=== PATIENT | male | born 1940 | race Caucasian/White ===

== ENCOUNTER 2019-05-14 10:15 | Emergency (ER) | payer MEDICARE, OTHER, SELFPAY ==
--- NOTE | ~2019-05-14 | XR_ITS ---
XR chest 2V DATE: 05/14/2019 11:27 INDICATION: Cough for 10 days TECHNIQUE: PA and lateral views COMPARISON: None FINDINGS: Heart size is borderline. There is aortic calcification and ectasia. No hilar or mediastina l enlargement is evident. No pulmonary infiltrate or consolidation, pleural effusion or pulmonary vascular congestion or pneumo thorax. There is degenerative spurring of the thoracic spine. IMPRESSION: No active pulmonary disease Reviewed, dictated and finalized at location A. IMPRESSION: No active pulmonary disease
[2019-05-14 11:05] VITALS: BP 147/79; PULSE 68; RESP 20; TEMP 36.7; O2SAT 98
--- NOTE | 2019-05-14 11:20 | ED.URI ---
HPI - URI/Sore Throat General Chief Complaint: Upper Respiratory Infection Stated Complaint: COUGH/SORE THROAT Time Seen by Provider: 05/14/19 11:12 Source: patient and RN notes reviewed Mode of arrival: ambulatory Limitations: no limitations History of Present Illness HPI Narrative: Patient presents today complaining of a 10-day history of productive cough with green sputum, postnasal drip. Denies shortness of breath, fever, congestion, rhinorrhea. He has not been taking any pbsn-vyw-nitgvid medications for symptoms prior to arrival. Denies any history of asthma or COPD. He is a non-smoker. MD elicited complaint: cough Related Data Home Medications Medication Instructions Recorded Confirmed atorvastatin 20 mg DAILY 05/14/19 05/14/19 febuxostat [Uloric] 40 mg DAILY 05/14/19 05/14/19 glipizide 10 mg DAILY 05/14/19 05/14/19 lisinopril 40 mg DAILY 05/14/19 05/14/19 nifedipine 30 mg PO DAILY 05/14/19 05/14/19 Allergies Allergy/AdvReac Type Severity Reaction Status Date / Time No Known Allergies Allergy Unknown Verified 11/27/16 11:24 Review of Systems Review of Systems: Narrative: CONSTITUTIONAL: Denies body aches, fever, chills, or sweats. EYES: Denies visual changes, redness, or discharge. ENT: Denies rhinorrhea, congestion, sore throat, or otalgia. CARDIOVASCULAR: Denies chest pain, palpitations, or edema. RESPIRATORY: Denies dyspnea.+ Cough GASTROINTESTINAL: Denies abdominal pain, nausea, vomiting, or diarrhea. GENITOURINARY: Denies dysuria or hematuria. SKIN: Denies rash, itching, or wounds. MUSCULOSKELETAL: Denies back pain, joint pain, or myalgia. NEUROLOGIC: Denies headache, numbness, tingling, or weakness. PSYCH: Denies depression or anxiety. [facility] Family History Family History (Updated 02/08/17 @ 09:10 by DOCTOR UNKNOWN) Other Family history of malignant neoplasm Social History Social History Smoking status: Never smoker Alcohol intake: current Gender identity (if verbalized by the patient): Male Comments At time of signature, I have reviewed and agree with nursing past medical, surgical, social and family history unless otherwise noted. Please see nursing chart for further information. There is no relevant family history pertinent to the presenting complaint Exam Narrative: Exam Narrative: GENERAL: Well-appearing, well-nourished, and in no acute distress. HEAD: Normocephalic, atraumatic. EYES: EOMI. No redness or drainage. Conjunctivae normal. ENT: Mucous membranes pink and moist. Nares clear. No rhinorrhea. Severe bilateral cerumen impactions. Throat normal. Uvula midline. NECK: Normal AROM. Supple. No lymphadenopathy. CHEST: No respiratory distress. Clear to auscultation. HEART: Regular rate and rhythm. No murmur appreciated. Normal peripheral pulses. EXTREMITIES: Normal range of motion. No edema. SKIN: Warm, dry, no rash. NEURO: No focal deficits. Alert and oriented x3. Gait steady. PSYCH: Normal affect. No signs of depression or anxiety. Course Vital Signs Vital signs: Vital Signs Temperature 98.1 F 05/14/19 11:05 Pulse Rate 68 05/14/19 11:05 Respiratory Rate 20 05/14/19 11:05 Blood Pressure 147/79 H 05/14/19 11:05 Pulse Oximetry 98 05/14/19 11:05 Temperature 98.1 F 05/14/19 11:05 Pulse Rate 68 05/14/19 11:05 Respiratory Rate 20 05/14/19 11:05 Blood Pressure 147/79 H 05/14/19 11:05 Pulse Oximetry 98 05/14/19 11:05 Reviewed. Pt has been instructed to follow up with his PCP regarding his elevated blood pressure today. Procedures Ear Wax Removal Both Ears: Ear Wax Removal Date: 05/14/19 Ear Wax Removal Time: 11:42 Results: Re-examined: other (Attempted) TM Examination: other (Unable to visualize) Complications: other (Coughing and nausea) Additional Comments: Attempted to remove cerumen from both ear canals with a curette. Every time I would touch the cerumen, patient would cough so siegel
== END 2019-05-14 11:52 | disposition home or self-care (01) ==
PROVIDERS: Emergency Provider Nurse Practitioner
DX: J40 Bronchitis, not specified as acute or chronic (principal); H61.23 Impacted cerumen, bilateral; J06.9 Acute upper respiratory infection, unspecified; I25.10 Atherosclerotic heart disease of native coronary artery without angina pectoris; E78.00 Pure hypercholesterolemia, unspecified; I10 Essential (primary) hypertension
CPT/HCPCS: 69210; 71046; 99213; G0463

== ENCOUNTER 2019-06-16 10:08 | Emergency (ER) | payer MEDICARE, OTHER, SELFPAY ==
[2019-06-16 10:12] VITALS: TEMP 36.5
--- NOTE | 2019-06-16 10:20 | ED.GENADULT ---
HPI - General Adult General Chief complaint: Upper Respiratory Infection Stated complaint: Sinuis Infection Time Seen by Provider: 06/16/19 10:21 Source: patient and RN notes reviewed Mode of arrival: ambulatory Limitations: no limitations History of Present Illness HPI narrative: This is a 79 years old male presents to the office for an evaluation of persistent sinus congestion.Symptoms were not better or worse since the last time he was here. He did not take anything otc for his symptoms. He has an appointment with ENT on 06/22; but he does not think he can wait that long. I reviewed patient's previous visit. HPI - URI/Sore Throat General Chief Complaint: Upper Respiratory Infection Stated Complaint: COUGH/SORE THROAT Time Seen by Provider: 05/14/19 11:12 Source: patient and RN notes reviewed Mode of arrival: ambulatory Limitations: no limitations History of Present Illness HPI Narrative: Patient presents today complaining of a 10-day history of productive cough with green sputum, postnasal drip. Denies shortness of breath, fever, congestion, rhinorrhea. He has not been taking any kviy-bzz-rrftztm medications for symptoms prior to arrival. Denies any history of asthma or COPD. He is a non-smoker. MD elicited complaint: cough Related Data Home Medications Medication Instructions Recorded Confirmed atorvastatin 20 mg DAILY 05/14/19 05/14/19 febuxostat [Uloric] 40 mg DAILY 05/14/19 05/14/19 glipizide 10 mg DAILY 05/14/19 05/14/19 lisinopril 40 mg DAILY 05/14/19 05/14/19 nifedipine 30 mg PO DAILY 05/14/19 05/14/19 Allergies Allergy/AdvReac Type Severity Reaction Status Date / Time No Known Allergies Allergy Unknown Verified 06/16/19 10:43 Review of Systems Review of Systems: Narrative: CONSTITUTIONAL: Denies fever, chills ENT: Reports sinus drainage, ears clogged CARDIOVASCULAR: Denies chest pain RESPIRATORY: Denies dyspnea, wheezing. Reports cough GASTROINTESTINAL: Denies abdominal pain, nausea, vomiting, diarrhea. GENITOURINARY: Denies urinary symptoms SKIN: Denies rash MUSCULOSKELETAL: Denies acute back pain NEUROLOGIC: Denies lightheaded PMFSH Past Medical History Medical History (Updated 06/16/19 @ 10:47 by JOSEP Tavarez) CAD (coronary artery disease) Diabetes mellitus, type II HLD (hyperlipidemia) HTN (hypertension) Hx of gout Hx of prostatic malignancy Surgical History Surgical History (Updated 06/16/19 @ 10:47 by JOSEP Tavarez) Hx of tonsillectomy Family History Family History Other Family history of malignant neoplasm Social History Social History Smoking status: Never smoker Alcohol intake: current Gender identity (if verbalized by the patient): Male Comments At time of signature, I agree with nursing past medical, surgical, social and family history. There is no relevant family history pertinent to the presenting complaint. Exam Narrative: Exam Narrative: GENERAL: This is a well-nourished, well-developed patient, in no apparent distress. EARS: External ears normal,bilateral TMs noted cerumen impaction. NOSE: External nose normal with no obvious nasal discharge, nares erythema and edematous THROAT: Mucous membranes moist, posterior pharynx pink with drainage NECK: Neck supple, non-tender without lymphadenopathy, masses or thyromegaly. CARDIOVASCULAR: Regular rate and rhythm without murmurs, gallops, or rubs. RESPIRATORY: Clear to auscultation. Breath sounds equal bilaterally. No wheezes, rales, or rhonchi. GASTROINTESTINAL: Abdomen soft, non-tender, nondistended. Bowel sounds are active. No guarding. SKIN: warm, intact with no suspicious lesions or rash, good texture and turgor. NEURO: awake, alert, and oriented to person, place and time. There were no obvious focal neurologic abnormalities. Steady gait [place] Coma Scale Eye Opening: Sp
[2019-06-16 10:22] VITALS: BP 155/65; PULSE 93; RESP 20; O2SAT 98
== END 2019-06-16 10:48 | disposition home or self-care (01) ==
PROVIDERS: Emergency Provider Nurse Practitioner
DX: H61.23 Impacted cerumen, bilateral (principal); J32.4 Chronic pansinusitis; I25.10 Atherosclerotic heart disease of native coronary artery without angina pectoris; E11.9 Type 2 diabetes mellitus without complications; E78.5 Hyperlipidemia, unspecified; I10 Essential (primary) hypertension; Z85.46 Personal history of malignant neoplasm of prostate; Z79.84 Long term (current) use of oral hypoglycemic drugs
CPT/HCPCS: 69209; 99213; G0463

== ENCOUNTER 2019-07-14 10:42 | Outpatient (CLI) | payer MEDICARE, OTHER, SELFPAY ==
[2019-07-14 11:01] LABS: Basophils Absolute Auto 0.1 K/mm3 (0.0-0.1); Basophils Percent Auto 1.3 % (0.2-1.2); Eosinophils Absolute Auto 0.2 K/mm3 (0-0.3); Eosinophils Percent Auto 3.8 % (0-4.4); Hemoglobin 11.9 g/dL (14.0-18.0); Immature Granulocyte Absolute 0.02 K/mm3 (0.00-0.031); Immature Granulocyte Percent A 0.4 % (0-0.5); Immature Platelet Fraction Pct 12.1 % (0.9-11.2); Lymphocytes Absolute Auto 1.26 K/mm3 (0.9-3.2); Lymphocytes Percent Auto 26.5 % (18.3-44.2); Mean Corpuscular Hemoglobin 31.7 pg (26-34); Mean Corpuscular Volume 93.3 fl (80-100); Mean Platelet Volume 12.6 fl (7.4-10.4); Monocytes Absolute Auto 0.5 K/mm3 (0.1-0.6); Monocytes Percent Auto 11.1 % (2.6-8.5); Neutrophils Absolute Auto 2.7 K/mm3 (1.3-6.7); Neutrophils Percent Auto 56.9 % (45.5-73.1); Platelet Count Result 94 k/mm3 (150-375); Red Blood Count 3.75 M/mm3 (4.6-6.20); Red Cell Distribution Width 16.3 % (11.5-14.5); White Blood Count 4.8 K/mm3 (4.5-10.0)
[2019-07-14 11:09] LABS: Hemoglobin A1C 7.9 % (<5.7)
[2019-07-14 11:12] LABS: Alanine Aminotransferase 13 U/L (4-50); Albumin Level 4.2 g/dL (3.5-5.1); Alkaline Phosphatase 54 U/L (38-126); Aspartate Amino Transferase 17 U/L (17-59); Bilirubin,Total 0.6 mg/dL (0.2-1.3); Blood Urea Nitrogen 14 mg/dL (9-20); Calcium 9.2 mg/dL (8.4-10.2); Carbon Dioxide 30 mmol/L (22-30); Chloride 101 mmol/L (98-107); Estimated Glomerular Filt Rate > 60; Glucose 283 mg/dL (75-110); Potassium 4.1 mmol/L (3.4-5.0); Sodium 138 mmol/L (137-145)
== END 2019-07-14 10:43 | disposition home or self-care (01) ==
DX: I10 Essential (primary) hypertension (principal); D69.6 Thrombocytopenia, unspecified; E11.9 Type 2 diabetes mellitus without complications
CPT/HCPCS: 36415; 80053; 83036; 85025; 85055

== ENCOUNTER 2021-07-18 08:40 | Outpatient (CLI) | payer MEDICARE, OTHER, SELFPAY ==
--- NOTE | 2021-07-18 | ECHO_ITS ---
Patient Info Name: Tai Naqvi Ormrod Age: 81 years : 1940 Gender: Male Ht: 69 in Wt: 210 lbs BSA: 2.18 m2 HR: 99 bpm BP: 157 / 67 mmHg Heart Rhythm: Sinus Rhythm Technical Quality: Fair Exam Date: 07/18/2021 9:05 AM Exam Location: [facility] Patient Status: Outpatient Admit Date: 07/18/2021 Staff Ordering Physician: LauraPatricia MD Associate Field Service Engineer: Arielle Victoria RDCS Attending Provider: Laura, Patricia Bledsoe MD Referring Physician: Laura DOSHI; Exam Type: CA echo doppler color flow Study Info Indications R01.1 - Cardiac murmur, unspecified Complete two-dimensional, color flow and Doppler transthoracic echocardiogram is performed. Summary 1. Complete two-dimensional, color flow and Doppler transthoracic echocardiogram is performed. 2. Left ventricular systolic function is normal, estimated at 60-65%. 3. Left ventricular chamber dimension is normal. 4. Left atrial chamber dimension is mildly enlarged. 5. There is mild aortic valve sclerosis. 6. There is mild aortic valve regurgitation. Left Ventricle Left ventricular chamber dimension is normal. Left ventricular systolic function is normal, estimated at 60-65%. The left ventricular diastolic function is grade I diastolic dysfunction. Right Ventricle Right ventricular chamber dimension is normal. Left Atria Left atrial chamber dimension is mildly enlarged. Right Atria Right atrial chamber dimension is normal. Aortic Valve The aortic valve is trileaflet. There is mild aortic valve sclerosis. There is mild aortic valve regurgitation. Pulmonic Valve The pulmonic valve is not well visualized. Mitral Valve The mitral valve has normal leaflets. The mitral valve annulus is mildly calcified. Tricuspid Valve The tricuspid valve leaflets are normal. Pericardium/Pleural The pericardium appears normal. Aorta The aortic root size at the sinus of Valsalva is normal. Left Ventricular Outflow Tract Name Value Normal LVOT 2D LVOT Diameter 2.0 cm LVOT Doppler LVOT Peak Gradient 8 mmHg LVOT Mean Gradient 4 mmHg LVOT VTI 34 cm LVOT VTI/AV VTI Ratio 0.8 LVOT Stroke Volume 108 ml LVOT CO 6.3 l/min LVOT CI 2.9 l/min/m2 Pulmonic Valve Name Value Normal RVOT Doppler RVOT Peak Gradient 3 mmHg PV Doppler PV Peak Gradient 5 mmHg Mitral Valve Name Value Normal
== END 2021-07-18 08:41 | disposition home or self-care (01) ==
LOC: ANHCARD 08:42
PROVIDERS: PCP Family Medicine; Visit Provider Family Medicine
DX: N18.2 Chronic kidney disease, stage 2 (mild) (principal); Q61.02 Congenital multiple renal cysts; R01.1 Cardiac murmur, unspecified; I35.1 Nonrheumatic aortic (valve) insufficiency
CPT/HCPCS: 93306

== ENCOUNTER 2021-12-19 09:52 | Outpatient (CLI) | payer MEDICARE, OTHER, SELFPAY ==
--- NOTE | 2021-12-19 11:30 | NEURO_ITS ---
Impression: # Complains of numbness of hands and feet. 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 # No Carpal Tunnel Syndrome. # Needle/EMG exam mildly neurogenic distally. Nerve Conduction Studies Anti Sensory Summary Table Stim Site NR Peak (ms) P-T Amp (?V) Site1 Site2 Delta-P (ms) Dist (cm) Clay (m/s) Left Median Anti Sensory (2-3nd Digit) Wrist 3.4 15.2 Wrist 2-3nd Digit 3.4 14.0 41 Wrist 3.5 19.3 Wrist 2-3nd Digit 3.4 14.0 41 Right Median Anti Sensory (2-3nd Digit) Wrist 3.7 18.3 Wrist 2-3nd Digit 3.7 14.0 38 Wrist 3.8 17.8 Wrist 2-3nd Digit 3.7 14.0 38 Left Radial Anti Sensory (Base 1st Digit) Wrist 2.4 13.2 Wrist Base 1st Digit 2.4 0.0 Right Radial Anti Sensory (Base 1st Digit) Wrist 2.7 18.1 Wrist Base 1st Digit 2.7 0.0 Left Sup Fibular Anti Sensory (Ant Lat Mall) 14 cm 3.6 11.6 14 cm Ant Lat Mall 3.6 16.0 44 Right Sup Fibular Anti Sensory (Ant Lat Mall) 14 cm 3.4 7.4 14 cm Ant Lat Mall 3.4 16.0 47 Left Sural Anti Sensory (Lat Mall) Calf 3.9 9.6 Calf Lat Mall 3.9 16.0 41 Right Sural Anti Sensory (Lat Mall) Calf 4.0 13.0 Calf Lat Mall 4.0 16.0 40 Left Ulnar Anti Sensory (5th Digit) Wrist 3.0 28.7 Wrist 5th Digit 3.0 14.0 47 Right Ulnar Anti Sensory (5th Digit) Wrist 3.0 21.5 Wrist 5th Digit 3.0 14.0 47 Motor Summary Table Stim Site NR Onset (ms) O-P Amp (mV) Site1 Site2 Delta-0 (ms) Dist (cm) Clay (m/s) Left Median Motor (Abd Poll Brev) Wrist 3.8 0.8 Elbow Wrist 5.7 31.0 54 Elbow 9.5 0.7 Right Median Motor (Abd Poll Brev) Wrist 3.9 1.4 Elbow Wrist 5.4 27.0 50 Elbow 9.3 1.3 Left Peroneal Motor (Vastus Med) Ankle 5.1 2.0 Popit Ankle 9.3 39.0 42 Popit 14.4 1.7 Right Peroneal Motor (Vastus Med) Ankle 5.6 1.9 Popit Ankle 8.7 36.0 41 Popit 14.3 1.3 Left Tibial Motor (Abd Catalan Brev) Ankle 5.1 0.3 Knee Ankle 10.2 41.0 40 Knee 15.3 0.5 Right Tibial Motor (Abd Catalan Brev) Ankle 5.2 2.8 Knee Ankle 10.3 41.0 40 Knee 15.5 1.9 Left Ulnar Motor (Abd Dig Minimi) Wrist 3.3 5.2 A Elbow Wrist 5.3 29.0 55 A Elbow 8.6 4.5 Right Ulnar Motor (Abd Dig Minimi) Wrist 3.0 4.3 A Elbow Wrist 5.8 28.0 48 A Elbow 8.8 3.5 B Elbow Wrist 4.1 21.0 51 B Elbow 7.1 3.3 F Wave Studies NR F-Lat (ms) L-R F-Lat (ms) Left Median (Mrkrs) (Abd Poll Brev) 31.56 0.49 Right Median (Mrkrs) (Abd Poll Brev) 31.07 0.49 Left Peroneal (Mrkrs) (EDB) 62.08 1.29 Right Peroneal (Mrkrs) (EDB) 63.37 1.29 Left Tibial (Mrkrs) (Abd Hallucis) 62.87 0.39 Right Tibial (Mrkrs) (Abd Hallucis) 62.48 0.39 Left Ulnar (Mrkrs) (Abd Dig Min) 31.13 0.17 Right Ulnar (Mrkrs) (Abd Dig Min) 31.31 0.17 EMG Side Muscle Nerve Root Ins Act Fibs Amp Dur Recrt Comment Right 1stDorInt Ulnar C8-T1 Nml Nml Nml Nml Nml Right Ext Indicis Radial (Post Int) C7-8 Nml Nml Nml Nml Nml Right Ext Digitorum Radial (Post Int) C7-8 Nml Nml Nml Nml Nml Right BrachioRad Radial C5-6 Nml Nml Nml Nml Nml Right PronatorTeres Median C6-7 Nml Nml Nml Nml Nml Right A
== END 2021-12-19 09:53 | disposition home or self-care (01) ==
LOC: ANHNEURO 09:54
PROVIDERS: PCP Family Medicine; Visit Provider Family Medicine
DX: E11.40 Type 2 diabetes mellitus with diabetic neuropathy, unspecified (principal)
CPT/HCPCS: 95886; 95913

== ENCOUNTER 2021-12-26 11:40 | Outpatient (CLI) | payer MEDICARE, OTHER, SELFPAY ==
[2021-12-26 12:13] LABS: Basophils Absolute Auto 0.1 K/mm3 (0.0-0.1); Eosinophils Absolute Auto 0.1 K/mm3 (0-0.3); Eosinophils Percent Auto 1.4 % (0-4.4); Hemoglobin 10.6 g/dL (14.0-18.0); Immature Granulocyte Absolute 0.03 K/mm3 (0.00-0.031); Immature Granulocyte Percent A 0.6 % (0-0.5); Immature Platelet Fraction Pct 20.1 % (0.9-11.2); Lymphocytes Absolute Auto 1.17 K/mm3 (0.9-3.2); Lymphocytes Percent Auto 23.3 % (18.3-44.2); Mean Corpuscular HGB Conc 34.2 g/dl (32-36); Mean Corpuscular Hemoglobin 29.8 pg (26-34); Mean Corpuscular Volume 87.1 fl (80-100); Monocytes Absolute Auto 0.6 K/mm3 (0.1-0.6); Monocytes Percent Auto 12.7 % (2.6-8.5); Neutrophils Absolute Auto 3.1 K/mm3 (1.3-6.7); Platelet Count Result 80 k/mm3 (150-375); Red Blood Count 3.56 M/mm3 (4.6-6.20); Red Cell Distribution Width 19.5 % (11.5-14.5)
[2021-12-26 12:23] LABS: Alanine Aminotransferase 20 U/L (6-50); Albumin Level 4.3 g/dL (3.5-5.1); Alkaline Phosphatase 47 U/L (38-126); Anion Gap 10 mmol/L (8-16); Aspartate Amino Transferase 19 U/L (17-59); Bilirubin,Total 0.8 mg/dL (0.2-1.3); Blood Urea Nitrogen 21 mg/dL (9-20); Calcium 8.6 mg/dL (8.4-10.2); Carbon Dioxide 26 mmol/L (22-30); Chloride 100 mmol/L (98-107); Cholesterol 134 mg/dL (0-200); Estimated Glomerular Filt Rate > 60; Glucose 351 mg/dL (65-110); HDL Direct 40 mg/dL; Potassium 4.3 mmol/L (3.4-5.0); Sodium 136 mmol/L (137-145); Triglycerides 154 mg/dL (<150)
[2021-12-26 12:35] LABS: LDL Cholesterol Direct 73 mg/dL
[2021-12-26 13:15] LABS: Hemoglobin A1C 8.2 % (<5.7)
[2021-12-30 10:02] LABS: Vitamin B6 19.9 ng/mL (2.1-21.7)
[2021-12-30 12:33] LABS: Vitamin B1 17 nmol/L (8-30)
== END 2021-12-26 11:41 | disposition home or self-care (01) ==
PROVIDERS: PCP Family Medicine; Visit Provider Student in an Organized Health Care Education/Training Program
DX: G62.9 Polyneuropathy, unspecified (principal); E11.9 Type 2 diabetes mellitus without complications
CPT/HCPCS: 36415; 80053; 80061; 82607; 83036; 84207; 84425; 84443; 85025; 85055; 86334; 86335

== ENCOUNTER 2022-02-20 11:46 | Emergency (ER) | payer MEDICARE, OTHER, SELFPAY ==
[2022-02-20 12:04] VITALS: BP 140/56; PULSE 80; RESP 19; TEMP 36.9; O2SAT 99
--- NOTE | 2022-02-20 12:17 | ED.GENADULT ---
HPI - General Adult General Chief complaint: Skin/Abscess/Foreign Body Stated complaint: groin discomfort Time Seen by Provider: 02/20/22 12:18 Source: patient and RN notes reviewed Mode of arrival: ambulatory Limitations: no limitations History of Present Illness HPI narrative: 82-year-old male presented for complaint of itching and redness to the penis and foreskin for about 10 days. He has tried bacitracin without relief. He states he has had this in the past but usually goes away before 10 days. He denies pain or inability to retract the foreskin, swelling or urinary complaints. Related Data Home Medications Medication Instructions Recorded Confirmed atorvastatin 20 mg tablet 20 mg DAILY 05/14/19 02/20/22 febuxostat 40 mg tablet (Uloric) 40 mg DAILY 05/14/19 02/20/22 glipizide 10 mg tablet 10 mg DAILY 05/14/19 02/20/22 lisinopril 40 mg tablet 40 mg DAILY 05/14/19 02/20/22 nifedipine 30 mg tablet,extended 30 mg PO DAILY 05/14/19 02/20/22 release doxycycline hyclate 50 mg capsule 50 mg PO DAILY 12/14/20 02/20/22 empagliflozin 10 mg tablet 10 mg PO DAILY 02/20/22 02/20/22 (Jardiance) Allergies Allergy/AdvReac Type Severity Reaction Status Date / Time No Known Allergies Allergy Unknown Verified 02/20/22 11:59 Review of Systems Review of Systems: ROS per HPI [facility] Past Medical History Medical History CAD (coronary artery disease) Diabetes mellitus, type II HLD (hyperlipidemia) HTN (hypertension) Hx of gout Hx of prostatic malignancy Surgical History Surgical History History of prostate surgery Hx of inguinal hernia surgery 77 or 78 Hx of tonsillectomy Family History Family History Father Heart failure Mother Colon cancer Other Family history of malignant neoplasm Social History Social History Smoking status: Never smoker Alcohol intake: current Substance use: unknown Gender identity (if verbalized by the patient): Male Comments At time of signature, I have reviewed and agree with nursing past medical, surgical, social and family history unless otherwise noted. Please see nursing chart for further information. There is no relevant family history pertinent to the presenting complaint Exam Narrative: GENERAL: Well-appearing ENT: Mucous membranes pink and moist. NECK: Normal AROM. Supple. CHEST: No respiratory distress. Clear to auscultation. HEART: Regular rate and rhythm. ABDOMEN: Soft, nontender, nondistended, normal active bowel sounds. No CVA tenderness : Mild erythema to glans and foreskin; no discharge or tenderness; foreskin retractable; chaperoned by GABRIELA Macias SKIN: Warm, dry, no rash. NEURO: No focal deficits. Alert and oriented x3. Gait steady. PSYCH: Normal affect. Course Course Emergency Course: Patient is aware of diagnosis, understands and agrees to treatment plan. Anticipatory guidance given. Patient agrees to follow-up as directed and is aware of reasons to seek care at the emergency department. Portions of this record may have been created with voice recognition software Level of Care: Express Care Visit Vital Signs Vital signs: Vital Signs Temperature 98.4 F 02/20/22 12:04 Pulse Rate 80 02/20/22 12:04 Respiratory Rate 19 02/20/22 12:04 Blood Pressure 140/56 L 02/20/22 12:04 Pulse Oximetry 99 02/20/22 12:04 Oxygen Delivery Room Air 02/20/22 12:04 Temperature 98.4 F 02/20/22 12:04 Pulse Rate 80 02/20/22 12:04 Respiratory Rate 19 02/20/22 12:04 Blood Pressure 140/56 L 02/20/22 12:04 Pulse Oximetry 99 02/20/22 12:04 Oxygen Delivery Room Air 02/20/22 12:04 Reviewed Medical Decision Making MDM Narrative Medical decision making narrative: Advised supportive andrez
== END 2022-02-20 12:28 | disposition home or self-care (01) ==
PROVIDERS: Emergency Provider Nurse Practitioner Family; PCP Family Medicine
DX: N48.1 Balanitis (principal); I25.10 Atherosclerotic heart disease of native coronary artery without angina pectoris; E11.9 Type 2 diabetes mellitus without complications; E78.5 Hyperlipidemia, unspecified; I10 Essential (primary) hypertension; M10.9 Gout, unspecified; Z85.46 Personal history of malignant neoplasm of prostate; Z90.79 Acquired absence of other genital organ(s)
CPT/HCPCS: 99213; G0463

== ENCOUNTER 2023-01-23 13:55 | Outpatient (CLI) | payer MEDICARE, OTHER, SELFPAY ==
[2023-01-23 15:03] LABS: Hematocrit 27.6 % (42.0-52.0); Hemoglobin 8.7 g/dL (14.0-18.0); Immature Platelet Fraction Pct 24.2 % (0.9-11.2); Mean Corpuscular HGB Conc 31.5 g/dl (32-36); Mean Corpuscular Hemoglobin 29.6 pg (26-34); Mean Corpuscular Volume 93.9 fl (80-100); Platelet Count Result 60 k/mm3 (150-375); Red Blood Count 2.94 M/mm3 (4.6-6.20); White Blood Count 3.7 K/mm3 (4.5-10.0)
[2023-01-23 15:12] LABS: Alanine Aminotransferase 12 U/L (6-50); Alkaline Phosphatase 35 U/L (38-126); Anion Gap 7 mmol/L (8-16); Aspartate Amino Transferase 16 U/L (17-59); Bilirubin,Total 0.8 mg/dL (0.2-1.3); Blood Urea Nitrogen 20 mg/dL (9-20); Calcium 8.9 mg/dL (8.4-10.2); Carbon Dioxide 29 mmol/L (22-30); Chloride 105 mmol/L (98-107); Estimated Glomerular Filt Rate > 60; Glucose 121 mg/dL (65-110); Potassium 3.9 mmol/L (3.4-5.0); Sodium 141 mmol/L (137-145)
[2023-01-23 17:44] LABS: Anisocytosis 1+ (NORMAL); Band Neutrophils Percent 1 % (0-6); Basophils Absolute Manual 0.11 K/mm3 (0.0-0.1); Basophils Percent Manual 3 % (0-1); Eosinophils Absolute Manual 0.07 K/mm3 (0.02-0.5); Eosinophils Percent Manual 2 % (0-4); Lymphocytes Absolute Manual 0.85 K/mm3 (1.1-4.5); Lymphocytes Percent Manual 23 % (18-44); Monocytes Absolute Manual 0.14 K/mm3 (0.1-0.90); Monocytes Percent Manual 4 % (3-9); Neutrophils Absolute Manual 2.51 K/mm3 (1.3-6.7); Neutrophils Percent Manual 67 % (46-73); Platelet Estimate Decreased (Adequate); Poikilocytosis 1+ (NORMAL); Total Cells Counted 100
[2023-01-23 17:45] LABS: Ovalocytes 1+ (NORMAL)
[2023-01-23 17:48] LABS: Atypical Lymphocytes Present
[2023-01-23 17:54] LABS: Schistocytes Rare (NORMAL)
== END 2023-01-23 13:56 | disposition home or self-care (01) ==
LOC: ANHLAB 14:09
PROVIDERS: PCP Family Medicine; Visit Provider Family Medicine
DX: D69.6 Thrombocytopenia, unspecified (principal)
CPT/HCPCS: 36415; 80053; 85025; 85055

== ENCOUNTER 2023-02-03 07:53 | Outpatient (CLI) | payer MEDICARE, OTHER, SELFPAY ==
[2023-02-03 08:26] LABS: Basophils Absolute Auto 0.1 K/mm3 (0.0-0.1); Basophils Percent Auto 1.8 % (0.2-1.2); Eosinophils Absolute Auto 0.1 K/mm3 (0-0.3); Eosinophils Percent Auto 1.8 % (0-4.4); Hematocrit 29.4 % (42.0-52.0); Hemoglobin 9.4 g/dL (14.0-18.0); Immature Granulocyte Absolute 0.01 K/mm3 (0.00-0.031); Immature Granulocyte Percent A 0.3 % (0-0.5); Immature Platelet Fraction Pct 24.1 % (0.9-11.2); Lymphocytes Absolute Auto 0.97 K/mm3 (0.9-3.2); Lymphocytes Percent Auto 25.6 % (18.3-44.2); Mean Corpuscular Volume 93.9 fl (80-100); Monocytes Absolute Auto 0.7 K/mm3 (0.1-0.6); Monocytes Percent Auto 17.4 % (2.6-8.5); Neutrophils Percent Auto 53.1 % (45.5-73.1); Platelet Count Result 68 k/mm3 (150-375); Red Blood Count 3.13 M/mm3 (4.6-6.20); White Blood Count 3.8 K/mm3 (4.5-10.0)
[2023-02-03 09:16] LABS: Anisocytosis 2+ (NORMAL); Ovalocytes 1+ (NORMAL); Platelet Estimate Decreased (Adequate); Schistocytes None Seen (NORMAL)
[2023-02-03 09:17] LABS: Burr Cells 1+ (NORMAL); Poikilocytosis 1+ (NORMAL)
[2023-02-03 09:25] LABS: Iron 138 ug/dL (49-181)
[2023-02-03 09:28] LABS: Lactate Dehydrogenase 136 U/L (120-246)
[2023-02-03 09:38] LABS: Percent Iron Saturation 48 % (20-50)
== END 2023-02-03 07:54 | disposition home or self-care (01) ==
LOC: ANHLAB 07:57
PROVIDERS: PCP Family Medicine; Visit Provider Family Medicine
DX: D64.9 Anemia, unspecified (principal); D69.6 Thrombocytopenia, unspecified
CPT/HCPCS: 36415; 83540; 83550; 83615; 85025; 85055

== ENCOUNTER 2024-01-03 10:57 | Outpatient (CLI) | payer MEDICARE, OTHER, SELFPAY ==
[2024-01-03 12:51] LABS: Prostate Specific Antigen < 0.1 ng/mL (< OR = 4.0)
== END 2024-01-03 10:58 | disposition home or self-care (01) ==
PROVIDERS: PCP Family Medicine; Visit Provider Urology
DX: C61 Malignant neoplasm of prostate (principal)
CPT/HCPCS: 36415; 84153

== ENCOUNTER 2024-10-18 09:44 | Emergency (ER) | payer MEDICARE, OTHER, SELFPAY ==
--- NOTE | ~2024-10-18 | XR_ITS ---
EXAMINATION: XR chest 2V DATE: 10/18/2024 09:57 INDICATION: Cough TECHNIQUE: PA and lateral views of the chest were obtained. COMPARISON: Chest radiograph dated 05/14/2019 FINDINGS: Left lower lobar opacities in the posterior left lung base concerning for pneumonia. No other airspac e opacities, pulmonary edema, pleural effusion or pneumothorax. The cardiomediastinal silhouette is n ormal. Visualized bones and soft tissues are unremarkable. IMPRESSION: 1. New opacities in the basilar left lower lobe concerning for pneumonia. Reviewed, dictated and finalized at location A.
--- OUTSIDE RECORDS SUMMARY | 2024-10-18 09:47 | XMS_ITS | Encounter Summary ---
Author Organization [facility] Address [address] [place] [address] Phone Care Team Providers Care Cable Respooler Name Role Phone Patricia Sanchez MD Primary Care Prov ider Ct Oliveira TRANSIT POLICE OFFICER Unavailable [phone] Encounter Details Date Type Department Care Team (Late st Contact Info) Description 09/26/2024 Results Follow-Up [facility] [address] [facility] [address] [place] [address] Sarah Delatorre, JULIAN [address] [place] [address] CBC with auto differential, ABO/Rh, Antibody screen, Additional followed-up results: 4 Social History Tobacco Use Types Packs/Day Years Used Date Smoking Tobacco: Never Smokeless Tobacco: Never Alcohol Use Standard Drinks/Week Comments Yes 0 (1 standard drink = 0.6 oz pur e alcohol) AUDIT-C Answer Date Recorded Frequency of Alcohol Consumption Not on file 09/19/2023 Q2: How many drinks containi ng alcohol do you have on a typical day when you are drinking? 1 or 2 Q3: How often do you have si x or more drinks on one occasion? Daily or almost daily 09/19/2023 Sex and Gender Information Value Date Recorded Sex Assigned at Not on file Legal Sex Male 10:48 AM CEO & BOARD DIRECTOR Gender Identity Male 02/09/2020 12:06 PM CEO & BOARD DIRECTOR Sexual Orientation Straight 02/09/2020 12 :06 PM CEO & BOARD DIRECTOR documented as of this encounter Miscellaneous Notes * Result Encounter Note - Sarah Delatorre NP - 09/26/2024 8:30 AM CDT Can we have Dr. Pierre review his labs and see what she recommends? I think we are going to have herfollow up with him. Thanks. documented in this encounter Plan of Treatment Not on file documented as of this encounter Visit Diagnoses Not on filedocumented in this encounter Care Teams Cable Respooler Relationship Specialty Start Date End Date Patricia Sanchez MD PCP - General Family Medicine 07/05/17 Ct Oliveira NP [address] [place] [address] Nurse Practitioner Nurse Practitioner 05/07/23 documented as of this encounter
--- OUTSIDE RECORDS SUMMARY | 2024-10-18 09:47 | XMS_ITS | Clinical Summary ---
Author Organization [facility] Address [address] [place] [address] Care Team Providers Care Flatwork Feeder Name Role Phone Patricia Valdez MD Primary Care Provider Allergies No known active allergies Medications allopurinol 100 MG tablet Active atorvastatin 20 MG tablet 8 Active ULORIC 40 MG tablet 8 Active lisinopril 40 MG tablet 8 Active NIFEdipine 30 MG 24 hr tablet 8 Active cholecalciferol (VITAMIN D-[address]) 25 MCG (1000 UT) Tab tablet Take 2,000 Units by mouth daily. Active glipiZIDE 10 MG tablet 2 Active sildenafil 100 MG tablet 1 Active prednisoLONE acetate 1 % ophthalmic suspension prednisolone acetate 1 % eye drops,suspension Active doxycycline hyclate 50 MG capsule 2 Active Active Problems Problem Noted Date Diagnosed Date Basal cell carcinoma of nose 06/20/2021 Essential hypertension 06/20/2021 History of malignant neoplasm of prostate 2021 Hypercholesterolemia 06/20/2021 Type 2 diabetes mellitus wit hout complication ([facility]) 06/20/2021 Thrombocytopenic disorder 07/04/2017 Gout 10/10/2016 Rosacea 01/11/2016 Nephrolithiasis 06/30/2013 Malignant neoplasm of prostate ([facility]) 03/21/2012 Resolved Problems Problem Noted Date Diagnosed Date Resolved Date Encounter for preventive health examination 01/08/2012 06/27/2021 Family History Relation Status Comments Father Mother Social History Tobacco Use Types Packs/Day Years Used Date Smoking Tobacco: Never Smokeless Tobacco: Never Tobacco Cessation:Counseling Given: Yes Alcohol Use Standard Drinks/Week Comments Yes 3.3 (1 standard drink = 0.6 oz p ure alcohol) PHQ-2 Answer Date Recorded PHQ-2 Score - If the patient scores above 3, please move on to questions 3-9 0 06/20/2021 Sex and Gender Information Value Date Recorded Sex Assigned at Not on file Legal Sex Male 7:35 PM CDT Gender Identity Male 06/20/2021 5:50 AM CDT Sexual Orientation Straight 06/20/2021 5: 50 AM CDT Last Filed Vital Signs Vital Sign Reading Time Taken Comments Blood Pressure 130/80 07/08/2021 9:14 AM CDT Pulse 70 07/08/2021 9:14 AM CDT Temperature 36.1 C (96.9 F) 07/08/2021 9:14 AM CDT Respiratory Rate 20 07/08/2021 9:14 AM CDT Oxygen Saturation 98% 07/08/2021 9:14 AM CDT Inhaled Oxygen Concentration - - Weight 93.4 kg (206 lb) 07/08/2021 9:14 AM CDT Height 175.3 cm (5' 9) 07/08/2021 9:14 AM CDT Body Mass Index 30.42 07/08/2021 9:14 AM CDT Plan of Treatment Health Maintenance Due Date Last Done Comments Kidney Health Evaluation 1940 Hemoglobin A1C 1940 Lipid Panel 1940 Diabetes: Retinopathy Eye Exam 1957 DTaP, Tdap and Td Vaccines (1 - Tdap) 1958 Annual Medicare Wellness Visit 01/25/2004 RSV Immunization or 60+ Years (1 - 1-dose 75+ series) 2014 Zoster Vaccines (2 of 3) 07/21/2015 05/26/2015 COVID-19 Vaccine ( - season) 2023 11/18/2020, 06/11/2020, 05/14/2020, Additional history exists Pneumococcal Vaccine: 50+ Years Completed 11/20/2018, 05/16/2016 Meningococcal B Vaccine Aged Out No l onger eligible based on patient's age to complete this topic Meningococcal Vaccine Aged Out No fabiana brian eligible based on patient's age to complete this topic RSV Immunizations Under 20 Months Aged Out No longer eligible based on patient's age to complete this topic Insurance MEDICARE [facility] Care Teams Flatwork Feeder Relationship Specialty Start Date End Date Patricia Valdez MD [address] [place] [id number] PCP - General 03/13/16
--- OUTSIDE RECORDS SUMMARY | 2024-10-18 09:47 | XMS_ITS | Continuity of Care Document ---
Author Name [facility] Organization [facility] Care Team Providers Care Call Or Contact Centre Manager Name Role Phone [facility] Unavailable Unavailable Problems Combined list of problems from Department [facility] and [facility] facilities. It does not include entries that were removed or entered in error. Problem Status Onset Date Problem Type Date of Resolution Comments Source Patient Counseling: Inactive Condition D oD visit for: screening exam cardiovascular disorders Inactive Condition [facility] Medications Combined list of outpatient medications from [facility] and [facility] facilities.Medications provided include 1) outpatient medications from the last 15 months, and 2) patient-reported medications. Medication Details Route Status Patient Instructions Prescription Expires Prescription Number Last Dispense Date Ordering Provider Order Date Order Qty Source dulaglutide 3 mg/0.5 mL pen [4EA=2mL] See Instruct ions, # 2 mL, 10 total refill(s ), Soft Stop Notes: refriger ate Ordered 5 2024 2.0 Ambulat ory Pharmac y dulaglutide 3 mg/0.5 mL pen [4EA=2mL] See Instruct ions, # 6 mL, 4 total refill(s ), Hard Stop Notes: refriger ate Complet ed 05/30/2024 5 2024 6.0 Ambulat ory Pharmac y Allergies, Adverse Reactions, Alerts Combined list of allergies from Department of Defense and [facility] facilities. It does not include entries that were removed or entered in error. Substance Category Reaction Severity Reaction type Status Date Reported Comments Source No Known Allergies Drug allergy (disorder) active 04/02/2007 [employer] Immunizations Combined list of available immunizations from the Department of Defense and [facility] facilities. Immunization Series Date Given Administered By Site Reaction Lot Number CVX Code Drug Farmworker Vegetable Status Comments Source RSV vaccine preF3, recombinant 2022 303 GlaxoSmithKli ne complet ed RSV vaccine preF3, recombina nt 02/08/23 Given Ambulat ory Pharmac y influenza, high-dose seasonal, quad, pf 2022 197 sanofi pasteur complet ed influenza , high-dose seasonal, quad, pf 11/20/22 Given Ambulat ory Pharmac y influenza, high-dose seasonal, quad, pf 2021 197 sanofi pasteur complet ed influenza , high-dose seasonal, quad, pf 11/01/21 Given Ambulat ory Pharmac y zoster vaccine, inactivated 2021 187 complet ed zoster vaccine, inactivat ed 05/09/21 Given Ambulat ory Pharmac y zoster recombinant 2021 ALUL, () Not Given zoster recombina nt DoD zoster vaccine, inactivated 2020 187 complet ed zoster vaccine, inactivat ed 01/08/21 Given Ambulat ory Pharmac y zoster recombinant 2020 ALUL, () Not Given zoster recombina nt DoD zoster vaccine, inactivated 2020 187 complet ed zoster vaccine, inactivat ed 12/25/20 Given Ambulat ory Pharmac y zoster recombinant 2020 ALUL, () Not Given zoster recombina nt DoD influenza virus vaccine,split 2005 15 complet ed influenza virus vaccine,s plit 02/06/06 Given Ambulat ory Pharmac y influenza virus vaccine, split virus (incl. purified surface antigen)-reti red CODE 1 2005 Unknown, Provider 15 Transcribed (TRS) complet ed influenza virus vaccine, split virus (incl. purified surface antigen)- retired CODE DoD pneumococcal polysaccharid e, 23 valent 2003 zTanya Arm [id number] Merck & Company Inc complet ed pneumococ palomo polysacch aride, 23 valent 02/16/04 Given Ambulat ory Pharmac y influenza virus vaccine, whole virus 2003 zzL t Arm [id number] 16 sanofi pasteur complet ed influenza virus vaccine, whole virus 02/16/04 Given Ambulat ory Pharmac y influenza virus vaccine, whole virus 1 2003 Unknown, Provider [id number] 16 Sanofi Pasteur ([facility]) complet ed influenza virus vaccine, whole virus DoD pneumococcal polysaccharid e vaccine, 23 valent 1 2003 Unknown, Provider [id number] 33 Merck (MSD) complet ed pneumococ palomo polysacch aride vaccine, 23 valent DoD influenza virus vaccine, whole virus 2001 zMichael t Arm [id number] 16 [employer] complet ed influenza virus vaccine, whole virus 04/01/01 Given Ambulat ory Pharmac y influenza virus vaccine, whole virus 1 2001 Unknown, Provider [id number] 16 Harris (ALEK) complet ed influenza virus vaccine, whole virus DoD Encounters Combined list of: 1) Encounters from Department of Veterans Affairs facilities going backup to the last 18 months, not all [facility] inpatient encounters are included; 2) Encounters from the Department of Defense facilities going backup to 280 months. Location Location Details Encounter Type Encounter Number Reason For Visit Attending Provider ADM Date DC Date Status Disposition Source [address] [place] [address] Clemente HILLIARD ([facility]) OUTPATIENT [id number] ekg civ ISIDRO WILKES 10/07 Released w/o Limitations [address] [place] [address] Clemente HILLIARD ([facility]diogr am [facility]) [facility] OUTPATIENT [id number] B/P ESPERANZA CODY JR 10/21 Released w/o Limitations [facility]) [facility] Outpatient Encounter [id number] 05/28 [facility] Procedures Combined list of: 1) Procedures from Department of Veterans Affairs facilities going back up to thelast 18 months, not all [place] non-surgical procedures are included; 2) All procedures from the Department of [facility] facilities. Procedure Procedure Type Code Date Perfomer Comments Sourc e No data available for this section Ambulatory Pharmacy Venous Pre ure Venous Pressure [id number] 10/22/19 05 ESPERANZA CODY JR [facility] ECG Performance of Tracing Only ECG Performance of Tracing Only [id number] 10/08/19 05 ISIDRO WILKES [facility] ELECTROCARDIOGRAM, ROUTINE ECG WITH AT LEAST 12 LEADS; TRACING ONLY, WITHOUT INTERPRETATION AND REPORT 09/23/19 05 [facility] DETERMINATION OF VENOUS PRESSURE 10/21/19 05 [facility] PHYSICAL THERAPY RE-EVALUATION 04/21/19 05 DoD APPLICATION OF A MODALITY TO 1 OR MORE AREAS; IONTOPHORESIS, EACH 15 MINUTES 04/20/19 05 DoD APPLICATION OF A MODALITY TO 1 OR MORE AREAS; HOT OR COLD PACKS 04/14/19 05 DoD APPLICATION OF A MODALITY TO 1 OR MORE AREAS; IONTOPHORESIS, EACH 15 MINUTES 04/12/19 05 [facility] APPLICATION OF A MODALITY TO 1 OR MORE AREAS; IONTOPHORESIS, EACH 15 MINUTES 04/07/19 05 [facility] PHYSICAL THERAPY EVALUATION 04/05/19 05 [facility] OPHTHALMOLOGICAL SERVICES: MEDICAL EXAMINATION AND EVALUATION WITH INITIATION OF DIAGNOSTIC AND TREATMENT PROGRAM; INTERMEDIATE, NEW PATIENT 03/24/19 05 [facility] DESTRUCT (EG, LASER SURGERY, ELECTROSURGERY, CRYOSURGERY, CHEMOSURGERY, SURGICAL CURETTEMENT), PREMALIGNANT LESIONS (EG, ACTINIC KERATOSES); 2ND THRU 14 LESIONS, EA (LIST SEP ADDITION CD, 1ST LESION) 02/16/20 04 [facility] OPHTHALMOLOGICAL SERVICES: MEDICAL EXAMINATION AND EVALUATION WITH INITIATION OF DIAGNOSTIC AND TREATMENT PROGRAM; COMPREHENSIVE, NEW PATIENT, 1 OR MORE VISITS 03/27/19 04 [facility] TETANUS AND DIPHTHERIA TOXOIDS (TD) ADSORBED WHEN ADMINISTERED TO INDIVIDUALS 7 YEARS OR OLDER, FOR INTRAMUSCULAR USE 02/15/20 [facility] SHAVING OF EPIDERMAL OR DERMAL LESION, SINGLE LESION, TRUNK, ARMS OR LEGS; LESION DIAMETER 0.6 TO 1.0 CM 02/12/20 [facility] OPHTHALMOSCOPY, EXTENDED, WITH RETINAL DRAWING (EG, FOR RETINAL DETACHMENT, MELANOMA), WITH INTERPRETATION AND REPORT; INITIAL 01/17/20 [facility] SIGMOIDOSCOPY, FLEXIBLE; DIAGNOSTIC, INCLUDING COLLECTION OF SPECIMEN(S) BY BRUSHING OR WASHING, WHEN PERFORMED (SEPARATE PROCEDURE) 12/19/19 [facility] BIOPSY, PROSTATE; NEEDLE OR PUNCH, SINGLE OR MULTIPLE, ANY APPROACH 12/06/19 [facility] EDUCATIONAL SUPPLIES, SUCH BOOKS, TAPES, AND PAMPHLETS, FOR THE PATIENT'S EDUCATION AT COST TO PHYSICIAN OR OTHER QUALIFIED HEALTH LOTUS NOTES DEVELOPER 11/29/19 [facility] Social History Combined list of available smoking, tobacco, and other social history from Department of Defense and Veterans Affairs facilities. Social History Type Response Date Comment Sourc e Sexual Orientation Ambula tory Pharmacy Gender identity Ambulator y Pharmacy Sex Representation Male (finding) Un known Organization This section is an empty soc ial history section. DoD Assessment and Plan Combined list of future care activities from Department of Defense and Veterans Affairs facilities (e.g., assessment and plan notes, appointments, orders, and referrals). Additional future care activities may be listed in the Plan of Care section. Result Assessment and Plan Date Source Assessment and Plan No data available for this section 10/18/2024 Ambulatory Pharmacy Functional Status Combined list of recent functional and cognitive assessments recorded at Department of Defense and Veterans Affairs (VA).VA Functional Lottie Measurement (FIM) Scale: 1 = Total Assistance (Subject = 0% +), 2 = Maximal Assistance (Subject = 25% +), 3 = Moderate Assistance (Subject = 50% +), 4 = Minimal Assistance (Subject = 75% +), 5 = Supervision, 6 = Modified Lottie (Device), 7 = Complete Lottie (Timely, Safely). Assessment Date/Time Source Assessment Type Assessment Skill Assessment Score Assessment Details No data available for this section
--- OUTSIDE RECORDS SUMMARY | 2024-10-18 09:47 | XMS_ITS | Patient Health Record ---
Author Organization [facility], Address [address] [place] [address] Care Team Providers Care Supervisor Cold Rolling Name Role Phone SELF, SELF Primary Care Provider Issa Robledo Unavailable [phone] Reason For Referral No Information Plan Of Treatment No Information Insurance Providers Payer Name Payer Address Payer Phone Subscriber Number Group Number Insured Name Patient Relationship to Insured Coverage Start Date Coverage End Date [facility] [id number] [address] [id number] Tai Garay Self - patient is the insured
--- OUTSIDE RECORDS SUMMARY | 2024-10-18 09:47 | XMS_ITS | Continuity of Care Document ---
Author Organization [facility] Address [address] [place] [address] [place] [address] Phone Care Team Providers Care Production Control Manager Name Role Phone Torsten Maradiaga Unavailable Unavailable Procedures Procedure Date Office/outpatient Visit, Est Dilated Retinal Exam W Interpretation Sc Office/outpatient Visit, Est Dilated Retinal Exam W Interpretation Sc No Script Eye Exam & Treatment Refraction Eye Exam, New Patient Advance Directives Directive Yes / No Effective Date File Name No Information Encounters Encounter Description Practice Location Reason(s) For Visit Diagnoses Date Provider Providers Copied on Encounter Office/outpat ient Visit, [facility], [address] [place] [address] [address], [place], [place], [id number], [place] tel:[phone] [facility] No Information 4-201 0 Krishnasamy Torsten. [address], [place], [place], [facility], [place]. tel:[phone] Office/outpat ient Visit, [facility], [address] [place] [address] [address], [place], [place], [id number], [place] tel:[phone] [facility] No Information 3-200 9 Krishnasamy Torsten. [address], [place], [address], [place]. tel:[phone] [facility], [address] [place], [place] [address], [place], [place], [id number], [place] tel:[phone] [facility] No Information 8 Ashwini Sarmiento. [address] [facility] [address], [place], [address], [place]. tel:[phone] [facility], [address], [place], [place], [id number], [place] tel:[phone] [facility] No Information 7 Amor Ken. [address] [facility], [place], [place], [id number], [place]. tel:[phone] Family History Family Member Type Diagnosis Age At Onset No Information Payers Payer name Insurance type Covered alliance party ID Authoriza tion(s) [place] [id number] For Life Mdcr Supp [id number] Social History Type Description Quantity Date Captured [...]
--- OUTSIDE RECORDS SUMMARY | 2024-10-18 09:47 | XMS_ITS | Clinical Summary ---
Author Organization [email or web address] Address [address] [place] [address] Care Team Providers Care American Sign Language Teacher Name Role Phone Unavailable Primary Care Provider Unavailabl e Source Comments [email or web address],non-owned Affiliates and Associated Physician Practices is amultiple site organization consisting of ambulatory clinics and hospital sitesin [place], [place], [place] and [place]. This disclosure is being madepursuant to the Care Everywhere program and may not contain all information available regarding this patient. Last updated 17.[email or web address] Allergies No known active allergies Medications * Be aware that medications may not be up to date on this document. Alwaysverify current medications with the patient. metFORMIN (GLUCOPHAGE) 1000 MG tablet Take 1,000 mg by mouth 2 times daily with morning and evening meal Active lisinopril (PRINIVIL; ZESTRIL) 40 MG tablet Take 40 mg by mouth once daily Active febuxostat (ULORIC) 40 MG tablet Take 40 mg by mouth once daily Active atorvastatin (LIPITOR) 20 MG tablet Take 20 mg by mouth at bedtime Active methylPREDNISolo ne (MEDROL DOSEPAK) 4 MG tabletIndication s:Acute bronchitis, unspecified organism 1 dose pack PO as directed on package 1 Each 7 Active azithromycin (ZITHROMAX) 250 MG tabletIndication s:Other symptoms involving respiratory system and chest Take 2 tablets now, then 1 tablet daily for 4 days. 6 Tab 7 Active albuterol HFA (PROAIR HFA) 108 (90 BASE) MCG/ACT inhalerIndicatio ns:Acute bronchitis, unspecified organism Inhale 2 Puffs by mouth every 4 hours as needed for Shortness of Breath, Wheezing or Cough 1 Inhaler 7 Active Active Problems No known active problems Social History Tobacco Use Types Packs/Day Years Used Date Smoking Tobacco: Never Sex and Gender Information Value Date Recorded Sex Assigned at Not on file Legal Sex Male 12:27 PM CDT Gender Identity Not on file Sexual Orientation Not on file Last Filed Vital Signs Vital Sign Reading Time Taken Comments Blood Pressure 152/86 07/09/2016 12:58 PM CDT Pulse 77 07/09/2016 12:58 PM CDT Temperature 36.5 C (97.7 F) 07/09/2016 12:58 PM CDT Respiratory Rate - - Oxygen Saturation 95% 07/09/2016 12:58 PM CDT Inhaled Oxygen Concentration - - Weight 91.6 kg (202 lb) 07/09/2016 12:58 PM CDT Height 177.8 cm (5' 10) 07/09/2016 12:58 PM CDT Body Mass Index 28.98 07/09/2016 12:58 PM CDT Plan of Treatment Health Maintenance Due Date Last Done Comments DTAP/TDAP/TD VACCINES (1 - Tdap) 1959 PNEUMOCOCCAL VACCINE 50+ (1 of 1 - PCV) 1989 ZOSTER VACCINE (1 of 2) 1989 Respiratory Syncytial Virus (RSV) Vaccine Pt: or over 60 yrs (1 - 1-dose 75+ series) 2014 COVID-19 VACCINE ( - 2023-2 5 season) 2023 DEPRESSION SCREENING 03/05/2024 INFLUENZA VACCINE (#1) 2024 HEPATITIS B VACCINE Aged Out No longe r eligible based on patient's age to complete this topic HIB VACCINE Aged Out No longer eligi ble based on patient's age to complete this topic HPV VACCINE Aged Out No longer eligi ble based on patient's age to complete this topic MENINGOCOCCAL (Group B) VACC INE SHARED DECISION-MAKING Aged Out No longer eligibl e based on patient's age to complete this topic MENINGOCOCCAL GROUPS A/C/Y/W VACCINE Aged Out No longer eligible b ased on patient's age to complete this topic Insurance MEDICARE MEDICARE MEDICARE
--- OUTSIDE RECORDS SUMMARY | 2024-10-18 09:47 | XMS_ITS | Encounter Summary ---
Author Organization [facility] Address [address] [place] [address] Care Team Providers Care Register Repairer Name Role Phone Unavailable Primary Care Provider Unavailabl e Encounter Details Date Type Department Care Team (Late st Contact Info) Description 07/11/2017 Lab Requisition [facility] Care Pathology Lab [address] [place] [address] Mayito Spann MD [address] [address] Social History Tobacco Use Types Packs/Day Years Used Date Smoking Tobacco: Never Sex and Gender Information Value Date Recorded Sex Assigned at Not on file Legal Sex Male 12:27 PM CDT Gender Identity Not on file Sexual Orientation Not on file documented as of this encounter Plan of Treatment Not on file documented as of this encounter Procedures Procedure Name Priority Date/Time Associated Diagnosis Comments BONE MARROW BIOPSY (STL) Routine 07/10/2017 8:30 AM CDT documented in this encounter Results * BONE MARROW BIOPSY (STL) (07/10/2017 8:30 AM CDT) Case Report Bone Marrow Patholog y Report Case: [id number] Authorizing Provider: Mayito Spann MD Collected: 07/10/2017 08:30 AM Pathologist: Maliha Hernandez MD Received: 07/11/2017 03:56 PM Specimens: A) - Bone Marrow Clot, OSC: BM18-10 B) - Bone Marrow Core, OSC: BM18-10 C) - Blood Peripheral 08/02/2017 2:46 PM [facility] Final Diagnosis Bone marrow, aspirate, core biopsy, and clot section: - Hypercellular bone marrow with trilineage hematopoiesis. - Dysmegakaryopoiesis. - No evidence of lymphoma or acute leukemia. - See comment. Peripheral blood: - Normocytic, normochromic anemia. - Thrombocytopenia. 08/02/2017 2:46 PM [facility] at 1150 CDT AP Comment In summary, the bone marrow is hypercellular with maturing trilineage hematopoiesis and no increase in blasts. Dysmegakaryopoiesis is identified, but there is no significant dyspoiesis in either the myeloid or erythroid precursors. These findings may be due to regeneration after toxic bone marrow injury, medication effect, chronic infection, autoimmune processes, or low grade myelodysplastic syndrome. Correlation with clinical findings and relevant cytogenetic/molecular studies is needed. KM/ASSOCIATE MANAGER/gm/svp global publisher business 08/02/2017 2:46 PM [facility] Peripheral Smear Description Manual Differential Count (100 cells): 66% neutrophils, 23% lymphocytes, 10% monocytes, 1% eosinophils. Leukocyte number: Normal. Granulocyte morphology: Normal. No circulating blasts. Lymphocyte morphology: Normal. Monocyte morphology: Normal, mature. Erythrocyte number: Decreased. Erythrocyte morphology: Normocytic, normochromic. Anisopoikilocytosis: Mild. Polychromasia: Not significant. Platelet number: Decreased. Platelet morphology: Normal. 08/02/2017 2:46 PM [facility] Bone Marrow Aspirate Differential count (500 cells): 0.5% blasts, 66% maturing myeloid precursors, 17.5% erythroid progenitors, 1.5% monocytes, 3.5% eosinophils, 10.5% lymphocytes, 0.5% plasma cells. Specimen quality: Hemodilute with dispersed marrow elements and no well formed spicules. Suboptimal for evaluation. Spicules: Absent but cellular with dispersed marrow elements seen. Trilineage Hematopoiesis: Present. Myeloid:Erythroid ratio: Slightly elevated, 4. Myeloid Maturation: Normal. Erythroid Maturation: Occasional dyspoietic forms with irregular nuclear membranes seen (<15% of erythroid precursors). Megakaryocyte morphology: Hypolobate and monolobate. Storage iron (by special stain): Decreased. Sideroblastic iron (by special stain): Adequate. Ring sideroblasts not identified. Control worked appropriately. 08/02/2017 2:46 PM [facility] Bone Marrow Core Biopsy and Clot Section Description Core Biopsy- Specimen quality: Majority of core biopsy is cartilage with small portion of bone marrow that is adequate for evaluation. Cellularity: 40%. Trilineage Hematopoiesis: Present. Myeloid to Erythroid ratio: Normal. Myeloid maturation and localization: Normal. Erythroid maturation and localization: Normal. Megakaryocyte number: Normal. Megakaryocyte morphology: Monolobate or hypolobate megakaryocytes. Lymphoid aggregates: absent. Bone trabeculae: normal. Blood vessels: normal. Other: No sheets of blasts or plasma cells. No granuloma. Clot section marrow particles: Many. Clot section morphology: Similar to core biopsy. 08/02/2017 2:46 PM [facility] Flow Cytometry Summary Concurrent flow cytometry ([id number]) shows no evidence of non Hodgkin lymphoma or high grade myeloid neoplasm. 08/02/2017 2:46 PM [facility] Clinical History thrombocytopenia 08/02/2017 2:46 PM [facility] Materials Received Received are 15 slide(s) and 2 block(s) labeled as O yvan, Tai and B M18-10 . The materials originate from [place] [address]. All materials are returned to the referring institution, along with a copy of our final report. 08/02/2017 2:46 PM [facility] Disclaimer The performance characteristics of all immunohistochemical and indirect immunofluorescence stains (if any) cited in this report were determined by the [facility]. Some of these tests were developed by our own laboratory and have not been cleared or approved by the US Food and Drug Administration. The FDA does not require this test to go through premarket FDA review. These tests are used for clinical purposes. They should not be regarded as investigational or for research. This laboratory is certified under the Clinical Laboratory Improvement Amendments (CLIA) as qualified to perform high complexity clinical laboratory testing. This case has been personally reviewed and interpreted by the attending (teaching) pathologist. 08/02/2017 2:46 PM [facility] Addendum 1 This addendum is issued to report the results of cytogenetic analysis ([id number]) and fluorescence in-situ hybridization (FISH) testing ([id number]) performed at [facility] ([address], [address], [place] [address]). A normal male karyotype was identified (46,XY[20]). The FISH testing detects no assay specific abnormalities by MDS panel. The final diagnosis remains unchanged. Please see the separate reference laboratory reports for further details. KR/ASSOCIATE MANAGER/cmb 08/02/2017 2:46 PM CDT [facility] Addendum electronically signed by Maliha Hernandez MD on 08/02/2017 at 1446 CDT Embedded Images 08/02/2017 2:46 PM CDT [facility] Pathology/Cytology BONE MARROW CLOT SPECIMEN / Unknown 07/10/2017 8:30 AM CDT 07/11/2017 3:56 PM CDT Miscellaneous samples (specimen) BONE MARROW SPECIMEN / Unknown 07/10/2017 8:30 AM CDT 07/11/2017 3:56 PM CDT Miscellaneous samples (specimen) PERIPHERAL BLOOD / Unknown 07/10/2017 8:30 AM CDT 07/13/2017 11:13 AM CDT Mayito Spann MD LAB - PATHOLOGY/CYTOLOGY ORDER SAVANAH Edited Result - Final [facility] [address] [place] [address], [facility] [phone] documented in this encounter Visit Diagnoses Not on filedocumented in this encounter
--- OUTSIDE RECORDS SUMMARY | 2024-10-18 09:47 | XMS_ITS | Encounter Summary ---
Author Organization [facility] Address [address] [facility] [place] [address] Care Team Providers Care Patient Services Manager Name Role Phone Unavailable Primary Care Provider Unavailabl e Encounter Details Date Type Department Care Team (Late st Contact Info) Description 07/10/2017 Lab Requisition [facility] Care Pathology Lab [address] [place] [address] Mayito Spann MD [address] [address] Thrombocytopenia Social History Tobacco Use Types Packs/Day Years [...] Procedure Name Priority Date/Time Associated Diagnosis Comments FLOW CYTOMETRY BONE MARROW Routine 07/10/2017 9:50 AM CDT Thrombocytopenia documented in this encounter Results * FLOW CYTOMETRY BONE MARROW (07/10/2017 9:50 AM CDT) Case Report Flow Cytometry Case: [id number] Authorizing Provider: Mayito Spann MD Collected: 07/10/2017 09:50 AM Pathologist: Tanika Lee MD Received: 07/10/2017 02:58 PM Specimen: Bone Marrow 8 2:59 PM CDT [facility] Final Diagnosis Bone marrow, Flow cytometric immunophenotypic analysis: - No evidence of non Hodgkin lymphoma or high grade myeloid neoplasm. - See interpretation. 8 2:59 PM [facility] at [address] [facility] Flow Cytometry Interpretation The bone marrow specimen has a viability of 99%. The lymphocyte, dim CD45, monocyte, and granulocyte bocanegra are normal in relative proportion. There is no immunophenotypically aberrant T-cell population seen. The CD4 to CD8 ratio is 0.8. By CD34, 1.5% of all events analyzed are blasts. There is a small population of B-cells immunophenotypically consistent with hematogones that expresses CD10, CD19, CD20 (variable), and dim to negative surface light chains, immunophenotypically compatible with hematogones. This hematogone population accounts for approximately 0.5% of all events analyzed. The mature B-cells appear polytypic (kappa:lambda ratio of 1.3) and do not express CD5 or CD10. A bone marrow aspirate smear prepared from the flow cytometry specimen is reviewed for quality assurance practice manager purposes. The bone marrow specimen shows no evidence of involvement by non Hodgkin lymphoma or high grade myeloid neoplasm. Correlation with clinical findings, concurrent bone marrow core biopsy ([facility]; BM18-10), and relevant cytogenetic/molecular studies is needed. KM/MED SPA MANAGER/vp purchasing 8 2:59 PM [facility] Flow Cytometry Results Differential Result Comment Flow Cell Count /uL [id number] Total Viability % 99.0 Lymphocytes % 13 Dim CD45 Region % 4 Monocytes % 9 Granulocytes % 73 8 2:59 PM [facility] Reason for test Thrombocytopenia 287.5 8 2:59 PM [facility] Client Specimen ID # [id number] 8 2:59 PM [facility] Number of markers 17 were performed. A Flow CD10 A Flow CD13 A Flow CD20 A Flow CD2 A Flow CD3 A Flow CD4 A Flow CD1a A Flow CD5 A Flow CD19 A Flow CD33 A Flow CD34 A Flow CD45 A Flow CD7 A Flow CD8 A Flow CD30 A [place]+CD19+ A Lambda+CD19+ 8 2:59 PM [facility] Disclaimer Test performed at [facility], [address] [place], [place], [address]. *The established laboratory minimum viability is 70%. Values below the minimum may result in the failure to find an abnormal population of cells. This test was developed and its performance characteristics determined by the Flow Cytometry Laboratory. It has not been cleared by the [place] Food and Drug Administration (FDA). The FDA has determined that such clearance or approval is not necessary. This test is used for clinical purposes. It should not be regarded as investigational or for research. This laboratory is regulated under the Clinical Laboratory Improvement Amendments of 1998 (CLIA) as a qualified to perform high complexity clinical testing. 8 2:59 PM CDT [facility] Embedded Images 8 2:59 PM CDT [facility] Pathology/Cytolo gy BONE MARROW SPECIMEN / Unknown 07/10/2017 9:50 AM CDT 07/10/2017 2:58 PM CDT Mayito Spann MD LAB - PATHOLOGY/CYTOLOGY ORDER SAVANAH Final Result [facility] [address] [phone] documented in this encounter Visit Diagnoses Diagnosis Thrombocytopenia Thrombocytopenia, unspecified documented in this encounter
--- OUTSIDE RECORDS SUMMARY | 2024-10-18 09:48 | XMS_ITS | Clinical Summary ---
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 Name Role Phone Patricia Sanchez MD Primary Care Prov ider Ct Oliveira DONATIONS ATTENDANT Unavailable [phone] Allergies No known active allergies Medications atorvastatin (LIPITOR) 20 mg tablet Take 1 tablet (20 mg total) by mouth daily Active ULORIC 40 mg tablet 04/05/2018 Active NIFEDIPINE CC 30 mg 24 hr tablet 03/26/2018 Active cholecalciferol (VITAMIN D-3) 25 mcg (1,000 unit) tablet Take 2 tablets (2,000 Units total) by mouth daily Active PRECISION XTRA TEST strip 10/29/2018 Active lisinopriL (PRINIVIL,ZESTR IL) 40 mg tablet 12/26/2019 Active Trulicity 3 mg/0.5 mL pen injector 11/26/2023 Active Active Problems Problem Noted Date Diagnosed Date Anemia 05/07/2024 MDS (myelodysplastic syndrome) 05/22/2023 Malignant neoplasm of prostate 07/04/2017 Thrombocytopenia 07/04/2017 Resolved Problems Problem Noted Date Diagnosed Date Resolved Date Basal cell carcinoma (BCC) of skin of nose 05/12/2015 11/13/2017 Encounters Date Type Department Care Team Description 10/09/2024 4:00 PM CDT Office Visit [facility] [address] [place] [phone] Braden Haer MD MDS (myelodysplastic syndrome) (HCC) (Primary Dx); Anemia, unspecified type 10/09/2024 3:15 PM CDT Infusion [facility] at [address] [phone] MDS (myelodysplastic syndrome) (HCC) (Primary Dx); Thrombocytopenia; Anemia, unspecified type 10/09/2024 2:45 PM CDT Lab [facility] at [address] [phone] MDS (myelodysplastic syndrome) (HCC); Thrombocytopenia; Anemia, unspecified type 10/09/2024 Orders Only [facility] [address] [place] [phone] Viry Maharaj RN MDS (myelodysplastic syndrome) (HCC) (Primary Dx) 09/26/2024 Orders Only [facility] [address] [place] [phone] Leny Bronson RN MDS (myelodysplastic syndrome) (HCC) (Primary Dx) 09/26/2024 Results Follow-Up [facility] [address] [place] [phone] Sarah Delatorre, JULIAN CBC with auto differential, ABO/Rh, Antibody screen, Additional followed-up results: 4 09/23/2024 1:00 PM CDT Infusion [facility] at [address] [phone] MDS (myelodysplastic syndrome) (HCC) (Primary Dx); Anemia, unspecified type; Thrombocytopenia 09/23/2024 10:00 AM CDT Lab [facility] at [address] [phone] MDS (myelodysplastic syndrome) (HCC); Thrombocytopenia; Anemia, unspecified type 09/10/2024 10:30 AM CDT Infusion [facility] at [address] [place] [phone] MDS (myelodysplastic syndrome) (HCC) (Primary Dx); Thrombocytopenia; Anemia, unspecified type 09/10/2024 10:00 AM CDT Lab [facility] at [address] [address] MDS (myelodysplastic syndrome) (HCC); Thrombocytopenia; Anemia, unspecified type 09/10/2024 Orders Only [facility] [address] [place] [phone] Melia Yan MDS (myelodysplastic syndrome) (HCC) (Primary Dx); Thrombocytopenia; Anemia, unspecified type 09/04/2024 Orders Only [facility] [address] [place] [phone] Melia Yan MDS (myelodysplastic syndrome) (HCC) (Primary Dx); Thrombocytopenia; Anemia, unspecified type 09/04/2024 Telephone [facility] [address] [place] [phone] Melia Yansia 08/27/2024 10:30 AM CDT Infusion [facility] at [address] [phone] MDS (myelodysplastic syndrome) (HCC) (Primary Dx); Thrombocytopenia; Anemia, unspecified type 08/27/2024 10:00 AM CDT Lab [facility] at [address] [address] MDS (myelodysplastic syndrome) (HCC); Thrombocytopenia; Anemia, unspecified type 08/14/2024 1:45 PM CDT Infusion [facility] at [address] [phone] MDS (myelodysplastic syndrome) (HCC) (Primary Dx); Anemia, unspecified type; Thrombocytopenia 08/13/2024 2:00 PM CDT Infusion [facility] at [address] [phone] MDS (myelodysplastic syndrome) (HCC) (Primary Dx); Thrombocytopenia; Anemia, unspecified type 08/13/2024 1:30 PM CDT Office Visit [facility] [address] [place] [phone] Ct Oliveira NP MDS (myelodysplastic syndrome) (HCC) (Primary Dx); Thrombocytopenia; Anemia, unspecified type 08/13/2024 1:00 PM CDT Lab [facility] at [address] [address] MDS (myelodysplastic syndrome) (HCC); Thrombocytopenia; Anemia, unspecified type 08/06/2024 8:00 AM CDT Lab [facility] at [address] [address] MDS (myelodysplastic syndrome) (HCC); Thrombocytopenia; Anemia, unspecified type 08/06/[address] [facility] at [address] [phone] Valerie Li RN 07/30/2024 10:30 AM CDT Infusion [facility] at [address] [phone] MDS (myelodysplastic syndrome) (HCC) (Primary Dx); Thrombocytopenia; Anemia, unspecified type 07/30/2024 10:00 AM CDT Lab [facility] at [address] [address] MDS (myelodysplastic syndrome) (HCC); Thrombocytopenia; Anemia, unspecified type 07/30/2024 Orders Only [facility] [address] [phone] Melia Yan MDS (myelodysplastic syndrome) (HCC) (Primary Dx); Thrombocytopenia; Anemia, unspecified type from Last 3 Months Immunizations Immunization Administration Dates Next Due Influenza, Quadrivalent, Hig h Dose, Preservative Free, Intrr 11/04/2019 Influenza, Quadrivalent, Spl it, Intramuscular 11/11/2020,11/21/2017,12/05/2016 Influenza, Quadrivalent, Spl it, Preservative Free, Intramuscular 11/20/2018 Influenza, Trivalent, High D ose, Split, Preservative Free, Intramuscular 12/07/2014 Moderna SARS-CoV-2 Monovalen t Vaccination (12+ YRS) 06/06/2021,12/24/2020,05/14/2020,04/16 Pneumococcal Conjugate PCV 13 05/16/2016 Pneumococcal Polysaccharide PPV23 11/20/2018 Sars-CoV-2, Unspecified 05/14/2020 ZOSTER LIVE 05/26/2015 Surgical History Surgery Date Site/Laterality Comments COLONOSCOPY Medical History Medical History Date Comments Diabetes mellitus (HCC) Family History Medical History Relation Name Comments Colon cancer Mother Relation Name Status Comments Mother Social History Tobacco Use Types Packs/Day [...] on file Legal Sex 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[employer] 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 Sexual Orientation 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 Obstetrics History Last Filed Vital Signs Vital Sign Reading Time Taken Comments Blood Pressure 134/63 10/09/2024 2:21 PM CDT Pulse 62 10/09/2024 2:21 PM CDT Temperature 36.5 C (97.7 F) 10/09/2024 2:21 PM CDT Respiratory Rate 18 10/09/2024 2:21 PM CDT Oxygen Saturation 97% 10/09/2024 2:21 PM CDT Inhaled Oxygen Concentration - - Weight 84.5 kg (186 lb 4.6 oz) 10/09/2024 2:21 P M CDT Height 172 cm (5' 7.72) 10/09/2024 2:21 PM CDT Body Mass Index 28.56 10/09/2024 2:21 PM CDT Plan of Treatment Health Maintenance Due Date Last Done Comments Depression Screening 1940 Fall Risk Assessment 1940 DTaP/Tdap/Td Vaccine (1 - Tdap) 1950 Hepatitis B Screening 1958 Well Visit 65+ 01/25/2004 Covid-19 Vaccine (8 - 4-2 5 season) 2023 06/06/2021, 12/24/2020, 11/18/2020, Additional history exists Influenza Vaccine (#1) 2024 , 11/04/2019, 11/20/2018, Additional history exists Pneumococcal vaccine 65+ Completed 11/20/2018, 05/03 Zoster Vaccine Completed 05/09/2021, 08/2020, 05/26/2015 Procedures Procedure Name Priority Date/Time Associated Diagnosis Comments BLOOD SMEAR REVIEW Routine 10/09/2024 2: 09 PM CDT MDS (myelodysplastic syndrome) (HCC) Anemia, unspecified type IMMATURE PLATELET FRACTION Routine 10/09/2024 2:09 PM CDT MDS (myelodysplastic syndrome) (HCC) Anemia, unspecified type EGFR Routine 10/09/2024 2:09 PM CDT MDS (myelodysplastic syndrome) (HCC) Anemia, unspecified type DIFFERENTIAL AUTO Routine 10/09/2024 2:0 9 PM CDT MDS (myelodysplastic syndrome) (HCC) Anemia, unspecified type LACTATE DEHYDROGENASE Routine 10/09/2024 2:09 PM CDT MDS (myelodysplastic syndrome) (HCC) Anemia, unspecified type COMPREHENSIVE METABOLIC PANEL Routine 10/09/2024 2:09 PM CDT MDS (myelodysplastic syndrome) (HCC) Anemia, unspecified type CBC WITH AUTO DIFFERENTIAL Routine 10/09/2024 2:09 PM CDT MDS (myelodysplastic syndrome) (HCC) Anemia, unspecified type FERRITIN Routine 10/09/2024 2:09 PM CDT MDS (myelodysplastic syndrome) (HCC) Anemia, unspecified type IRON PROFILE W/ IBC Routine 10/09/2024 2 :09 PM CDT MDS (myelodysplastic syndrome) (HCC) Anemia, unspecified type RETICULOCYTES Routine 10/09/2024 2:09 PM CDT MDS (myelodysplastic syndrome) (HCC) Anemia, unspecified type HAPTOGLOBIN Routine 10/09/2024 2:09 PM CDT MDS (myelodysplastic syndrome) (HCC) Anemia, unspecified type VITAMIN B12 Routine 10/09/2024 2:09 PM CDT MDS (myelodysplastic syndrome) (HCC) Anemia, unspecified type FOLATE Routine 10/09/2024 2:09 PM CDT MDS (myelodysplastic syndrome) (HCC) Anemia, unspecified type TRANSFUSE RED BLOOD CELLS Timed 09/23/2024 1:29 PM CDT MDS (myelodysplastic syndrome) (HCC) Anemia, unspecified type PREPARE RBC STAT 09/23/2024 11:18 AM CDT MDS (myelodysplastic syndrome) (HCC) Anemia, unspecified type CROSSMATCH Routine 09/23/2024 9:54 AM CDT MDS (myelodysplastic syndrome) (HCC) Thrombocytopenia Anemia, unspecified type BLOOD SMEAR REVIEW Routine 09/23/2024 9: 54 AM CDT MDS (myelodysplastic syndrome) (HCC) Thrombocytopenia Anemia, unspecified type IMMATURE PLATELET FRACTION Routine 09/23/2024 9:54 AM CDT MDS (myelodysplastic syndrome) (HCC) Thrombocytopenia Anemia, unspecified type DIFFERENTIAL AUTO Routine 09/23/2024 9:5 4 AM CDT MDS (myelodysplastic syndrome) (HCC) Thrombocytopenia Anemia, unspecified type ANTIBODY SCREEN Routine 09/23/2024 9:54 AM CDT MDS (myelodysplastic syndrome) (HCC) Thrombocytopenia Anemia, unspecified type ABO/RH Routine 09/23/2024 9:54 AM CDT MDS (myelodysplastic syndrome) (HCC) Thrombocytopenia Anemia, unspecified type CBC WITH AUTO DIFFERENTIAL Routine 09/23/2024 9:54 AM CDT MDS (myelodysplastic syndrome) (HCC) Thrombocytopenia Anemia, unspecified type TYPE AND SCREEN Routine 09/23/2024 9:54 AM CDT MDS (myelodysplastic syndrome) (HCC) Thrombocytopenia Anemia, unspecified type BLOOD SMEAR REVIEW Routine 09/10/2024 9: 50 AM CDT MDS (myelodysplastic syndrome) (HCC) Thrombocytopenia Anemia, unspecified type IMMATURE PLATELET FRACTION Routine 09/10/2024 9:50 AM CDT MDS (myelodysplastic syndrome) (HCC) Thrombocytopenia Anemia, unspecified type DIFFERENTIAL AUTO Routine 09/10/2024 9:5 0 AM CDT MDS (myelodysplastic syndrome) (HCC) Thrombocytopenia Anemia, unspecified type CBC WITH AUTO DIFFERENTIAL Routine 09/10/2024 9:50 AM CDT MDS (myelodysplastic syndrome) (HCC) Thrombocytopenia Anemia, unspecified type BLOOD SMEAR REVIEW Routine 08/27/2024 9: 47 AM CDT MDS (myelodysplastic syndrome) (HCC) Thrombocytopenia Anemia, unspecified type IMMATURE PLATELET FRACTION Routine 08/27/2024 9:47 AM CDT MDS (myelodysplastic syndrome) (HCC) Thrombocytopenia Anemia, unspecified type DIFFERENTIAL AUTO Routine 08/27/2024 9:4 7 AM CDT MDS (myelodysplastic syndrome) (HCC) Thrombocytopenia Anemia, unspecified type CBC WITH AUTO DIFFERENTIAL Routine 08/27/2024 9:47 AM CDT MDS (myelodysplastic syndrome) (HCC) Thrombocytopenia Anemia, unspecified type TRANSFUSE RED BLOOD CELLS Timed 08/14/2024 2:07 PM CDT MDS (myelodysplastic syndrome) (HCC) Anemia, unspecified type PREPARE RBC Routine 08/13/2024 3:31 PM CDT MDS (myelodysplastic syndrome) (HCC) Anemia, unspecified type CROSSMATCH Routine 08/13/2024 12:54 PM CDT MDS (myelodysplastic syndrome) (HCC) Thrombocytopenia Anemia, unspecified type EGFR Routine 08/13/2024 12:54 PM CDT MDS (myelodysplastic syndrome) (HCC) Thrombocytopenia Anemia, unspecified type BLOOD SMEAR REVIEW Routine 08/13/2024 12 :54 PM CDT MDS (myelodysplastic syndrome) (HCC) Thrombocytopenia Anemia, unspecified type IMMATURE PLATELET FRACTION Routine 08/13/2024 12:54 PM CDT MDS (myelodysplastic syndrome) (HCC) Thrombocytopenia Anemia, unspecified type DIFFERENTIAL AUTO Routine 08/13/2024 12: 54 PM CDT MDS (myelodysplastic syndrome) (HCC) Thrombocytopenia Anemia, unspecified type ANTIBODY SCREEN Routine 08/13/2024 12:54 PM CDT MDS (myelodysplastic syndrome) (HCC) Thrombocytopenia Anemia, unspecified type ABO/RH Routine 08/13/2024 12:54 PM CDT MDS (myelodysplastic syndrome) (HCC) Thrombocytopenia Anemia, unspecified type TYPE AND SCREEN Routine 08/13/2024 12:54 PM CDT MDS (myelodysplastic syndrome) (HCC) Thrombocytopenia Anemia, unspecified type CBC WITH AUTO DIFFERENTIAL Routine 08/13/2024 12:54 PM CDT MDS (myelodysplastic syndrome) (HCC) Thrombocytopenia Anemia, unspecified type COMPREHENSIVE METABOLIC PANEL Routine 08/13/2024 12:54 PM CDT MDS (myelodysplastic syndrome) (HCC) Thrombocytopenia Anemia, unspecified type LACTATE DEHYDROGENASE Routine 08/13/2024 12:54 PM CDT MDS (myelodysplastic syndrome) (HCC) Thrombocytopenia Anemia, unspecified type BLOOD SMEAR REVIEW Routine 08/06/2024 7: 50 AM CDT MDS (myelodysplastic syndrome) (HCC) Thrombocytopenia Anemia, unspecified type DIFFERENTIAL AUTO Routine 08/06/2024 7:5 0 AM CDT MDS (myelodysplastic syndrome) (HCC) Thrombocytopenia Anemia, unspecified type CBC WITH AUTO DIFFERENTIAL Routine 08/06/2024 7:50 AM CDT MDS (myelodysplastic syndrome) (HCC) Thrombocytopenia Anemia, unspecified type FERRITIN Routine 08/06/2024 7:50 AM CDT MDS (myelodysplastic syndrome) (HCC) Thrombocytopenia Anemia, unspecified type IRON PROFILE W/ IBC Routine 08/06/2024 7 :50 AM CDT MDS (myelodysplastic syndrome) (HCC) Thrombocytopenia Anemia, unspecified type RETICULOCYTES Routine 08/06/2024 7:50 AM CDT MDS (myelodysplastic syndrome) (HCC) Thrombocytopenia Anemia, unspecified type BLOOD SMEAR REVIEW Routine 07/30/2024 9: 49 AM CDT MDS (myelodysplastic syndrome) (HCC) Thrombocytopenia Anemia, unspecified type IMMATURE PLATELET FRACTION Routine 07/30/2024 9:49 AM CDT MDS (myelodysplastic syndrome) (HCC) Thrombocytopenia Anemia, unspecified type DIFFERENTIAL AUTO Routine 07/30/2024 9:4 9 AM CDT MDS (myelodysplastic syndrome) (HCC) Thrombocytopenia Anemia, unspecified type CBC WITH AUTO DIFFERENTIAL Routine 07/30/2024 9:49 AM CDT MDS (myelodysplastic syndrome) (HCC) Thrombocytopenia Anemia, unspecified type from Last 3 Months Results * (ABNORMAL) Immature platelet fraction (10/09/2024 2:09 PM CDT) IPF 21.5(H) 1.6 - 10.1 % Comment:Testing performed by : [facility], [address] [place] [address], [place]., [address] Blood 10/09/2024 2:09 PM CDT 10/09/2024 2:21 PM CDT us Braden Hare MD LAB BLOOD ORDERABLES Final R esult CHRISSY [address] [facility] Department [place] [address] * (ABNORMAL) Blood smear review (10/09/2024 2:09 PM CDT) Pathologist [facility] RBC morphology Present(A ) Comment:Testing performed by : [facility], [address] [place] [address], [place]., [address] Anisocytosis Moderate( A) CHRISSY Comment:Testing performed by : [address] [address] Schistocytes 1-2/HPF(A ) CHRISSY Comment:Testing performed by : [address], [place]., [address] Elliptocytes 3-7/HPF(A ) CHRISSY Comment:Testing performed by : [address], [place]., [address] Acanthocytes 3-7/HPF(A ) CHRISSY Comment:Testing performed by : [address], [place]., [address] Teardrop cells 3-7/HPF(A ) CHRISSY Comment:Testing performed by : [address], [place]., [address] Platelet estimate Decreased (A) CHRISSY Comment:Testing performed by : [address], [place]., [address] Blood 10/09/2024 2:09 PM CDT 10/09/2024 2:21 PM CDT us Braden Hare MD LAB BLOOD ORDERABLES Final R esult Performing Organization Address [facility] Co de Phone Number CHRISSY [address] [place] [address] * eGFR (10/09/2024 2:09 PM CDT) eGFR 84 >=60 mL/min/1. 73 m2 Comment: Interpretive Data Reference Interval Normal >/= 90 mL/min/1.73m2 Mildly decreased* 60 - 89 mL/min/1.73m2 Mildly to moderately decreased 45 - 59 mL/min/1.73m2 Moderately to severely decreased 30 - 44 mL/min/1.73m2 Severely decreased 15 - 29 mL/min/1.73m2 Kidney Failure < 15 mL/min/1.73m2 *Relative to young adult level Estimated glomerular filtration rate is determined by the 2020 CKD-EPI equation recommended by the National Kidney Foundation (A Unifying Approach to GFR Estimation: Recommendations of the NKF-ASK Task Force on Reassessing the Inclusion of Race in Diagnosing Kidney Disease, JASN 2020). The CKD-EPI equation should not be used for patients with unstable renal function and has not been validated in children and those over 70. Current interpretive data was last reviewed 2021. Testing performed by: [address] [address] Blood 10/09/2024 2:09 PM CDT 10/09/2024 2:21 PM CDT us Braden Hare MD LAB BLOOD ORDERABLES Final R esult Performing Organization Address City/[facility]/ZIP Co de Phone Number CHRISSY [facility] [place] [address] * (ABNORMAL) Differential, auto (10/09/2024 2:09 PM CDT) Neutrophil abs 1.88 1.50 - 6.50 K/cumm Comment:Testing performed by : [address] [address] Imm gran abs 0.03 0.00 - 0.10 K/cumm CHRISSY Comment:Testing performed by : [address] [address] Lymphocyte abs 0.59(L) 0.80 - 3.30 K/cumm CHRISSY Comment:Testing performed by : [address], [place]., [address] Monocyte abs 0.47 0.20 - 0.80 K/cumm [facility] Comment:Testing performed by : [address], [place]., [address] Eosinophil abs 0.03 0.00 - 0.50 K/cumm CHRISSY Comment:Testing performed by : [address] [address] Basophil abs 0.05 0.00 - 0.10 K/cumm [facility] Comment:Testing performed by : [address] [address] Neutrophil pct 61.7 % [facility] Comment: Interpretive Data Percent cell count reference ranges are not reported, since discordance with absolute values may lead to misinterpretation of CBC data. Current Interpretive Data was last revised on 2017. Testing performed by: [address] [address] Imm gran pct 1.0 % [facility] Comment: Interpretive Data Percent cell count reference ranges are not reported, since discordance with absolute values may lead to misinterpretation of CBC data. Current Interpretive Data was last revised on 2017. Testing performed by: [address] [address] Lymphocyte pct 19.3 % [facility] Comment: Interpretive Data Percent cell count reference ranges are not reported, since discordance with absolute values may lead to misinterpretation of CBC data. Current Interpretive Data was last revised on 2017. Testing performed by: [address] [address] Monocyte pct 15.4 % [facility] Comment: Interpretive Data Percent cell count reference ranges are not reported, since discordance with absolute values may lead to misinterpretation of CBC data. Current Interpretive Data was last revised on 2017. Testing performed by: [address] [address] Eosinophil pct 1.0 % CHRISSY Comment: Interpretive Data Percent cell count reference ranges are not reported, since discordance with absolute values may lead to misinterpretation of CBC data. Current Interpretive Data was last revised on 2017. Testing performed by: [address] [address] Basophil pct 1.6 % CHRISSY Comment: Interpretive Data Percent cell count reference ranges are not reported, since discordance with absolute values may lead to misinterpretation of CBC data. Current Interpretive Data was last revised on 2017. Testing performed by: [address] [address] Blood 10/09/2024 2:09 PM CDT 10/09/2024 2:21 PM CDT us Braden Hare MD LAB BLOOD ORDERABLES Final R esult Performing Organization Address [facility]/State/ZIP Co de Phone Number [facility] [address] [facility] Department of Laboratories [place], [place] [id number] * (ABNORMAL) Iron profile w/ IBC (10/09/2024 2:09 PM CDT) Iron 112 50 - 150 mcg/dL Comment:Testing performed by : [address] [address] TIBC 238(L) 250 - 400 mcg/dL CHRISSY Comment:Testing performed by : [address] [address] Transferrin saturation 47 20 - 50 % CHRISSY Comment:Testing performed by : [address] [address] Blood 10/09/2024 2:09 PM CDT 10/09/2024 3:55 PM CDT Braden Hare MD LAB BLOOD ORDERABLES Final R esult CHR[facility]SY [address] [facility] Department [place] [address] * (ABNORMAL) CBC with auto differential (10/09/2024 2:09 PM CDT) WBC 3.05(L) 3.80 - 9.90 K/cumm Comment:Testing performed by : [address] [address] Hgb 7.2(L) 13.0 - 17.5 g/dL CHRISSY Comment:Testing performed by : [address] [address] Hct 21.0(L) 38.9 - 50.3 % CHRISSY Comment:Testing performed by : [address] [address] Plt 37(L) 150 - 400 K/cumm CHRISSY Comment:Testing performed by : [address] [address] MPV Not Measured 9.1 - 12.3 fL CHRISSY Comment:Testing performed by : [address], [address] RBC 2.26(L) 4.30 - 5.80 M/cumm CHRISSY Comment:Testing performed by : [address] [address] MCV 92.9 81.3 - 96.4 fL CHRISSY Comment:Testing performed by : [address] [address] MCH 31.9 27.1 - 33.3 pg CHRISSY Comment:Testing performed by : [address] [address] MCHC 34.3 32.3 - 35.7 g/dL CHRISSY Comment:Testing performed by : [address] [address] RDW CV 18.1(H) 11.1 - 14.9 % CHRISSY Comment:Testing performed by : [address], [address] RDW SD 59.0(H) 35.7 - 48.1 fL CHRISSY Comment:Testing performed by : [address] [address] NRBC abs 0.00 0.00 - 0.01 K/cumm CHRISSY Comment:Testing performed by : [address] [address] ANC Prelim 1.88 1.50 - 6.50 K/cumm CHRISSY Comment: Interpretive Data The rapid ANC is a preliminary automated count and may vary from the final ANC (Neut Abs) reported in the WBC differential that follows. Current interpretive data was last revised 2024. Testing performed by: [address] [address] Blood 10/09/2024 2:09 PM CDT 10/09/2024 2:21 PM CDT Braden Hare MD LAB BLOOD ORDERABLES Final R esult Performing Organization Address [facility] de Phone Number [facility] [address] [facility] Department of Laboratories [place], [place] [id number] * Reticulocyte Count (10/09/2024 2:09 PM CDT) Retics, absolute 31 20 - 87 K/cumm Comment:Testing performed by : [address] [address] Retics 1.4 0.4 - 2.9 % CHRISSY Comment:Testing performed by : [address] [address] Reticulocyte Hgb 32.7 30.5 - 38.0 pg CHRISSY Comment:Testing performed by : [address] [address] Blood 10/09/2024 2:09 PM CDT 10/09/2024 2:21 PM CDT Braden Hare MD LAB BLOOD ORDERABLES Final R esult Performing Organization Address [facility]/ZIP Co de Phone Number CLAUDIO[address] [address] * Lactate dehydrogenase (LD) (10/09/2024 2:09 PM CDT) Lactate dehydrogenase (LDH) 129 100 - 250 Units/L Comment:Testing performed by : [facility], [address] [place] [address]., [address] Blood 10/09/2024 2:09 PM CDT 10/09/2024 2:21 PM CDT Braden Hare MD LAB BLOOD ORDERABLES Final R esult Performing Organization Address [facility] Co de Phone Number [address] [address] * (ABNORMAL) Haptoglobin (10/09/2024 2:09 PM CDT) Pathologist [facility] Haptoglobin 13(L) 30 - 200 mg/dL Blood 10/09/2024 2:09 PM CDT 10/09/2024 4:32 PM CDT Braden Hare MD LAB BLOOD ORDERABLES Final R esult Performing Organization Address [facility] de Phone Number [address] [address] * Folate (10/09/2024 2:09 PM CDT) Pathologist [facility] Folic acid >20.0 >=5.0 ng/mL Comment:Testing performed by : [address] [address] Blood 10/09/2024 2:09 PM CDT 10/09/2024 3:55 PM CDT Braden Hare MD LAB BLOOD ORDERABLES Final R esult Performing Organization Address [facility] Co de Phone Number [address] [address] * (ABNORMAL) Ferritin (10/09/2024 2:09 PM CDT) [facility] [address] Ferritin 793(H) 30 - 400 ng/mL Comment:Testing performed by : [address] [address] Blood 10/09/2024 2:09 PM CDT 10/09/2024 3:55 PM CDT Braden Hare MD LAB BLOOD ORDERABLES Final R esult [address] [address] * Vitamin B12 (10/09/2024 2:09 PM CDT) [facility] [address] Vitamin B12 1,101 230 - 1,250 pg/mL Comment:Testing performed by : [address] [address] Blood 10/09/2024 2:09 PM CDT 10/09/2024 3:55 PM CDT us Braden Hare MD LAB BLOOD ORDERABLES Final R esult Performing Organization Address City/[facility]/ZIP Co de Phone Number [address] [address] * (ABNORMAL) Comprehensive metabolic panel (10/09/2024 2:09 PM CDT) [facility] [address] Sodium 142 135 - 145 mmol/L Comment:Testing performed by : [address] [address] Potassium, pl 4.1 3.3 - 4.9 mmol/L CHRISSY Comment:Testing performed by : [address] [address] Chloride 104 97 - 110 mmol/L CHRISSY Comment:Testing performed by : [address] [address] CO2 27 22 - 32 mmol/L CHRISSY BELLO Comment:Testing performed by : [address] [address] Anion gap 11 2 - 15 mmol/L CHRISSY Comment:Testing performed by : [address] [address] BUN 18 6 - 25 mg/dL CHRISSY Comment:Testing performed by : [address] [address] Creatinine 0.90 0.80 - 1.30 mg/dL CHRISSY Comment:Testing performed by : [address] [address] Glucose 122 70 - 199 mg/dL CHRISSY Comment: Interpretive Data Fasting glucose >/= 126 mg/dl is diagnostic for diabetes. Fasting is defined as no caloric intake for at least 8 hours. Fasting glucose between 100 mg/dl to 125 mg/dl is diagnostic of prediabetes. In a patient with classic symptoms of hyperglycemia or hyperglycemic crisis, a random glucose >/= 200 mg/dl is diagnostic for diabetes. In the absence of unequivocal hyperglycemia, results should be confirmed by repeat testing. The classification and Diagnosis of Diabetes Diabetes Care 202; 46: S19-S40. Current interpretive data was last revised 2022. Testing performed by: [address] [address] Calcium 9.5 8.5 - 10.3 mg/dL CHRISSY Comment:Testing performed by : [address] [address] Bilirubin, total 1.6(H) 0.1 - 1.2 mg/dL CHRISSY Comment:Testing performed by : [address] [address] Protein, pl 6.4(L) 6.5 - 8.5 g/dL CHRISSY Comment:Testing performed by : [address] [address] Albumin 4.4 3.5 - 5.0 g/dL CHRISSY Comment:Testing performed by : [address] [address] Alk phos 44 40 - 130 Units/L CERSERINA BELLO Comment:Testing performed by : [address] [address] ALT 9 7 - 55 Units/L CHRISSY BELLO Comment:Testing performed by : [address] [address] AST 12 10 - 50 Units/L CHRISSY BELLO Comment:Testing performed by : [address] [address] Blood 10/09/2024 2:09 PM CDT 10/09/2024 2:21 PM CDT us Braden Hare MD LAB BLOOD ORDERABLES Final R esult Performing Organization Address City/[facility]/ZIP Co de Phone Number CHRISSY [address] [facility] [address] * Transfuse RBC (09/23/2024 3:32 PM CDT) Blood us Brooke Clayton MD BLOOD TRANSFUSION ORDERABLE S Final Result * Prepare RBC: 1 Units (09/23/2024 11:18 AM CDT) Units requested 1 Comment:Testing performed by : [address] [address] Units requested Ready CHRISSY BELLO Comment:Testing performed by : [address] [address] Unit Number [id number] Product code [id number] CHRISSY Blood Expiration Date CHRISSY Product Blood Type (for scanning) 5100 CHRISSY Product Blood Type OPOS CHRISSY Dispense Status DISPENSED CHRISSY Blood 09/23/2024 11:1 8 AM CDT 09/23/2024 11:[address] Oliveira NP BLOOD BANK PRODUCT ORDERABL ES Final Result CHRISSY [address] [place] [address] * (ABNORMAL) Immature platelet fraction (09/23/2024 9:54 AM CDT) IPF 21.2(H) 1.6 - 10.1 % Comment:Testing performed by : [address] [address] Blood 09/23/2024 9:54 AM CDT 09/23/2024 9:59 AM CDT Sarah Delatorre DONATIONS ATTENDANT LAB BLOOD ORDERABLES Fin al Result Performing Organization Address [facility] de Phone Number CLAUDIO[address] Department [place] [address] * (ABNORMAL) Blood smear review (09/23/2024 9:54 AM CDT) Pathologist [facility] RBC morphology Present(A ) Comment:Testing performed by : [address] [address] Anisocytosis Slight(A) CHRISSY Comment:Testing performed by : [address] [address] Schistocytes 1-2/HPF(A ) CHRISSY Comment:Testing performed by : [address] [address] Elliptocytes 3-7/HPF(A ) CHRISSY Comment:Testing performed by : [address] [address] Acanthocytes 3-7/HPF(A ) CHRISSY Comment:Testing performed by : [address] [address] Platelet estimate Decreased (A) CHRISSY Comment:Testing performed by : [address] [address] Blood 09/23/2024 9:54 AM CDT 09/23/2024 9:59 AM CDT Sarah Delatorre DONATIONS ATTENDANT LAB BLOOD ORDERABLES Fin al Result Performing Organization Address City/[facility] Co de Phone Number [place] [phone] [facility] Department [place] [address] * (ABNORMAL) Differential, auto (09/23/2024 9:54 AM CDT) Neutrophil abs 1.50 1.50 - 6.50 K/cumm Comment:Testing performed by : [address] [address] Imm gran abs 0.01 0.00 - 0.10 K/cumm CHRISSY Comment:Testing performed by : [address] [address] Lymphocyte abs 0.52(L) 0.80 - 3.30 K/cumm CHRISSY Comment:Testing performed by : [address] [address] Monocyte abs 0.44 0.20 - 0.80 K/cumm CHRISSY Comment:Testing performed by : [address] [address] Eosinophil abs 0.07 0.00 - 0.50 K/cumm CHRISSY Comment:Testing performed by : [address] [address] Basophil abs 0.06 0.00 - 0.10 K/cumm CHRISSY Comment:Testing performed by : [address] [address] Neutrophil pct 57.7 % CHRISSY Comment: Interpretive Data Percent cell count reference ranges are not reported, since discordance with absolute values may lead to misinterpretation of CBC data. Current Interpretive Data was last revised on 2017. Testing performed by: [address] [address] Imm gran pct 0.4 % CHRISSY Comment: Interpretive Data Percent cell count reference ranges are not reported, since discordance with absolute values may lead to misinterpretation of CBC data. Current Interpretive Data was last revised on 2017. Testing performed by: [address] [address] Lymphocyte pct 20.0 % CHRISSY Comment: Interpretive Data Percent cell count reference ranges are not reported, since discordance with absolute values may lead to misinterpretation of CBC data. Current Interpretive Data was last revised on 2017. Testing performed by: [address] [address] Monocyte pct 16.9 % CHRISSY Comment: Interpretive Data Percent cell count reference ranges are not reported, since discordance with absolute values may lead to misinterpretation of CBC data. Current Interpretive Data was last revised on 2017. Testing performed by: [address] [address] Eosinophil pct 2.7 % CHRISSY Comment: Interpretive Data Percent cell count reference ranges are not reported, since discordance with absolute values may lead to misinterpretation of CBC data. Current Interpretive Data was last revised on 2017. Testing performed by: [address] [address] Basophil pct 2.3 % CHRISSY Comment: Interpretive Data Percent cell count reference ranges are not reported, since discordance with absolute values may lead to misinterpretation of CBC data. Current Interpretive Data was last revised on 2017. Testing performed by: [address] [address] Blood 09/23/2024 9:54 AM CDT 09/23/2024 9:59 AM CDT us Sarah Delatorre DONATIONS ATTENDANT LAB BLOOD ORDERABLES Fin al Result [facility] [address] [facility] Department [place] [address] * (ABNORMAL) CBC with auto differential (09/23/2024 9:54 AM CDT) WBC 2.60(L) 3.80 - 9.90 K/cumm Comment:Testing performed by : [address] [address] Hgb 7.7(L) 13.0 - 17.5 g/dL CHRISSY Comment:Testing performed by : [address] [address] Hct 22.8(L) 38.9 - 50.3 % CHRISSY Comment:Testing performed by : [address] [address] Plt 32(L) 150 - 400 K/cumm CHRISSY Comment:Testing performed by : [address] [address] MPV Not Measured 9.1 - 12.3 fL CHRISSY Comment:Testing performed by : [address], [address] RBC 2.47(L) 4.30 - 5.80 M/cumm CHRISSY Comment:Testing performed by : [address], [address] MCV 92.3 81.3 - 96.4 fL CHRISSY Comment:Testing performed by : [address] [address] MCH 31.2 27.1 - 33.3 pg CHRISSY Comment:Testing performed by : [address] [address] MCHC 33.8 32.3 - 35.7 g/dL CHRISSY Comment:Testing performed by : [address] [address] RDW CV 19.3(H) 11.1 - 14.9 % CHRISSY Comment:Testing performed by : [address] [address] RDW SD 62.3(H) 35.7 - 48.1 fL CHRISSY Comment:Testing performed by : [address] [address] NRBC abs 0.00 0.00 - 0.01 K/cumm CHRISSY Comment:Testing performed by : [address] [address] ANC Prelim 1.50 1.50 - 6.50 K/cumm CHRISSY Comment: Interpretive Data The rapid ANC is a preliminary automated count and may vary from the final ANC (Neut Abs) reported in the WBC differential that follows. Current interpretive data was last revised 2024. Testing performed by: [address] [address] Blood 09/23/2024 9:54 AM CDT 09/23/2024 9:59 AM CDT Sarah Delatorre DONATIONS ATTENDANT LAB BLOOD ORDERABLES Fin al Result Performing Organization Address City/[facility]/ZIP Co de Phone Number [address] [address] * ABO/Rh (09/23/2024 9:54 AM CDT) ABO/Rh O Positive Comment:Testing performed by : [facility], [address] [place] [address]., [address] Blood 09/23/2024 9:54 AM CDT 09/23/2024 10:26 AM CDT Narrative [facility] - 09/23/2024 10:46 AM CDT Has the patient had Daratumumab or Isatuximab in the past 6 months?->Unknown Ct Oliveira DONATIONS ATTENDANT LAB BLOOD BANK TEST ORDERAB LES Final Result Performing Organization Address [facility]/ZIP Co de Phone Number [address] [address] * Crossmatch (09/23/2024 9:54 AM CDT) Pathologist [facility] Crossmatch Compatible [facility] Unit number for crossmatch [id number] [facility] Blood 09/23/2024 9:54 AM CDT 09/23/2024 10:26 AM CDT Sarah Delatorre DONATIONS ATTENDANT LAB BLOOD BANK TEST ORDE RABLES Final Result Performing Organization Address City/[facility]/ZIP Co de Phone Number [address] [address] * Antibody screen (09/23/2024 9:54 AM CDT) Chris, indirect, Gel Interpretation Negative ABSC Comment:Testing performed by : [address] [address] Blood 09/23/2024 9:54 AM CDT 09/23/2024 10:26 AM CDT Narrative CHRISSY - 09/23/2024 11:07 AM CDT Has the patient had Daratumumab or Isatuximab in the past 6 months?->Unknown Ct Oliveira DONATIONS ATTENDANT LAB BLOOD BANK TEST ORDERAB LES Final Result Performing Organization Address [facility] de Phone Number [address] [address] * (ABNORMAL) Immature platelet fraction (09/10/2024 9:50 AM CDT) IPF 21.1(H) 1.6 - 10.1 % Comment:Testing performed by : [address] [address] Blood 09/10/2024 9:50 AM CDT 09/10/2024 9:54 AM CDT Sarah Delatorre DONATIONS ATTENDANT LAB BLOOD ORDERABLES Fin al Result Performing Organization Address [facility] de Phone Number [address] [address] * (ABNORMAL) Blood smear review (09/10/2024 9:50 AM CDT) RBC morphology Present(A ) Comment:Testing performed by : [address] [address] Anisocytosis Slight(A) CHRISSY Comment:Testing performed by : [address] [address] Schistocytes 1-2/HPF(A ) CHRISSY Comment:Testing performed by : [address] [address] Elliptocytes 3-7/HPF(A ) CHRISSY Comment:Testing performed by : [address] [address] Platelet estimate Decreased (A) CHRISSY Comment:Testing performed by : [address] [address] Blood 09/10/2024 9:50 AM CDT 09/10/2024 9:54 AM CDT us Sarah Delatorre DONATIONS ATTENDANT LAB BLOOD ORDERABLES Fin al Result CHRISSY [address] [facility] Department [place] [address] * (ABNORMAL) Differential, auto (09/10/2024 9:50 AM CDT) Neutrophil abs 2.04 1.50 - 6.50 K/cumm Comment:Testing performed by : [address] [address] Imm gran abs 0.02 0.00 - 0.10 K/cumm CHRISSY Comment:Testing performed by : [address] [address] Lymphocyte abs 0.54(L) 0.80 - 3.30 K/cumm CHRISSY Comment:Testing performed by : [address] [address] Monocyte abs 0.43 0.20 - 0.80 K/cumm CHRISSY Comment:Testing performed by : [address] [address] Eosinophil abs 0.04 0.00 - 0.50 K/cumm CHRISSY Comment:Testing performed by : [address] [address] Basophil abs 0.05 0.00 - 0.10 K/cumm CHRISSY Comment:Testing performed by : [address] [address] Neutrophil pct 65.4 % CHRISSY Comment: Interpretive Data Percent cell count reference ranges are not reported, since discordance with absolute values may lead to misinterpretation of CBC data. Current Interpretive Data was last revised on 2017. Testing performed by: [address] [address] Imm gran pct 0.6 % [facility] Comment: Interpretive Data Percent cell count reference ranges are not reported, since discordance with absolute values may lead to misinterpretation of CBC data. Current Interpretive Data was last revised on 2017. Testing performed by: [address] [address] Lymphocyte pct 17.3 % [facility] Comment: Interpretive Data Percent cell count reference ranges are not reported, since discordance with absolute values may lead to misinterpretation of CBC data. Current Interpretive Data was last revised on 2017. Testing performed by: [address] [address] Monocyte pct 13.8 % [facility] Comment: Interpretive Data Percent cell count reference ranges are not reported, since discordance with absolute values may lead to misinterpretation of CBC data. Current Interpretive Data was last revised on 2017. Testing performed by: [address] [address] Eosinophil pct 1.3 % [facility] Comment: Interpretive Data Percent cell count reference ranges are not reported, since discordance with absolute values may lead to misinterpretation of CBC data. Current Interpretive Data was last revised on 2017. Testing performed by: [address] [address] Basophil pct 1.6 % [facility] Comment: Interpretive Data Percent cell count reference ranges are not reported, since discordance with absolute values may lead to misinterpretation of CBC data. Current Interpretive Data was last revised on 2017. Testing performed by: [address] [address] Blood 09/10/2024 9:50 AM CDT 09/10/2024 9:54 AM CDT us Sarah Delatorre NP LAB BLOOD ORDERABLES Fin al Result [facility] [address] [facility] Department of Laboratories [place], [place] [id number] * (ABNORMAL) CBC with auto differential (09/10/2024 9:50 AM CDT) [facility] [address] WBC 3.12(L) 3.80 - 9.90 K/cumm Comment:Testing performed by : [address], [address] Hgb 7.8(L) 13.0 - 17.5 g/dL CHRISSY Comment:Testing performed by : [address], [address] Hct 22.9(L) 38.9 - 50.3 % CHRISSY Comment:Testing performed by : [address], [address] Plt 31(L) 150 - 400 K/cumm CHRISSY Comment:Testing performed by : [address], [address] MPV Not Measured 9.1 - 12.3 fL CHRISSY Comment:Testing performed by : [address], [address] RBC 2.46(L) 4.30 - 5.80 M/cumm CHRISSY Comment:Testing performed by : [address], [address] MCV 93.1 81.3 - 96.4 fL CHRISSY Comment:Testing performed by : [address], [address] MCH 31.7 27.1 - 33.3 pg CERSERINA Comment:Testing performed by : [address], [address] MCHC 34.1 32.3 - 35.7 g/dL CHRISSY Comment:Testing performed by : [address], [address] RDW CV 18.4(H) 11.1 - 14.9 % CHRISSY Comment:Testing performed by : [address], [address] RDW SD 60.3(H) 35.7 - 48.1 fL CHRISSY Comment:Testing performed by : [address], [address] NRBC abs 0.00 0.00 - 0.01 K/cumm CHRISSY Comment:Testing performed by : [address] [address] ANC Prelim 2.04 1.50 - 6.50 K/cumm CHRISSY Comment: Interpretive Data The rapid ANC is a preliminary automated count and may vary from the final ANC (Neut Abs) reported in the WBC differential that follows. Current interpretive data was last revised 2024. Testing performed by: [address] [address] Blood 09/10/2024 9:50 AM CDT 09/10/2024 9:54 AM CDT Sarah Delatorre DONATIONS ATTENDANT LAB BLOOD ORDERABLES Fin al Result Performing Organization Address [facility] de Phone Number [address] [place] [address] * (ABNORMAL) Immature platelet fraction (08/27/2024 9:47 AM CDT) Pathologist [facility] IPF 20.6(H) 1.6 - 10.1 % Comment:Testing performed by : [address] [address] Blood 08/27/2024 9:47 AM CDT 08/27/2024 9:51 AM CDT Sarah Delatorre NP LAB BLOOD ORDERABLES Fin al Result Performing Organization Address [facility] de Phone Number [address] [address] * (ABNORMAL) Blood smear review (08/27/2024 9:47 AM CDT) Pathologist [facility] RBC morphology Present(A ) Comment:Testing performed by : [address] [address] Anisocytosis Slight(A) CHRISSY Comment:Testing performed by : [address] [address] Schistocytes 1-2/HPF(A ) CHRISSY Comment:Testing performed by : [address] [address] Elliptocytes 3-7/HPF(A ) CHRISSY Comment:Testing performed by : [address] [address] Platelet estimate Decreased (A) CHRISSY Comment:Testing performed by : [address] [address] Blood 08/27/2024 9:47 AM CDT 08/27/2024 9:51 AM CDT us Sarah Delatorre NP LAB BLOOD ORDERABLES Yonis winslow Result CHRISSY [address] [facility] Department [place] [address] * (ABNORMAL) Differential, auto (08/27/2024 9:47 AM CDT) Neutrophil abs 1.40(L) 1.50 - 6.50 K/cumm Comment:Testing performed by : [address] [address] Imm gran abs 0.02 0.00 - 0.10 K/cumm CHRISSY Comment:Testing performed by : [address] [address] Lymphocyte abs 0.56(L) 0.80 - 3.30 K/cumm CHRISSY Comment:Testing performed by : [address] [address] Monocyte abs 0.33 0.20 - 0.80 K/cumm CHRISSY Comment:Testing performed by : [address] [address] Eosinophil abs 0.03 0.00 - 0.50 K/cumm CHRISSY Comment:Testing performed by : [address] [address] Basophil abs 0.04 0.00 - 0.10 K/cumm CHRISSY Comment:Testing performed by : [address] [address] Neutrophil pct 58.8 % [facility] Comment: Interpretive Data Percent cell count reference ranges are not reported, since discordance with absolute values may lead to misinterpretation of CBC data. Current Interpretive Data was last revised on 2017. Testing performed by: [address] [address] Imm gran pct 0.8 % [facility] Comment: Interpretive Data Percent cell count reference ranges are not reported, since discordance with absolute values may lead to misinterpretation of CBC data. Current Interpretive Data was last revised on 2017. Testing performed by: [address] [address] Lymphocyte pct 23.5 % [facility] Comment: Interpretive Data Percent cell count reference ranges are not reported, since discordance with absolute values may lead to misinterpretation of CBC data. Current Interpretive Data was last revised on 2017. Testing performed by: [address] [address] Monocyte pct 13.9 % [facility] Comment: Interpretive Data Percent cell count reference ranges are not reported, since discordance with absolute values may lead to misinterpretation of CBC data. Current Interpretive Data was last revised on 2017. Testing performed by: [address] [address] Eosinophil pct 1.3 % [facility] Comment: Interpretive Data Percent cell count reference ranges are not reported, since discordance with absolute values may lead to misinterpretation of CBC data. Current Interpretive Data was last revised on 2017. Testing performed by: [address] [address] Basophil pct 1.7 % [facility] Comment: Interpretive Data Percent cell count reference ranges are not reported, since discordance with absolute values may lead to misinterpretation of CBC data. Current Interpretive Data was last revised on 2017. Testing performed by: [address] [address] Blood 08/27/2024 9:47 AM CDT 08/27/2024 9:51 AM CDT us Sarha Delatorre DONATIONS ATTENDANT LAB BLOOD ORDERABLES Fin al Result [facility] [address] [facility] Department [place] [address] * (ABNORMAL) CBC with auto differential (08/27/2024 9:47 AM CDT) WBC 2.38(L) 3.80 - 9.90 K/cumm Comment:Testing performed by : [address] [address] Hgb 8.4(L) 13.0 - 17.5 g/dL CHRISSY Comment:Testing performed by : [address], [address] Hct 25.4(L) 38.9 - 50.3 % CHRISSY Comment:Testing performed by : [address] [address] Plt 30(L) 150 - 400 K/cumm CHRISSY Comment:Testing performed by : [address] [address] MPV Not Measured 9.1 - 12.3 fL CHRISSY Comment:Testing performed by : [address] [address] RBC 2.69(L) 4.30 - 5.80 M/cumm CHRISSY Comment:Testing performed by : [address] [address] MCV 94.4 81.3 - 96.4 fL CHRISSY Comment:Testing performed by : [address] [address] MCH 31.2 27.1 - 33.3 pg CHRISSY Comment:Testing performed by : [address] [address] MCHC 33.1 32.3 - 35.7 g/dL CHRISSY Comment:Testing performed by : [address] [address] RDW CV 18.9(H) 11.1 - 14.9 % CHRISSY Comment:Testing performed by : [address] [address] RDW SD 62.8(H) 35.7 - 48.1 fL CHRISSY Comment:Testing performed by : [address] [address] NRBC abs 0.00 0.00 - 0.01 K/cumm CHRISSY Comment:Testing performed by : [address] [address] ANC Prelim 1.40(L) 1.50 - 6.50 K/cumm CHRISSY Comment: Interpretive Data The rapid ANC is a preliminary automated count and may vary from the final ANC (Neut Abs) reported in the WBC differential that follows. Current interpretive data was last revised 2024. Testing performed by: [address] [address] Blood 08/27/2024 9:47 AM CDT 08/27/2024 9:51 AM CDT us Sarah Delatorre NP LAB BLOOD ORDERABLES Fin al Result [id number] Department [place] [address] * Transfuse RBC (08/14/2024 3:58 PM CDT) Blood us Brooke Clayton MD BLOOD TRANSFUSION ORDERABLE S Final Result * Prepare RBC: 1 Units (08/13/2024 3:31 PM CDT) Units requested 1 Comment:Testing performed by : [address] [address] Units requested Ready CHRISSY Comment:Testing performed by : [address] [address] Unit Number [id number] Product code [id number] CHRISSY Blood Expiration Date [id number] CHRISSY Product Blood Type (for scanning) 5100 CHRISSY Product Blood Type OPOS CHRISSY Dispense Status DISPENSED CHRISSY Blood 08/13/2024 3:31 PM CDT 08/13/2024 3:[address] Oliveira NP BLOOD BANK PRODUCT ORDERABL ES Final Result Performing Organization Address [facility] [facility] Co de Phone Number [facility] [place] [address] * (ABNORMAL) Immature platelet fraction (08/13/2024 12:54 PM CDT) Pathologist [facility] IPF 23.2(H) 1.6 - 10.1 % Comment:Testing performed by : [address] [address] Blood 08/13/2024 12:5 4 PM CDT 08/13/2024 12:[address] Oliveira NP LAB BLOOD ORDERABLES Final Result Performing Organization Address [facility] Co de Phone Number CHRISSY [address] [address] * (ABNORMAL) Blood smear review (08/13/2024 12:54 PM CDT) [facility] [address] RBC morphology Consistent with RBC Indicies Comment:Testing performed by : [address] [address] Platelet estimate Decreased(A) CHRISSY Comment:Testing performed by : [address] [address] Blood 08/13/2024 12:5 4 PM CDT 08/13/2024 12:[address] Oliveira NP LAB BLOOD ORDERABLES Final Result Performing Organization Address City/[facility] Co de Phone Number CHRISSY [address] [facility] [place] [address] * eGFR (08/13/2024 12:54 PM CDT) Pathologist [facility] eGFR 74 >=60 mL/min/1. 73 m2 Comment: Interpretive Data Reference Interval Normal >/= 90 mL/min/1.73m2 Mildly decreased* 60 - 89 mL/min/1.73m2 Mildly to moderately decreased 45 - 59 mL/min/1.73m2 Moderately to severely decreased 30 - 44 mL/min/1.73m2 Severely decreased 15 - 29 mL/min/1.73m2 Kidney Failure < 15 mL/min/1.73m2 *Relative to young adult level Estimated glomerular filtration rate is determined by the 2020 CKD-EPI equation recommended by the National [employer] (A Unifying Approach to GFR Estimation: Recommendations of the NKF-ASK Task Force on Reassessing the Inclusion of Race in Diagnosing Kidney Disease, JASN 2020). The CKD-EPI equation should not be used for patients with unstable renal function and has not been validated in children and those over 70. Current interpretive data was last reviewed 2021. Testing performed by: [address] [address] Blood 08/13/2024 12:5 4 PM CDT 08/13/2024 12:[address] Oliveira NP LAB BLOOD ORDERABLES Final Result Performing Organization Address City/State/[facility] Co de Phone Number CHRISSY [address] [facility] [place] [address] * Differential, auto (08/13/2024 12:54 PM CDT) Pathologist [facility] Neutrophil abs 1.96 1.50 - 6.50 K/cumm Comment:Testing performed by : [address] [address] Imm gran abs 0.01 0.00 - 0.10 K/cumm CHRISSY BELLO Comment:Testing performed by : [address] [address] Lymphocyte abs 0.82 0.80 - 3.30 K/cumm CHRISSY Comment:Testing performed by : [address] [address] Monocyte abs 0.64 0.20 - 0.80 K/cumm [facility] Comment:Testing performed by : [address] [address] Eosinophil abs 0.01 0.00 - 0.50 K/cumm [facility] Comment:Testing performed by : [address] [address] Basophil abs 0.04 0.00 - 0.10 K/cumm [facility] Comment:Testing performed by : [address] [address] Neutrophil pct 56.3 % [facility] Comment: Differential consistent with previous result. Interpretive Data Percent cell count reference ranges are not reported, since discordance with absolute values may lead to misinterpretation of CBC data. Current Interpretive Data was last revised on 2017. Testing performed by: [address] [address] Imm gran pct 0.3 % [facility] Comment: Interpretive Data Percent cell count reference ranges are not reported, since discordance with absolute values may lead to misinterpretation of CBC data. Current Interpretive Data was last revised on 2017. Testing performed by: [address] [address] Lymphocyte pct 23.6 % [facility] Comment: Interpretive Data Percent cell count reference ranges are not reported, since discordance with absolute values may lead to misinterpretation of CBC data. Current Interpretive Data was last revised on 2017. Testing performed by: [address] [address] Monocyte pct 18.4 % [facility] Comment: Interpretive Data Percent cell count reference ranges are not reported, since discordance with absolute values may lead to misinterpretation of CBC data. Current Interpretive Data was last revised on 2017. Testing performed by: [address] [address] Eosinophil pct 0.3 % [facility] Comment: Interpretive Data Percent cell count reference ranges are not reported, since discordance with absolute values may lead to misinterpretation of CBC data. Current Interpretive Data was last revised on 2017. Testing performed by: [address] [place] [address] Basophil pct 1.1 % CHRISSY Comment: Interpretive Data Percent cell count reference ranges are not reported, since discordance with absolute values may lead to misinterpretation of CBC data. Current Interpretive Data was last revised on 2017. Testing performed by: [address] [address] Blood 08/13/2024 12:5 4 PM CDT 08/13/2024 12:[address] Oliveira DONATIONS ATTENDANT LAB BLOOD ORDERABLES Final Result CHRISSY [address] [facility] Department [place] [address] * (ABNORMAL) CBC with auto differential (08/13/2024 12:54 PM CDT) WBC 3.48(L) 3.80 - 9.90 K/cumm Comment:Testing performed by : [address] [address] Hgb 7.5(L) 13.0 - 17.5 g/dL CHRISSY BELLO Comment:Testing performed by : [address] [address] Hct 22.6(L) 38.9 - 50.3 % CHRISSY BELLO Comment:Testing performed by : [address] [address] Plt 32(L) 150 - 400 K/cumm CHRISSY Comment:Testing performed by : [address] [address] MPV Not Measured 9.1 - 12.3 fL CHRISSY BELLO Comment:Testing performed by : [address] [address] RBC 2.42(L) 4.30 - 5.80 M/cumm CHRISSY BELLO Comment:Testing performed by : [address] [address] MCV 93.4 81.3 - 96.4 fL CHRISSY BELLO Comment:Testing performed by : [address] [address] MCH 31.0 27.1 - 33.3 pg CHRISSY BELLO Comment:Testing performed by : [address] [address] MCHC 33.2 32.3 - 35.7 g/dL CHRISSY BELLO Comment:Testing performed by : [address] [address] RDW CV 19.9(H) 11.1 - 14.9 % CHRISSY Comment:Testing performed by : [address] [address] RDW SD 66.9(H) 35.7 - 48.1 fL CHRISSY BELLO Comment:Testing performed by : [address] [address] NRBC abs 0.00 0.00 - 0.01 K/cumm CHRISSY Comment:Testing performed by : [address] [address] ANC Prelim 1.96 1.50 - 6.50 K/cumm CHRISSY Comment: Interpretive Data The rapid ANC is a preliminary automated count and may vary from the final ANC (Neut Abs) reported in the WBC differential that follows. Current interpretive data was last revised 2024. Testing performed by: [address] [address] Blood 08/13/2024 12:5 4 PM CDT 08/13/2024 12:[address] Oliveira DONATIONS ATTENDANT LAB BLOOD ORDERABLES Final Result CHRISSY [address] [facility] Department [place] [address] * ABO/Rh (08/13/2024 12:54 PM CDT) ABO/Rh O Positive Comment:Testing performed by : [address] [address] Blood 08/13/2024 12:5 4 PM CDT 08/13/2024 2:00 PM CDT Narrative CHRISSY - 08/13/2024 2:39 PM CDT Has the patient had Daratumumab or Isatuximab in the past 6 months?->Unknown Ct Oliveira DONATIONS ATTENDANT LAB BLOOD BANK TEST ORDERAB LES Final Result CLAUDIO[address] [place] [address] * Crossmatch (08/13/2024 12:54 PM CDT) Crossmatch Compatible [facility] Unit number for crossmatch [id number] [facility] Blood 08/13/2024 12:5 4 PM CDT 08/13/2024 2:[address] Oliveira DONATIONS ATTENDANT LAB BLOOD BANK TEST ORDERAB LES Final Result Performing Organization Address [facility]/ZIP Co de Phone Number [address] [place] [address] * Antibody screen (08/13/2024 12:54 PM CDT) Chris, indirect, Gel Interpretation Negative ABSC Comment:Testing performed by : [facility], [address] [place] [address]., [address] Blood 08/13/2024 12:5 4 PM CDT 08/13/2024 2:00 PM CDT Narrative CHRISSY - 08/13/2024 2:39 PM CDT Has the patient had Daratumumab or Isatuximab in the past 6 months?->Unknown Ct Oliveira DONATIONS ATTENDANT LAB BLOOD BANK TEST ORDERAB LES Final Result Performing Organization Address City/[facility]/ZIP Co de Phone Number CLAUDIO[address] [place] [address] * Lactate dehydrogenase (LD) (08/13/2024 12:54 PM CDT) Pathologist [facility] Lactate dehydrogenase (LDH) 123 100 - 250 Units/L Comment:Testing performed by : [address] [address] Blood 08/13/2024 12:5 4 PM CDT 08/13/2024 12:[address] Oliveira DONATIONS ATTENDANT LAB BLOOD ORDERABLES Final Result [facility] [address] [facility] [place] [address] * (ABNORMAL) Comprehensive metabolic panel (08/13/2024 12:54 PM CDT) Pathologist [facility] Sodium 142 135 - 145 mmol/L Comment:Testing performed by : [address] [address] Potassium, pl 4.4 3.3 - 4.9 mmol/L CHRISSY Comment:Testing performed by : [address] [address] Chloride 105 97 - 110 mmol/L CHRISSY Comment:Testing performed by : [address] [address] CO2 27 22 - 32 mmol/L CHRISSY Comment:Testing performed by : [address] [address] Anion gap 10 2 - 15 mmol/L CHRISSY Comment:Testing performed by : [address] [address] BUN 22 6 - 25 mg/dL CHRISSY Comment:Testing performed by : [address] [address] Creatinine 1.00 0.80 - 1.30 mg/dL CHRISSY Comment:Testing performed by : [address] [address] Glucose 115 70 - 199 mg/dL CHRISSY Comment: Interpretive Data Fasting glucose >/= 126 mg/dl is diagnostic for diabetes. Fasting is defined as no caloric intake for at least 8 hours. Fasting glucose between 100 mg/dl to 125 mg/dl is diagnostic of prediabetes. In a patient with classic symptoms of hyperglycemia or hyperglycemic crisis, a random glucose >/= 200 mg/dl is diagnostic for diabetes. In the absence of unequivocal hyperglycemia, results should be confirmed by repeat testing. The classification and Diagnosis of Diabetes Diabetes Care 202; 46: S19-S40. Current interpretive data was last revised 2022. Testing performed by: [address] [address] Calcium 9.5 8.5 - 10.3 mg/dL CHRISSY Comment:Testing performed by : [address] [address] Bilirubin, total 1.4(H) 0.1 - 1.2 mg/dL CHRISSY Comment:Testing performed by : [address] [address] Protein, pl 6.1(L) 6.5 - 8.5 g/dL CHRISSY Comment:Testing performed by : [address] [address] Albumin 4.4 3.5 - 5.0 g/dL CHRISSY Comment:Testing performed by : [address] [address] Alk phos 39(L) 40 - 130 Units/L CHRISSY Comment:Testing performed by : [address] [address] ALT 7 7 - 55 Units/L CHRISSY Comment:Testing performed by : [address] [address] AST 10 10 - 50 Units/L CHRISSY Comment:Testing performed by : [address] [address] Blood 08/13/2024 12:5 4 PM CDT 08/13/2024 12:[address] Oliveira NP LAB BLOOD ORDERABLES Final Result CHRISSY [address] [facility] Department [place] [address] * (ABNORMAL) Blood smear review (08/06/2024 7:50 AM CDT) Pathologist [facility] RBC morphology Consistent with RBC Indicies Comment:Testing performed by : [address] [address] Platelet estimate Decreased(A) CHRISSY Comment:Testing performed by : [address] [address] Blood 08/06/2024 7:50 AM CDT 08/06/2024 7:[address] Oliveira DONATIONS ATTENDANT LAB BLOOD ORDERABLES Final Result Performing Organization Address City/State/[facility] Co de Phone Number CHRISSY BELLO [address] [facility] Department [place] [address] * (ABNORMAL) Differential, auto (08/06/2024 7:50 AM CDT) Pathologist [facility] Neutrophil abs 1.90 1.50 - 6.50 K/cumm Comment:Testing performed by : [address] [address] Imm gran abs 0.05 0.00 - 0.10 K/cumm CHRISSY Comment:Testing performed by : [address] [address] Lymphocyte abs 0.62(L) 0.80 - 3.30 K/cumm CHRISSY Comment:Testing performed by : [address] [address] Monocyte abs 0.51 0.20 - 0.80 K/cumm CHRISSY Comment:Testing performed by : [address] [address] Eosinophil abs 0.03 0.00 - 0.50 K/cumm CHRISSY Comment:Testing performed by : [address] [address] Basophil abs 0.04 0.00 - 0.10 K/cumm CHRISSY Comment:Testing performed by : [address] [address] Neutrophil pct 60.2 % [facility] Comment: Interpretive Data Percent cell count reference ranges are not reported, since discordance with absolute values may lead to misinterpretation of CBC data. Current Interpretive Data was last revised on 2017. Testing performed by: [address] [address] Imm gran pct 1.6 % [facility] Comment: Interpretive Data Percent cell count reference ranges are not reported, since discordance with absolute values may lead to misinterpretation of CBC data. Current Interpretive Data was last revised on 2017. Testing performed by: [address] [address] Lymphocyte pct 19.7 % [facility] Comment: Interpretive Data Percent cell count reference ranges are not reported, since discordance with absolute values may lead to misinterpretation of CBC data. Current Interpretive Data was last revised on 2017. Testing performed by: [address] [address] Monocyte pct 16.2 % [facility] Comment: Interpretive Data Percent cell count reference ranges are not reported, since discordance with absolute values may lead to misinterpretation of CBC data. Current Interpretive Data was last revised on 2017. Testing performed by: [address] [address] Eosinophil pct 1.0 % [facility] Comment: Interpretive Data Percent cell count reference ranges are not reported, since discordance with absolute values may lead to misinterpretation of CBC data. Current Interpretive Data was last revised on 2017. Testing performed by: [address] [address] Basophil pct 1.3 % [facility] Comment: Interpretive Data Percent cell count reference ranges are not reported, since discordance with absolute values may lead to misinterpretation of CBC data. Current Interpretive Data was last revised on 2017. Testing performed by: [address] [address] Blood 08/06/2024 7:50 AM CDT 08/06/2024 7:[address] Yola Golec DONATIONS ATTENDANT LAB BLOOD ORDERABLES Final Result Performing Organization Address [facility] Co de Phone Number CLAUDIO[address] [place] [address] * (ABNORMAL) Iron profile w/ IBC (08/06/2024 7:50 AM CDT) Pathologist [facility] Iron 162(H) 50 - 150 mcg/dL Comment:Testing performed by : [address] [address] TIBC 229(L) 250 - 400 mcg/dL CHRISSY Comment:Testing performed by : [address] [address] Transferrin saturation 71(H) 20 - 50 % CHRISSY Comment:Testing performed by : [address] [address] Blood 08/06/2024 7:50 AM CDT 08/06/2024 9:[address] Oliveira DONATIONS ATTENDANT LAB BLOOD ORDERABLES Final Result Performing Organization Address [facility] Co de Phone Number [address] [place] [address] * (ABNORMAL) CBC with auto differential (08/06/2024 7:50 AM CDT) [facility] [address] WBC 3.15(L) 3.80 - 9.90 K/cumm Comment:Testing performed by : [address] [address] Hgb 8.1(L) 13.0 - 17.5 g/dL CHRISSY Comment:Testing performed by : [address] [address] Hct 24.6(L) 38.9 - 50.3 % CHRISSY Comment:Testing performed by : [address] [address] Plt 54(L) 150 - 400 K/cumm CHRISSY BELLO Comment:Testing performed by : [address] [address] MPV Not Measured 9.1 - 12.3 fL CHRISSY Comment:Testing performed by : [address] [address] RBC 2.61(L) 4.30 - 5.80 M/cumm CHRISSY Comment:Testing performed by : [address] [address] MCV 94.3 81.3 - 96.4 fL CHRISSY Comment:Testing performed by : [address] [address] MCH 31.0 27.1 - 33.3 pg CHRISSY Comment:Testing performed by : [address] [address] MCHC 32.9 32.3 - 35.7 g/dL CHRISSY Comment:Testing performed by : [address] [address] RDW CV 19.8(H) 11.1 - 14.9 % CHRISSY Comment:Testing performed by : [address] [address] RDW SD 67.6(H) 35.7 - 48.1 fL CHRISSY Comment:Testing performed by : [address] [address] NRBC abs 0.00 0.00 - 0.01 K/cumm CHRISSY Comment:Testing performed by : [address] [address] ANC Prelim 1.90 1.50 - 6.50 K/cumm CHRISSY Comment: Interpretive Data The rapid ANC is a preliminary automated count and may vary from the final ANC (Neut Abs) reported in the WBC differential that follows. Current interpretive data was last revised 2024. Testing performed by: [address] [address] Blood 08/06/2024 7:50 AM CDT 08/06/2024 7:[address] Oliveira DONATIONS ATTENDANT LAB BLOOD ORDERABLES Final Result CLAUDIO[address] [place] [address] * Reticulocyte Count (08/06/2024 7:50 AM CDT) [facility] [address] Retics, absolute 75 20 - 87 K/cumm Comment:Testing performed by : [facility], [address] [place] [address]., [address] Retics 2.9 0.4 - 2.9 % CHRISSY Comment:Testing performed by : [facility], [address] [place] [address]., [address] Reticulocyte Hgb 33.9 30.5 - 38.0 pg CHRISSY Comment:Testing performed by : [address] [address] Blood 08/06/2024 7:50 AM CDT 08/06/2024 7:[address] Oliveira DONATIONS ATTENDANT LAB BLOOD ORDERABLES Final Result Performing Organization Address [facility] Co de Phone Number [address] [place] [address] * (ABNORMAL) Ferritin (08/06/2024 7:50 AM CDT) [facility] [address] Ferritin 479(H) 30 - 400 ng/mL Comment:Testing performed by : [address] [address] Blood 08/06/2024 7:50 AM CDT 08/06/2024 9:[address] Oliveira DONATIONS ATTENDANT LAB BLOOD ORDERABLES Final Result Performing Organization Address [facility] Co de Phone Number [address] [address] * (ABNORMAL) Immature platelet fraction (07/30/2024 9:49 AM CDT) [facility] [address] IPF 19.8(H) 1.6 - 10.1 % Comment:Testing performed by : [address] [address] Blood 07/30/2024 9:49 AM CDT 07/30/2024 9:[address] Oliveira DONATIONS ATTENDANT LAB BLOOD ORDERABLES Final Result Performing Organization Address [facility] Co de Phone Number [address] [address] * (ABNORMAL) Blood smear review (07/30/2024 9:49 AM CDT) Pathologist [facility] RBC morphology Consistent with RBC Indicies Comment:Testing performed by : [address] [address] Platelet estimate Decreased(A) CHRISSY Comment:Testing performed by : [address] [address] Blood 07/30/2024 9:49 AM CDT 07/30/2024 9:[address] Oliveira DONATIONS ATTENDANT LAB BLOOD ORDERABLES Final Result Performing Organization Address [facility] de Phone Number [address] [address] * (ABNORMAL) Differential, auto (07/30/2024 9:49 AM CDT) Neutrophil abs 1.97 1.50 - 6.50 K/cumm Comment:Testing performed by : [address] [address] Imm gran abs 0.02 0.00 - 0.10 K/cumm CHRISSY Comment:Testing performed by : [address] [address] Lymphocyte abs 0.63(L) 0.80 - 3.30 K/cumm CHRISSY Comment:Testing performed by : [address] [address] Monocyte abs 0.43 0.20 - 0.80 K/cumm CHRISSY Comment:Testing performed by : [address] [address] Eosinophil abs 0.05 0.00 - 0.50 K/cumm CHRISSY Comment:Testing performed by : [address] [address] Basophil abs 0.03 0.00 - 0.10 K/cumm CHRISSY Comment:Testing performed by : [address] [address] Neutrophil pct 63.0 % [facility] Comment: Interpretive Data Percent cell count reference ranges are not reported, since discordance with absolute values may lead to misinterpretation of CBC data. Current Interpretive Data was last revised on 2017. Testing performed by: [address] [address] Imm gran pct 0.6 % [facility] Comment: Interpretive Data Percent cell count reference ranges are not reported, since discordance with absolute values may lead to misinterpretation of CBC data. Current Interpretive Data was last revised on 2017. Testing performed by: [address] [address] Lymphocyte pct 20.1 % [facility] Comment: Interpretive Data Percent cell count reference ranges are not reported, since discordance with absolute values may lead to misinterpretation of CBC data. Current Interpretive Data was last revised on 2017. Testing performed by: [address] [address] Monocyte pct 13.7 % [facility] Comment: Interpretive Data Percent cell count reference ranges are not reported, since discordance with absolute values may lead to misinterpretation of CBC data. Current Interpretive Data was last revised on 2017. Testing performed by: [address] [address] Eosinophil pct 1.6 % [facility] Comment: Interpretive Data Percent cell count reference ranges are not reported, since discordance with absolute values may lead to misinterpretation of CBC data. Current Interpretive Data was last revised on 2017. Testing performed by: [address] [address] Basophil pct 1.0 % [facility] Comment: Interpretive Data Percent cell count reference ranges are not reported, since discordance with absolute values may lead to misinterpretation of CBC data. Current Interpretive Data was last revised on 2017. Testing performed by: [address] [address] Blood 07/30/2024 9:49 AM CDT 07/30/2024 9:[address] Oliveira DONATIONS ATTENDANT LAB BLOOD ORDERABLES Final Result [facility] [address] [facility] Department of Laboratories [place], [place] [id number] * (ABNORMAL) CBC with auto differential (07/30/2024 9:49 AM CDT) WBC 3.13(L) 3.80 - 9.90 K/cumm Comment:Testing performed by : [address] [address] Hgb 7.7(L) 13.0 - 17.5 g/dL CHRISSY Comment:Testing performed by : [address] [address] Hct 23.2(L) 38.9 - 50.3 % CHRISSY Comment:Testing performed by : [address] [address] Plt 38(L) 150 - 400 K/cumm CHRISSY Comment:Testing performed by : [address] [address] MPV Not Measured 9.1 - 12.3 fL CHRISSY Comment:Testing performed by : [address] [address] RBC 2.47(L) 4.30 - 5.80 M/cumm CHRISSY Comment:Testing performed by : [address] [address] MCV 93.9 81.3 - 96.4 fL CHRISSY Comment:Testing performed by : [address] [address] MCH 31.2 27.1 - 33.3 pg CHRISSY Comment:Testing performed by : [address] [address] MCHC 33.2 32.3 - 35.7 g/dL CHRISSY BELLO Comment:Testing performed by : [address] [address] RDW CV 19.4(H) 11.1 - 14.9 % CHRISSY Comment:Testing performed by : [address] [address] RDW SD 65.5(H) 35.7 - 48.1 fL CHRISSY Comment:Testing performed by : [address] [address] NRBC abs 0.00 0.00 - 0.01 K/cumm CHRISSY Comment:Testing performed by : [address] [address] ANC Prelim 1.97 1.50 - 6.50 K/cumm CHRISSY Comment: Interpretive Data The rapid ANC is a preliminary automated count and may vary from the final ANC (Neut Abs) reported in the WBC differential that follows. Current interpretive data was last revised 2024. Testing performed by: [address] [address] Blood 07/30/2024 9:49 AM CDT 07/30/2024 9:[address] Oliveira NP LAB BLOOD ORDERABLES Final Result [facility] [address] [facility] Department of Laboratories [place], [place] [phone] from Last 3 Months Insurance MEDICARE FOR LIFE MEDICARE FOR LIFE MEDICARE FOR LIFE Care Teams Lead Worker Of Housekeeping And Laundry Relationship Specialty Start Date End Date Patricia Sanchez MD PCP - General Family Medicine 07/05/17 Ct Oliveira NP [address] [place] [address] Nurse Practitioner Nurse Practitioner 05/07/23
--- OUTSIDE RECORDS SUMMARY | 2024-10-18 09:48 | XMS_ITS ---
Author Organization [facility] Address [address] [place] [address] Care Team Providers Care Stereotyper Name Role Phone Patricia Sanchez MD Primary Care Prov ider Ct Oliveira MOLD SHEET CLEANER Unavailable [phone] Active Problems Problem Noted Date Diagnosed Date Anemia 05/07/2024 MDS (myelodysplastic syndrome) 05/22/2023 Malignant neoplasm of prostate 07/04/2017 Thrombocytopenia 07/04/2017 Current Treatment and Therapy Plans Adult BMT/ONC - Blood and/or Platelet Administration for Outpatient* Plan Start Date:05/07/2024 Plan Provider:Ct Oliveira NP Linked Problems MDS (myelodysplastic syndrom e) (HCC)Anemia, unspecified type Treatment Medications No medications scheduled. darbepoetin (ARANESP) Injection every 2 weeks-MDS* Plan Start Date:05/30/2023 Plan Provider:Brooke Clayton MD Linked Problems MDS (myelodysplastic syndrom e) (HCC) Treatment Medications No medications scheduled. Past Treatment and Therapy Plans Specialty Infusion Treatment Plan Name Start Date Discontinue Date Treatment Medications Discontinue Reason Plan Provider Luspatercept-aamt for Anemia in Myelodysplastic Syndrome 09/03/2024 09/08/2024 luspatercept-aa mt (REBLOZYL) Financial Ct Oliveira NP Resolved Problems Problem Noted Date Diagnosed Date Resolved Date Basal cell carcinoma (BCC) of skin of nose 05/12/2015 11/13/2017
--- OUTSIDE RECORDS SUMMARY | 2024-10-18 09:49 | XMS_ITS | Continuity of Care Document ---
Author Name [facility] Organization [facility] Care Team Providers Care Assistant Nurse Manager Name Role Phone [facility] Unavailable Unavailable Problems Combined list of problems from Department [facility] and [facility] facilities. It does not include entries that were removed or entered in error. Problem Status Onset Date Problem Type Date of Resolution Comments Source Patient Counseling: Inactive Condition D oD visit for: screening exam cardiovascular disorders Inactive Condition [facility] Medications Combined list of outpatient medications from [facility] and [facility] facilities.Medications provided include 1) outpatient medications from [...] allergies from Department of Defense and [facility] facilities. It does not include entries that were removed or entered in error. Substance Category Reaction Severity Reaction type Status Date Reported Comments Source No Known Allergies Drug allergy (disorder) active 04/02/2007 [employer] Immunizations Combined list of available immunizations from the Department of Defense and [facility] facilities. Immunization Series Date Given Administered By Site Reaction Lot Number CVX Code Drug Electrician Second Status Comments Source RSV vaccine preF3, recombinant [...] vaccine, whole virus 2003 zzL t Arm [id number] sanofi pasteur complet ed influenza virus vaccine, whole virus 02/16/04 Given Ambulat ory Pharmac y influenza virus vaccine, whole virus 1 2003 Unknown, Provider [id number] 16 Sanofi Pasteur ([facility]) complet ed influenza virus vaccine, whole virus DoD pneumococcal polysaccharid e vaccine, 23 valent 1 2003 Unknown, Provider [id number] Merck (MSD) complet ed pneumococ palomo polysacch aride vaccine, 23 valent DoD influenza virus vaccine, whole virus 2001 zMichale t Arm [id number] [employer] complet ed influenza virus vaccine, whole virus 04/01/01 Given Ambulat ory Pharmac y influenza virus vaccine, whole virus 1 2001 Unknown, Provider [id number] 16 Harris (ALEK) [facility] ed influenza virus vaccine, whole virus DoD [...] ADM Date DC Date Status Disposition Source [address] [place] [address] Clemente [employer] ([facility]) OUTPATIENT [id number] ekg civ ISIDRO WILKES 10/07 Released w/o Limitations [address] [place] [address] [employer] ([facility]E lectroc ardiogr am Clinic) [facility] OUTPATIENT [id number] B/P ESPERANZA CODY JR 10/21 Released w/o Limitations [facility]) [facility] Outpatient Encounter [id number] 05/28 [facility] Procedures Combined list of: 1) Procedures from Department of Veterans Affairs facilities going back up to thelast 18 months, not all [place] non-surgical procedures are included; 2) All procedures from the Department of [facility] facilities. Procedure Procedure Type Code Date Perfomer Comments Sourc e Venous Pre ure Venous Pressure [id number] 10/22/19 05 ESPERANZA CODY JR [facility] ECG Performance of Tracing Only ECG Performance of Tracing Only [id number] 10/08/19 05 ISIDRO WILKES [facility] ELECTROCARDIOGRAM, ROUTINE ECG WITH AT LEAST 12 LEADS; TRACING ONLY, WITHOUT INTERPRETATION AND REPORT 09/23/19 05 [facility] DETERMINATION OF VENOUS PRESSURE 10/21/19 05 [facility] PHYSICAL THERAPY RE-EVALUATION 04/21/19 05 DoD APPLICATION OF A MODALITY TO 1 OR MORE AREAS; IONTOPHORESIS, EACH 15 MINUTES 04/20/19 05 DoD APPLICATION OF A MODALITY TO 1 OR MORE AREAS; HOT OR COLD PACKS 04/14/19 05 DoD APPLICATION OF A MODALITY TO 1 OR MORE AREAS; IONTOPHORESIS, EACH 15 MINUTES 04/12/19 [facility] APPLICATION OF A MODALITY TO 1 OR MORE AREAS; IONTOPHORESIS, EACH 15 MINUTES 04/07/19 [facility] PHYSICAL THERAPY EVALUATION 04/05/19 [facility] OPHTHALMOLOGICAL SERVICES: MEDICAL EXAMINATION AND EVALUATION WITH INITIATION OF DIAGNOSTIC AND TREATMENT PROGRAM; INTERMEDIATE, NEW PATIENT 03/24/19 [facility] DESTRUCT (EG, LASER SURGERY, ELECTROSURGERY, CRYOSURGERY, CHEMOSURGERY, SURGICAL CURETTEMENT), PREMALIGNANT LESIONS (EG, ACTINIC KERATOSES); 2ND THRU 14 LESIONS, EA (LIST SEP ADDITION CD, 1ST LESION) 02/16/20 [facility] OPHTHALMOLOGICAL SERVICES: MEDICAL EXAMINATION AND EVALUATION WITH INITIATION OF DIAGNOSTIC AND TREATMENT PROGRAM; COMPREHENSIVE, NEW PATIENT, 1 OR MORE VISITS 03/27/19 [facility] TETANUS AND DIPHTHERIA TOXOIDS (TD) ADSORBED WHEN ADMINISTERED TO INDIVIDUALS 7 YEARS OR OLDER, FOR INTRAMUSCULAR USE 02/15/20 [facility] SHAVING OF EPIDERMAL OR DERMAL LESION, SINGLE LESION, TRUNK, ARMS OR LEGS; LESION DIAMETER 0.6 TO 1.0 CM 02/12/20 [facility] OPHTHALMOSCOPY, EXTENDED, WITH RETINAL DRAWING (EG, FOR RETINAL DETACHMENT, MELANOMA), WITH INTERPRETATION AND REPORT; INITIAL 01/17/20 [facility] SIGMOIDOSCOPY, FLEXIBLE; DIAGNOSTIC, INCLUDING COLLECTION OF SPECIMEN(S) BY BRUSHING OR WASHING, WHEN PERFORMED (SEPARATE PROCEDURE) 12/19/19 [facility] BIOPSY, PROSTATE; NEEDLE OR PUNCH, SINGLE OR MULTIPLE, ANY APPROACH 12/06/19 [facility] EDUCATIONAL SUPPLIES, SUCH BOOKS, TAPES, AND PAMPHLETS, FOR THE PATIENT'S EDUCATION AT COST TO PHYSICIAN OR OTHER QUALIFIED HEALTH DIRECTOR OF STRATEGIC PARTNERSHIPS 11/29/19 [facility] No data available for this section Ambulatory Pharmacy Social History Combined list of available smoking, tobacco, and other social history from Department of Defense and Veterans Affairs facilities. Social History Type Response Date Comment Sourc e This section is an empty soc ial history section. DoD Sexual Orientation Ambula tory Pharmacy Gender identity Ambulator y Pharmacy Sex Representation Male (finding) Un known Organization Assessment and Plan Combined list of future [...] of Defense and Veterans Affairs (VA).VA Functional [place] Measurement (FIM) Scale: 1 = Total Assistance (Subject = 0% +), 2 = Maximal Assistance (Subject = 25% +), 3 = Moderate Assistance (Subject = 50% +), 4 = Minimal Assistance (Subject = 75% +), 5 = Supervision, 6 = Modified [place] (Device), 7 = Complete [place] (Timely, Safely). Assessment Date/Time Source Assessment Type Assessment Skill Assessment Score Assessment Details No data available for this section
--- OUTSIDE RECORDS SUMMARY | 2024-10-18 09:49 | XMS_ITS | Continuity of Care Document ---
Author Organization [facility] Address [address] [place] [address] [place] [address] Phone Care Team Providers Care Head Batcher Name Role Phone Torsten Maradiaga Unavailable Unavailable Procedures Procedure Date Office/outpatient Visit, Est Dilated Retinal Exam W Interpretation Id Office/outpatient Visit, Est Dilated Retinal Exam W Interpretation Id No Script Eye Exam & Treatment Refraction Eye Exam, New Patient Advance Directives Directive Yes / No Effective Date File Name No Information Encounters Encounter Description Practice Location Reason(s) For Visit Diagnoses Date Provider Providers Copied on Encounter Office/outpat ient Visit, [facility], [address] [place] [address] [address], [place], [place], [id number], [place] tel:[phone] [facility] No Information 4-201 0 Krishnasamy Torsten. [address] [facility] [address], [place], [place], [facility], [place]. tel:[phone] Office/outpat ient Visit, [facility], [address] [place] [address] [address], [place], [place], [id number], [place] tel:[phone] [facility] No Information 3-200 9 Krishnasamy Torsten. [address] [facility] [address], [place], [address], [place]. tel:[phone] [facility], [address] [place], [place] [address] [address], [place], [place], [id number], [place] tel:[phone] [facility] No Information 8 Ashwini Sarmiento. [address] [facility] [address], [place], [address], [place]. tel:[phone] [facility], [address], [place], [place], [id number], [place] tel:[phone] [facility] No Information 7 Amor Ken. [address] [facility], [address], [place], [place], [id number], [place]. tel:[phone] Family History Family Member Type Diagnosis Age At Onset No Information Payers Payer name Insurance type Covered alliance party ID Authoriza tion(s) [place] [id number] For Life Mdcr Supp [id number] Social History Type Description Quantity Date Captured [...]
[2024-10-18 09:59] VITALS: BP 130/45; PULSE 84; RESP 18; TEMP 36.3; O2SAT 97
--- NOTE | 2024-10-18 10:18 | ED.URI ---
HPI - URI/Sore Throat General Chief Complaint: Upper Respiratory Infection Stated Complaint: cough Time Seen by Provider: 10/18/24 10:00 Source: patient and RN notes reviewed Mode of arrival: ambulatory Limitations: no limitations History of Present Illness HPI Narrative: 84-year-old male presents Express Care complaining of cough for 3 days. Patient says the cough is worse at night especially when he lies flat. Patient denies any fevers, body aches, chills, nausea vomiting, chest pain, shortness of breath, difficulty breathing, or any other symptoms. Patient has not been take anything [id number] to help with symptoms. Related Data Home Medications ?Medication ?Instructions ?Recorded ?Confirmed ?Last Taken ?Type atorvastatin 20 mg tablet 20 mg DAILY 05/14/19 12/20/22 Unknown History febuxostat 40 mg tablet (Uloric) 40 mg DAILY 05/14/19 12/20/22 Unknown History lisinopril 40 mg tablet 40 mg DAILY 05/14/19 12/20/22 Unknown History nifedipine 30 mg tablet,extended 30 mg PO DAILY 05/14/19 12/20/22 Unknown History release dulaglutide 1.5 mg/0.5 mL 1.5 mg subcut WEEKLY 12/15/22 12/20/22 Unknown History subcutaneous pen injector (Trulicity) cholecalciferol (vitamin D3) 1,250 1,250 mcg PO WEEKLY 10/18/24 10/18/24 Unknown History mcg (50,000 unit) capsule vitamin B complex (Vitamins B 1 tablet PO DAILY 10/18/24 10/18/24 Unknown History Complex tablet) Allergies Allergy/AdvReac Type Severity Reaction Status Date / Time No Known Allergies Allergy Unknown Verified 10/18/24 09:59 Review of Systems Review of Systems: CONSTITUTIONAL: Denies fever, chills, or sweats. EYES: Denies visual changes, redness, or discharge. ENT: Denies rhinorrhea, congestion, sore throat, or otalgia. CARDIOVASCULAR: Denies chest pain, palpitations, or edema. RESPIRATORY: Positive for cough. Negative for difficulty breathing, wheezing, or dyspnea. GASTROINTESTINAL: Denies abdominal pain, nausea, vomiting, or diarrhea. GENITOURINARY: Denies dysuria or hematuria. SKIN: Denies rash or itching. MUSCULOSKELETAL: Denies back pain, joint pain, or myalgia. NEUROLOGIC: Denies headache, numbness, or weakness. PSYCHIATRIC: Denies anxiety or depression. All other systems reviewed are negative, except as documented in HPI. [facility] Past Medical History Medical History Diabetic polyneuropathy Hx of gout Hx of prostatic malignancy Diabetes mellitus, type II CAD (coronary artery disease) HLD (hyperlipidemia) HTN (hypertension) Surgical History Surgical History Hx of inguinal hernia surgery ~ - bilateral open inguinal hernia repair. Unknown if mesh was used. History of prostate surgery ~ 2004 - open prostatectomy performed at [facility]. Hx of tonsillectomy Family History Family History Father Heart failure Mother Colon cancer Other Family history of malignant neoplasm Social History Social History Smoking status: Never smoker Alcohol intake: current Drinks per week: 14 Substance use: never Substance use type: does not use Lack of Transportation: No Lack of Food: Never True Current Housing: Decline to Answer Concerned About Future Housing: Decline to Answer Difficulty Paying Gas/Electric Bills: Decline to Answer Difficulty Paying for Meds: Decline to Answer Currently Unemployed: Decline to Answer Education: Decline to Answer Difficulty w/ Childcare or Family Care: Decline to Answer Living arrangements: with family Occupation/Education: retired Gender identity (if verbalized by the patient): Male Comments At the time of my signature, I reviewed and agree with the nursing past medical, surgical, social, and family history. There is no relevant family history pertinent to the patient complaint. Exam Narrative: GENERAL: This is a well-nourished, well-developed adult, in no apparent distress. They are non ill-appearing, nontoxic appearing. HEAD: normocephalic, atraumatic. EYES: Sclera clear/white. Conjunctiva normal. Vision is grossly intact. Extraocular movements intact EARS: External ears normal, auditory canals clear and without drainage, TMs normal without perforation. Hearing grossly intact. NOSE: External nose normal with no obvious nasal discharge, nasal turbinates without redness, no rhinorrhea. THROAT: Mucous membranes moist, posterior pharynx boggy, without erythema. Uvula midline. Postnasal drip present. NECK: Neck supple CARDIOVASCULAR: Regular rate and rhythm. Mid systolic murmur best heard right upper sternal border grade 2/6. No clicks, Gallops, or rubs. RESPIRATORY: Rhonchi to right lower lobe. Otherwise clear throughout. Breath sounds equal bilaterally. No wheezes, rales. Normal respiratory exam SKIN: warm, Dry, intact with no suspicious lesions or rash, good texture and turgor. NEURO: awake, alert, and oriented to person, place and time. There were no obvious focal neurologic abnormalities. EXTREMITIES: No joint tenderness, effusion, or edema noted. Course Course Emergency Course: Portions of this record may have been created with voice recognition software Level of Care: Express Care Visit Vital Signs Vital signs: Vital Signs Temperature 97.4 F L 10/18/24 09:59 Pulse Rate 84 10/18/24 09:59 Respiratory Rate 18 10/18/24 09:59 Blood Pressure 130/45 L 10/18/24 09:59 Pulse Oximetry 97 10/18/24 09:59 Oxygen Delivery Room Air 10/18/24 09:59 Temperature 97.4 F L 10/18/24 09:59 Pulse Rate 84 10/18/24 09:59 Respiratory Rate 18 10/18/24 09:59 Blood Pressure 130/45 L 10/18/24 09:59 Pulse Oximetry 97 10/18/24 09:59 Oxygen Delivery Room Air 10/18/24 09:59 Reviewed MDM - URI/Sore Throat MDM Narrative Medical decision making narrative: Chest x-ray reveals left lower lobe pneumonia. Other acute cardiopulmonary findings. Patient nontoxic appearing, in no apparent distress, no respiratory distress. Patient hemodynamically stable. Will prescribe Augmentin and azithromycin given his age. Strict ER precautions discussed with the patient especially if he develops chest pains, shortness of breath, difficulty breathing, weakness, confusion, or any serious concerns. Differential Diagnosis Differential diagnosis: Likely viral infection, bronchitis and other (Pneumonia) Imaging Data Radiologist's impression: ITS Impressions Chest X-Ray 10/18/24 10:03 IMPRESSION: 1. New opacities in the basilar left lower lobe concerning for pneumonia. Critical Care Time Critical Care Time Critical Care Time: No Discharge Plan Discharge Clinical Impression: Pneumonia Qualifiers: Pneumonia type: due to unspecified organism Laterality: left Lung location: lower lobe of lung Qualified Code(s): J18.9 - Pneumonia, unspecified organism Patient Disposition: Home Condition: Stable Instructions: Antibiotic Form, Pneumonia (ED) Additional Instructions: Take antibiotics as directed until complete. eat small frequent meals. Get lots of rest and drink fluids. Alternate Tylenol and ibuprofen for pain/fever, follow instructions on the bottle. Follow-up with PCP in 3-5 days. He developed chest pain, shortness of breath, weakness, difficulty breathing, uncontrollable fevers, nausea, vomiting, or any serious concerns please go to the ER immediately. Patient Language: Faroese Prescriptions: New azithromycin 250 mg tablet See Rx Instructions .ROUTE .COMPLEX Qty: 6 0RF Rx Instructions: For 250 mg dose pack: take 500 mg today (day 1), then 250 mg for 4 days (days 2-5) amoxicillin-pot clavulanate 875-125 mg tablet 1 tablet PO Q12H 7 Days Qty: 14 0RF No Action febuxostat [Uloric] 40 mg tablet 40 mg DAILY nifedipine 30 mg tablet extended release 30 mg PO DAILY lisinopril 40 mg tablet 40 mg DAILY atorvastatin 20 mg tablet 20 mg DAILY cholecalciferol (vitamin D3) 1,250 mcg (50,000 unit) capsule 1,250 mcg PO WEEKLY vitamin B complex [Vitamins B Complex] Tablet 1 tablet PO DAILY Trulicity 1.5 mg/0.5 mL pen injector 1.5 mg subcut WEEKLY Follow-up/Referrals: Laura,Patricia Bledsoe MD [Primary Care Provider] - Time of Disposition: 10:16
== END 2024-10-18 10:21 | disposition home or self-care (01) ==
PROVIDERS: PCP Family Medicine
DX: J18.9 Pneumonia, unspecified organism (principal); E11.42 Type 2 diabetes mellitus with diabetic polyneuropathy; Z79.85 Long-term (current) use of injectable non-insulin antidiabetic drugs; I25.10 Atherosclerotic heart disease of native coronary artery without angina pectoris; I10 Essential (primary) hypertension; E78.5 Hyperlipidemia, unspecified; M10.9 Gout, unspecified; Z85.46 Personal history of malignant neoplasm of prostate
CPT/HCPCS: 71046; 99213; G0463

== ENCOUNTER 2024-11-28 09:46 | Outpatient (CLI) | payer MEDICARE, OTHER, SELFPAY ==
--- NOTE | ~2024-11-28 | XR_ITS ---
Examination: XR chest 2V Clinical History: ACUTE PNEUMONIA Comparison: 10/18/2024 Technique: PA and Lateral Findings: Cardiomediastinal silhouette normal size and configuration. Mild retrocardiac airspace disease. No acute bony abnormality. IMPRESSION: 1. Mild left lower lobe airspace disease. Reviewed, dictated and finalized at location R.
--- OUTSIDE RECORDS SUMMARY | 2024-11-28 09:51 | XMS_ITS | Encounter Summary ---
Author Organization [facility] Address [address] [place] [address] Care Team Providers Care Music Agent Name Role Phone Unavailable Primary Care Provider Unavailabl e Encounter Details Date Type Department Care Team (Late st Contact Info) Description 07/11/2017 Lab Requisition [facility] Care Pathology Lab [address] [place] [address] Mayito Spann MD [address] [address] Social History Tobacco Use Types [...] Report Bone Marrow Patholog y Report Case: [id number] Authorizing Provider: Mayito Spann MD Collected: 07/10/2017 08:30 AM Pathologist: Maliha Hernandez MD Received: 07/11/2017 03:56 PM Specimens: A) - Bone Marrow Clot, OSC: BM18-10 B) - Bone Marrow Core, OSC: BM18-10 C) - Blood Peripheral 08/02/2017 2:46 PM [facility] Final Diagnosis Bone marrow, aspirate, core biopsy, and clot section: - Hypercellular bone marrow with trilineage hematopoiesis. - Dysmegakaryopoiesis. - No evidence of lymphoma or acute leukemia. - See comment. Peripheral blood: - Normocytic, normochromic anemia. - Thrombocytopenia. 08/02/2017 2:46 PM [facility] at 1150 CDT AP Comment [...] findings and relevant cytogenetic/molecular studies is needed. KM/HEAD OF BIOLOGY/evp sales 08/02/2017 2:46 PM [facility] Peripheral Smear Description Manual Differential Count (100 cells): 66% neutrophils, 23% lymphocytes, 10% monocytes, 1% eosinophils. Leukocyte number: Normal. Granulocyte morphology: Normal. No circulating blasts. Lymphocyte morphology: Normal. Monocyte morphology: Normal, mature. Erythrocyte number: Decreased. Erythrocyte morphology: Normocytic, normochromic. Anisopoikilocytosis: Mild. Polychromasia: Not significant. Platelet number: Decreased. Platelet morphology: Normal. 08/02/2017 2:46 PM [facility] Bone Marrow Aspirate Differential count [...] identified. Control worked appropriately. 08/02/2017 2:46 PM [facility] Bone Marrow Core Biopsy and [...] Similar to core biopsy. 08/02/2017 2:46 PM [facility] Flow Cytometry Summary Concurrent flow cytometry ([id number]) shows no evidence of non Hodgkin lymphoma or high grade myeloid neoplasm. 08/02/2017 2:46 PM [facility] Clinical History thrombocytopenia 08/02/2017 2:46 PM [facility] Materials Received Received are 15 slide(s) and 2 block(s) labeled as O yvan, Tai and B M18-10 . The materials originate from [place] [address]. All materials are returned to the referring institution, along with a copy of our final report. 08/02/2017 2:46 PM [facility] Disclaimer The performance characteristics of all immunohistochemical and indirect immunofluorescence stains (if any) cited in this report were determined by the [facility]. Some of these tests were developed by [...] the attending (teaching) pathologist. 08/02/2017 2:46 PM [facility] Addendum 1 This addendum is issued to report the results of cytogenetic analysis ([id number]) and fluorescence in-situ hybridization (FISH) testing ([id number]) performed at [facility] ([address], [address], [place] [address]). A normal male karyotype was identified (46,XY[20]). The FISH testing detects no assay specific abnormalities by MDS panel. The final diagnosis remains unchanged. Please see the separate reference laboratory reports for further details. KR/HEAD OF BIOLOGY/cmb 08/02/2017 2:46 PM CDT [facility] Addendum electronically signed by Maliha Hernandez MD on 08/02/2017 at 1446 CDT Embedded Images 08/02/2017 2:46 PM CDT [facility] Pathology/Cytology BONE MARROW CLOT SPECIMEN / Unknown 07/10/2017 8:30 AM CDT 07/11/2017 3:56 PM CDT Miscellaneous samples (specimen) BONE MARROW SPECIMEN / Unknown 07/10/2017 8:30 AM CDT 07/11/2017 3:56 PM CDT Miscellaneous samples (specimen) PERIPHERAL BLOOD / Unknown 07/10/2017 8:30 AM CDT 07/13/2017 11:13 AM CDT Mayito Spann MD LAB - PATHOLOGY/CYTOLOGY ORDER SAVANAH Edited Result - Final [facility] [address] [place] [address], [facility] [phone] documented in this encounter Visit Diagnoses Not on filedocumented in this encounter
--- OUTSIDE RECORDS SUMMARY | 2024-11-28 09:51 | XMS_ITS | Encounter Summary ---
Author Organization [facility] Address [address] [facility] [place] [address] Care Team Providers Care Bunk Assembler Name Role Phone Unavailable Primary Care Provider Unavailabl e Encounter Details Date Type Department Care Team (Late st Contact Info) Description 07/10/2017 Lab Requisition [facility] Care Pathology Lab [address] [place] [address] Mayito Spann MD [address] [address] Thrombocytopenia Social History Tobacco Use [...] AM CDT) Case Report Flow Cytometry Case: [id number] Authorizing Provider: Mayito Spann MD Collected: 07/10/2017 09:50 AM Pathologist: Tanika Lee MD Received: 07/10/2017 02:58 PM Specimen: Bone Marrow 8 2:59 PM CDT [facility] Final Diagnosis Bone marrow, Flow cytometric immunophenotypic analysis: - No evidence of non Hodgkin lymphoma or high grade myeloid neoplasm. - See interpretation. 8 2:59 PM [facility] at [address] [facility] Flow Cytometry Interpretation The bone marrow specimen [...] flow cytometry specimen is reviewed for quality control technician purposes. The bone marrow specimen shows no evidence of involvement by non Hodgkin lymphoma or high grade myeloid neoplasm. Correlation with clinical findings, concurrent bone marrow core biopsy ([facility]; BM18-10), and relevant cytogenetic/molecular studies is needed. KM/ENGINEERING JOB TITLES/vp medical 8 2:59 PM [facility] Flow Cytometry Results Differential Result Comment Flow Cell Count /uL [id number] Total Viability % 99.0 Lymphocytes % 13 Dim CD45 Region % 4 Monocytes % 9 Granulocytes % 73 8 2:59 PM [facility] Reason for test Thrombocytopenia 287.5 8 2:59 PM [facility] Client Specimen ID # [id number] 8 2:59 PM [facility] Number of markers 17 were performed. A Flow CD10 A Flow CD13 A Flow CD20 A Flow CD2 A Flow CD3 A Flow CD4 A Flow CD1a A Flow CD5 A Flow CD19 A Flow CD33 A Flow CD34 A Flow CD45 A Flow CD7 A Flow CD8 A Flow CD30 A [place]+CD19+ A Lambda+CD19+ 8 2:59 PM [facility] Disclaimer Test performed at [facility] [place] [facility], [address] [place], [place], [address]. *The established laboratory minimum viability is 70%. [...] complexity clinical testing. 8 2:59 PM CDT [facility] Embedded Images 8 2:59 PM CDT [facility] Pathology/Cytolo gy BONE MARROW SPECIMEN / Unknown 07/10/2017 9:50 AM CDT 07/10/2017 2:58 PM CDT Mayito Spann MD LAB - PATHOLOGY/CYTOLOGY ORDER SAVANAH Final Result [facility] [address] [phone] documented in this encounter Visit Diagnoses Diagnosis Thrombocytopenia Thrombocytopenia, unspecified documented in this encounter
--- OUTSIDE RECORDS SUMMARY | 2024-11-28 09:51 | XMS_ITS | Clinical Summary ---
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 Unavailable [phone] Allergies No known active allergies Medications atorvastatin (LIPITOR) 20 mg tablet Take 1 tablet (20 mg total) by mouth daily Active ULORIC 40 mg tablet 9 Active NIFEDIPINE CC 30 mg 24 hr tablet 9 Active cholecalciferol (VITAMIN D-3) 25 mcg (1,000 unit) tablet Take 2 tablets (2,000 Units total) by mouth daily Active PRECISION XTRA TEST strip 9 Active lisinopriL (PRINIVIL,ZESTRI L) 40 mg tablet 0 Active Trulicity 3 mg/0.5 mL pen injector 4 Active decitabine-cedaz uridine (INQOVI) 35-100 mg tabletIndication s:MDS (myelodysplastic syndrome) (HCC),Anemia, unspecified type Take 1 tablet by mouth daily Take on Days 1-5 of each cycle. Do not consume food 2 hours before and 2 hours after dose. 5 tablet 5 Active prochlorperazine (Compazine) 10 mg tabletIndication s:MDS (myelodysplastic syndrome) (HCC),Anemia, unspecified type Take 1 tablet (10 mg total) by mouth every 6 (six) hours as needed for nausea or vomiting 30 tablet 3 5 Active valACYclovir (VALTREX) 500 mg tabletIndication s:Prophylaxis, Medical Take 1 tablet (500 mg total) by mouth daily 30 tablet 5 5 Active Active Problems Problem Noted Date Diagnosed Date Anemia 05/07/2024 MDS (myelodysplastic syndrome) 05/22/2023 Malignant neoplasm of prostate 07/04/2017 Thrombocytopenia 07/04/2017 Resolved Problems Problem Noted Date Diagnosed Date Resolved Date Basal cell carcinoma (BCC) of skin of nose 05/12/2015 11/13/2017 Encounters Date Type Department Care Team Description 11/17/2024 11:15 AM CDT Infusion [facility] at [address] [place] [address] MDS (myelodysplastic syndrome) (HCC) (Primary Dx); Anemia, unspecified type 11/17/2024 8:00 AM CDT Lab [facility] at [address] [address] MDS (myelodysplastic syndrome) (HCC); Anemia, unspecified type 11/17/2024 Telephone [facility] at [address] [place] [address] Comfort Acuna, GABRIELA 11/17/2024 Telephone [facility] at [address] [place] [address] Comfort Acuna, GABRIELA 11/13/2024 10:45 AM CDT Lab [facility] at [address] [address] MDS (myelodysplastic syndrome) (HCC) 11/13/2024 Telephone [facility] at [address] [place] [address] Valerie Li RN 11/13/2024 Orders Only [facility] [address] [place] [address] [address] [place] [address] Leny Bronson, FLARER (myelodysplastic syndrome) (HCC) (Primary Dx) 11/11/2024 12:15 PM CDT Infusion [facility] at [address] [address] MDS (myelodysplastic syndrome) (HCC) (Primary Dx); Anemia, unspecified type 11/11/2024 9:30 AM CDT Lab [facility] at [address] [address] MDS (myelodysplastic syndrome) (HCC); Anemia, unspecified type 11/06/2024 10:15 AM CDT Infusion [facility] at [address] [address] MDS (myelodysplastic syndrome) (HCC) (Primary Dx); Thrombocytopenia; Anemia, unspecified type 11/06/2024 9:30 AM CDT Lab [facility] at [address] [address] MDS (myelodysplastic syndrome) (HCC); Thrombocytopenia; Anemia, unspecified type 11/04/2024 9:00 AM CDT Lab [address] [address] MDS (myelodysplastic syndrome) (HCC); Anemia, unspecified type 11/04/[address] [address] Kathia Pitts, GABRIELA 10/30/2024 9:15 AM CDT Office Visit [facility] [address] [place] [phone] Clarissa Real, [employer]ENT MDS (myelodysplastic syndrome) (HCC) (Primary Dx); Anemia, unspecified type 10/30/2024 8:45 AM CDT Lab [address] [address] MDS (myelodysplastic syndrome) (HCC); Anemia, unspecified type 10/28/2024 12:30 PM CDT Infusion [facility] at [address] [address] MDS (myelodysplastic syndrome) (HCC) (Primary Dx); Anemia, unspecified type 10/28/2024 9:30 AM CDT Lab [facility] at [address] [address] MDS (myelodysplastic syndrome) (HCC); Anemia, unspecified type 10/23/2024 4:45 PM CDT Infusion [facility] at [address] [address] MDS (myelodysplastic syndrome) (HCC) (Primary Dx); Thrombocytopenia; Anemia, unspecified type 10/23/2024 10:00 AM CDT Infusion [facility] at [address] [address] MDS (myelodysplastic syndrome) (HCC) (Primary Dx); Anemia, unspecified type 10/23/2024 9:30 AM CDT Lab [address] [address] MDS (myelodysplastic syndrome) (HCC); Thrombocytopenia; Anemia, unspecified type 10/23/2024 Documentation [facility] [address] [place] [phone] Margarita Eli (INQOVI) 10/23/[address] [facility] [address] [place] [address] [address] [place] [address] Braden Hare MD MDS (myelodysplastic syndrome) (HCC) (Primary Dx); Anemia, unspecified type 10/23/2024 Orders Only [facility] [address] [place] [phone] Leny Bronson, FLARER (myelodysplastic syndrome) (HCC) (Primary Dx); Anemia, unspecified type 10/20/2024 1:47 PM CDT - 10/20/2024 11:59 PM CDT Hospital [facility] [address] [place] [address] MDS (myelodysplastic syndrome) (HCC) Discharge Disposition: Discharge to home or self care 10/20/2024 11:30 AM CDT Infusion [address] [place] [address] MDS (myelodysplastic syndrome) (HCC) (Primary Dx); Anemia, unspecified type 10/20/2024 9:00 AM CDT Infusion [address] [place] [address] MDS (myelodysplastic syndrome) (HCC) 10/20/2024 8:30 AM CDT Lab [address] [address] MDS (myelodysplastic syndrome) (HCC); Thrombocytopenia; Anemia, unspecified type 10/20/2024 Orders Only [facility] Outreach [address] [place] [address] Braden Hare MD MDS (myelodysplastic syndrome) (HCC) 10/20/2024 Orders Only [facility] [address] [place] [address] [address] [place] [address] Leny Bronson RN MDS (myelodysplastic syndrome) (HCC) (Primary Dx) 10/09/2024 4:00 PM CDT Office Visit [facility] [address] [place] [address] [address] [place] [address] Braden Hare MD MDS (myelodysplastic syndrome) (HCC) (Primary Dx); Anemia, unspecified type 10/09/2024 3:15 PM CDT Infusion [address] [place] [address] MDS (myelodysplastic syndrome) (HCC) (Primary Dx); Thrombocytopenia; Anemia, unspecified type 10/09/2024 2:45 PM CDT Lab [facility] at [address] [address] MDS (myelodysplastic syndrome) (HCC); Thrombocytopenia; Anemia, unspecified type 10/09/[address] [facility] [address] [place] [address] [address] [place] [address] Viry Maharaj RN MDS (myelodysplastic syndrome) (HCC) (Primary Dx) 09/26/2024 Orders Only [facility] [address] [place] [address] [address] [place] [address] Leny Bronson, FLARER (myelodysplastic syndrome) (HCC) (Primary Dx) 09/26/2024 Results Follow-Up [facility] Hematology [address] [place] [phone] Sarah Delatorre, JULIAN CBC with auto differential, ABO/Rh, Antibody screen, Additional followed-up results: 4 09/23/2024 1:00 PM CDT Infusion [facility] at [address] [address] MDS (myelodysplastic syndrome) (HCC) (Primary Dx); Anemia, unspecified type; Thrombocytopenia 09/23/2024 10:00 AM CDT Lab [address] [address] MDS (myelodysplastic syndrome) (HCC); Thrombocytopenia; Anemia, unspecified type 09/10/2024 10:30 AM CDT Infusion [facility] at [address] [address] MDS (myelodysplastic syndrome) (HCC) (Primary Dx); Thrombocytopenia; Anemia, unspecified type 09/10/2024 10:00 AM CDT Lab [facility] at [address] [address] MDS (myelodysplastic syndrome) (HCC); Thrombocytopenia; Anemia, unspecified type 09/10/2024 Orders Only [facility] Hematology [address] [place] [address] Floor [address] [place] [address] Melia Yan MDS (myelodysplastic syndrome) (HCC) (Primary Dx); Thrombocytopenia; Anemia, unspecified type 09/04/2024 Orders Only [facility] H[facility] [address] [place] [address] [address] [place] [address] Melia Yan MDS (myelodysplastic syndrome) (HCC) (Primary Dx); Thrombocytopenia; Anemia, unspecified type 09/04/[address] [facility] [address] [place] [address] [address] [place] [address] Melia Yan from Last 3 Months Immunizations Immunization Administration [...] History Medical History Date Comments Diabetes mellitus Family History Medical History Relation Name Comments [...] on file Legal Sex Male 10:48 AM [employer] Gender Identity Male 02/09/2020 12:06 PM [employer] Sexual Orientation Straight 02/09/2020 12 :06 PM [employer] Obstetrics History Last Filed Vital Signs Vital Sign Reading Time Taken Comments Blood Pressure 116/64 11/17/2024 1:41 PM CDT Pulse 59 11/17/2024 1:41 PM CDT Temperature 36.4 C (97.5 F) 11/17/2024 1:41 PM CDT Respiratory Rate 16 11/17/2024 1:41 PM CDT Oxygen Saturation 99% 11/17/2024 1:41 PM CDT Inhaled Oxygen Concentration - - Weight 82.4 kg (181 lb 10.5 oz) 025 11:21 AM CDT w/ shoes Height 172 cm (5' 7.72) 10/09/2024 2:21 PM CDT Body Mass Index 27.85 10/09/2024 2:21 PM CDT Plan of Treatment Health Maintenance Due Date Last Done Comments Depression Screening 1940 Fall Risk Assessment 1940 Hepatitis B Screening 1958 Well Visit 65+ 01/25/2004 Covid-19 Vaccine (2024-04 6 season) 2024 06/06/2021, 12/24/2020, 11/18/2020, Additional history exists Influenza Vaccine (#1) 2024 , 11/11/2020, 11/04/2019, Additional history exists DTaP/Tdap/Td Vaccine (2 - Td or Tdap) 03/05/2025 03/05/2015 Pneumococcal vaccine 65+ Completed 019, 03/05/2018, 05/16/2016, Additional history exists Zoster Vaccine Completed 05/09/2021, 08/2020, 12/25/2020, Additional history exists Procedures Procedure Name Priority Date/Time Associated Diagnosis Comments TRANSFUSE RED BLOOD CELLS Timed 11/17/2024 11:48 AM CDT MDS (myelodysplastic syndrome) (HCC) Anemia, unspecified type PREPARE RBC Routine 11/17/2024 10:22 AM CDT MDS (myelodysplastic syndrome) (HCC) Anemia, unspecified type CROSSMATCH Routine 11/17/2024 8:02 AM CDT Anemia, unspecified type MANUAL DIFFERENTIAL Routine 11/17/2024 8 :02 AM CDT Anemia, unspecified type IMMATURE PLATELET FRACTION Routine 11/17/2024 8:02 AM CDT Anemia, unspecified type ANTIBODY SCREEN Routine 11/17/2024 8:02 AM CDT Anemia, unspecified type ABO/RH Routine 11/17/2024 8:02 AM CDT Anemia, unspecified type CBC WITH AUTO DIFFERENTIAL Routine 11/17/2024 8:02 AM CDT Anemia, unspecified type TYPE AND SCREEN Routine 11/17/2024 8:02 AM CDT Anemia, unspecified type BLOOD SMEAR REVIEW Routine 11/13/2024 10 :43 AM CDT MDS (myelodysplastic syndrome) (HCC) IMMATURE PLATELET FRACTION Routine 11/13/2024 10:43 AM CDT MDS (myelodysplastic syndrome) (HCC) EGFR Routine 11/13/2024 10:43 AM CDT MDS (myelodysplastic syndrome) (HCC) DIFFERENTIAL AUTO Routine 11/13/2024 10: 43 AM CDT MDS (myelodysplastic syndrome) (HCC) CBC WITH AUTO DIFFERENTIAL Routine 11/13/2024 10:43 AM CDT MDS (myelodysplastic syndrome) (HCC) COMPREHENSIVE METABOLIC PANEL Routine 11/13/2024 10:43 AM CDT MDS (myelodysplastic syndrome) (HCC) TRANSFUSE RED BLOOD CELLS Timed 11/11/2024 12:34 PM CDT MDS (myelodysplastic syndrome) (HCC) Anemia, unspecified type PREPARE RBC Routine 11/11/2024 10:52 AM CDT MDS (myelodysplastic syndrome) (HCC) Anemia, unspecified type CROSSMATCH Routine 11/11/2024 9:20 AM CDT Anemia, unspecified type BLOOD SMEAR REVIEW Routine 11/11/2024 9: 20 AM CDT Anemia, unspecified type IMMATURE PLATELET FRACTION Routine 11/11/2024 9:20 AM CDT Anemia, unspecified type DIFFERENTIAL AUTO Routine 11/11/2024 9: 20 AM CDT Anemia, unspecified type ANTIBODY SCREEN Routine 11/11/2024 9:20 AM CDT Anemia, unspecified type ABO/RH Routine 11/11/2024 9:20 AM CDT Anemia, unspecified type CBC WITH AUTO DIFFERENTIAL Routine 11/11/2024 9:20 AM CDT Anemia, unspecified type TYPE AND SCREEN Routine 11/11/2024 9:20 AM CDT Anemia, unspecified type BLOOD SMEAR REVIEW Routine 11/06/2024 9: 18 AM CDT MDS (myelodysplastic syndrome) (HCC) Anemia, unspecified type IMMATURE PLATELET FRACTION Routine 11/06/2024 9:18 AM CDT MDS (myelodysplastic syndrome) (HCC) Anemia, unspecified type DIFFERENTIAL AUTO Routine 11/06/2024 9:1 8 AM CDT MDS (myelodysplastic syndrome) (HCC) Anemia, unspecified type CBC WITH AUTO DIFFERENTIAL Routine 11/06/2024 9:18 AM CDT MDS (myelodysplastic syndrome) (HCC) Anemia, unspecified type BLOOD SMEAR REVIEW Routine 11/04/2024 8: 53 AM CDT MDS (myelodysplastic syndrome) (HCC) Anemia, unspecified type IMMATURE PLATELET FRACTION Routine 11/04/2024 8:53 AM CDT MDS (myelodysplastic syndrome) (HCC) Anemia, unspecified type DIFFERENTIAL AUTO Routine 11/04/2024 8:5 3 AM CDT MDS (myelodysplastic syndrome) (HCC) Anemia, unspecified type CBC WITH AUTO DIFFERENTIAL Routine 11/04/2024 8:53 AM CDT MDS (myelodysplastic syndrome) (HCC) Anemia, unspecified type BLOOD SMEAR REVIEW Routine 10/30/2024 8: 37 AM CDT MDS (myelodysplastic syndrome) (HCC) Anemia, unspecified type DIFFERENTIAL AUTO Routine 10/30/2024 8:3 7 AM CDT MDS (myelodysplastic syndrome) (HCC) Anemia, unspecified type CBC WITH AUTO DIFFERENTIAL Routine 10/30/2024 8:37 AM CDT MDS (myelodysplastic syndrome) (HCC) Anemia, unspecified type TRANSFUSE RED BLOOD CELLS Timed 10/28/2024 12:48 PM CDT MDS (myelodysplastic syndrome) (HCC) Anemia, unspecified type PREPARE RBC Routine 10/28/2024 12:22 PM CDT MDS (myelodysplastic syndrome) (HCC) Anemia, unspecified type CROSSMATCH Routine 10/28/2024 9:08 AM CDT MDS (myelodysplastic syndrome) (HCC) ANTIBODY SCREEN, TUBE Routine 10/28/2024 9:08 AM CDT MDS (myelodysplastic syndrome) (HCC) BLOOD SMEAR REVIEW STAT 10/28/2024 9: 08 AM CDT MDS (myelodysplastic syndrome) (HCC) Anemia, unspecified type EGFR STAT 10/28/2024 9:08 AM CDT MDS (myelodysplastic syndrome) (HCC) Anemia, unspecified type DIFFERENTIAL AUTO STAT 10/28/2024 9:0 8 AM CDT MDS (myelodysplastic syndrome) (HCC) Anemia, unspecified type ABO/RH Routine 10/28/2024 9:08 AM CDT MDS (myelodysplastic syndrome) (HCC) COMPREHENSIVE METABOLIC PANEL STAT 10/28/2024 9:08 AM CDT MDS (myelodysplastic syndrome) (HCC) Anemia, unspecified type CBC WITH AUTO DIFFERENTIAL STAT 10/28/2024 9:08 AM CDT MDS (myelodysplastic syndrome) (HCC) Anemia, unspecified type TYPE AND SCREEN Routine 10/28/2024 9:08 AM CDT MDS (myelodysplastic syndrome) (HCC) TRANSFUSE RED BLOOD CELLS Timed 10/23/2024 10:12 AM CDT MDS (myelodysplastic syndrome) (HCC) Anemia, unspecified type BLOOD SMEAR REVIEW Routine 10/23/2024 9: 37 AM CDT MDS (myelodysplastic syndrome) (HCC) DIFFERENTIAL AUTO Routine 10/23/2024 9:3 7 AM CDT MDS (myelodysplastic syndrome) (HCC) CBC WITH AUTO DIFFERENTIAL Routine 10/23/2024 9:37 AM CDT MDS (myelodysplastic syndrome) (HCC) PREPARE RBC Routine 10/20/2024 4:09 PM CDT MDS (myelodysplastic syndrome) (HCC) Anemia, unspecified type TRANSFUSE RED BLOOD CELLS Timed 10/20/2024 12:46 PM CDT MDS (myelodysplastic syndrome) (HCC) Anemia, unspecified type PREPARE RBC Routine 10/20/2024 12:21 PM CDT MDS (myelodysplastic syndrome) (HCC) Anemia, unspecified type MYELOSEQ HEME NGS PANEL WITH INTERPRETATION Routine 10/20/2024 9:18 AM CDT MDS (myelodysplastic syndrome) (HCC) SURGICAL PATHOLOGY Routine 10/20/2024 9: 18 AM CDT MDS (myelodysplastic syndrome) (HCC) FLOW LEUKEMIA/LYMPHOMA Routine 9:18 AM CDT MDS (myelodysplastic syndrome) (HCC) CYTOGENETICS TRACKING ORDER Routine 10/20/2024 9:18 AM CDT MDS (myelodysplastic syndrome) (HCC) CYTOGENETICS Routine 10/20/2024 9:17 AM CDT MDS (myelodysplastic syndrome) (HCC) CROSSMATCH Routine 10/20/2024 8:33 AM CDT MDS (myelodysplastic syndrome) (HCC) Thrombocytopenia Anemia, unspecified type MANUAL DIFFERENTIAL Routine 10/20/2024 8 :33 AM CDT MDS (myelodysplastic syndrome) (HCC) IMMATURE PLATELET FRACTION Routine 10/20/2024 8:33 AM CDT MDS (myelodysplastic syndrome) (HCC) ANTIBODY SCREEN Routine 10/20/2024 8:33 AM CDT MDS (myelodysplastic syndrome) (HCC) Thrombocytopenia Anemia, unspecified type ABO/RH Routine 10/20/2024 8:33 AM CDT MDS (myelodysplastic syndrome) (HCC) Thrombocytopenia Anemia, unspecified type CBC WITH AUTO DIFFERENTIAL Routine 10/20/2024 8:33 AM CDT MDS (myelodysplastic syndrome) (HCC) TYPE AND SCREEN Routine 10/20/2024 8:33 AM CDT MDS (myelodysplastic syndrome) (HCC) Thrombocytopenia Anemia, unspecified type BLOOD SMEAR REVIEW Routine 10/09/2024 2: 09 [...] type from Last 3 Months Results * Transfuse RBC (11/17/2024 1:57 PM CDT) Blood us Brooke Clayton MD BLOOD TRANSFUSION ORDERABLE S Final Result * Prepare RBC: 1 Units (11/17/2024 10:22 AM CDT) Units requested 1 Comment:Testing performed by : [address] [address] Units requested Ready CHRISSY Comment:Testing performed by : [address] [address] Unit Number [id number] Product code [id number] [facility] Blood Expiration Date [id number] [facility] Product Blood Type (for scanning) 9500 [facility] Product Blood Type ONEG [facility] Dispense Status DISPENSED [facility] Blood 11/17/2024 10:2 2 AM CDT 11/17/2024 10:22 AM CDT us Braden Hare MD BLOOD BANK PRODUCT ORDERABLE S Final Result [facility] [address] [facility] [place] [address] * (ABNORMAL) Immature platelet fraction (11/17/2024 8:02 AM CDT) IPF 20.4(H) 1.6 - 10.1 % Comment:Testing performed by : [address] [address] Blood 11/17/2024 8:02 AM CDT 11/17/2024 8:06 AM CDT us Braden Hare MD LAB BLOOD ORDERABLES Final R esult CHRISSY [address] [facility] [place] [address] * (ABNORMAL) CBC with auto differential (11/17/2024 8:02 AM CDT) WBC 2.03(L) 3.80 - 9.90 K/cumm Comment:Testing performed by : [address] [address] Hgb 8.2(L) 13.0 - 17.5 g/dL CHRISSY Comment:Testing performed by : [address] [address] Hct 25.0(L) 38.9 - 50.3 % CHRISSY Comment:Testing performed by : [address] [address] Plt 28(L) 150 - 400 K/cumm CHRISSY Comment:Testing performed by : [address] [address] MPV Not Measured 9.1 - 12.3 fL CHRISSY Comment:Testing performed by : [address] [address] RBC 2.62(L) 4.30 - 5.80 M/cumm CHRISSY Comment:Testing performed by : [address] [address] MCV 95.4 81.3 - 96.4 fL CHRISSY Comment:Testing performed by : [address] [address] MCH 31.3 27.1 - 33.3 pg CHRISSY Comment:Testing performed by : [address] [address] MCHC 32.8 32.3 - 35.7 g/dL CHRISSY Comment:Testing performed by : [address] [address] RDW CV 17.1(H) 11.1 - 14.9 % CHRISSY Comment:Testing performed by : [address] [address] RDW SD 58.1(H) 35.7 - 48.1 fL CHRISSY BELLO Comment:Testing performed by : [address] [address] NRBC abs 0.00 0.00 - 0.01 K/cumm CHRISSY Comment:Testing performed by : [address] [address] ANC Prelim 1.11(L) 1.50 - 6.50 K/cumm CHRISSY Comment: Interpretive Data The rapid ANC is a preliminary automated count and may vary from the final ANC (Neut Abs) reported in the WBC differential that follows. Current interpretive data was last revised 2024. Testing performed by: [address] [address] Blood 11/17/2024 8:02 AM CDT 11/17/2024 8:06 AM CDT us Braden Hare MD LAB BLOOD ORDERABLES Edited Result - Final Performing Organization Address City/[facility]/ZIP Co de Phone Number CHRISSY [address] [place] [employer] [place] [address] * ABO/Rh (11/17/2024 8:02 AM CDT) ABO/Rh O Positive Comment:Testing performed by : [address] [address] Blood 11/17/2024 8:02 AM CDT 11/17/2024 9:41 AM CDT us Braden Hare MD LAB BLOOD BANK TEST ORDERABL ES Final Result Performing Organization Address [facility]/ZIP Co de Phone Number CHRISSY [address] [place] [address] * (ABNORMAL) Manual Differential (11/17/2024 8:02 AM CDT) Differential Manual Comment:Testing performed by : [address] [address] Cells [facility]ed 100 [facility] Comment:Testing performed by : [address], [place]., [address] Neutrophil abs 1.50 1.50 - 6.50 K/cumm CHRISSY Comment:Testing performed by : [address] [address] Lymphocyte abs 0.37(L) 0.80 - 3.30 K/cumm CHRISSY Comment:Testing performed by : [address] [address] Monocyte abs 0.12(L) 0.20 - 0.80 K/cumm CHRISSY Comment:Testing performed by : [address], [place]., [address] Eosinophil abs 0.02 0.00 - 0.50 K/cumm CHRISSY Comment:Testing performed by : [address] [address] Basophil abs 0.02 0.00 - 0.10 K/cumm [facility] Comment:Testing performed by : [address] [address] Neutrophil pct 74.0 % [facility] Comment: Interpretive Data Percent cell count reference ranges are not reported, since discordance with absolute values may lead to misinterpretation of CBC data. Current Interpretive Data was last revised on 2017. Testing performed by: [address] [address] Lymphocyte pct 18.0 % [facility] Comment: Interpretive Data Percent cell count reference ranges are not reported, since discordance with absolute values may lead to misinterpretation of CBC data. Current Interpretive Data was last revised on 2017. Testing performed by: [address] [address] Monocyte pct 6.0 % [facility] Comment: Interpretive Data Percent cell count reference ranges are not reported, since discordance with absolute values may lead to misinterpretation of CBC data. Current Interpretive Data was last revised on 2017. Testing performed by: [address] [address] Eosinophil pct 1.0 % CHRISSY Comment: Interpretive Data Percent cell count reference ranges are not reported, since discordance with absolute values may lead to misinterpretation of CBC data. Current Interpretive Data was last revised on 2017. Testing performed by: [address], [place]., [address] Basophil pct 1.0 % CHRISSY Comment: Interpretive Data Percent cell count reference ranges are not reported, since discordance with absolute values may lead to misinterpretation of CBC data. Current Interpretive Data was last revised on 2017. Testing performed by: [address] [address] RBC morphology Consistent with RBC Indicies CHRISSY Comment:Testing performed by : [address], [place]., [address] Anisocytosis Slight(A) CHRISSY Comment:Testing performed by : [address] [address] Schistocytes 1-2/HPF(A) CHRISSY Comment:Testing performed by : [address] [address] Elliptocytes 3-7/HPF(A) CHRISSY Comment:Testing performed by : [address] [address] Acanthocytes 3-7/HPF(A) CHRISSY Comment:Testing performed by : [address] [address] Platelet estimate Decreased(A) CHRISSY Comment:Testing performed by : [address], [place]., [address] Blood 11/17/2024 8:02 AM CDT 11/17/2024 8:06 AM CDT us Braden Hare MD LAB BLOOD ORDERABLES Final R esult CHRISSY [address] [facility] Department [place] [address] * Crossmatch (11/17/2024 8:02 AM CDT) [facility] Crossmatch Compatible [facility] Unit number for crossmatch [id number] [facility] Blood 11/17/2024 8:02 AM CDT 11/17/2024 9:41 AM CDT Braden Hare MD LAB BLOOD BANK TEST ORDERABL ES Final Result Performing Organization Address [facility] de Phone Number [address] [address] * Antibody screen (11/17/2024 8:02 AM CDT) [facility] Chris, indirect, Gel Interpretation Negative ABSC Comment:Testing performed by : [address] [address] Blood 11/17/2024 8:02 AM CDT 11/17/2024 9:41 AM CDT Result [facility] Braden Hare MD LAB BLOOD BANK TEST ORDERABL ES Final Result Performing Organization Address [facility] de Phone Number [address] [address] * (ABNORMAL) Immature platelet fraction (11/13/2024 10:43 AM CDT) [facility] IPF 19.2(H) 1.6 - 10.1 % Comment:Testing performed by : [address] [address] Blood 11/13/2024 10:4 3 AM CDT 11/13/2024 10:45 AM CDT Braden Hare MD LAB BLOOD ORDERABLES Final R esult Performing Organization Address [facility] de Phone Number [address] [address] * (ABNORMAL) Blood smear review (11/13/2024 10:43 AM CDT) Pathologist [facility] [place] RBC morphology Present(A ) Comment:Testing performed by : [facility], [address] [place] [address]., [address] Anisocytosis Slight(A) [facility] Comment:Testing performed by : [facility], [address] [place] [address], [place]., [address] Schistocytes 1-2/HPF(A ) CHRISSY Comment:Testing performed by : [address], [place]., [address] Elliptocytes 3-7/HPF(A ) CH[facility]ISSY Comment:Testing performed by : [address], [place]., [address] Acanthocytes 3-7/HPF(A ) CHRISSY Comment:Testing performed by : [facility], [address] [place] [address], [place]., [address] Platelet estimate Decreased (A) CHRISSY Comment:Testing performed by : [address] [address] Blood 11/13/2024 10:4 3 AM CDT 11/13/2024 10:45 AM CDT us Braden Hare MD LAB BLOOD ORDERABLES Final R esult [facility] [address] [facility] Department of Laboratories [place], [place] [id number] * eGFR (11/13/2024 10:43 AM CDT) eGFR 84 >=60 mL/min/1. 73 m2 [...] of Race in Diagnosing Kidney Disease, JASN 202). The CKD-EPI equation should not be used for patients with unstable renal function and has not been validated in children and those over 70. Current interpretive data was last reviewed 2021. Testing performed by: [address] [address] Blood 11/13/2024 10:4 3 AM CDT 11/13/2024 10:45 AM CDT us Braden Hare MD LAB BLOOD ORDERABLES Final R esult [facility] Department [place] [address] * (ABNORMAL) Differential, auto (11/13/2024 10:43 AM CDT) Neutrophil abs 1.24(L) 1.50 - 6.50 K/cumm Comment:Testing performed by : [address] [address] Imm gran abs 0.01 0.00 - 0.10 K/cumm CHRISSY Comment:Testing performed by : [address] [address] Lymphocyte abs 0.56(L) 0.80 - 3.30 K/cumm CHRISSY Comment:Testing performed by : [address] [address] Monocyte abs 0.43 0.20 - 0.80 K/cumm CHRISSY Comment:Testing performed by : [address] [address] Eosinophil abs 0.03 0.00 - 0.50 K/cumm [facility]ISSY Comment:Testing performed by : [address] [address] Basophil abs 0.03 0.00 - 0.10 K/cumm CHRISSY Comment:Testing performed by : [address] [address] Neutrophil pct 54.0 % [facility] Comment: Interpretive Data Percent cell count reference ranges are not reported, since discordance with absolute values may lead to misinterpretation of CBC data. Current Interpretive Data was last revised on 2017. Testing performed by: [address] [address] Imm gran pct 0.4 % [facility] Comment: Interpretive Data Percent cell count reference ranges are not reported, since discordance with absolute values may lead to misinterpretation of CBC data. Current Interpretive Data was last revised on 2017. Testing performed by: [address] [address] Lymphocyte pct 24.3 % [facility] Comment: Interpretive Data Percent cell count reference ranges are not reported, since discordance with absolute values may lead to misinterpretation of CBC data. Current Interpretive Data was last revised on 2017. Testing performed by: [address] [address] Monocyte pct 18.7 % [facility] Comment: Interpretive Data Percent cell count reference ranges are not reported, since discordance with absolute values may lead to misinterpretation of CBC data. Current Interpretive Data was last revised on 2017. Testing performed by: [address] [address] Eosinophil pct 1.3 % [facility] Comment: Interpretive Data Percent cell count reference ranges are not reported, since discordance with absolute values may lead to misinterpretation of CBC data. Current Interpretive Data was last revised on 2017. Testing performed by: [address] [address] Basophil pct 1.3 % [facility] Comment: Interpretive Data Percent cell count reference ranges are not reported, since discordance with absolute values may lead to misinterpretation of CBC data. Current Interpretive Data was last revised on 2017. Testing performed by: [address] [address] Blood 11/13/2024 10:4 3 AM CDT 11/13/2024 10:45 AM CDT us Braden Hare MD LAB BLOOD ORDERABLES Final R esult [facility] [address] [facility] [place] [address] * (ABNORMAL) CBC with auto differential (11/13/2024 10:43 AM CDT) [facility] Signature WBC 2.30(L) 3.80 - 9.90 K/cumm Comment:Testing performed by : [address] [address] Hgb 8.8(L) 13.0 - 17.5 g/dL [facility]SY Comment:Testing performed by : [address] [address] Hct 26.8(L) 38.9 - 50.3 % [facility]SY Comment:Testing performed by : [address] [address] Plt 42(L) 150 - 400 K/cumm [facility]ISSY Comment:Testing performed by : [address] [address] MPV Not Measured 9.1 - 12.3 fL [facility] Comment:Testing performed by : [address] [address] RBC 2.83(L) 4.30 - 5.80 M/cumm [facility]SY Comment:Testing performed by : [address] [address] MCV 94.7 81.3 - 96.4 fL [facility] Comment:Testing performed by : [address] [address] MCH 31.1 27.1 - 33.3 pg [facility] Comment:Testing performed by : [address] [address] MCHC 32.8 32.3 - 35.7 g/dL [facility] Comment:Testing performed by : [address], [address] RDW CV 17.1(H) 11.1 - 14.9 % [facility]SY Comment:Testing performed by : [address] [place] [address] RDW SD 57.7(H) 35.7 - 48.1 fL [facility]SY BELLO Comment:Testing performed by : [address] [address] NRBC abs 0.00 0.00 - 0.01 K/cumm [facility] BELLO Comment:Testing performed by : [address] [address] ANC Prelim 1.24(L) 1.50 - 6.50 K/cumm [facility] BELLO Comment: Interpretive Data The rapid ANC is a preliminary automated count and may vary from the final ANC (Neut Abs) reported in the WBC differential that follows. Current interpretive data was last revised 2024. Testing performed by: [address] [address] Blood 11/13/2024 10:4 3 AM CDT 11/13/2024 10:45 AM CDT us Braden Hare MD LAB BLOOD ORDERABLES Edited Result - Final [facility] Department of Laboratories [place], [place] [id number] * (ABNORMAL) Comprehensive metabolic panel (11/13/2024 10:43 AM CDT) Sodium 142 135 - 145 mmol/L Comment:Testing performed by : [address] [address] Potassium, pl 4.3 3.3 - 4.9 mmol/L [facility] BELLO Comment:Testing performed by : [address] [address] Chloride 108 97 - 110 mmol/L [facility] BELLO Comment:Testing performed by : [address] [address] CO2 27 22 - 32 mmol/L [facility] BELLO Comment:Testing performed by : [address] [address] Anion gap 7 2 - 15 mmol/L [facility] BELLO Comment:Testing performed by : [address] [address] BUN 17 6 - 25 mg/dL [facility] Comment:Testing performed by : [address] [address] Creatinine 0.90 0.80 - 1.30 mg/dL [facility] Comment:Testing performed by : [address] [address] Glucose 162 70 - 199 mg/dL [facility] Comment: Interpretive [...] classification and Diagnosis of Diabetes Diabetes Care 2021; 46: S19-S40. Current interpretive data was last revised 2022. Testing performed by: [address] [address] Calcium 9.2 8.5 - 10.3 mg/dL [facility] Comment:Testing performed by : [address] [address] Bilirubin, total 1.5(H) 0.1 - 1.2 mg/dL [facility] Comment:Testing performed by : [address] [address] Protein, pl 5.8(L) 6.5 - 8.5 g/dL [facility] Comment:Testing performed by : [address] [address] Albumin 4.1 3.5 - 5.0 g/dL [facility] Comment:Testing performed by : [address] [address] Alk phos 47 40 - 130 Units/L [facility] Comment:Testing performed by : [address] [address] ALT 9 7 - 55 Units/L [facility] Comment:Testing performed by : [address] [address] AST 10 10 - 50 Units/L [facility] Comment:Testing performed by : [address] [address] Blood 11/13/2024 10:4 3 AM CDT 11/13/2024 10:45 AM CDT us Braden Hare MD LAB BLOOD ORDERABLES Final R esult Performing Organization Address City/[facility]/ZIP Co de Phone Number CLAUDIO[address] [place] [place] [address] * Transfuse RBC (11/11/2024 2:42 PM CDT) Blood us Brooke Clayton MD BLOOD TRANSFUSION ORDERABLE S Final Result * Prepare RBC: 1 Units (11/11/2024 10:52 AM CDT) Units requested 1 Comment:Testing performed by : [facility], [address] [place] [address], [address] Units requested Ready [facility] Comment:Testing performed by : [address] [address] Unit Number [id number] Product code [id number] [facility] Blood Expiration Date [id number] [facility] Product Blood Type (for scanning) 5100 [facility] Product Blood Type OPOS [facility] Dispense Status DISPENSED [facility] Blood 11/11/2024 10:5 2 AM CDT 11/11/2024 10:[address] Oliveira NP BLOOD BANK PRODUCT ORDERABL ES Final Result Performing Organization Address [facility] Co de Phone Number CLAUDIO[address] [place] [employer] [place] [address] * (ABNORMAL) Immature platelet fraction (11/11/2024 9:20 AM CDT) IPF 17.8(H) 1.6 - 10.1 % Comment:Testing performed by : [address] [address] Blood 11/11/2024 9:20 AM CDT 11/11/2024 9:24 AM CDT Braden Hare MD LAB BLOOD ORDERABLES Final R esult Performing Organization Address City/[facility] Co de Phone Number [facility] [place] [place] [address] * (ABNORMAL) Blood smear review (11/11/2024 9:20 AM CDT) RBC morphology Present(A ) Comment:Testing performed by : [address] [address] Anisocytosis Slight(A) CHRISSY Comment:Testing performed by : [address] [address] Schistocytes 1-2/HPF(A ) [facility]SY Comment:Testing performed by : [address] [address] Elliptocytes 3-7/HPF(A ) [facility]SY Comment:Testing performed by : [address] [address] Acanthocytes 3-7/HPF(A ) [facility]SY Comment:Testing performed by : [address] [address] Platelet estimate Decreased (A) [facility]SY Comment:Testing performed by : [address] [address] Blood 11/11/2024 9:20 AM CDT 11/11/2024 9:24 AM CDT us Braden Hare MD LAB BLOOD ORDERABLES Final R esult Performing Organization Address City/[facility]/ZIP Co de Phone Number [facility] [employer] [place] [address] * (ABNORMAL) Differential, auto (11/11/2024 9:20 AM CDT) [facility] Neutrophil abs 1.13(L) 1.50 - 6.50 K/cumm Comment:Testing performed by : [address] [address] Imm gran abs 0.02 0.00 - 0.10 K/cumm CH[facility]ISSY Comment:Testing performed by : [address], [place]., [address] Lymphocyte abs 0.61(L) 0.80 - 3.30 K/cumm [facility]SY Comment:Testing performed by : [address], [place]., [address] Monocyte abs 0.34 0.20 - 0.80 K/cumm [facility] Comment:Testing performed by : [address] [address] Eosinophil abs 0.03 0.00 - 0.50 K/cumm [facility] Comment:Testing performed by : [address] [address] Basophil abs 0.03 0.00 - 0.10 K/cumm [facility] Comment:Testing performed by : [address] [address] Neutrophil pct 52.4 % [facility] Comment: Interpretive Data Percent cell count reference ranges are not reported, since discordance with absolute values may lead to misinterpretation of CBC data. Current Interpretive Data was last revised on 2017. Testing performed by: [address] [address] Imm gran pct 0.9 % [facility] Comment: Interpretive Data Percent cell count reference ranges are not reported, since discordance with absolute values may lead to misinterpretation of CBC data. Current Interpretive Data was last revised on 2017. Testing performed by: [address] [address] Lymphocyte pct 28.2 % [facility] Comment: Interpretive Data Percent cell count reference ranges are not reported, since discordance with absolute values may lead to misinterpretation of CBC data. Current Interpretive Data was last revised on 2017. Testing performed by: [address] [address] Monocyte pct 15.7 % [facility] Comment: Interpretive Data Percent cell count reference ranges are not reported, since discordance with absolute values may lead to misinterpretation of CBC data. Current Interpretive Data was last revised on 2017. Testing performed by: [address] [address] Eosinophil pct 1.4 % [facility] Comment: Interpretive Data Percent cell count reference ranges are not reported, since discordance with absolute values may lead to misinterpretation of CBC data. Current Interpretive Data was last revised on 2017. Testing performed by: [address] [address] Basophil pct 1.4 % [facility] Comment: Interpretive Data Percent cell count reference ranges are not reported, since discordance with absolute values may lead to misinterpretation of CBC data. Current Interpretive Data was last revised on 2017. Testing performed by: [address] [address] Blood 11/11/2024 9:20 AM CDT 11/11/2024 9:24 AM CDT us Braden Hare MD LAB BLOOD ORDERABLES Final R esult [facility] [address] [facility] Department of Laboratories [place], [place] [id number] * (ABNORMAL) CBC with auto differential (11/11/2024 9:20 AM CDT) WBC 2.16(L) 3.80 - 9.90 K/cumm Comment:Testing performed by : [address] [address] Hgb 7.4(L) 13.0 - 17.5 g/dL [facility] Comment:Testing performed by : [address] [address] Hct 22.3(L) 38.9 - 50.3 % [facility] Comment:Testing performed by : [address] [address] Plt 45(L) 150 - 400 K/cumm [facility] Comment:Testing performed by : [address] [address] MPV Not Measured 9.1 - 12.3 fL [facility] Comment:Testing performed by : [address] [address] RBC 2.35(L) 4.30 - 5.80 M/cumm [facility] Comment:Testing performed by : [address] [address] MCV 94.9 81.3 - 96.4 fL [facility] Comment:Testing performed by : [address] [address] MCH 31.5 27.1 - 33.3 pg [facility] Comment:Testing performed by : [address] [address] MCHC 33.2 32.3 - 35.7 g/dL [facility] Comment:Testing performed by : [address] [address] RDW CV 17.7(H) 11.1 - 14.9 % [facility] Comment:Testing performed by : [address], [address] RDW SD 60.2(H) 35.7 - 48.1 fL [facility] Comment:Testing performed by : [address] [address] NRBC abs 0.00 0.00 - 0.01 K/cumm [facility] Comment:Testing performed by : [address] [address] ANC Prelim 1.13(L) 1.50 - 6.50 K/cumm [facility] Comment: Interpretive Data The rapid ANC is a preliminary automated count and may vary from the final ANC (Neut Abs) reported in the WBC differential that follows. Current interpretive data was last revised 2024. Testing performed by: [address], [address] Blood 11/11/2024 9:20 AM CDT 11/11/2024 9:24 AM CDT Braden Hare MD LAB BLOOD ORDERABLES Edited Result - Final Performing Organization Address [facility] de Phone Number [address] [address] * ABO/Rh (11/11/2024 9:20 AM CDT) ABO/Rh O Positive Comment:Testing performed by : [address] [address] Blood 11/11/2024 9:20 AM CDT 11/11/2024 9:41 AM CDT Narrative [facility] - 11/11/2024 10:22 AM CDT Has the patient had Daratumumab or Isatuximab in the past 6 months?->Unknown Braden Hare MD LAB BLOOD BANK TEST ORDERABL ES Final Result Performing Organization Address [facility] de Phone Number [address] [place] [place] [address] * Crossmatch (11/11/2024 9:20 AM CDT) Pathologist [facility] [place] Crossmatch Compatible [facility] Unit number for crossmatch [id number] [facility] Blood 11/11/2024 9:20 AM CDT 11/11/2024 9:41 AM CDT Braden Hare MD LAB BLOOD BANK TEST ORDERABL ES Final Result Performing Organization Address [facility] de Phone Number [address] [place] [place] [address] * Antibody screen (11/11/2024 9:20 AM CDT) Chris, indirect, Gel Interpretation Negative [facility] Comment:Testing performed by : [address] [address] Blood 11/11/2024 9:20 AM CDT 11/11/2024 9:41 AM CDT Narrative [facility] - 11/11/2024 10:21 AM CDT Has the patient had Daratumumab or Isatuximab in the past 6 months?->Unknown Braden Hare MD LAB BLOOD BANK TEST ORDERABL ES Final Result Performing Organization Address [facility]/ZIP Co de Phone Number [facility] [address] [address] * (ABNORMAL) Immature platelet fraction (11/06/2024 9:18 AM CDT) IPF 19.0(H) 1.6 - 10.1 % Comment:Testing performed by : [address] [address] Blood 11/06/2024 9:18 AM CDT 11/06/2024 9:20 AM CDT Braden Hare MD LAB BLOOD ORDERABLES Final R esult Performing Organization Address [facility] Co de Phone Number [address] [address] * (ABNORMAL) Blood smear review (11/06/2024 9:18 AM CDT) RBC morphology Present(A ) Comment:Testing performed by : [address] [address] Anisocytosis Slight(A) [facility] Comment:Testing performed by : [address] [address] Schistocytes 1-2/HPF(A ) [facility] Comment:Testing performed by : [address] [address] Elliptocytes 3-7/HPF(A ) [facility] Comment:Testing performed by : [address] [address] Acanthocytes 3-7/HPF(A ) [facility] Comment:Testing performed by : [address] [place] [address] Platelet estimate Decreased (A) [facility] Comment:Testing performed by : [address] [address] Blood 11/06/2024 9:18 AM CDT 11/06/2024 9:20 AM CDT us Braden Hare MD LAB BLOOD ORDERABLES Final R esult [facility] [address] [facility] [place] [address] * (ABNORMAL) Differential, auto (11/06/2024 9:18 AM CDT) Neutrophil abs 1.52 1.50 - 6.50 K/cumm Comment:Testing performed by : [address] [address] Imm gran abs 0.02 0.00 - 0.10 K/cumm [facility] Comment:Testing performed by : [address] [address] Lymphocyte abs 0.67(L) 0.80 - 3.30 K/cumm [facility] Comment:Testing performed by : [address] [address] Monocyte abs 0.51 0.20 - 0.80 K/cumm [facility] Comment:Testing performed by : [address] [address] Eosinophil abs 0.02 0.00 - 0.50 K/cumm [facility] Comment:Testing performed by : [address] [address] Basophil abs 0.04 0.00 - 0.10 K/cumm [facility] Comment:Testing performed by : [address] [address] Neutrophil pct 54.8 % [facility] Comment: Interpretive Data Percent cell count reference ranges are not reported, since discordance with absolute values may lead to misinterpretation of CBC data. Current Interpretive Data was last revised on 2017. Testing performed by: [address] [address] Imm gran pct 0.7 % [facility] Comment: Interpretive Data Percent cell count reference ranges are not reported, since discordance with absolute values may lead to misinterpretation of CBC data. Current Interpretive Data was last revised on 2017. Testing performed by: [address] [address] Lymphocyte pct 24.1 % [facility] Comment: Interpretive Data Percent cell count reference ranges are not reported, since discordance with absolute values may lead to misinterpretation of CBC data. Current Interpretive Data was last revised on 2017. Testing performed by: [address] [address] Monocyte pct 18.3 % [facility] Comment: Interpretive Data Percent cell count reference ranges are not reported, since discordance with absolute values may lead to misinterpretation of CBC data. Current Interpretive Data was last revised on 2017. Testing performed by: [address] [address] Eosinophil pct 0.7 % [facility] Comment: Interpretive Data Percent cell count reference ranges are not reported, since discordance with absolute values may lead to misinterpretation of CBC data. Current Interpretive Data was last revised on 2017. Testing performed by: [address] [address] Basophil pct 1.4 % [facility] Comment: Interpretive Data Percent cell count reference ranges are not reported, since discordance with absolute values may lead to misinterpretation of CBC data. Current Interpretive Data was last revised on 2017. Testing performed by: [address] [address] Blood 11/06/2024 9:18 AM CDT 11/06/2024 9:20 AM CDT us Braden Hare MD LAB BLOOD ORDERABLES Final R esult [facility] [address] [facility] [place] [address] * (ABNORMAL) CBC with auto differential (11/06/2024 9:18 AM CDT) [facility] WBC 2.78(L) 3.80 - 9.90 K/cumm Comment:Testing performed by : [address], [address] Hgb 8.2(L) 13.0 - 17.5 g/dL [facility] Comment:Testing performed by : [address], [address] Hct 24.5(L) 38.9 - 50.3 % [facility] Comment:Testing performed by : [address], [address] Plt 37(L) 150 - 400 K/cumm [facility] Comment:Testing performed by : [address], [address] MPV Not Measured 9.1 - 12.3 fL [facility] Comment:Testing performed by : [address], [address] RBC 2.62(L) 4.30 - 5.80 M/cumm [facility] Comment:Testing performed by : [address], [address] MCV 93.5 81.3 - 96.4 fL [facility] Comment:Testing performed by : [address] [address] MCH 31.3 27.1 - 33.3 pg [facility] Comment:Testing performed by : [address], [address] MCHC 33.5 32.3 - 35.7 g/dL [facility] Comment:Testing performed by : [address], [address] RDW CV 16.8(H) 11.1 - 14.9 % [facility] Comment:Testing performed by : [address], [address] RDW SD 55.5(H) 35.7 - 48.1 fL [facility] Comment:Testing performed by : [address], [address] NRBC abs 0.00 0.00 - 0.01 K/cumm [facility] Comment:Testing performed by : [address] [address] ANC Prelim 1.52 1.50 - 6.50 K/cumm [facility] BELLO Comment: Interpretive Data The rapid ANC is a preliminary automated count and may vary from the final ANC (Neut Abs) reported in the WBC differential that follows. Current interpretive data was last revised 2024. Testing performed by: [address] [address] Blood 11/06/2024 9:18 AM CDT 11/06/2024 9:20 AM CDT Braden Hare MD LAB BLOOD ORDERABLES Edited Result - Final Performing Organization Address [facility] Co de Phone Number [address] [place] [place] [address] * (ABNORMAL) Immature platelet fraction (11/04/2024 8:53 AM CDT) IPF 21.3(H) 1.6 - 10.1 % Comment:Testing performed by : [address] [address] Blood 11/04/2024 8:53 AM CDT 11/04/2024 8:57 AM CDT Braden Hare MD LAB BLOOD ORDERABLES Final R esult Performing Organization Address [facility] Co de Phone Number [address] [place] [place] [address] * (ABNORMAL) Blood smear review (11/04/2024 8:53 AM CDT) RBC morphology Present(A ) Comment:Testing performed by : [address] [address] Anisocytosis Slight(A) [facility] Comment:Testing performed by : [address] [address] Schistocytes 1-2/HPF(A ) [facility] Comment:Testing performed by : [address] [address] Elliptocytes 3-7/HPF(A ) [facility] Comment:Testing performed by : [address] [address] Acanthocytes 3-7/HPF(A ) [facility] Comment:Testing performed by : [address] [address] Platelet estimate Decreased (A) [facility] Comment:Testing performed by : [address] [address] Blood 11/04/2024 8:53 AM CDT 11/04/2024 8:57 AM CDT us Braden Hare MD LAB BLOOD ORDERABLES Final R esult Performing Organization Address City/State/[facility] Co de Phone Number [facility] [address] [facility] [place] [address] * (ABNORMAL) Differential, auto (11/04/2024 8:53 AM CDT) Neutrophil abs 1.50 1.50 - 6.50 K/cumm Comment:Testing performed by : [address] [address] Imm gran abs 0.01 0.00 - 0.10 K/cumm CHRISSY Comment:Testing performed by : [address] [address] Lymphocyte abs 0.48(L) 0.80 - 3.30 K/cumm CHRISSY Comment:Testing performed by : [address] [address] Monocyte abs 0.36 0.20 - 0.80 K/cumm CHRISSY Comment:Testing performed by : [address] [address] Eosinophil abs 0.03 0.00 - 0.50 K/cumm CHRISSY Comment:Testing performed by : [address] [place] [address] Basophil abs 0.03 0.00 - 0.10 K/cumm CHRISSY Comment:Testing performed by : [address] [address] Neutrophil pct 62.4 % [facility] Comment: Interpretive Data Percent cell count reference ranges are not reported, since discordance with absolute values may lead to misinterpretation of CBC data. Current Interpretive Data was last revised on 2017. Testing performed by: [address] [address] Imm gran pct 0.4 % [facility] Comment: Interpretive Data Percent cell count reference ranges are not reported, since discordance with absolute values may lead to misinterpretation of CBC data. Current Interpretive Data was last revised on 2017. Testing performed by: [address] [address] Lymphocyte pct 19.9 % [facility] Comment: Interpretive Data Percent cell count reference ranges are not reported, since discordance with absolute values may lead to misinterpretation of CBC data. Current Interpretive Data was last revised on 2017. Testing performed by: [address] [address] Monocyte pct 14.9 % [facility] Comment: Interpretive Data Percent cell count reference ranges are not reported, since discordance with absolute values may lead to misinterpretation of CBC data. Current Interpretive Data was last revised on 2017. Testing performed by: [address] [address] Eosinophil pct 1.2 % [facility] Comment: Interpretive Data Percent cell count reference ranges are not reported, since discordance with absolute values may lead to misinterpretation of CBC data. Current Interpretive Data was last revised on 2017. Testing performed by: [address] [address] Basophil pct 1.2 % [facility] Comment: Interpretive Data Percent cell count reference ranges are not reported, since discordance with absolute values may lead to misinterpretation of CBC data. Current Interpretive Data was last revised on 2017. Testing performed by: [address] [address] Blood 11/04/2024 8:53 AM CDT 11/04/2024 8:57 AM CDT us Braden Hare MD LAB BLOOD ORDERABLES Final R esult [facility] [address] [facility] [place] [address] * (ABNORMAL) CBC with auto differential (11/04/2024 8:53 AM CDT) WBC 2.41(L) 3.80 - 9.90 K/cumm Comment:Testing performed by : [address], [address] Hgb 8.1(L) 13.0 - 17.5 g/dL CHRISSY Comment:Testing performed by : [address], [address] Hct 24.3(L) 38.9 - 50.3 % CHRISSY Comment:Testing performed by : [address], [address] Plt 30(L) 150 - 400 K/cumm CHRISSY Comment:Testing performed by : [address] [address] MPV Not Measured 9.1 - 12.3 fL CHRISSY Comment:Testing performed by : [address], [address] RBC 2.60(L) 4.30 - 5.80 M/cumm CHRISSY Comment:Testing performed by : [address] [address] MCV 93.5 81.3 - 96.4 fL CHRISSY Comment:Testing performed by : [address], [address] MCH 31.2 27.1 - 33.3 pg CHRISSY BELLO Comment:Testing performed by : [address], [address] MCHC 33.3 32.3 - 35.7 g/dL CHRISSY BELLO Comment:Testing performed by : [address] [address] RDW CV 16.7(H) 11.1 - 14.9 % CHRISSY Comment:Testing performed by : [address] [address] RDW SD 55.0(H) 35.7 - 48.1 fL CHRISSY Comment:Testing performed by : [address] [address] NRBC abs 0.00 0.00 - 0.01 K/cumm CHRISSY Comment:Testing performed by : [address] [address] ANC Prelim 1.50 1.50 - 6.50 K/cumm CHRISSY Comment: Interpretive Data The rapid ANC is a preliminary automated count and may vary from the final ANC (Neut Abs) reported in the WBC differential that follows. Current interpretive data was last revised 2024. Testing performed by: [address] [address] Blood 11/04/2024 8:53 AM CDT 11/04/2024 8:57 AM CDT Braden Hare MD LAB BLOOD ORDERABLES Edited Result - Final [facility]ISSY [address] [facility] [place] [address] * (ABNORMAL) Blood smear review (10/30/2024 8:37 AM CDT) RBC morphology Present(A ) Comment:Testing performed by : [address] [address] Schistocytes 1-2/HPF(A ) CHRISSY Comment:Testing performed by : [address] [address] Elliptocytes 3-7/HPF(A ) CHRISSY Comment:Testing performed by : [address] [address] Teardrop cells 3-7/HPF(A ) CHRISSY BELLO Comment:Testing performed by : [address] [address] Platelet estimate Decreased (A) CHRISSY Comment:Testing performed by : [address] [address] Blood 10/30/2024 8:37 AM CDT 10/30/2024 8:40 AM CDT us Braden Hare MD LAB BLOOD ORDERABLES Final R esult [facility] [address] [facility] Department [place] [address] * (ABNORMAL) Differential, auto (10/30/2024 8:37 AM CDT) Neutrophil abs 1.22(L) 1.50 - 6.50 K/cumm Comment:Testing performed by : [address] [address] Imm gran abs 0.02 0.00 - 0.10 K/cumm CHRISSY Comment:Testing performed by : [address] [address] Lymphocyte abs 0.50(L) 0.80 - 3.30 K/cumm CHRISSY Comment:Testing performed by : [address] [address] Monocyte abs 0.45 0.20 - 0.80 K/cumm CHRISSY Comment:Testing performed by : [address] [address] Eosinophil abs 0.02 0.00 - 0.50 K/cumm CHRISSY Comment:Testing performed by : [address] [address] Basophil abs 0.02 0.00 - 0.10 K/cumm CHRISSY Comment:Testing performed by : [address] [address] Neutrophil pct 54.7 % CHRISSY Comment: Interpretive Data Percent cell count reference ranges are not reported, since discordance with absolute values may lead to misinterpretation of CBC data. Current Interpretive Data was last revised on 2017. Testing performed by: [address] [address] Imm gran pct 0.9 % [facility] Comment: Interpretive Data Percent cell count reference ranges are not reported, since discordance with absolute values may lead to misinterpretation of CBC data. Current Interpretive Data was last revised on 2017. Testing performed by: [address] [address] Lymphocyte pct 22.4 % [facility] Comment: Interpretive Data Percent cell count reference ranges are not reported, since discordance with absolute values may lead to misinterpretation of CBC data. Current Interpretive Data was last revised on 2017. Testing performed by: [address] [address] Monocyte pct 20.2 % [facility] Comment: Interpretive Data Percent cell count reference ranges are not reported, since discordance with absolute values may lead to misinterpretation of CBC data. Current Interpretive Data was last revised on 2017. Testing performed by: [address] [address] Eosinophil pct 0.9 % [facility] Comment: Interpretive Data Percent cell count reference ranges are not reported, since discordance with absolute values may lead to misinterpretation of CBC data. Current Interpretive Data was last revised on 2017. Testing performed by: [address] [address] Basophil pct 0.9 % [facility] Comment: Interpretive Data Percent cell count reference ranges are not reported, since discordance with absolute values may lead to misinterpretation of CBC data. Current Interpretive Data was last revised on 2017. Testing performed by: [address] [address] Blood 10/30/2024 8:37 AM CDT 10/30/2024 8:40 AM CDT us Braden Hare MD LAB BLOOD ORDERABLES Final R esult CHRISSY [address] Department [place] [address] * (ABNORMAL) CBC with auto differential (10/30/2024 8:37 AM CDT) [facility] WBC 2.23(L) 3.80 - 9.90 K/cumm Comment:Testing performed by : [address] [address] Hgb 8.4(L) 13.0 - 17.5 g/dL CHRISSY Comment:Testing performed by : [address], [address] Hct 24.9(L) 38.9 - 50.3 % CHRISSY Comment:Testing performed by : [address] [address] Plt 50(L) 150 - 400 K/cumm CHRISSY Comment:Testing performed by : [address] [address] MPV Not Measured 9.1 - 12.3 fL CHRISSY Comment:Testing performed by : [address], [address] RBC 2.70(L) 4.30 - 5.80 M/cumm CHRISSY Comment:Testing performed by : [address] [address] MCV 92.2 81.3 - 96.4 fL CHRISSY Comment:Testing performed by : [address] [address] MCH 31.1 27.1 - 33.3 pg CHRISSY Comment:Testing performed by : [address] [address] MCHC 33.7 32.3 - 35.7 g/dL CHRISSY Comment:Testing performed by : [address], [address] RDW CV 16.7(H) 11.1 - 14.9 % CHRISSY Comment:Testing performed by : [address], [address] RDW SD 53.9(H) 35.7 - 48.1 fL CERSERINA BELLO Comment:Testing performed by : [address] [address] NRBC abs 0.00 0.00 - 0.01 K/cumm CHRISSY BELLO Comment:Testing performed by : [address] [address] ANC Prelim 1.22(L) 1.50 - 6.50 K/cumm CHRISSY BELLO Comment: Interpretive Data The rapid ANC is a preliminary automated count and may vary from the final ANC (Neut Abs) reported in the WBC differential that follows. Current interpretive data was last revised 2024. Testing performed by: [address] [address] Blood 10/30/2024 8:37 AM CDT 10/30/2024 8:40 AM CDT us Braden Hare MD LAB BLOOD ORDERABLES Edited Result - Final [facility] [address] [facility] Department of Laboratories [place], [place] [id number] * Transfuse RBC (10/28/2024 2:46 PM CDT) Blood us Brooke Clayton MD BLOOD TRANSFUSION ORDERABLE S Final Result * Prepare RBC: 1 Units (10/28/2024 12:22 PM CDT) Units requested 1 Comment:Testing performed by : [address] [address] Units requested Ready CHRISSY Comment:Testing performed by : [address] [address] Unit Number [id number] Product code [id number] CHRISSY Blood Expiration Date [id number] CHRISSY Product Blood Type (for scanning) 5100 CHRISSY Product Blood Type OPOS CHRISSY Dispense Status DISPENSED CHRISSY Blood 10/28/2024 12:2 2 PM CDT 10/28/2024 12:21 PM CDT us Braden Hare MD BLOOD BANK PRODUCT ORDERABLE S Final Result Performing Organization Address [facility] Co de Phone Number [facility] [place] [place] [address] * (ABNORMAL) Blood smear review (10/28/2024 9:08 AM CDT) Pathologist [facility] RBC morphology Present(A ) Comment:Testing performed by : [facility], [address] [place] [address]., [address] Anisocytosis Slight(A) CHRISSY Comment:Testing performed by : [address] [address] Schistocytes 1-2/HPF(A ) CHRISSY Comment:Testing performed by : [address] [address] Elliptocytes 3-7/HPF(A ) CHRISSY Comment:Testing performed by : [address] [address] Acanthocytes 8-15/HPF( A) CHRISSY Comment:Testing performed by : [address] [address] Platelet estimate Decreased (A) CHRISSY Comment:Testing performed by : [address] [address] Blood 10/28/2024 9:08 AM CDT 10/28/2024 9:10 AM CDT us Braden Hare MD LAB BLOOD ORDERABLES Final R esult Performing Organization Address City/[facility]/ZIP Co de Phone Number [facility] [employer] [place] [address] * eGFR (10/28/2024 9:08 AM CDT) Pathologist [facility] eGFR 74 >=60 mL/min/1. 73 m2 Comment: [...] was last reviewed 2021. Testing performed by: [address] [address] Blood 10/28/2024 9:08 AM CDT 10/28/2024 9:10 AM CDT us Braden Hare MD LAB BLOOD ORDERABLES Final R esult CH[facility]ISSY [address] [facility] Department of Laboratories [place], [place] [id number] * (ABNORMAL) Differential, auto (10/28/2024 9:08 AM CDT) Neutrophil abs 1.74 1.50 - 6.50 K/cumm Comment:Testing performed by : [address] [address] Imm gran abs 0.06 0.00 - 0.10 K/cumm CHRISSY Comment:Testing performed by : [address] [address] Lymphocyte abs 0.48(L) 0.80 - 3.30 K/cumm CHRISSY Comment:Testing performed by : [address] [address] Monocyte abs 0.60 0.20 - 0.80 K/cumm CHRISSY Comment:Testing performed by : [address] [address] Eosinophil abs 0.02 0.00 - 0.50 K/cumm CHRISSY Comment:Testing performed by : [address] [address] Basophil abs 0.03 0.00 - 0.10 K/cumm CHRISSY Comment:Testing performed by : [address] [address] Neutrophil pct 59.4 % [facility] Comment: Interpretive Data Percent cell count reference ranges are not reported, since discordance with absolute values may lead to misinterpretation of CBC data. Current Interpretive Data was last revised on 2017. Testing performed by: [address] [address] Imm gran pct 2.0 % [facility] Comment: Interpretive Data Percent cell count reference ranges are not reported, since discordance with absolute values may lead to misinterpretation of CBC data. Current Interpretive Data was last revised on 2017. Testing performed by: [address] [address] Lymphocyte pct 16.4 % [facility] Comment: Interpretive Data Percent cell count reference ranges are not reported, since discordance with absolute values may lead to misinterpretation of CBC data. Current Interpretive Data was last revised on 2017. Testing performed by: [address] [address] Monocyte pct 20.5 % [facility] Comment: Interpretive Data Percent cell count reference ranges are not reported, since discordance with absolute values may lead to misinterpretation of CBC data. Current Interpretive Data was last revised on 2017. Testing performed by: [address] [address] Eosinophil pct 0.7 % [facility] Comment: Interpretive Data Percent cell count reference ranges are not reported, since discordance with absolute values may lead to misinterpretation of CBC data. Current Interpretive Data was last revised on 2017. Testing performed by: [address] [address] Basophil pct 1.0 % [facility] Comment: Interpretive Data Percent cell count reference ranges are not reported, since discordance with absolute values may lead to misinterpretation of CBC data. Current Interpretive Data was last revised on 2017. Testing performed by: [address] [address] Blood 10/28/2024 9:08 AM CDT 10/28/2024 9:10 AM CDT Braden Hare MD LAB BLOOD ORDERABLES Final R esult Performing Organization Address City/[facility] Co de Phone Number [address] [place] [place] [address] * Antibody screen, tube (10/28/2024 9:08 AM CDT) Chris, indirect, Tube Interpretation Negative ABSC Comment:Testing performed by : [address] [address] Blood 10/28/2024 9:08 AM CDT 10/28/2024 9:58 AM CDT Braden Hare MD LAB BLOOD ORDERABLES Final R esult Performing Organization Address City/[facility] de Phone Number [address] [employer] [place] [address] * (ABNORMAL) CBC with auto differential (10/28/2024 9:08 AM CDT) WBC 2.93(L) 3.80 - 9.90 K/cumm Comment:Testing performed by : [address] [address] Hgb 7.5(L) 13.0 - 17.5 g/dL CHRISSY Comment:Testing performed by : [address] [address] Hct 22.8(L) 38.9 - 50.3 % CHRISSY Comment:Testing performed by : [address] [address] Plt 66(L) 150 - 400 K/cumm CHRISSY Comment:Testing performed by : [address] [address] MPV Not Measured 9.1 - 12.3 fL CHRISSY Comment:Testing performed by : [address] [address] RBC 2.44(L) 4.30 - 5.80 M/cumm CHRISSY Comment:Testing performed by : [address] [address] MCV 93.4 81.3 - 96.4 fL CHRISSY Comment:Testing performed by : [address] [address] MCH 30.7 27.1 - 33.3 pg CHRISSY Comment:Testing performed by : [address] [address] MCHC 32.9 32.3 - 35.7 g/dL CHRISSY Comment:Testing performed by : [address] [address] RDW CV 17.2(H) 11.1 - 14.9 % CHRISSY Comment:Testing performed by : [address] [address] RDW SD 55.4(H) 35.7 - 48.1 fL CHRISSY Comment:Testing performed by : [address] [address] NRBC abs 0.00 0.00 - 0.01 K/cumm CHRISSY Comment:Testing performed by : [address] [address] ANC Prelim 1.74 1.50 - 6.50 K/cumm CHRISSY Comment: Interpretive Data The rapid ANC is a preliminary automated count and may vary from the final ANC (Neut Abs) reported in the WBC differential that follows. Current interpretive data was last revised 2024. Testing performed by: [address] [address] Blood 10/28/2024 9:08 AM CDT 10/28/2024 9:10 AM CDT Braden Hare MD LAB BLOOD ORDERABLES Edited Result - Final Performing Organization Address [facility] de Phone Number [address] [address] * ABO/Rh (10/28/2024 9:08 AM CDT) Pathologist [facility] ABO/Rh O Positive Comment:Testing performed by : [address] [address] Blood 10/28/2024 9:08 AM CDT 10/28/2024 9:58 AM CDT Narrative [facility] - 10/28/2024 10:47 AM CDT Has the patient had Daratumumab or Isatuximab in the past 6 months?->Unknown us Braden Hare MD LAB BLOOD BANK TEST ORDERABL ES Final Result Performing Organization Address [facility] de Phone Number [address] [address] * Crossmatch (10/28/2024 9:08 AM CDT) Pathologist [facility] Crossmatch Compatible [facility] Unit number for crossmatch [id number] [facility] Blood 10/28/2024 9:08 AM CDT 10/28/2024 9:58 AM CDT Braden Hare MD LAB BLOOD BANK TEST ORDERABL ES Final Result Performing Organization Address [facility] de Phone Number [address] [address] * (ABNORMAL) Comprehensive metabolic panel (10/28/2024 9:08 AM CDT) Pathologist [facility] Sodium 137 135 - 145 mmol/L Comment:Testing performed by : [address] [address] Potassium, pl 4.2 3.3 - 4.9 mmol/L CHRISSY Comment:Testing performed by : [address] [address] Chloride 101 97 - 110 mmol/L CHRISSY Comment:Testing performed by : [address] [address] CO2 26 22 - 32 mmol/L CHRISSY Comment:Testing performed by : [address], [place]., [address] Anion gap 10 2 - 15 mmol/L CHRISSY Comment:Testing performed by : [address], [place]., [address] BUN 20 6 - 25 mg/dL CHRISSY Comment:Testing performed by : [address], [place]., [address] Creatinine 1.00 0.80 - 1.30 mg/dL CHRISSY Comment:Testing performed by : [address] [address] Glucose 317(H) 70 - 199 mg/dL CHRISSY Comment: Interpretive [...] was last revised 2022. Testing performed by: [address] [address] Calcium 9.2 8.5 - 10.3 mg/dL CHRISSY Comment:Testing performed by : [address] [address] Bilirubin, total 1.2 0.1 - 1.2 mg/dL CHRISSY Comment:Testing performed by : [address] [address] Protein, pl 6.1(L) 6.5 - 8.5 g/dL CHRISSY Comment:Testing performed by : [address] [address] Albumin 3.8 3.5 - 5.0 g/dL CHRISSY Comment:Testing performed by : [address] [address] Alk phos 56 40 - 130 Units/L CHRISSY Comment:Testing performed by : [address] [address] ALT 14 7 - 55 Units/L CHRISSY Comment:Testing performed by : [address] [address] AST 12 10 - 50 Units/L CHRISSY Comment:Testing performed by : [address], [place]., [address] Blood 10/28/2024 9:08 AM CDT 10/28/2024 9:10 AM CDT us Braden Hare MD LAB BLOOD ORDERABLES Final R esult [facility] [place] [address] * Transfuse RBC (10/23/2024 12:22 PM CDT) Blood us Brooke Clayton MD BLOOD TRANSFUSION ORDERABLE S Final Result * (ABNORMAL) Blood smear review (10/23/2024 9:37 AM CDT) RBC morphology Present(A ) Comment:Testing performed by : [address] [address] Anisocytosis Slight(A) CHRISSY Comment:Testing performed by : [address] [address] Schistocytes 1-2/HPF(A ) CHRISSY Comment:Testing performed by : [address] [address] Elliptocytes 8-15/HPF( A) CHRISSY Comment:Testing performed by : [address] [address] Acanthocytes 8-15/HPF( A) CHRISSY Comment:Testing performed by : [address] [place] [address] Platelet estimate Decreased (A) CHRISSY Comment:Testing performed by : [address] [address] Blood 10/23/2024 9:37 AM CDT 10/23/2024 9:41 AM CDT us Braden Hare MD LAB BLOOD ORDERABLES Final R esult [facility] [address] [facility] [place] [address] * (ABNORMAL) Differential, auto (10/23/2024 9:37 AM CDT) Neutrophil abs 2.08 1.50 - 6.50 K/cumm Comment:Testing performed by : [address] [address] Imm gran abs 0.03 0.00 - 0.10 K/cumm CHRISSY Comment:Testing performed by : [address] [address] Lymphocyte abs 0.42(L) 0.80 - 3.30 K/cumm CHRISSY Comment:Testing performed by : [address] [address] Monocyte abs 0.30 0.20 - 0.80 K/cumm CHRISSY Comment:Testing performed by : [address] [address] Eosinophil abs 0.02 0.00 - 0.50 K/cumm CHRISSY Comment:Testing performed by : [address] [address] Basophil abs 0.04 0.00 - 0.10 K/cumm CHRISSY Comment:Testing performed by : [address] [address] Neutrophil pct 72.0 % CHRISSY Comment: Interpretive Data Percent cell count reference ranges are not reported, since discordance with absolute values may lead to misinterpretation of CBC data. Current Interpretive Data was last revised on 2017. Testing performed by: [address] [address] Imm gran pct 1.0 % [facility] Comment: Interpretive Data Percent cell count reference ranges are not reported, since discordance with absolute values may lead to misinterpretation of CBC data. Current Interpretive Data was last revised on 2017. Testing performed by: [address] [address] Lymphocyte pct 14.5 % [facility] Comment: Interpretive Data Percent cell count reference ranges are not reported, since discordance with absolute values may lead to misinterpretation of CBC data. Current Interpretive Data was last revised on 2017. Testing performed by: [address] [address] Monocyte pct 10.4 % [facility] Comment: Interpretive Data Percent cell count reference ranges are not reported, since discordance with absolute values may lead to misinterpretation of CBC data. Current Interpretive Data was last revised on 2017. Testing performed by: [address] [address] Eosinophil pct 0.7 % [facility] Comment: Interpretive Data Percent cell count reference ranges are not reported, since discordance with absolute values may lead to misinterpretation of CBC data. Current Interpretive Data was last revised on 2017. Testing performed by: [address] [address] Basophil pct 1.4 % [facility] Comment: Interpretive Data Percent cell count reference ranges are not reported, since discordance with absolute values may lead to misinterpretation of CBC data. Current Interpretive Data was last revised on 2017. Testing performed by: [address] [address] Blood 10/23/2024 9:37 AM CDT 10/23/2024 9:41 AM CDT us Braden Hare MD LAB BLOOD ORDERABLES Final R esult [facility] [address] [facility] [place] [address] * (ABNORMAL) CBC with auto differential (10/23/2024 9:37 AM CDT) [facility] WBC 2.89(L) 3.80 - 9.90 K/cumm Comment:Testing performed by : [address] [address] Hgb 7.0(L) 13.0 - 17.5 g/dL CHRISSY Comment:Testing performed by : [address], [address] Hct 20.8(L) 38.9 - 50.3 % CHRISSY Comment:Testing performed by : [address], [address] Plt 67(L) 150 - 400 K/cumm CHRISSY Comment:Testing performed by : [address] [address] MPV Not Measured 9.1 - 12.3 fL CHRISSY Comment:Testing performed by : [address], [address] RBC 2.24(L) 4.30 - 5.80 M/cumm CHRISSY Comment:Testing performed by : [address], [address] MCV 92.9 81.3 - 96.4 fL CHRISSY Comment:Testing performed by : [address] [address] MCH 31.3 27.1 - 33.3 pg CHRISSY Comment:Testing performed by : [address], [address] MCHC 33.7 32.3 - 35.7 g/dL CHRISSY Comment:Testing performed by : [address], [address] RDW CV 17.4(H) 11.1 - 14.9 % CHRISSY Comment:Testing performed by : [address], [address] RDW SD 56.2(H) 35.7 - 48.1 fL CHRISSY Comment:Testing performed by : [address], [address] NRBC abs 0.00 0.00 - 0.01 K/cumm CHRISSY Comment:Testing performed by : [address] [address] ANC Prelim 2.08 1.50 - 6.50 K/cumm CHRISSY Comment: Interpretive Data The rapid ANC is a preliminary automated count and may vary from the final ANC (Neut Abs) reported in the WBC differential that follows. Current interpretive data was last revised 2024. Testing performed by: [address] [address] Blood 10/23/2024 9:37 AM CDT 10/23/2024 9:41 AM CDT Braden Hare MD LAB BLOOD ORDERABLES Edited Result - Final Performing Organization Address [facility] de Phone Number [address] [place] [employer] [place] [address] * Prepare RBC: 1 Units (10/20/2024 4:09 PM CDT) Units requested 1 Comment:Testing performed by : [address] [address] Units requested Ready CHRISSY Comment:Testing performed by : [address] [address] Unit Number [id number] Product code [id number] [facility] Blood Expiration Date [id number] [facility] Product Blood Type (for scanning) 5100 [facility] Product Blood Type OPOS [facility] Dispense Status DISPENSED [facility] Blood 10/20/2024 4:09 PM CDT 10/20/2024 4:[address] Oliveira NP BLOOD BANK PRODUCT ORDERABL ES Final Result Performing Organization Address [facility] de Phone Number [address] [place] [address] * Transfuse RBC (10/20/2024 3:04 PM CDT) Blood us Brooke Clayton MD BLOOD TRANSFUSION ORDERABLE S Final Result * Prepare RBC: 1 Units (10/20/2024 12:21 PM CDT) Units requested 1 Comment:Testing performed by : [address] [address] Units requested Ready [facility] Comment:Testing performed by : [facility], [address] [place] [address]., [address] Unit Number [id number] Product code [id number] [facility] Blood Expiration Date [id number] [facility] Product Blood Type (for scanning) 5100 [facility] Product Blood Type OPOS [facility] Dispense Status DISPENSED [facility] Blood 10/20/2024 12:2 1 PM CDT 10/20/2024 12:[address] Oliveira NP BLOOD BANK PRODUCT ORDERABL ES Final Result [place] [id number] [facility] Department [place] [address] * Cytogenetics Specimen Tracking Bone marrow (10/20/2024 9:18 AM CDT) Cytotenetics Tracking Order Received Bone marrow 10/20/2024 9:18 AM CDT 10/20/2024 1:49 PM CDT Narrative CHRISSY [facility] - 11/07/2024 8:32 AM CDT Please read the Cytogenetics Epic requisition for specimen collection requirements. us Braden Hare MD LAB BODY FLUIDS AND STOOLS O RDERABLES Final Result [facility] Department of Laboratories [place], [place] [id number] * Diagnosis MyeloSeq Heme NGS Panel with Interpretation Bone marrow (10/20/2024 9:18 AM CDT) Bone marrow (Bone Marrow Biopsy) 10/20/2024 9:18 AM CDT 10/20/2024 2:38 PM CDT Narrative [facility] - CYTOGENETICS - 10/31/2024 4:[address] [facility] Pathology Services [address] [place] [address] Final Report Patient Name: JUANITA RODRIGUEZ Address: [address] [place] [id number] Gender: M : 1940 (Age: 84) Accessioned: 10/20/2024 Taken: 10/20/2024 Received: 10/20/2024 Physician(s): Braden Hare M.D. Service: [facility] Location: Hospital #: [id number] Patient Type: [facility] MyeloSeq Molecular DiagnosticsReported:10/31/2024 Varients Detected: GENE EXON VARIANT PROTEIN CHANGE VAF CLINICAL SIGNIFICANCE* PREVIOUSLY DETECTED CUX1 8 STOP GAINED L211* 0.5% PATHOGENIC YES CUX1 19 FRAMESHIFT Q556Vcr*7 7% PATHOGENIC YES EZH2 15 STOP GAINED E584* 7% PATHOGENIC YES ETV6 7 STOP GAINED Y391* 46% PATHOGENIC YES ASXL1 13 STOP GAINED Q1039* 47% PATHOGENIC YES U2AF1 6 MISSENSE Q157P 47% PATHOGENIC YES PIGA 6 MISSENSE R461W 100% POSSIBLY GERMLINE NO ZRSR2 2 STOP GAINED R36* 2% PATHOGENIC YES ZRSR2 10 STOP GAINED R295* 26% PATHOGENIC YES PHF6 4 STOP GAINED E117* 1% PATHOGENIC YES PHF6 9 STOP GAINED R319* 13% PATHOGENIC YES*Please see below for variant classification category details No mutations were detected in the following sequenced genes and hotspots: BCOR, BCORL1, BRAF, CALR, CBL, CEBPA, CHEK2, CSF3R, DDX41, DNMT3A, ETNK1, FLT3, GATA1, GATA2, GNB1, IDH1, IDH2, JAK2, KIT, KMT2A, KRAS, MPL, MYC, NF1, NOTCH1, NPM1, NRAS, PPM1D, PRPF8, PTPN11, RAD21, RUNX1, SETBP1, SF3B1, SMC1A, SMC3, SRSF2, STAG2, STAT3, STAT5B, SUZ12, TET2, TP53, UBA1, UBTF, WT1 Variant Interpretation: Previously identified variants in CUX1, EZH2, ETV6, ASXL1, U2AF1, ZRSR2, and PHF6 are again seen, 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 A new PIGA variant is identified. Further review shows that this variant was present in the prior case ([id number]). This variant is most consistent with a germline polymorphism. 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 Corresponding bone marrow biopsy ([id number]) shows markedly hypercellular marrow with multilineage dysplasia and no increase in blasts. Corresponding cytogenetic studies ([id number]) show no evidence of deletion/monosomy of EGR1 (5q), X8I861 (7q) or TP53 (17p) by FISH (chromosome analysis is pending). Specimen site: Bone marrow Variant Detail: Gene Location (GRCh38) Reference allele Variant allele Transcript:Coding change Population Frequency* CUX1 chr7:563132632 T G [id number]:c.632T>G none CUX1 chr7:646732458 AC A [id number]:c.2954del none EZH2 chr7:582631301 C A [id number]:c.1750G>T none ETV6 chr12:94897744 T A BPHY32269535200:c.1173T>A none ASXL1 chr20:91714465 C T [id number]:c.3115C>T <0.001% U2AF1 chr21:02591077 T G [id number]:c.470A>C 0.005% PIGA chrX:93721034 G A [id number]:c.1381C>T 0.010% ZRSR2 chrX:33386319 C T SQIP23243045513:c.106C>T none ZRSR2 chrX:03766136 C T OYDR71286547854:c.883C>T none PHF6 chrX:472294480 G T [id number]:c.349G>T none PHF6 chrX:975946177 C T [id number]:c.955C>T none*The population allele frequency represents the maximum observed allele frequency in a diverse set of worldwide populations. QC Data: The following hotspots passed sequencing QC metrics: BRAF (codon 600), CALR (codon 9), CEBPA (codon domain), DNMT3A (codon 882), FLT3 (codons 835,569-613), IDH1 (codon 132), IDH2 (codons 140,172), JAK2 (codon 617), KIT (codon 816), KRAS (codons 61,12-13), MPL (codon 515), NPM1 (codons 287-288), NRAS (codons 61,12-13), SF3B1 (codons 700,662-666,622-626), SRSF2 (codons 95,103), TP53 (codons 238,248,273,275), U2AF1 (codons 34,157), UBA1 (codon 41) The following target genes failed minimum sequencing QC metrics (>=95% of positions >=250x): no genes failed QC Myeloseq Assay Version 3.0 This laboratory developed test (LDT) was developed and its performance characteristics determined by the CLIA Licensed Environment laboratory at the [facility] ([facility], CLIA #[id number], CAP #[id number]), Dr. Yoav Drake MD, PhD, FCAP, Senior Datastage Developer. [address] [place] [address], [address] [address] . The [facility] laboratory is regulated under CLIA as certified to perform high-complexity testing. Interpretation of sequencing results and case sign out is performed by Pathology and Immunology faculty in the Division of Genomic and Molecular Pathology (-[facility], CLIA #[id number], CAP #[id number]) Dr. Michelle Modi Ph.D., Senior Datastage Developer. [facility], [facility], [address], [place] [address] [phone] . The [facility] is regulated under CLIA as certified to perform high-complexity testing. This test has not been cleared or approved by the FDA. This test uses hybridization capture-based enrichment that incorporates unique molecular identifiers (CHANDRAKANT) coupled with Illumina-based next generation sequencing. A total of 54 genes and hotspots (partial genes) are targeted by the assay using approximately 30GBases of sequencing data generated on an [employer] Plus. This test has been validated according to CAP guidelines for the detection of single nucleotide variants (SNVs) and indels (max validated size 117bp). This assay has two limits of detection: for new variants (not previously reported by [facility]) sensitivity is limited to 2% VAF; for previously reported variants the sensitivity is >95% for variants with VAFs >0.1%. The actual limit of detection (LOD) for known variants is limited by coverage at the sequenced position. This test does not use paired normal (germline) DNA to determine the somatic status of detected variants; somatic status for detected variants is inferred if the maximum observed allele frequency in a diverse set of worldwide populations is <0.1%. Common population polymorphisms (SNPs) are not reported by this assay and this assay does not distinguish rare inherited (constitutional variants) from somatic variants; should there be sufficient clinical concern for a constitutional cancer-associated mutation, please contact the laboratory for additional testing information. All variants are reported using HGVS nomenclature based on GRCh38 genomic coordinates. Transcripts are reported using the most canonical reference. Variants detected by this assay are classified into one of the following five categories: 1. Potentially therapeutic: target or biomarker for FDA-approved therapies. 2. Pathogenic: recurrent finding in high-quality peer-reviewed studies or meets the criteria for disease-related somatic mutation by NCCN guidelines. 3. Possibly germline: possibly germline variant based on VAF and population frequency; this assay is not designed to detect germline variants; confirmatory germline testing is required to determine the origin of any reported variant. Note: in the post-transplant setting, possibly germline variants are subclassified as possibly germline, recipient-derived or possibly germline, donor-derived based on comparison to historical results, if available. 4. Possibly donor-derived: detected after stem cell transplant in an engrafted patient but not present in pre-transplant studies, most consistent with donor- derived clonal hematopoiesis. 5. Uncertain significance: does not meet any of the above criteria and is therefore of uncertain clinical significance. Molecular testing using these methods is expected to be accurate. However, the chance of a false positive or false negative result due to laboratory errors incurred during any phase of testing cannot be completely excluded. [facility] does not have control over the quantity, quality or provenance of specimens originating from outside institutions. Accordingly, [facility] disclaims any and all responsibility and liability arising from a false positive or false negative result that may arise from an insufficient quantity of specimen, poor specimen quality, or contamination of specimen. This Report was generated using the materials and methods described above, which required the use of various reagents, protocols, instruments, software, databases, and other items, some of which were provided or made accessible by third parties. A defect or malfunction in any such reagents, protocols, instruments, software, databases, and/or other items may compromise the quality or accuracy of the Report. The Report has been created based on, or incorporates references to, various scientific manuscripts, references, and other sources of information, including without limitation manuscripts, references, and other sources of information that were prepared by third parties that describe correlations between certain genetic mutations and particular diseases (and/or certain therapeutics that may be useful in ameliorating the effects of such diseases). Such information and correlations are subject to environmental change analyst time in response to future scientific and medical findings. makes no representation or warranty of any kind, expressed or implied, regarding the accuracy of the information provided by or contained in such manuscripts, references, and other sources of information. If any of the information provided by or contained in such manuscripts, references, and other sources is later determined to be inaccurate, the accuracy and quality of the Report may be adversely impacted. is not obligated to notify you of any impact that future scientific or medical research findings may have on the Report. The Report must always be interpreted and considered within the clinical context, and a physician should always consider the Report along with all other pertinent information and data that a physician would prudently consider prior to providing a diagnosis to a patient or developing and implementing a plan of care for a patient. The Report should never be considered or relied upon alone in making any diagnosis or prognosis. The manifestation of many diseases are caused by more than one gene variant, a single gene variant may be relevant to more than one disease, and certain relevant gene variants may not have been considered in the Report. In addition, many diseases are caused or influenced by modifier genes, epigenetic factors, environmental factors, and other variables that are not addressed by the Report (or that are otherwise unknown). As such, the relevance of the Report should be interpreted in the context of a patient's clinical manifestations. The Report provided by [facility] is provided on an IS basis. [facility] makes no representation or warranty of any kind, expressed or implied, regarding the Report. In no event shall [facility] be liable for any actual damages, indirect damages, and/or special or consequential damages arising out of or in any way connected with the Report, your use of the Report, your reliance on the Report, or any defect or inaccurate information included within the Report. Keshav Oscar M.D.Report Electronically Reviewed and Signed Out By Keshav Oscar M.D. 10/31/2024 16:37:40 us Braden Hare MD LAB PATHOLOGY ORDERABLES Fin al Result Performing Organization Address City/[facility]/ZIP Co de Phone Number [facility] - CYTOGENETICS [address] [place] [address] * Flow Leukemia/Lymphoma Bone marrow (10/20/2024 9:18 AM CDT) Ha Stain Test Completed Leukemia/Lymp thalia Result See separate Surgical Pathology report. CHRISSY [facility] Bone marrow 10/20/2024 9:18 AM CDT 10/20/2024 3:53 PM CDT N[facility]ative [facility] - 10/20/2024 9:27 PM CDT Tube information: Green top (Sodium Heparin) Braden Hare MD LAB PATHOLOGY ORDERABLES Fin al Result Performing Organization Address City/[facility]/ZIP Co de Phone Number [facility] Department [place] [address] * Surgical pathology (10/20/2024 9:18 AM CDT) Bone marrow (Bone Marrow Biopsy) 10/20/2024 9:18 AM CDT 10/20/2024 1:00 PM CDT Narrative PATHOLOGY [facility] - 10/22/2024 6:08 PM CDT EPIC results best viewed via link to PDF [facility] [place] [address] Note to Patients: This report may contain a detailed description of human tissue sent by a health care provider to the laboratory for pathologic evaluation. The content of this report is essential for diagnosis and may provide important critical findings. This information may be unfamiliar to patients to review without a medical professional present. It is advised that the patient review this report in the presence of a health care provider who can answer questions and explain the details. SURGICAL PATHOLOGY REPORT FINAL WITH ADDENDUM Patient Name: JUANITA RODRIGUEZ Gender: M : 1940 (Age: 84) Address: [address] [place] [address] Hospital #: [id number] Taken:10/20/2024 Received:10/20/2024 Reported: 10/22/2024 Patient Type: [facility] SPECIMEN Service: Laboratory Location: Physician(s): Chandler Skinner PA-C Diagnosis: Bone marrow, left posterior iliac crest, core biopsy, clot, and aspirate: - Markedly hypercellular marrow with multilineage dysplasia - No excess blasts - See comment preetac/10/21/2024 12:10 By this signature, I attest that the above diagnosis is based upon my personal examination of the slides(and/or other material indicated in the diagnosis). Ty Dhillon M.D., Ph.D. Report Electronically Reviewed and Signed Out By Ty Dhillon M.D., Ph.D. 10/22/2024 18:08:30 Microscopic Description and Comment: Microscopic examination substantiates the above cited diagnosis. Immunohistochemistry studies (with appropriate controls) are performed for further evaluation in tissue context for the following markers:CD34, e-cadherin, CD117, CD61 Immunostain for CD34 highlights rare scattered blasts (<5% of marrow cells). Immunostain for Ecad highlights abundant erythroid precursors with architecture dysarray and coexpression of CD117, consistent with erythroid left-shift. CD61 highlights increased and dysplastic megakaryocytes. For details on the peripheral blood smear (if submitted), bone marrow aspirate, and core biopsy, please see the attached synoptic report. If applicable, correlation with concurrent flow cytometry (Addenda/Procedures below), cytogenetics/FISH, and molecular studies is suggested for full evaluation. 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 Operative procedure: Bone marrow biopsy. Specimen(s) Received: A: Bone marrow biopsy, left posterior iliac crest B: Bone Marrow Clot - BJ C: Bone marrow, left aspirate for flow cytometry Gross Description: Received in two formalin jars labeled with the patient's identifiers. A. Received in formalin, labeled bone marrow and consists of a portion of hemorrhagic material with no discernible bone fragments measuring 0.8 x 0.6 x 0.2 cm. Labeled A1. Jar 0. No decalcification is needed. B. Received in formalin, labeled LPIC clot and consists of a 2.2 x 1.7 x 1.4 cm fragment of hemorrhagic material. Labeled B1. Jar 1. sxst/10/20/2024 15:01 PA(s): Ese Conteh CBC: Date: 10/20/24 WBCs: 7.81x10^3/mcl Hemoglobin: 6.3g/dl Hematocrit: 18.9% Platelets: 49x10^3/mcl Mean corpuscular volume (MCV): 94.0fl Red cell distribution width (RDW-CV): 18.3% Neutrophils, absolute: 6.17 K/cumm Lymphocytes, absolute: 0.55 K/cumm Monocytes, absolute: 1.02 K/cumm Basophils, absolute: 0.08 K/cumm Neutrophils: 79.0% Lymphocytes: 7.0% Monocytes: 13.0% Basophils: 1.0% Peripheral blood smear (Ha-Giemsa): Not received Bone marrow aspirate smear (Ha-Giemsa stain): Quality: Adequate Spicules: Present Marrow cellularity: Increased Myeloid maturation: Left-shifted, Abnormal granulation Erythroid maturation: Left-shifted, Nuclear to cytoplasmic maturation dyssynchrony, Abnormal nuclear contours, Nuclear budding Myeloid/Erythroid Ratio: Within normal limits Megakaryocyte number: Increased Megakaryocytic maturation: Abnormal lobation Lymphocytes: Normal Plasma cells: Normal Iron: Gale Score 5-6 (Increased). Gale score is a grading method for interpretation of bone marrow iron stain and provides an assessment of total bone marrow iron stores. Differential count: Total # of Cells Counted:300 Blasts: 1 Promyelocytes: 6 Myelocytes+Metamyelocytes:24 Bands+Neutrophils:14 Eosinophils: 1 Basophils: 1 Plasma cells: 1 Lymphocytes: 12 Monocytes: 1 Erythroids: 39 Bone marrow core biopsy (decalcified, H&E and Leder stains): Left, iliac crest Quality: Small Cellularity: Not evaluable Core biopsy contain scant blood clot , Clot preparations contain numerous cellular spicules with cellularity >90% and with the following morphologic findings Myeloid maturation: Left-shifted Erythroid maturation: Left-shifted, Nuclear to cytoplasmic maturation dyssynchrony, Abnormal nuclear contours The Leder stain shows that the Myeloid/Erythroid Ratio is: Within normal limits Megakaryocyte number: Increased Megakaryocytic maturation: Clustered, Abnormal lobation The Leder stain is used to assess for lymphoid aggregates: None Plasma cells: Normal CLOT SECTION: The bone marrow clot section including Leder and H&E stains are: Other: As described in core By this signature, I attest that the above diagnosis is based upon my personal examination of the slides(and/or other material). Addenda/Procedures Flow Cytometry Ordered:10/20/2024Status:Signed OutFlow Cytometry Complete:10/21/2024y:Ty Dhillon M.D., Ph.D.Flow Cytometry Signed Out: 10/22/2024 Diagnosis Bone marrow, left posterior iliac crest, aspirate for flow cytometry - No increase in blasts or aberrant T-cell populations detected - See comment Comment Specimen Quality: Adequate Flow cytometry identifies no significant increase in myeloid blasts. The CD45 dim-gated events are 4% of overall cellularity of the specimen, with a small subset of this population (1% of cellular events) positive for CD34 and CD117. CD34+ blasts are not increased. Lymphocyte-gated events account for 7% of the overall cellularity and include a population of CD3-positive T-cells, comprising 87% of lymphocytes, showing no significant loss of mcneil T-cell antigens and have a decreased CD4 to CD8 ratio (0.5). There is a small population of CD3- YX23-yzrtdkyz CD45 bright cells (5% of lymphocytes events), consistent with natural killer cells. A Ha-Giemsa stained cytospin from the flow cytometry specimen was examined for internal quality process lead purposes. Flow cytometry was performed using antibodies to the following cellular antigens: CD45, CD34, CD2, CD3, CD4, CD5, CD7, CD8, CD56, TCR-GD, CD16, CD10 , CD13, CD14, CD64, HLR-DR, CD11b, CD15, CD123, CD117, CD33, CD38, CD19. Total antigens analyzed: 23 (juac 10/21/24) By this signature, I attest that the above diagnosis is based upon my personal examination of the slides(and/or other material indicated in the diagnosis). Michelle Dhillon M.D., Ph.D.Report Electronically Reviewed and Signed Out By Ty Dhillon M.D., Ph.D. 10/22/2024 18:12:01 The performance characteristics of some immunohistochemical stains, fluorescence in-situ hybridization tests and immunophenotyping by flow cytometry cited in this report (if any) were determined by the Surgical Pathology and Flow Cytometry Departments at [facility] as part of an ongoing food quality tester program and in compliance with federally mandated regulations drawn from the Clinical Laboratory Improvement Act of 1988 (CLIA '88). Some of these tests rely on the use of analyte specific reagents and are subject to specific labeling requirements by the US Food and Drug Administration. Such diagnostic tests may only be performed in a facility that is certified by the Department of Health and Human Services as a high complexity laboratory under CLIA '88. The FDA has determined that such clearance or approval is not necessary. This test is used for clinical purposes. It should not be regarded as investigational or for research. Nevertheless, federal rules concerning the medical use of analyte specific reagents require that the following disclaimer be attached to the report: This test was developed and its performance characteristics determined by the Surgical Pathology and Flow Cytometry Departments of [facility]. It has not been cleared or approved by the U. S. Food and Drug Administration. IMAGES AND SCANNED DOCUMENTS, IF INCLUDED, ONLY VIEWABLE IN PDF VERSION OF REPORT [facility] PATH[facility]Y ORDERABLES Final Result PATHOLOGY [facility] 3rd Floor [place], [place] [phone] * Cytogenetics Bone marrow (10/20/2024 9:17 AM CDT) Bone marrow (Bone Marrow Biopsy) 10/20/2024 9:17 AM CDT 10/20/2024 9:17 AM CDT Narrative [facility] - CYTOGENETICS - 10/31/2024 5:07 PM CDT [facility] results best viewed via link to PDF [facility] Department of Pathol [address] [place] [id number] Patient Information Name: JUANITA RODRIGUEZ Gender: Kadeem : 1940 (Age: 84) Tissue: Bone Marrow w/ FISH Visit Information Hospital #: [id number] Facility: [facility] Service: [facility] Location: UNKNOWN Patient Type: [facility] Specimen Information: Culture #: [id number] Date Collected: 10/20/2024 Date Accessioned: 10/20/2024 Date Ordered: 10/20/2024 Physician(s): Braden Hare M.D. Processin hours unstimulated Indication: Hx of prostate cancer; now with anemia and thrombocytopenia, c/f MDS Specimen Quality: Low cell count Adequate: FISH: MDS per algorithm Adequate: Chromosome analysis CLINICAL REPORT CHROMOSOME ANALYSIS Metaphases Counted: 20Banding Technique: GTWColonies Counted: Metaphases Analyzed: 20Additional Method: FISHNumber of Cultures: 1Metaphases Karyotyped: 3Banding Resolution: 400Subculture: Karyotype: 46,XY[20].nuc jesus (EGR1)x2[200],(A7M783)x2[200],(TP53)x2[200] Diagnosis: CHROMOSOME ANALYSIS: NO EVIDENCE OF CLONAL ABERRATIONS FISH FINDINGS: NO EVIDENCE OF DELETION/MONOSOMY OF EGR1 (5q), N7M820 (7q) OR TP53 (17p) INTERPRETATION: No clonal cytogenetic aberrations were identified in metaphase cells analyzed from an unstimulated culture. This normal result does not exclude a neoplastic proliferation. Small chromosome anomalies may not be detectable using the standard methods employed. Chromosome analysis was performed at a level of 400 bands or greater. The chromosome findings must be interpreted within the context of the pathologic and clinical findings. Follow-up evaluation is recommended. Chromosome analysis and Fluorescence In Situ Hybridization (FISH) analysis are performed using the [employer] Imaging System. Report Electronically Reviewed and Signed Out By Ottoniel Urban, PhD, FACDate Reported: 10/31/2024ssociate Professor, Division of Genomic & Molecular Pathology FLUORESCENCE IN-SITU HYBRIDIZATION [FISH] Karyotype: nuc jesus (EGR1)x2[200],(C3Y405)x2[200],(TP53)x2[200] Diagnosis: FISH FINDINGS: NO EVIDENCE OF DELETION/MONOSOMY OF EGR1 (5q), L3H727 (7q) OR TP53 (17p) INTERPRETATION: FISH analysis was performed with a panel of [employer] and CytoNoveporter[employer] probes for MDS and is interpreted as NORMAL. 1) FISH evaluation for a 5q deletion was performed on nuclei with the EGR1,N2Q436/G6Q4894 Dual Color Probe (Cytocell[employer] for EGR1 at 5q31.1 and the control B2M697/M7X2062 at 5p15.31 and is interpreted as NORMAL. Two EGR1 hybridization signals and two O2B999/F1C3708 control hybridization signals were observed in 200/200 nuclei, which is within the normal range established for this probe in the Clinical Genomics Laboratory at [facility]. Up to 3.1% of cells in normal samples can show an apparent 5q deletion using this probe. A normal EGR1 FISH finding can result from the absence of a 5q deletion, from a 5q deletion that does not involve the region to which this probe hybridizes or from an insufficient number of neoplastic cells in the specimen. 2) FISH evaluation for a 7q deletion was performed on nuclei with the LSI F3I348/D7Z1 Dual Color Probe ([employer] for E4I842 at 7q31 and the control D7Z1 at 7p11.1-q11.1 and is interpreted as NORMAL. Two W0V433 hybridization signals and two D7Z1 control hybridization signals were observed in 199/200 nuclei, which is within the normal range established for this probe in the Clinical Genomics Laboratory at [facility]. Up to 1% of cells in normal samples can show an apparent 7q deletion using this probe. A normal V5V555 FISH finding can result from the absence of a 7q deletion, from a 7q deletion that does not involve the region to which this probe hybridizes or from an insufficient number of neoplastic cells in the specimen. 3) FISH evaluation for a TP53 deletion was performed on nuclei with the LSI TP53 Dual Color Probe ([employer]ARED[employer] for TP53 at 17p13.1 and the control D17Z1 at 17p11.1-q11.1 and is interpreted as NORMAL. Two TP53 hybridization signals and two D17Z1 control hybridization signals were observed in 198/200 nuclei, which is within the normal range established for this probe in the Clinical Genomics Laboratory at [facility]. Up to 2.7% of cells in normal samples can show an apparent TP53 deletion using this probe. A normal TP53 FISH finding can result from the absence of a TP53 deletion, from a TP53 deletion that does not involve the region to which this probe hybridizes or from an insufficient number of neoplastic cells in the specimen. The FISH findings must be interpreted within the context of the pathologic and clinical findings. Follow-up evaluation is recommended. Complete chromosome analysis is pending and will be reported separately. This test was developed and its performance characteristics determined by [facility]. It has not been cleared or approved by the FDA. The laboratory is regulated under CLIA as qualified to perform high-complexity testing. This test is used for clinical purposes. It should not be regarded as investigational or for research. Professional component performed by Lillian Tinoco, Ph.D., [facility], [address], [place], [place] (CLIA #: [id number]). Chromosome analysis and Fluorescence In Situ Hybridization (FISH) analysis are performed using the [employer] Imaging System. Report Electronically Reviewed and Signed Out By Lillian Tinoco, PhDDate Reported: 10/22/2024 Braden Hare MD LAB GENETIC TESTING Final Re sult [facility] - CYTOGENETICS [address] [place] [address] * (ABNORMAL) Immature platelet fraction (10/20/2024 8:33 AM CDT) IPF 23.6(H) 1.6 - 10.1 % Comment:Testing performed by : [address] [address] Blood 10/20/2024 8:33 AM CDT 10/20/2024 8:39 AM CDT us Braden Hare MD LAB BLOOD ORDERABLES Final R esult [facility] [address] [facility] Department [place] [address] * (ABNORMAL) CBC with auto differential (10/20/2024 8:33 AM CDT) Pathologist [facility] WBC 7.81 3.80 - 9.90 K/cumm Comment:Testing performed by : [address] [address] Hgb 6.3(C) 13.0 - 17.5 g/dL CHRISSY BELLO Comment: This result has been called to Sandra Bronson RN Epic Secure Chat by [id number] on 10/20/2024 09:00:23, and has been read back. Testing performed by: [address] [address] Hct 18.9(L) 38.9 - 50.3 % CHRISSY BELLO Comment:Testing performed by : [address] [address] Plt 49(L) 150 - 400 K/cumm CHRISSY BELLO Comment:Testing performed by : [address] [address] MPV Not Measured 9.1 - 12.3 fL CHRISSY BELLO Comment:Testing performed by : [address] [address] RBC 2.01(L) 4.30 - 5.80 M/cumm CHRISSY BELLO Comment:Testing performed by : [address] [address] MCV 94.0 81.3 - 96.4 fL CHR[facility]SY BELLO Comment:Testing performed by : [address] [address] MCH 31.3 27.1 - 33.3 pg CHRISSY BELLO Comment:Testing performed by : [address] [address] MCHC 33.3 32.3 - 35.7 g/dL CHRISSY BELLO Comment:Testing performed by : [address] [address] RDW CV 18.3(H) 11.1 - 14.9 % CHRISSY Comment:Testing performed by : [address] [address] RDW SD 61.7(H) 35.7 - 48.1 fL [facility] Comment:Testing performed by : [address] [address] NRBC abs 0.00 0.00 - 0.01 K/cumm CHR[facility]SY Comment:Testing performed by : [address] [address] ANC Prelim 5.51 1.50 - 6.50 K/cumm CHRISSY Comment: Interpretive Data The rapid ANC is a preliminary automated count and may vary from the final ANC (Neut Abs) reported in the WBC differential that follows. Current interpretive data was last revised 2024. Testing performed by: [address] [address] Blood 10/20/2024 8:33 AM CDT 10/20/2024 8:39 AM CDT us Braden Hare MD LAB BLOOD ORDERABLES Edited Result - Final [facility] [address] [facility] Department of Laboratories [place], [place] [id number] * ABO/Rh (10/20/2024 8:33 AM CDT) ABO/Rh O Positive Comment:Testing performed by : [address] [address] Blood 10/20/2024 8:33 AM CDT 10/20/2024 9:39 AM CDT David LOWE - 10/20/2024 10:06 AM CDT Has the patient had Daratumumab or Isatuximab in the past 6 months?->Unknown [address] Oliveira [employer] LAB BLOOD BANK TEST ORDERAB LES Final Result [facility] Department [place] [address] * (ABNORMAL) Manual Differential (10/20/2024 8:33 AM CDT) Differential Manual Comment:Testing performed by : [address] [address] Cells Counted 100 CHRISSY Comment:Testing performed by : [address] [address] Neutrophil abs 6.17 1.50 - 6.50 K/cumm CHR[facility]SY Comment:Testing performed by : [address] [address] Lymphocyte abs 0.55(L) 0.80 - 3.30 K/cumm CH[facility]SY Comment:Testing performed by : [address] [address] Monocyte abs 1.02(H) 0.20 - 0.80 K/cumm CH[facility]SY Comment:Testing performed by : [address] [address] Basophil abs 0.08 0.00 - 0.10 K/cumm [facility] Comment:Testing performed by : [address] [address] Neutrophil pct 79.0 % [facility] Comment: Interpretive Data Percent cell count reference ranges are not reported, since discordance with absolute values may lead to misinterpretation of CBC data. Current Interpretive Data was last revised on 2017. Testing performed by: [address] [address] Lymphocyte pct 7.0 % CH[facility]SY Comment: Interpretive Data Percent cell count reference ranges are not reported, since discordance with absolute values may lead to misinterpretation of CBC data. Current Interpretive Data was last revised on 2017. Testing performed by: [address] [address] Monocyte pct 13.0 % [facility] Comment: Interpretive Data Percent cell count reference ranges are not reported, since discordance with absolute values may lead to misinterpretation of CBC data. Current Interpretive Data was last revised on 2017. Testing performed by: [address] [address] Basophil pct 1.0 % [facility] Comment: Interpretive Data Percent cell count reference ranges are not reported, since discordance with absolute values may lead to misinterpretation of CBC data. Current Interpretive Data was last revised on 2017. Testing performed by: [address], [place]., [address] RBC morphology Present(A) CHR[facility] Comment:Testing performed by : [address] [address] Anisocytosis Slight(A) CHR[facility]SY Comment:Testing performed by : [address] [address] Schistocytes 1-2/HPF(A) CHR[facility]SY Comment:Testing performed by : [address] [address] Elliptocytes 3-7/HPF(A) CHR[facility]SY Comment:Testing performed by : [address], [place]., [address] Acanthocytes 3-7/HPF(A) CHR[facility]SY Comment:Testing performed by : [address], [place]., [address] Teardrop cells 3-7/HPF(A) CHR[facility]SY Comment:Testing performed by : [address], [place]., [address] Platelet estimate Decreased( A) CHRISSY Comment:Testing performed by : [facility], [address] [place] [address]., [address] Blood 10/20/2024 8:33 AM CDT 10/20/2024 8:39 AM CDT Braden Hare MD LAB BLOOD ORDERABLES Final R esult Performing Organization Address City/[facility] Co de Phone Number [address] [place] [employer] [place] [address] * Crossmatch (10/20/2024 8:33 AM CDT) Crossmatch Compatible [facility] Unit number for crossmatch [id number] [facility] Crossmatch Compatible [facility] Unit number for crossmatch [id number] [facility] Blood 10/20/2024 8:33 AM CDT 10/20/2024 9:39 AM CDT Braden Hare MD LAB BLOOD BANK TEST ORDERABL ES Final Result Performing Organization Address [facility] de Phone Number [address] [place] [address] * Antibody screen (10/20/2024 8:33 AM CDT) Chris, indirect, Gel Interpretation Negative ABSC Comment:Testing performed by : [address] [address] Blood 10/20/2024 8:33 AM CDT 10/20/2024 9:39 AM CDT Narrative [facility] - 10/20/2024 12:10 PM CDT Has the patient had Daratumumab or Isatuximab in the past 6 months?->Unknown Ct Oliveira NP LAB BLOOD BANK TEST ORDERAB LES Final Result Performing Organization Address City/[facility]/ZIP Co de Phone Number [address] [place] [address] * (ABNORMAL) Immature platelet fraction (10/09/2024 2:09 PM CDT) IPF 21.5(H) 1.6 - 10.1 % Comment:Testing performed by : [address] [address] Blood 10/09/2024 2:09 PM CDT 10/09/2024 2:21 PM CDT us Braden Hare MD LAB BLOOD ORDERABLES Final R esult [facility] [address] [facility] Department [place] [address] * (ABNORMAL) Blood smear review (10/09/2024 2:09 PM CDT) Pathologist [facility] RBC morphology Present(A ) Comment:Testing performed by : [address] [address] Anisocytosis Moderate( A) CHRISSY Comment:Testing performed by : [address] [address] Schistocytes 1-2/HPF(A ) CHR[facility]SY Comment:Testing performed by : [address] [address] Elliptocytes 3-7/HPF(A ) CHR[facility]SY Comment:Testing performed by : [address] [address] Acanthocytes 3-7/HPF(A ) CHR[facility]SY Comment:Testing performed by : [address] [address] Teardrop cells 3-7/HPF(A ) CHR[facility]SY Comment:Testing performed by : [address] [address] Platelet estimate Decreased (A) CHR[facility]SY Comment:Testing performed by : [address] [address] Blood 10/09/2024 2:09 PM CDT 10/09/2024 2:21 PM CDT us Braden Hare MD LAB BLOOD ORDERABLES Final R esult Performing Organization Address [facility] de Phone Number CHRISSY [address] [place] [employer] [place] [address] * eGFR (10/09/2024 2:09 PM CDT) eGFR [...] was last reviewed 2021. Testing performed by: [address] [address] Blood 10/09/2024 2:09 PM CDT 10/09/2024 2:21 PM CDT us Braden Hare MD LAB BLOOD ORDERABLES Final R esult Performing Organization Address City/[facility]/ZIP Co de Phone Number [facility] [address] [facility] [employer] [place], [place] [id number] * (ABNORMAL) Differential, auto (10/09/2024 2:09 PM CDT) Neutrophil abs 1.88 1.50 - 6.50 K/cumm Comment:Testing performed by : [address] [address] Imm gran abs 0.03 0.00 - 0.10 K/cumm [facility] Comment:Testing performed by : [address] [address] Lymphocyte abs 0.59(L) 0.80 - 3.30 K/cumm [facility] Comment:Testing performed by : [address] [address] Monocyte abs 0.47 0.20 - 0.80 K/cumm [facility] Comment:Testing performed by : [address], [place]., [address] Eosinophil abs 0.03 0.00 - 0.50 K/cumm [facility] Comment:Testing performed by : [address] [address] Basophil abs 0.05 0.00 - 0.10 K/cumm [facility] Comment:Testing performed by : [address] [address] Neutrophil pct 61.7 % [facility] Comment: Interpretive Data Percent cell count reference ranges are not reported, since discordance with absolute values may lead to misinterpretation of CBC data. Current Interpretive Data was last revised on 2017. Testing performed by: [address] [address] Imm gran pct 1.0 % [facility] Comment: Interpretive Data Percent cell count reference ranges are not reported, since discordance with absolute values may lead to misinterpretation of CBC data. Current Interpretive Data was last revised on 2017. Testing performed by: [address] [address] Lymphocyte pct 19.3 % [facility] Comment: Interpretive Data Percent cell count reference ranges are not reported, since discordance with absolute values may lead to misinterpretation of CBC data. Current Interpretive Data was last revised on 2017. Testing performed by: [address] [address] Monocyte pct 15.4 % [facility] Comment: Interpretive Data Percent cell count reference ranges are not reported, since discordance with absolute values may lead to misinterpretation of CBC data. Current Interpretive Data was last revised on 2017. Testing performed by: [address] [address] Eosinophil pct 1.0 % [facility]SY Comment: Interpretive Data Percent cell count reference ranges are not reported, since discordance with absolute values may lead to misinterpretation of CBC data. Current Interpretive Data was last revised on 2017. Testing performed by: [address] [address] Basophil pct 1.6 % [facility] Comment: Interpretive Data Percent cell count reference ranges are not reported, since discordance with absolute values may lead to misinterpretation of CBC data. Current Interpretive Data was last revised on 2017. Testing performed by: [address] [address] Blood 10/09/2024 2:09 PM CDT 10/09/2024 2:21 PM CDT us Braden Hare MD LAB BLOOD ORDERABLES Final R esult Performing Organization Address [facility] de Phone Number [facility] [address] [facility] [place] [address] * (ABNORMAL) Iron profile w/ IBC (10/09/2024 2:09 PM CDT) Iron 112 50 - 150 mcg/dL Comment:Testing performed by : [address] [address] TIBC 238(L) 250 - 400 mcg/dL CHRISSY Comment:Testing performed by : [address] [address] Transferrin saturation 47 20 - 50 % CH[facility] Comment:Testing performed by : [address] [address] Blood 10/09/2024 2:09 PM CDT 10/09/2024 3:55 PM CDT us Braden Hare MD LAB BLOOD ORDERABLES Final R esult Performing Organization Address City/[facility]/ZIP Co de Phone Number [place] [phone] Department of Laboratories [place], [place] [phone] * (ABNORMAL) CBC with auto differential (10/09/2024 2:09 PM CDT) [facility] WBC 3.05(L) 3.80 - 9.90 K/cumm Comment:Testing performed by : [address] [address] Hgb 7.2(L) 13.0 - 17.5 g/dL CH[facility]SY Comment:Testing performed by : [address] [address] Hct 21.0(L) 38.9 - 50.3 % [facility] Comment:Testing performed by : [address] [address] Plt 37(L) 150 - 400 K/cumm [facility] Comment:Testing performed by : [address] [address] MPV Not Measured 9.1 - 12.3 fL [facility] Comment:Testing performed by : [address] [address] RBC 2.26(L) 4.30 - 5.80 M/cumm [facility] Comment:Testing performed by : [address] [address] MCV 92.9 81.3 - 96.4 fL [facility] Comment:Testing performed by : [address] [address] MCH 31.9 27.1 - 33.3 pg [facility] Comment:Testing performed by : [address] [address] MCHC 34.3 32.3 - 35.7 g/dL [facility] Comment:Testing performed by : [address] [address] RDW CV 18.1(H) 11.1 - 14.9 % CH[facility]SY Comment:Testing performed by : [address], [address] RDW SD 59.0(H) 35.7 - 48.1 fL CHR[facility]SY BELLO Comment:Testing performed by : [address] [address] NRBC abs 0.00 0.00 - 0.01 K/cumm [facility]SY BELLO Comment:Testing performed by : [address] [address] ANC Prelim 1.88 1.50 - 6.50 K/cumm CHR[facility]SY BELLO Comment: Interpretive Data The rapid ANC is a preliminary automated count and may vary from the final ANC (Neut Abs) reported in the WBC differential that follows. Current interpretive data was last revised 2024. Testing performed by: [address] [address] Blood 10/09/2024 2:09 PM CDT 10/09/2024 2:21 PM CDT us Braden Hare MD LAB BLOOD ORDERABLES Final R esult Performing Organization Address [facility] de Phone Number [place] [phone] [facility] [place] [employer] [place] [address] * Reticulocyte Count (10/09/2024 2:09 PM CDT) Retics, absolute 31 20 - 87 K/cumm Comment:Testing performed by : [address] [address] Retics 1.4 0.4 - 2.9 % CHR[facility]SY BELLO Comment:Testing performed by : [address] [address] Reticulocyte Hgb 32.7 30.5 - 38.0 pg CHR[facility]SY BELLO Comment:Testing performed by : [address] [address] Blood 10/09/2024 2:09 PM CDT 10/09/2024 2:21 PM CDT Braden Hare MD LAB BLOOD ORDERABLES Final R esult Performing Organization Address [facility] de Phone Number [facility] [address] [facility] [place] [address] * Lactate dehydrogenase (LD) (10/09/2024 2:09 PM CDT) Lactate dehydrogenase (LDH) 129 100 - 250 Units/L Comment:Testing performed by : [address] [address] Blood 10/09/2024 2:09 PM CDT 10/09/2024 2:21 PM CDT Braden Hare MD LAB BLOOD ORDERABLES Final R esult [facility] [address] [address] * (ABNORMAL) Haptoglobin (10/09/2024 2:09 PM CDT) Haptoglobin 13(L) 30 - 200 mg/dL Blood 10/09/2024 2:09 PM CDT 10/09/2024 4:32 PM CDT Braden Hare MD LAB BLOOD ORDERABLES Final R esult Performing Organization Address City/[facility]/ZIP Co de Phone Number CHRISSY [address] [address] * Folate (10/09/2024 2:09 PM CDT) Folic acid >20.0 >=5.0 ng/mL Comment:Testing performed by : [address] [address] Blood 10/09/2024 2:09 PM CDT 10/09/2024 3:55 PM CDT Braden Hare MD LAB BLOOD ORDERABLES Final R esult [facility] [address] * (ABNORMAL) Ferritin (10/09/2024 2:09 PM CDT) [facility] Ferritin 793(H) 30 - 400 ng/mL Comment:Testing performed by : [address] [address] Blood 10/09/2024 2:09 PM CDT 10/09/2024 3:55 PM CDT Braden Hare MD LAB BLOOD ORDERABLES Final R esult Performing Organization Address City/[facility] Co de Phone Number [address] [employer] [place] [address] * Vitamin B12 (10/09/2024 2:09 PM CDT) [facility] Vitamin B12 1,101 230 - 1,250 pg/mL Comment:Testing performed by : [address] [address] Blood 10/09/2024 2:09 PM CDT 10/09/2024 3:55 PM CDT Braden Hare MD LAB BLOOD ORDERABLES Final R esult Performing Organization Address City/[facility]/ZIP Co de Phone Number [address] [place] [place] [address] * (ABNORMAL) Comprehensive metabolic panel (10/09/2024 2:09 PM CDT) [facility] Sodium 142 135 - 145 mmol/L Comment:Testing performed by : [address] [address] Potassium, pl 4.1 3.3 - 4.9 mmol/L CHR[facility]SY Comment:Testing performed by : [address] [address] Chloride 104 97 - 110 mmol/L CH[facility]SY Comment:Testing performed by : [address] [address] CO2 27 22 - 32 mmol/L CH[facility] Comment:Testing performed by : [address] [address] Anion gap 11 2 - 15 mmol/L CH[facility] Comment:Testing performed by : [address] [address] BUN 18 6 - 25 mg/dL CH[facility] Comment:Testing performed by : [address], [place]., [address] Creatinine 0.90 0.80 - 1.30 mg/dL CH[facility]SY Comment:Testing performed by : [address] [address] Glucose 122 70 - 199 mg/dL CHRISSY [...] was last revised 2022. Testing performed by: [address] [address] Calcium 9.5 8.5 - 10.3 mg/dL CH[facility]SY Comment:Testing performed by : [address] [address] Bilirubin, total 1.6(H) 0.1 - 1.2 mg/dL CH[facility]SY Comment:Testing performed by : [address] [address] Protein, pl 6.4(L) 6.5 - 8.5 g/dL [facility] Comment:Testing performed by : [address] [address] Albumin 4.4 3.5 - 5.0 g/dL [facility] Comment:Testing performed by : [address] [address] Alk phos 44 40 - 130 Units/L CH[facility] Comment:Testing performed by : [address] [address] ALT 9 7 - 55 Units/L [facility] Comment:Testing performed by : [address] [address] AST 12 10 - 50 Units/L CHRISSY BELLO Comment:Testing performed by : [address] [address] Blood 10/09/2024 2:09 PM CDT 10/09/2024 2:21 PM CDT Braden Hare MD LAB BLOOD ORDERABLES Final R esult Performing Organization Address [facility]/ZIP Co de Phone Number CHRISSY [address] [employer] [place] [address] * Transfuse RBC (09/23/2024 3:32 PM CDT) Blood Brooke Clayton MD BLOOD TRANSFUSION ORDERABLE S Final Result * Prepare RBC: 1 Units (09/23/2024 11:18 AM CDT) Units requested 1 Comment:Testing performed by : [address] [address] Units requested Ready CHRISSY BELLO Comment:Testing performed by : [address] [address] Unit Number [id number] Product code [id number] CHRISSY Blood Expiration Date CHRISSY Product Blood Type (for scanning) [facility] Product Blood Type OPOS [facility] Dispense Status DISPENSED CHRISSY Blood 09/23/2024 11:1 8 AM CDT 09/23/2024 11:[address] Oliveira NP BLOOD BANK PRODUCT ORDERABL ES Final Result Performing Organization Address City/[facility]/ZIP Co de Phone Number [address] [place] [place] [address] * (ABNORMAL) Immature platelet fraction (09/23/2024 9:54 AM CDT) IPF 21.2(H) 1.6 - 10.1 % Comment:Testing performed by : [address] [address] Blood 09/23/2024 9:54 AM CDT 09/23/2024 9:59 AM CDT Sarah Delatorre CONCRETE MIXING PLANT SUPERINTENDENT LAB BLOOD ORDERABLES Fin al Result Performing Organization Address [facility] Co de Phone Number CHRISSY [address] [facility] [place] [employer] [place] [address] * (ABNORMAL) Blood smear review (09/23/2024 9:54 AM CDT) Pathologist [facility] RBC morphology Present(A ) Comment:Testing performed by : [address] [address] Anisocytosis Slight(A) CHRISSY Comment:Testing performed by : [address] [address] Schistocytes 1-2/HPF(A ) CHRISSY Comment:Testing performed by : [address] [address] Elliptocytes 3-7/HPF(A ) CHRISSY Comment:Testing performed by : [address] [address] Acanthocytes 3-7/HPF(A ) CHRISSY Comment:Testing performed by : [address] [address] Platelet estimate Decreased (A) CHRISSY Comment:Testing performed by : [address] [address] Blood 09/23/2024 9:54 AM CDT 09/23/2024 9:59 AM CDT Sarah Delatorre CONCRETE MIXING PLANT SUPERINTENDENT LAB BLOOD ORDERABLES Fin al Result Performing Organization Address City/[facility]/ZIP Co de Phone Number [place] [id number] [facility] [place] [employer] [place] [address] * (ABNORMAL) Differential, auto (09/23/2024 9:54 AM CDT) Neutrophil abs 1.50 1.50 - 6.50 K/cumm Comment:Testing performed by : [address] [address] Imm gran abs 0.01 0.00 - 0.10 K/cumm CHRISSY Comment:Testing performed by : [address] [address] Lymphocyte abs 0.52(L) 0.80 - 3.30 K/cumm CHRISSY Comment:Testing performed by : [address] [address] Monocyte abs 0.44 0.20 - 0.80 K/cumm [facility] Comment:Testing performed by : [address] [address] Eosinophil abs 0.07 0.00 - 0.50 K/cumm [facility] Comment:Testing performed by : [address] [address] Basophil abs 0.06 0.00 - 0.10 K/cumm [facility] Comment:Testing performed by : [address] [address] Neutrophil pct 57.7 % [facility] Comment: Interpretive Data Percent cell count reference ranges are not reported, since discordance with absolute values may lead to misinterpretation of CBC data. Current Interpretive Data was last revised on 2017. Testing performed by: [address] [address] Imm gran pct 0.4 % [facility] Comment: Interpretive Data Percent cell count reference ranges are not reported, since discordance with absolute values may lead to misinterpretation of CBC data. Current Interpretive Data was last revised on 2017. Testing performed by: [address] [address] Lymphocyte pct 20.0 % [facility] Comment: Interpretive Data Percent cell count reference ranges are not reported, since discordance with absolute values may lead to misinterpretation of CBC data. Current Interpretive Data was last revised on 2017. Testing performed by: [address] [address] Monocyte pct 16.9 % CHRISSY Comment: Interpretive Data Percent cell count reference ranges are not reported, since discordance with absolute values may lead to misinterpretation of CBC data. Current Interpretive Data was last revised on 2017. Testing performed by: [address] [address] Eosinophil pct 2.7 % CHRISSY Comment: Interpretive Data Percent cell count reference ranges are not reported, since discordance with absolute values may lead to misinterpretation of CBC data. Current Interpretive Data was last revised on 2017. Testing performed by: [address] [address] Basophil pct 2.3 % CHRISSY Comment: Interpretive Data Percent cell count reference ranges are not reported, since discordance with absolute values may lead to misinterpretation of CBC data. Current Interpretive Data was last revised on 2017. Testing performed by: [address] [address] Blood 09/23/2024 9:54 AM CDT 09/23/2024 9:59 AM CDT Sarah Delatorre NP LAB BLOOD ORDERABLES Fin al Result Performing Organization Address City/State/[facility] Co de Phone Number [facility] [address] [facility] Department of Laboratories [place], [place] [id number] * (ABNORMAL) CBC with auto differential (09/23/2024 9:54 AM CDT) WBC 2.60(L) 3.80 - 9.90 K/cumm Comment:Testing performed by : [address] [address] Hgb 7.7(L) 13.0 - 17.5 g/dL CHRISSY BELLO Comment:Testing performed by : [address] [address] Hct 22.8(L) 38.9 - 50.3 % CHRISSY Comment:Testing performed by : [address] [address] Plt 32(L) 150 - 400 K/cumm CHRISSY Comment:Testing performed by : [address] [address] MPV Not Measured 9.1 - 12.3 fL CHRISSY Comment:Testing performed by : [address], [address] RBC 2.47(L) 4.30 - 5.80 M/cumm CHRISSY Comment:Testing performed by : [address] [address] MCV 92.3 81.3 - 96.4 fL CHRISSY Comment:Testing performed by : [address] [address] MCH 31.2 27.1 - 33.3 pg CHRISSY Comment:Testing performed by : [address] [address] MCHC 33.8 32.3 - 35.7 g/dL CHRISSY Comment:Testing performed by : [address] [address] RDW CV 19.3(H) 11.1 - 14.9 % CHRISSY Comment:Testing performed by : [address] [address] RDW SD 62.3(H) 35.7 - 48.1 fL CHRISSY Comment:Testing performed by : [address] [address] NRBC abs 0.00 0.00 - 0.01 K/cumm CHRISSY Comment:Testing performed by : [address] [address] ANC Prelim 1.50 1.50 - 6.50 K/cumm CHRISSY Comment: Interpretive Data The rapid ANC is a preliminary automated count and may vary from the final ANC (Neut Abs) reported in the WBC differential that follows. Current interpretive data was last revised 2024. Testing performed by: [address], [address] Blood 09/23/2024 9:54 AM CDT 09/23/2024 9:59 AM CDT Sarah Delatorre CONCRETE MIXING PLANT SUPERINTENDENT LAB BLOOD ORDERABLES Fin al Result Performing Organization Address [facility]/ZIP Co de Phone Number [address] [place] [employer] [place] [address] * ABO/Rh (09/23/2024 9:54 AM CDT) ABO/Rh O Positive Comment:Testing performed by : [address] [address] Blood 09/23/2024 9:54 AM CDT 09/23/2024 10:26 AM CDT Narrative [facility] - 09/23/2024 10:46 AM CDT Has the patient had Daratumumab or Isatuximab in the past 6 months?->Unknown Ct Oliveira CONCRETE MIXING PLANT SUPERINTENDENT LAB BLOOD BANK TEST ORDERAB LES Final Result Performing Organization Address [facility] Co de Phone Number [address] [place] [employer] [place] [address] * Crossmatch (09/23/2024 9:54 AM CDT) Pathologist [facility] Crossmatch Compatible [facility] Unit number for crossmatch [id number] [facility] Blood 09/23/2024 9:54 AM CDT 09/23/2024 10:26 AM CDT Sarah Delatorre CONCRETE MIXING PLANT SUPERINTENDENT LAB BLOOD BANK TEST ORDE RABLES Final Result Performing Organization Address City/[facility]/ZIP Co de Phone Number [address] [employer] [place] [address] * Antibody screen (09/23/2024 9:54 AM CDT) Chris, indirect, Gel Interpretation Negative ABSC Comment:Testing performed by : [address] [address] Blood 09/23/2024 9:54 AM CDT 09/23/2024 10:26 AM CDT Narrative CHRISSY - 09/23/2024 11:07 AM CDT Has the patient had Daratumumab or Isatuximab in the past 6 months?->Unknown Ct Oliveira CONCRETE MIXING PLANT SUPERINTENDENT LAB BLOOD BANK TEST ORDERAB LES Final Result Performing Organization Address [facility] de Phone Number [address] [address] * (ABNORMAL) Immature platelet fraction (09/10/2024 9:50 AM CDT) Pathologist [facility] IPF 21.1(H) 1.6 - 10.1 % Comment:Testing performed by : [address], [address] Blood 09/10/2024 9:50 AM CDT 09/10/2024 9:54 AM CDT Sarah Delatorre CONCRETE M[employer]ING PLANT SUPERINTENDENT LAB BLOOD ORDERABLES Fin al Result Performing Organization Address [facility] de Phone Number [address] [address] * (ABNORMAL) Blood smear review (09/10/2024 9:50 AM CDT) [facility] RBC morphology Present(A ) Comment:Testing performed by : [address] [address] Anisocytosis Slight(A) CHRISSY Comment:Testing performed by : [address] [address] Schistocytes 1-2/HPF(A ) CHRISSY Comment:Testing performed by : [address] [address] Elliptocytes 3-7/HPF(A ) CHRISSY Comment:Testing performed by : [address] [address] Platelet estimate Decreased (A) CHRISSY Comment:Testing performed by : [address] [address] Blood 09/10/2024 9:50 AM CDT 09/10/2024 9:54 AM CDT us Sarah Delatorre CONCRETE M[employer]ING PLANT SUPERINTENDENT LAB BLOOD ORDERABLES Fin al Result CHRISSY [address] [facility] [place] [address] * (ABNORMAL) Differential, auto (09/10/2024 9:50 AM CDT) Neutrophil abs 2.04 1.50 - 6.50 K/cumm Comment:Testing performed by : [address] [address] Imm gran abs 0.02 0.00 - 0.10 K/cumm CHRISSY Comment:Testing performed by : [address] [address] Lymphocyte abs 0.54(L) 0.80 - 3.30 K/cumm CHRISSY Comment:Testing performed by : [address] [address] Monocyte abs 0.43 0.20 - 0.80 K/cumm CHRISSY Comment:Testing performed by : [address] [address] Eosinophil abs 0.04 0.00 - 0.50 K/cumm CHRISSY Comment:Testing performed by : [address] [address] Basophil abs 0.05 0.00 - 0.10 K/cumm CHRISSY Comment:Testing performed by : [address] [address] Neutrophil pct 65.4 % CHRISSY Comment: Interpretive Data Percent cell count reference ranges are not reported, since discordance with absolute values may lead to misinterpretation of CBC data. Current Interpretive Data was last revised on 2017. Testing performed by: [address] [address] Imm gran pct 0.6 % [facility] Comment: Interpretive Data Percent cell count reference ranges are not reported, since discordance with absolute values may lead to misinterpretation of CBC data. Current Interpretive Data was last revised on 2017. Testing performed by: [address] [address] Lymphocyte pct 17.3 % [facility] Comment: Interpretive Data Percent cell count reference ranges are not reported, since discordance with absolute values may lead to misinterpretation of CBC data. Current Interpretive Data was last revised on 2017. Testing performed by: [address] [address] Monocyte pct 13.8 % [facility] Comment: Interpretive Data Percent cell count reference ranges are not reported, since discordance with absolute values may lead to misinterpretation of CBC data. Current Interpretive Data was last revised on 2017. Testing performed by: [address] [address] Eosinophil pct 1.3 % [facility] Comment: Interpretive Data Percent cell count reference ranges are not reported, since discordance with absolute values may lead to misinterpretation of CBC data. Current Interpretive Data was last revised on 2017. Testing performed by: [address] [address] Basophil pct 1.6 % [facility] Comment: Interpretive Data Percent cell count reference ranges are not reported, since discordance with absolute values may lead to misinterpretation of CBC data. Current Interpretive Data was last revised on 2017. Testing performed by: [address] [address] Blood 09/10/2024 9:50 AM CDT 09/10/2024 9:54 AM CDT us Sarah Delatorre NP LAB BLOOD ORDERABLES Fin al Result CHRISSY BELLO [address] [facility] [place] [address] * (ABNORMAL) CBC with auto differential (09/10/2024 9:50 AM CDT) [facility] WBC 3.12(L) 3.80 - 9.90 K/cumm Comment:Testing performed by : [address], [address] Hgb 7.8(L) 13.0 - 17.5 g/dL CHRISSY Comment:Testing performed by : [address] [address] Hct 22.9(L) 38.9 - 50.3 % CHRISSY Comment:Testing performed by : [address], [address] Plt 31(L) 150 - 400 K/cumm CERSERINA Comment:Testing performed by : [address], [address] MPV Not Measured 9.1 - 12.3 fL CHRISSY Comment:Testing performed by : [address], [address] RBC 2.46(L) 4.30 - 5.80 M/cumm CHRISSY Comment:Testing performed by : [address], [address] MCV 93.1 81.3 - 96.4 fL CERSERINA Comment:Testing performed by : [address], [address] MCH 31.7 27.1 - 33.3 pg CERSERINA Comment:Testing performed by : [address], [address] MCHC 34.1 32.3 - 35.7 g/dL CHRISSY Comment:Testing performed by : [address], [address] RDW CV 18.4(H) 11.1 - 14.9 % CHRISSY Comment:Testing performed by : [address], [address] RDW SD 60.3(H) 35.7 - 48.1 fL CHRISSY Comment:Testing performed by : [address], [address] NRBC abs 0.00 0.00 - 0.01 K/cumm CHRISSY BELLO Comment:Testing performed by : [facility], [address] [place] [address]., [address] ANC Prelim 2.04 1.50 - 6.50 K/cumm CHRISSY BELLO Comment: Interpretive Data The rapid ANC is a preliminary automated count and may vary from the final ANC (Neut Abs) reported in the WBC differential that follows. Current interpretive data was last revised 2024. Testing performed by: [facility], [address] [place] [address]., [address] Blood 09/10/2024 9:50 AM CDT 09/10/2024 9:54 AM CDT us Sarah Delatorre NP LAB BLOOD ORDERABLES Fin al Result CHRISSY BELOL [address] [facility] [place] [address] from Last 3 Months Insurance MEDICARE [employer] MEDICARE [facility] MEDICARE FOR LIFE Care Teams Patient Observation Assistant Relationship Specialty Start Date End Date Patricia Sanchez MD PCP - General Family Medicine 07/05/17 Ct Oliveira NP [address] [place] [address] Nurse Practitioner Nurse Practitioner 05/07/23
--- OUTSIDE RECORDS SUMMARY | 2024-11-28 09:51 | XMS_ITS ---
Author Organization [facility] Address [address] [place] [address] Care Team Providers Care Wooden Furniture Polisher Name Role Phone Patricia Sanchez MD Primary Care Prov ider Ct Oliveira OPTICAL MANUFACTURING TECHNICIAN Unavailable [phone] Active Problems Problem Noted Date Diagnosed Date [...] e) (HCC) Treatment Medications No medications scheduled. Decitabine/cedazuridine PO (D1-5) 28 Day Cycles - MDS* Plan Start Date:10/29/2024 Plan Provider:Braden Hare MD Linked Problems MDS (myelodysplastic syndrom e) (HCC)Anemia, unspecified type Treatment Medications Current Day (Day 1 , Cycle 2 - Planned for 11/27/2024) Next Day (Day 1, Cycle 3 - Planned for 12/25/2024) decitabine-cedazuridine (INQOVI) 35-100 mg tablet decitabine-cedazuridine (INQOVI) 35-100 mg tablet decitabine-cedazuridine (INQOVI) 35-100 mg tablet IV Maintenance Therapy Plan* Plan Start Date:10/20/2024 Plan Provider:Ct Oliveira NP Linked Problems Malignant neoplasm of prosta te (HCC)MDS (myelodysplastic syndrome) (HCC) Treatment Medications No medications scheduled. Past [...]
--- OUTSIDE RECORDS SUMMARY | 2024-11-28 09:51 | XMS_ITS | Encounter Summary ---
Author Organization [facility] Address [address] [place] [address] Phone Care Team Providers Care Data Processing Specialist Name Role Phone Patricia Sanchez MD Primary Care Prov ider Ct Oliveira BUTADIENE COMPRESSOR OPERATOR Unavailable [phone] Encounter Details Date Type Department Care Team (Late st Contact Info) Description 09/26/2024 Results Follow-Up [facility] Medicine [facility] Hematology [address] [place] [address] Sarah Delatorre, JULIAN [address] [place] [address] CBC with auto differential, ABO/Rh, Antibody screen, [...] on file Legal Sex Male 10:48 AM FOREIGN LEGAL CONSULTANT Gender Identity Male 02/09/2020 12:06 PM FOREIGN LEGAL CONSULTANT Sexual Orientation Straight 02/09/2020 12 :06 PM FOREIGN LEGAL CONSULTANT documented as of this encounter Miscellaneous Notes [...] on filedocumented in this encounter Care Teams Data Processing Specialist Relationship Specialty Start Date End Date Patricia Sanchez MD PCP - General Family Medicine 07/05/17 Ct Oliveira NP [address] [place] [address] Nurse Practitioner Nurse Practitioner 05/07/23 documented as of this encounter
--- OUTSIDE RECORDS SUMMARY | 2024-11-28 09:51 | XMS_ITS | Clinical Summary ---
Author Organization [facility] Address [address] [place] [address] Care Team Providers Care M48/M60 Tank Driver Name Role Phone Patricia Valdez MD Primary [...] Type 2 diabetes mellitus wit hout complication ([facility]) 06/20/2021 Thrombocytopenic disorder 07/04/2017 Gout 10/10/2016 Rosacea 01/11/2016 Nephrolithiasis 06/30/2013 Malignant neoplasm of prostate ([facility]) 03/21/2012 Resolved Problems Problem Noted Date Diagnosed [...] 07/21/2015 05/26/2015 COVID-19 Vaccine ( - season) 2024 11/18/2020, 06/11/2020, 05/14/2020, Additional history exists Pneumococcal [...] age to complete this topic Insurance MEDICARE [facility] Care Teams M48/M60 Tank Driver Relationship Specialty Start Date End Date Patricia Valdez MD [address] [place] [id number] PCP - General 03/13/16
--- OUTSIDE RECORDS SUMMARY | 2024-11-28 09:51 | XMS_ITS | Patient Health Record ---
Author Organization [facility], Address [address] [place] [address] Care Team Providers Care Keypunch Operator Name Role Phone SELF, SELF Primary Care Provider Issa Robledo Unavailable [phone] Reason For Referral No Information Plan Of Treatment No Information Insurance Providers Payer Name Payer Address Payer Phone Subscriber Number Group Number Insured Name Patient Relationship to Insured Coverage Start Date Coverage End Date [facility] [address] [address] [phone] [id number] Tai Garay Self - patient is the insured
--- OUTSIDE RECORDS SUMMARY | 2024-11-28 09:51 | XMS_ITS | Clinical Summary ---
Author Organization [facility] Address [address] [place] [address] Care Team Providers Care Blocker And Cutter Contact Lens Name Role Phone Unavailable Primary Care Provider Unavailabl e Source Comments [facility],non-owned Affiliates and Associated Physician Practices is amultiple site organization consisting of ambulatory clinics and hospital sitesin [place], [place], [place] and [place]. This disclosure is being madepursuant to the Care Everywhere program and may not contain all information available regarding this patient. Last updated 17.[facility] Allergies No known active allergies Medications * [...] yrs (1 - 1-dose 75+ series) 2014 DEPRESSION SCREENING 03/05/2024 COVID-19 VACCINE (1 - 2023-2 5 season) 2024 INFLUENZA VACCINE (#1) 2024 HEPATITIS B VACCINE [...]
== END 2024-11-28 09:47 | disposition home or self-care (01) ==
PROVIDERS: PCP Family Medicine; Visit Provider Family Medicine
DX: J18.9 Pneumonia, unspecified organism (principal)
CPT/HCPCS: 71046

== ENCOUNTER 2025-01-07 10:50 | Outpatient (CLI) | payer MEDICARE, OTHER, SELFPAY ==
--- OUTSIDE RECORDS SUMMARY | 2009-07-16 02:15 | XMS_ITS | Continuity of Care Document ---
Author Organization [facility] Address [address] [place] [address] [place] [address] Phone Care Team Providers Care Associate Dean Of Women Name Role Phone Torsten Maradiaga Unavailable Unavailable Procedures Procedure Date Office/outpatient Visit, Est Dilated Retinal Exam W Interpretation De Office/outpatient Visit, Est Dilated Retinal Exam W Interpretation De No Script Eye Exam & Treatment Refraction Eye Exam, New Patient Advance Directives Directive Yes / No Effective Date File Name No Information Encounters Encounter Description Practice Location Reason(s) For Visit Diagnoses Date Provider Providers Copied on Encounter [place]pat [place] [facility] [place] [address] [place] [address] [address], [place], [place], [id number], [place] tel:[phone] [facility] No Information 4-201 0 Krishnasamy Torsten. [address] [facility] [address], [place], [place], [facility], [place]. tel:[phone] [place]pat [place] [facility] [place] [address] [place] [address] [address], [place], [place], [id number], [place] tel:[phone] [facility] No Information 3-200 9 Krishnasamy Torsten. [address] [facility] [address], [place], [address], [place]. tel:[phone] [facility], [address] [place], [place] [address], [place], [place], [id number], [place] tel:[phone] [facility] No Information 8 Ashwini Sarmiento. [address] [facility] [address], [place], [address], [place]. tel:[phone] [facility], [address], [place], [place], [id number], [place] tel:[phone] [facility] No Information 7 Amor Ken. [address] [facility], [address], [place], [place], [id number], [place]. tel:[phone] Family History Family Member Type Diagnosis Age At Onset No Information Payers Payer name Insurance type Covered democrat ID Authoriza tion(s) [place] [id number] For Life Mdcr Supp [id number] Social History Type Description Quantity Date Captured Comments Sex Male Smoking Status No Information Chief Complaint And Reason For Visit No Information Reason For Referral Reason For Referral No Information History Of Present Illness Encounter Date Complaint History Of Prese nt Illness No Information Functional Status Date Functional Assessmen t No Information Instructions Date Instruction Additional Infor mation No Information Assessments Type Assessment Date No Information Patient Care Teams Name Effective Dates (start - stop) Status Members No Information
[2025-01-07 14:23] LABS: Prostate Specific Antigen < 0.1 ng/mL (< OR = 4.0)
--- OUTSIDE RECORDS SUMMARY | 2025-01-08 10:33 | XMS_ITS | Encounter Summary ---
Author Organization [facility] Address [address] [place] [address] Care Team Providers Care Web Manager Name Role Phone Unavailable Primary Care Provider Unavailabl e Encounter Details Date Type Department Care Team (Late st Contact Info) Description 07/10/2017 Lab Requisition [facility] Care Pathology Lab [address] [place] [address] Mayito Spann MD [address] [address] Thrombocytopenia Social History Tobacco Use [...] AM CDT) Case Report Flow Cytometry Case: [id number] Authorizing Provider: Mayito Spann MD Collected: 07/10/2017 09:50 AM Pathologist: Tanika Lee MD Received: 07/10/2017 02:58 PM Specimen: Bone Marrow 8 2:59 PM CDT [facility] Final Diagnosis Bone marrow, Flow cytometric immunophenotypic analysis: - No evidence of non Hodgkin lymphoma or high grade myeloid neoplasm. - See interpretation. 8 2:59 PM [facility] at [address] [facility] Flow Cytometry Interpretation The bone marrow specimen [...] the flow cytometry specimen is reviewed for design quality engineer purposes. The bone marrow specimen shows no evidence of involvement by non Hodgkin lymphoma or high grade myeloid neoplasm. Correlation with clinical findings, concurrent bone marrow core biopsy ([facility]; [id number]), and relevant cytogenetic/molecular studies is needed. KM/DATA ANALYTICS SPECIALIST/vp product 8 2:59 PM [facility] Flow Cytometry Results Differential Result Comment Flow Cell Count /uL [id number] Total Viability % 99.0 Lymphocytes % 13 Dim CD45 Region % 4 Monocytes % 9 Granulocytes % 73 8 2:59 PM [facility] Reason for test Thrombocytopenia 287.5 8 2:59 PM [facility] Client Specimen ID # [id number] 8 2:59 PM [facility] Number of markers 17 were performed. A Flow CD10 A Flow CD13 A Flow CD20 A Flow CD2 A Flow CD3 A Flow CD4 A Flow CD1a A Flow CD5 A Flow CD19 A Flow CD33 A Flow CD34 A Flow CD45 A Flow CD7 A Flow CD8 A Flow CD30 A Blain+CD19+ A Lambda+CD19+ 8 2:59 PM [facility] Disclaimer Test performed at [facility], [address] [place], [place], [address]. *The established laboratory minimum viability is 70%. [...] complexity clinical testing. 8 2:59 PM CDT [facility] Embedded Images 8 2:59 PM CDT [facility] Pathology/Cytolo gy BONE MARROW SPECIMEN / Unknown 07/10/2017 9:50 AM CDT 07/10/2017 2:58 PM CDT Mayito Spann MD LAB - PATHOLOGY/CYTOLOGY ORDER SAVANAH Final Result [facility] [address] [phone] documented in this encounter Visit Diagnoses Diagnosis Thrombocytopenia Thrombocytopenia, unspecified documented in this encounter
--- OUTSIDE RECORDS SUMMARY | 2025-01-08 10:33 | XMS_ITS | Clinical Summary ---
Author Organization [facility] Address [address] [place] [address] Care Team Providers Care Metal Sponge Making Machine Operator Name Role Phone Patricia Valdez MD Primary [...] 2021 Hypercholesterolemia 06/20/2021 Type 2 diabetes mellitus without complication Thrombocytopenic disorder 07/04/2017 Gout 10/10/2016 Rosacea 01/11/2016 Nephrolithiasis 06/30/2013 Malignant neoplasm of prostate 03/21/2012 Resolved Problems Problem Noted Date Diagnosed [...] of 3) 07/21/2015 05/26/2015 COVID-19 Vaccine ( season) 2024 11/18/2020, 06/11/2020, 05/14/2020, Additional history exists Influenza Adult (#1) 2024 11/11/2020, 11/04/2019, 11/20/2018, Additional history exists Pneumococcal Vaccine: 50+ Years Completed 11/20/2018, 05/16/2016 Hepatitis A Vaccines Aged Out No long er eligible based on patient's age to complete this topic Meningococcal B Vaccine Aged Out No l onger eligible based on patient's age to complete this topic Meningococcal Vaccine Aged Out No fabiana brian eligible based on patient's age to complete this topic RSV Immunizations Under 20 Months Aged Out No longer eligible based on patient's age to complete this topic Insurance MEDICARE [facility] Care Teams Metal Sponge Making Machine Operator Relationship Specialty Start Date End Date Patricia Valdez MD [address] [place] [id number] PCP - General 03/13/16
--- OUTSIDE RECORDS SUMMARY | 2025-01-08 10:33 | XMS_ITS | Encounter Summary ---
Author Organization [facility] Address [address] [place] [address] Care Team Providers Care Engineer System Administrator Name Role Phone Unavailable Primary Care Provider Unavailabl e Encounter Details Date Type Department Care Team (Late st Contact Info) Description 07/11/2017 Lab Requisition [facility] Care Pathology Lab [address] [place] [address] Mayito Spann MD [address] [address] Social History Tobacco Use Types [...] Report Bone Marrow Patholog y Report Case: [id number] Authorizing Provider: Mayito Spann MD Collected: 07/10/2017 08:30 AM Pathologist: Maliha Hernandez MD Received: 07/11/2017 03:56 PM Specimens: A) - Bone Marrow Clot, OSC: BM18-10 B) - Bone Marrow Core, OSC: BM18-10 C) - Blood Peripheral 08/02/2017 2:46 PM [facility] Final Diagnosis Bone marrow, aspirate, core biopsy, and clot section: - Hypercellular bone marrow with trilineage hematopoiesis. - Dysmegakaryopoiesis. - No evidence of lymphoma or acute leukemia. - See comment. Peripheral blood: - Normocytic, normochromic anemia. - Thrombocytopenia. 08/02/2017 2:46 PM [facility] at 1150 CDT [...] findings and relevant cytogenetic/molecular studies is needed. KM/FOURTH HAND/svp of digital 08/02/2017 2:46 PM [facility] Peripheral Smear Description Manual Differential Count (100 cells): 66% neutrophils, 23% lymphocytes, 10% monocytes, 1% eosinophils. Leukocyte number: Normal. Granulocyte morphology: Normal. No circulating blasts. Lymphocyte morphology: Normal. Monocyte morphology: Normal, mature. Erythrocyte number: Decreased. Erythrocyte morphology: Normocytic, normochromic. Anisopoikilocytosis: Mild. Polychromasia: Not significant. Platelet number: Decreased. Platelet morphology: Normal. 08/02/2017 2:46 PM [facility] Bone Marrow Aspirate [...] identified. Control worked appropriately. 08/02/2017 2:46 PM [facility] Bone Marrow Core [...] Similar to core biopsy. 08/02/2017 2:46 PM [facility] Flow Cytometry Summary Concurrent flow cytometry ([id number]) shows no evidence of non Hodgkin lymphoma or high grade myeloid neoplasm. 08/02/2017 2:46 PM [facility] Clinical History thrombocytopenia 08/02/2017 2:46 PM [facility] Materials Received Received are 15 slide(s) and 2 block(s) labeled as O yvan, Tai and B M18-10 . The materials originate from [place] [address]. All materials are returned to the referring institution, along with a copy of our final report. 08/02/2017 2:46 PM [facility] Disclaimer The performance characteristics of all immunohistochemical and indirect immunofluorescence stains (if any) cited in this report were determined by the Histopathology Laboratory of [facility]. Some of these tests were developed [...] the attending (teaching) pathologist. 08/02/2017 2:46 PM [facility] Addendum 1 This addendum is issued to report the results of cytogenetic analysis ([id number]) and fluorescence in-situ hybridization (FISH) testing ([id number]) performed at [facility] ([address], [address], [place] [address]). A normal male karyotype was identified (46,XY[20]). The FISH testing detects no assay specific abnormalities by MDS panel. The final diagnosis remains unchanged. Please see the separate reference laboratory reports for further details. KR/FOURTH HAND/cmb 08/02/2017 2:46 PM CDT [facility] Addendum electronically signed by Maliha Hernandez MD on 08/02/2017 at 1446 CDT Embedded Images 08/02/2017 2:46 PM CDT [facility] Pathology/Cytology BONE MARROW CLOT SPECIMEN / Unknown 07/10/2017 8:30 AM CDT 07/11/2017 3:56 PM CDT Miscellaneous samples (specimen) BONE MARROW SPECIMEN / Unknown 07/10/2017 8:30 AM CDT 07/11/2017 3:56 PM CDT Miscellaneous samples (specimen) PERIPHERAL BLOOD / Unknown 07/10/2017 8:30 AM CDT 07/13/2017 11:13 AM CDT Mayito Spann MD LAB - PATHOLOGY/CYTOLOGY ORDER SAVANAH Edited Result - Final [facility] [address] [place] [address], [facility] [phone] documented in this encounter Visit Diagnoses Not on filedocumented in this encounter
--- OUTSIDE RECORDS SUMMARY | 2025-01-08 10:33 | XMS_ITS | Clinical Summary ---
Author Organization [facility] [employer] Address [address] [address] Care Team Providers Care Merchandise Coordinator Name Role Phone Unavailable Primary Care Provider Unavailabl e Source Comments [facility] [employer],non-owned Affiliates and Associated Physician Practices is amultiple site organization consisting of ambulatory clinics and hospital sitesin [place], [place], [place] and [place]. This disclosure is being madepursuant to the Care Everywhere program and may not contain all information available regarding this patient. Last updated 17.[facility] [employer] Allergies No known active allergies Medications * [...]
--- OUTSIDE RECORDS SUMMARY | 2025-01-08 10:33 | XMS_ITS | Patient Health Record ---
Author Organization [facility] Address [address] [place] [address] Care Team Providers Care Casting Assistant Name Role Phone SELF, SELF Primary Care Provider Issa Robledo Unavailable [phone] Reason For Referral No Information Plan Of Treatment No Information Insurance Providers Payer Name Payer Address Payer Phone Subscriber Number Group Number Insured Name Patient Relationship to Insured Coverage Start Date Coverage End Date [facility] [address] [address] [id number] Tai Garay Self - patient is the insured
--- OUTSIDE RECORDS SUMMARY | 2025-01-08 10:34 | XMS_ITS | Clinical Summary ---
Author Organization [facility] Address [address] [place] [address] Care Team Providers Care Forensic Science Examiner Name Role Phone Patricia Sanchez MD Primary Care Prov ider Braden Hare MD Unavailable [phone] Allergies No known active allergies Medications atorvastatin [...] hours after dose. 5 tablet 5 Active Additional Information Patient not taking.Reported on 01/01/2025 prochlorperazine (Compazine) 10 mg tabletIndication s:MDS (myelodysplastic syndrome) (HCC),Anemia, unspecified type Take 1 tablet (10 mg total) by mouth every 6 (six) hours as needed for nausea or vomiting 30 tablet 3 5 Active valACYclovir (VALTREX) 500 mg tabletIndication s:Prophylaxis, Medical Take 1 tablet (500 mg total) by mouth daily 30 tablet 5 5 Active decitabine-cedaz uridine (INQOVI) 35-100 mg tabletIndication s:MDS (myelodysplastic syndrome) (HCC),Anemia, unspecified type Take 1 tablet by mouth daily Take on Days 1-5 of each cycle. Do not consume food 2 hours before and 2 hours after dose. 5 tablet 5 Active Active Problems Problem Noted Date Diagnosed Date Anemia 05/07/2024 MDS (myelodysplastic syndrome) 05/22/2023 Malignant neoplasm of prostate 07/04/2017 Thrombocytopenia 07/04/2017 Resolved Problems Problem Noted Date Diagnosed Date Resolved Date Basal cell carcinoma (BCC) of skin of nose 05/12/2015 11/13/2017 Encounters Date Type Department Care Team Description 01/02/2025 9:30 AM CDT Infusion [address] [phone] MDS (myelodysplastic syndrome) (HCC) (Primary Dx); Anemia, unspecified type 01/01/2025 11:15 AM CDT Office Visit [facility] [address] [place] [phone] Clarissa Real EARLY CHILDHOOD EDUCATION SPECIALIST MDS (myelodysplastic syndrome) (HCC) (Primary Dx); Anemia, unspecified type 01/01/2025 10:45 AM CDT Lab [address] [address] MDS (myelodysplastic syndrome) (HCC); Anemia, unspecified type 01/01/2025 Orders Only [facility] Oncology [address] [place] [phone] Leny Bronson, BREWERY TECHNICIAN (myelodysplastic syndrome) (HCC) (Primary Dx) 12/24/2024 12:00 PM CDT Infusion [facility] [address] [place] [address] Anemia, unspecified type (Primary Dx); MDS (myelodysplastic syndrome) (HCC); Malignant neoplasm of prostate (HCC) 12/24/2024 9:00 AM CDT Lab [facility] [address] [address] MDS (myelodysplastic syndrome) (HCC); Anemia, unspecified type 12/24/2024 Orders Only [facility] [place] Oncology [address] [place] [address] [address] [place] [address] Braden Hare MD MDS (myelodysplastic syndrome) (HCC) (Primary Dx); Anemia, unspecified type 12/16/2024 11:00 AM CDT Infusion [facility] [address] [address] MDS (myelodysplastic syndrome) (HCC) (Primary Dx); Anemia, unspecified type 12/16/2024 8:30 AM CDT Lab [facility] [address] [address] MDS (myelodysplastic syndrome) (HCC); Anemia, unspecified type 12/10/2024 Orders Only [facility] [place] Oncology [address] [place] [address] [address] [place] [address] Braden Hare MD MDS (myelodysplastic syndrome) (HCC) (Primary Dx); Anemia, unspecified type 12/04/2024 11:15 AM CDT Infusion [facility] [address] [phone] MDS (myelodysplastic syndrome) (HCC) (Primary Dx); Anemia, unspecified type 12/04/2024 8:45 AM CDT Office Visit [facility] [place] [facility] [address] [place] [address] [address] [place] [address] Clarissa Real, JULIAN MDS (myelodysplastic syndrome) (HCC) (Primary Dx); Anemia, unspecified type 12/04/2024 8:15 AM CDT Lab [address] [address] Anemia, unspecified type; MDS (myelodysplastic syndrome) (HCC) 11/17/2024 11:15 AM CDT Infusion [address] [place] [address] MDS (myelodysplastic syndrome) (HCC) (Primary Dx); Anemia, unspecified type 11/17/2024 8:00 AM CDT Lab [facility] [address] [address] MDS (myelodysplastic syndrome) (HCC); Anemia, unspecified type 11/17/[address] [address] Comfort Acuna, GABRIELA 11/17/[address] [phone] Comfort Acuna, GABRIELA 11/13/2024 10:45 AM CDT Lab [address] [address] MDS (myelodysplastic syndrome) (HCC) 11/13/[address] [address] Valerie Li, GABRIELA 11/13/2024 Orders Only [facility] [place] On[facility] [address] [place] [phone] Leny Bronson, BREWERY TECHNICIAN (myelodysplastic syndrome) (HCC) (Primary Dx) 11/11/2024 12:15 PM CDT Infusion [address] [address] MDS (myelodysplastic syndrome) (HCC) (Primary Dx); Anemia, unspecified type 11/11/2024 9:30 AM CDT Lab [facility] [address] [address] MDS (myelodysplastic syndrome) (HCC); Anemia, unspecified type 11/06/2024 10:15 AM CDT Infusion [address] [place] [address] MDS (myelodysplastic syndrome) (HCC) (Primary Dx); Thrombocytopenia; Anemia, unspecified type 11/06/2024 9:30 AM CDT Lab [address] [address] MDS (myelodysplastic syndrome) (HCC); Thrombocytopenia; Anemia, unspecified type 11/04/2024 9:00 AM CDT Lab [facility] [address] [address] MDS (myelodysplastic syndrome) (HCC); Anemia, unspecified type 11/04/[address] [phone] Kathia Pitts RN 10/30/2024 9:15 AM CDT Office Visit [facility] [address] [place] [phone] Clarissa Real, JULIAN MDS (myelodysplastic syndrome) (HCC) (Primary Dx); Anemia, unspecified type 10/30/2024 8:45 AM CDT Lab [address] [address] MDS (myelodysplastic syndrome) (HCC); Anemia, unspecified type 10/28/2024 12:30 PM CDT Infusion [address] [address] MDS (myelodysplastic syndrome) (HCC) (Primary Dx); Anemia, unspecified type 10/28/2024 9:30 AM CDT Lab [facility] [address] [address] MDS (myelodysplastic syndrome) (HCC); Anemia, unspecified type 10/23/2024 4:45 PM CDT Infusion [facility] [address] [address] MDS (myelodysplastic syndrome) (HCC) (Primary Dx); Thrombocytopenia; Anemia, unspecified type 10/23/2024 10:00 AM CDT Infusion [facility] [address] [address] MDS (myelodysplastic syndrome) (HCC) (Primary Dx); Anemia, unspecified type 10/23/2024 9:30 AM CDT Lab [facility] [address] [address] MDS (myelodysplastic syndrome) (HCC); Thrombocytopenia; Anemia, unspecified type 10/23/2024 Documentation [facility] [address] [place] [phone] Margarita Eli Auth (INQOVI) 10/23/[address] [facility] Oncology [address] [place] [phone] Braden Hare MD MDS (myelodysplastic syndrome) (HCC) (Primary Dx); Anemia, unspecified type 10/23/2024 Orders Only [facility] Oncology [address] [place] [phone] Leny Bronson, BREWERY TECHNICIAN (myelodysplastic syndrome) (HCC) (Primary Dx); Anemia, unspecified type 10/20/2024 1:47 PM CDT - 10/20/2024 11:59 PM CDT Hospital [address] [address] MDS (myelodysplastic syndrome) (HCC) Discharge Disposition: Discharge to home or self care 10/20/2024 11:30 AM CDT Infusion [facility] [address] [place] [phone] MDS (myelodysplastic syndrome) (HCC) (Primary Dx); Anemia, unspecified type 10/20/2024 9:00 AM CDT Infusion [address] [place] [phone] MDS (myelodysplastic syndrome) (HCC) 10/20/2024 8:30 AM CDT Lab [address] [address] MDS (myelodysplastic syndrome) (HCC); Thrombocytopenia; Anemia, unspecified type 10/20/[address] [facility] Pathology [address] [address] Braden Hare MD MDS (myelodysplastic syndrome) (HCC) 10/20/2024 Orders Only [facility] Oncology [address] [place] [address] [address] [place] [address] Leny Bronson, BREWERY TECHNICIAN (myelodysplastic syndrome) (HCC) (Primary Dx) 10/09/2024 4:00 PM CDT Office Visit [facility] [address] [place] [phone] Braden Hare MD MDS (myelodysplastic syndrome) (HCC) (Primary Dx); Anemia, unspecified type 10/09/2024 3:15 PM CDT Infusion [facility] [address] [address] MDS (myelodysplastic syndrome) (HCC) (Primary Dx); Thrombocytopenia; Anemia, unspecified type 10/09/2024 2:45 PM CDT Lab [address] [address] MDS (myelodysplastic syndrome) (HCC); Thrombocytopenia; Anemia, unspecified type 10/09/2024 Orders Only [facility] [place] [facility] [address] [facility] [address] [place] [address] Viry Maharaj RN MDS (myelodysplastic syndrome) (HCC) (Primary Dx) from Last 3 Months Immunizations Immunization Administration [...] Surgical History Surgery Date Site/Laterality Comments COLONOSCOPY MOHS SURGERY 12/03/2024 right side of cheek Medical History Medical History Date Comments Diabetes [...] Frequency of Alcohol Consumption Not on file 12/04/2024 Q2: How many drinks containi ng alcohol do you have on a typical day when you are drinking? 1 or 2 Frequency of Binge Drinking Daily or almost yesenia y 12/04/2024 Sex and Gender Information Value Date Recorded Sex Assigned at Not on file Legal Sex Male 10:48 AM COATER HELPER Gender Identity Male 02/09/2020 12:06 PM COATER HELPER Sexual Orientation Straight 02/09/2020 12 :06 PM COATER HELPER Last Filed Vital Signs Vital Sign Reading Time Taken Comments Blood Pressure 132/55 01/02/2025 1:40 PM CDT Pulse 54 01/02/2025 1:40 PM CDT Temperature 36.4 C (97.5 F) 01/02/2025 1:40 PM CDT Respiratory Rate 16 01/02/2025 1:40 PM CDT Oxygen Saturation 100% 01/02/2025 1:40 PM CDT Inhaled Oxygen Concentration - - Weight 86.1 kg (189 lb 13.1 oz) 01/02/2025 9:10 AM CDT w/ shoes Height 172 cm (5' 7.72) 10/09/2024 2:21 PM CDT Body Mass Index 29.1 10/09/2024 2:21 PM CDT Plan of Treatment Health Maintenance Due Date Last Done Comments Depression Screening 1940 Fall Risk Assessment 1940 Hepatitis B Screening 1958 Well Visit 65+ 01/25/2004 Covid-19 Vaccine (2024-2 6 season) 2024 06/06/2021, 12/24/2020, 11/18/2020, Additional history exists Influenza Vaccine (#1) 2024 , 11/11/2020, 11/04/2019, Additional history exists DTaP/Tdap/Td Vaccine (2 - Td or Tdap) 03/05/2025 03/05/2015 Pneumococcal vaccine 65+ Completed 019, 03/05/2018, 05/16/2016, Additional history exists Zoster Vaccine Completed 05/09/2021, 110 08/2020, 12/25/2020, Additional history exists Procedures Procedure Name Priority Date/Time Associated Diagnosis Comments TRANSFUSE RED BLOOD CELLS Timed 01/02/2025 11:36 AM CDT MDS (myelodysplastic syndrome) (HCC) Anemia, unspecified type TRANSFUSE RED BLOOD CELLS Timed 01/02/2025 9:34 AM CDT MDS (myelodysplastic syndrome) (HCC) Anemia, unspecified type PREPARE RBC Routine 01/01/2025 4:02 PM CDT MDS (myelodysplastic syndrome) (HCC) Anemia, unspecified type CROSSMATCH Routine 01/01/2025 10:32 AM CDT MDS (myelodysplastic syndrome) (HCC) BLOOD SMEAR REVIEW STAT 01/01/2025 10 :32 AM CDT MDS (myelodysplastic syndrome) (HCC) Anemia, unspecified type IMMATURE PLATELET FRACTION STAT 01/01/2025 10:32 AM CDT MDS (myelodysplastic syndrome) (HCC) Anemia, unspecified type EGFR STAT 01/01/2025 10:32 AM CDT MDS (myelodysplastic syndrome) (HCC) Anemia, unspecified type DIFFERENTIAL AUTO STAT 01/01/2025 10: 32 AM CDT MDS (myelodysplastic syndrome) (HCC) Anemia, unspecified type ANTIBODY SCREEN Routine 01/01/2025 10:32 AM CDT MDS (myelodysplastic syndrome) (HCC) ABO/RH Routine 01/01/2025 10:32 AM CDT MDS (myelodysplastic syndrome) (HCC) TYPE AND SCREEN Routine 01/01/2025 10:32 AM CDT MDS (myelodysplastic syndrome) (HCC) CBC WITH AUTO DIFFERENTIAL STAT 01/01/2025 10:32 AM CDT MDS (myelodysplastic syndrome) (HCC) Anemia, unspecified type COMPREHENSIVE METABOLIC PANEL STAT 01/01/2025 10:32 AM CDT MDS (myelodysplastic syndrome) (HCC) Anemia, unspecified type TRANSFUSE RED BLOOD CELLS Timed 12/24/2024 12:23 PM CDT MDS (myelodysplastic syndrome) (HCC) Anemia, unspecified type PREPARE RBC Routine 12/24/2024 10:20 AM CDT MDS (myelodysplastic syndrome) (HCC) Anemia, unspecified type CROSSMATCH Routine 12/24/2024 8:53 AM CDT MDS (myelodysplastic syndrome) (HCC) Anemia, unspecified type BLOOD SMEAR REVIEW Routine 12/24/2024 8: 53 AM CDT MDS (myelodysplastic syndrome) (HCC) Anemia, unspecified type IMMATURE PLATELET FRACTION Routine 12/24/2024 8:53 AM CDT MDS (myelodysplastic syndrome) (HCC) Anemia, unspecified type DIFFERENTIAL AUTO Routine 12/24/2024 8:5 3 AM CDT MDS (myelodysplastic syndrome) (HCC) Anemia, unspecified type ANTIBODY SCREEN Routine 12/24/2024 8:53 AM CDT MDS (myelodysplastic syndrome) (HCC) Anemia, unspecified type ABO/RH Routine 12/24/2024 8:53 AM CDT MDS (myelodysplastic syndrome) (HCC) Anemia, unspecified type CBC WITH AUTO DIFFERENTIAL Routine 12/24/2024 8:53 AM CDT MDS (myelodysplastic syndrome) (HCC) Anemia, unspecified type TYPE AND SCREEN Routine 12/24/2024 8:53 AM CDT MDS (myelodysplastic syndrome) (HCC) Anemia, unspecified type TRANSFUSE RED BLOOD CELLS Timed 12/16/2024 12:57 PM CDT MDS (myelodysplastic syndrome) (HCC) Anemia, unspecified type TRANSFUSE RED BLOOD CELLS Timed 12/16/2024 11:08 AM CDT MDS (myelodysplastic syndrome) (HCC) Anemia, unspecified type PREPARE RBC Routine 12/16/2024 10:05 AM CDT MDS (myelodysplastic syndrome) (HCC) Anemia, unspecified type CROSSMATCH Routine 12/16/2024 8:32 AM CDT Anemia, unspecified type BLOOD SMEAR REVIEW Routine 12/16/2024 8: 32 AM CDT Anemia, unspecified type IMMATURE PLATELET FRACTION Routine 12/16/2024 8:32 AM CDT Anemia, unspecified type DIFFERENTIAL AUTO Routine 12/16/2024 8:3 2 AM CDT Anemia, unspecified type ANTIBODY SCREEN Routine 12/16/2024 8:32 AM CDT Anemia, unspecified type ABO/RH Routine 12/16/2024 8:32 AM CDT Anemia, unspecified type CBC WITH AUTO DIFFERENTIAL Routine 12/16/2024 8:32 AM CDT Anemia, unspecified type TYPE AND SCREEN Routine 12/16/2024 8:32 AM CDT Anemia, unspecified type TRANSFUSE RED BLOOD CELLS Timed 12/04/2024 11:47 AM CDT MDS (myelodysplastic syndrome) (HCC) Anemia, unspecified type PREPARE RBC STAT 12/04/2024 10:50 AM CDT MDS (myelodysplastic syndrome) (HCC) Anemia, unspecified type CROSSMATCH Routine 12/04/2024 8:28 AM CDT Anemia, unspecified type BLOOD SMEAR REVIEW Routine 12/04/2024 8: 28 AM CDT Anemia, unspecified type IMMATURE PLATELET FRACTION Routine 12/04/2024 8:28 AM CDT Anemia, unspecified type EGFR Routine 12/04/2024 8:28 AM CDT MDS (myelodysplastic syndrome) (HCC) Anemia, unspecified type DIFFERENTIAL AUTO Routine 12/04/2024 8:2 8 AM CDT Anemia, unspecified type ANTIBODY SCREEN Routine 12/04/2024 8:28 AM CDT Anemia, unspecified type ABO/RH Routine 12/04/2024 8:28 AM CDT Anemia, unspecified type LACTATE DEHYDROGENASE Routine 12/04/2024 8:28 AM CDT MDS (myelodysplastic syndrome) (HCC) Anemia, unspecified type COMPREHENSIVE METABOLIC PANEL Routine 12/04/2024 8:28 AM CDT MDS (myelodysplastic syndrome) (HCC) Anemia, unspecified type CBC WITH AUTO DIFFERENTIAL Routine 12/04/2024 8:28 AM CDT Anemia, unspecified type TYPE AND SCREEN Routine 12/04/2024 8:28 AM CDT Anemia, unspecified type TRANSFUSE RED BLOOD CELLS Timed 11/17/2024 11:48 [...] Anemia, unspecified type DIFFERENTIAL AUTO Routine 11/11/2024 9:2 0 AM CDT Anemia, unspecified type ANTIBODY SCREEN [...] MDS (myelodysplastic syndrome) (HCC) Anemia, unspecified type from Last 3 Months Results * Transfuse RBC (01/02/2025 1:27 PM CDT) Blood us Brooke Clayton MD BLOOD TRANSFUSION ORDERABLE S Final Result * Transfuse RBC (01/02/2025 12:03 PM CDT) Blood Brooke Clayton MD BLOOD TRANSFUSION ORDERABLE S Edited Result - Final * Prepare RBC: 2 Units (01/01/2025 4:02 PM CDT) Units requested 2 Comment:Testing performed by : [address] [address] Units requested Ready [facility] Comment:Testing performed by : [address] [address] Unit Number [id number] Product code [id number] [facility] Blood Expiration Date [facility] Product Blood Type (for scanning) 5100 [facility] Product Blood Type OPOS [facility] Dispense Status DISPENSED [facility] Unit Number [id number] Product code [id number] [facility] Blood Expiration Date [id number] [facility] Product Blood Type (for scanning) 5100 [facility] Product Blood Type OPOS [facility] Dispense Status DISPENSED [facility] Blood 01/01/2025 4:02 PM CDT 01/01/2025 4:02 PM CDT us Braden Hare MD BLOOD BANK PRODUCT ORDERABLE S Final Result Performing Organization Address [facility] Co de Phone Number CHRISSY [address] [address] * (ABNORMAL) Immature platelet fraction (01/01/2025 10:32 AM CDT) Pathologist [facility] IPF 23.1(H) 1.6 - 10.1 % Comment:Testing performed by : [address] [address] Blood 01/01/2025 10:3 2 AM CDT 01/01/2025 10:36 AM CDT Braden Hare MD LAB BLOOD ORDERABLES Final R esult Performing Organization Address [facility] Co de Phone Number CHRISSY [address] [address] * (ABNORMAL) Blood smear review (01/01/2025 10:32 AM CDT) [facility] RBC morphology Consistent with RBC Indicies Comment:Testing performed by : [address] [address] Anisocytosis Slight(A) CHRISSY Comment:Testing performed by : [address] [address] Schistocytes 1-2/HPF(A) CHRISSY Comment:Testing performed by : [address] [address] Elliptocytes 3-7/HPF(A) CHRISSY Comment:Testing performed by : [address] [address] Target cells 3-7/HPF(A) CR[facility]ISSY Comment:Testing performed by : [address] [address] Platelet estimate Decreased(A) CHRISSY Comment:Testing performed by : [address] [address] Blood 01/01/2025 10:3 2 AM CDT 01/01/2025 10:36 AM CDT us Braden Hare MD LAB BLOOD ORDERABLES Final R esult Performing Organization Address [facility] Co de Phone Number CHRISSY [facility] [place] [address] * eGFR (01/01/2025 10:32 AM CDT) eGFR 84 >=60 mL/min/1. 73 [...] was last reviewed 2021. Testing performed by: [address] [address] Blood 01/01/2025 10:3 2 AM CDT 01/01/2025 10:36 AM CDT us Braden Hare MD LAB BLOOD ORDERABLES Final R esult Performing Organization Address [facility]/ZIP Co de Phone Number CHRISSY [facility] [place] [address] * (ABNORMAL) Differential, auto (01/01/2025 10:32 AM CDT) Neutrophil abs 1.22(L) 1.50 - 6.50 K/cumm Comment:Testing performed by : [address] [address] Imm gran abs 0.01 0.00 - 0.10 K/cumm [facility] Comment:Testing performed by : [address] [address] Lymphocyte abs 0.31(L) 0.80 - 3.30 K/cumm [facility] Comment:Testing performed by : [address] [address] Monocyte abs 0.06(L) 0.20 - 0.80 K/cumm [facility] Comment:Testing performed by : [address] [address] Eosinophil abs 0.01 0.00 - 0.50 K/cumm [facility] Comment:Testing performed by : [address] [address] Basophil abs 0.04 0.00 - 0.10 K/cumm [facility] Comment:Testing performed by : [address] [address] Neutrophil pct 74.0 % [facility] Comment: Interpretive Data Percent cell count reference ranges are not reported, since discordance with absolute values may lead to misinterpretation of CBC data. Current Interpretive Data was last revised on 2017. Testing performed by: [address] [address] Imm gran pct 0.6 % [facility] Comment: Interpretive Data Percent cell count reference ranges are not reported, since discordance with absolute values may lead to misinterpretation of CBC data. Current Interpretive Data was last revised on 2017. Testing performed by: [address] [address] Lymphocyte pct 18.8 % [facility] Comment: Interpretive Data Percent cell count reference ranges are not reported, since discordance with absolute values may lead to misinterpretation of CBC data. Current Interpretive Data was last revised on 2017. Testing performed by: [address] [address] Monocyte pct 3.6 % [facility] Comment: Interpretive Data Percent cell count reference ranges are not reported, since discordance with absolute values may lead to misinterpretation of CBC data. Current Interpretive Data was last revised on 2017. Testing performed by: [address] [address] Eosinophil pct 0.6 % CHRISSY Comment: Interpretive Data Percent cell count reference ranges are not reported, since discordance with absolute values may lead to misinterpretation of CBC data. Current Interpretive Data was last revised on 2017. Testing performed by: [address] [address] Basophil pct 2.4 % CH[facility]SY Comment: Interpretive Data Percent cell count reference ranges are not reported, since discordance with absolute values may lead to misinterpretation of CBC data. Current Interpretive Data was last revised on 2017. Testing performed by: [address] [address] Blood 01/01/2025 10:3 2 AM CDT 01/01/2025 10:36 AM CDT us Braden Hare MD LAB BLOOD ORDERABLES Final R esult [facility] [address] [facility] Department of Laboratories [place], [place] [id number] * (ABNORMAL) CBC with auto differential (01/01/2025 10:32 AM CDT) WBC 1.65(L) 3.80 - 9.90 K/cumm Comment:Testing performed by : [address] [address] Hgb 6.9(L) 13.0 - 17.5 g/dL CHRISSY Comment:Testing performed by : [address] [address] Hct 20.8(L) 38.9 - 50.3 % [facility] Comment:Testing performed by : [address] [address] Plt 29(L) 150 - 400 K/cumm CH[facility]SY Comment:Testing performed by : [address] [address] MPV Not Measured 9.1 - 12.3 fL CH[facility]SY Comment:Testing performed by : [address] [address] RBC 2.16(L) 4.30 - 5.80 M/cumm CH[facility]SY Comment:Testing performed by : [address] [address] MCV 96.3 81.3 - 96.4 fL [facility] Comment:Testing performed by : [address] [address] MCH 31.9 27.1 - 33.3 pg CH[facility]SY Comment:Testing performed by : [address] [address] MCHC 33.2 32.3 - 35.7 g/dL [facility] Comment:Testing performed by : [address] [address] RDW CV 16.6(H) 11.1 - 14.9 % [facility] Comment:Testing performed by : [address] [address] RDW SD 56.8(H) 35.7 - 48.1 fL [facility] Comment:Testing performed by : [address] [address] NRBC abs 0.00 0.00 - 0.01 K/cumm CH[facility] Comment:Testing performed by : [address] [address] ANC Prelim 1.22(L) 1.50 - 6.50 K/cumm CHRISSY Comment: Interpretive Data The rapid ANC is a preliminary automated count and may vary from the final ANC (Neut Abs) reported in the WBC differential that follows. Current interpretive data was last revised 2024. Testing performed by: [address] [address] Blood 01/01/2025 10:3 2 AM CDT 01/01/2025 10:36 AM CDT us Braden Hare MD LAB BLOOD ORDERABLES Edited Result - Final Performing Organization Address [facility] de Phone Number [address] [address] * ABO/Rh (01/01/2025 10:32 AM CDT) ABO/Rh O Positive Comment:Testing performed by : [facility], [address] [place] [address]., [address] Blood 01/01/2025 10:3 2 AM CDT 01/01/2025 11:58 AM CDT Narrative [facility] - 01/01/2025 12:30 PM CDT Has the patient had Daratumumab or Isatuximab in the past 6 months?->Unknown Braden Hare MD LAB BLOOD BANK TEST ORDERABL ES Final Result Performing Organization Address [facility] [facility] de Phone Number [address] [address] * Crossmatch (01/01/2025 10:32 AM CDT) Pathologist [facility] Crossmatch Compatible [facility] Unit number for crossmatch [id number] [facility] Crossmatch Compatible [facility] Unit number for crossmatch [id number] [facility] Blood 01/01/2025 10:3 2 AM CDT 01/01/2025 11:58 AM CDT Braden Hare MD LAB BLOOD BANK TEST ORDERABL ES Final Result Performing Organization Address [facility] Co de Phone Number [address] [place] [address] * Antibody screen (01/01/2025 10:32 AM CDT) Chris, indirect, Gel Interpretation Negative ABSC Comment:Testing performed by : [facility], [address] [place] [address]., [address] Blood 01/01/2025 10:3 2 AM CDT 01/01/2025 11:58 AM CDT Narrative CHRISSY - 01/01/2025 12:30 PM CDT Has the patient had Daratumumab or Isatuximab in the past 6 months?->Unknown Braden Hare MD LAB BLOOD BANK TEST ORDERABL ES Final Result [facility]SY [address] [facility] Department [place] [address] * (ABNORMAL) Comprehensive metabolic panel (01/01/2025 10:32 AM CDT) Sodium 139 135 - 145 mmol/L Comment:Testing performed by : [address] [address] Potassium, pl 4.1 3.3 - 4.9 mmol/L CHRISSY Comment:Testing performed by : [address] [address] Chloride 104 97 - 110 mmol/L CHRISSY Comment:Testing performed by : [address] [address] CO2 25 22 - 32 mmol/L CHRISSY Comment:Testing performed by : [address] [address] Anion gap 10 2 - 15 mmol/L CHRISSY Comment:Testing performed by : [address] [address] BUN 19 6 - 25 mg/dL CHRISSY Comment:Testing performed by : [address] [address] Creatinine 0.90 0.80 - 1.30 mg/dL CHRISSY Comment:Testing performed by : [address] [address] Glucose 289(H) 70 - 199 mg/dL CHRISSY Comment: Interpretive [...] was last revised 2022. Testing performed by: [address] [address] Calcium 9.0 8.5 - 10.3 mg/dL CHRISSY Comment:Testing performed by : [address] [address] Bilirubin, total 1.7(H) 0.1 - 1.2 mg/dL CHRISSY Comment:Testing performed by : [address] [address] Protein, pl 5.8(L) 6.5 - 8.5 g/dL CHRISSY Comment:Testing performed by : [address] [address] Albumin 4.0 3.5 - 5.0 g/dL CHRISSY Comment:Testing performed by : [address] [address] Alk phos 42 40 - 130 Units/L CHRISSY Comment:Testing performed by : [address] [address] ALT 7 7 - 55 Units/L CHRISSY Comment:Testing performed by : [address] [address] AST 8(L) 10 - 50 Units/L CHRISSY Comment:Testing performed by : [address] [address] Blood 01/01/2025 10:3 2 AM CDT 01/01/2025 10:36 AM CDT us Braden Hare MD LAB BLOOD ORDERABLES Final R esult [facility]SY [address] [facility] Department [place] [address] * Transfuse RBC (12/24/2024 2:20 PM CDT) Blood Brooke Clayton MD BLOOD TRANSFUSION ORDERABLE S Final Result * Prepare RBC: 1 Units (12/24/2024 10:20 AM CDT) [facility] Units requested 1 Comment:Testing performed by : [address], [address] Units requested Ready CHRISSY Comment:Testing performed by : [address] [address] Unit Number [id number] Product code [id number] [facility] Blood Expiration Date [id number] [facility] Product Blood Type (for scanning) 5100 [facility] Product Blood Type OPOS [facility] Dispense Status DISPENSED [facility] Blood 12/24/2024 10:2 0 AM CDT 12/24/2024 10:20 AM CDT us Braden Hare MD BLOOD BANK PRODUCT ORDERABLE S Final Result Performing Organization Address [facility] Co de Phone Number [address] [place] [address] * (ABNORMAL) Immature platelet fraction (12/24/2024 8:53 AM CDT) [facility] IPF 22.4(H) 1.6 - 10.1 % Comment:Testing performed by : [address] [address] Blood 12/24/2024 8:53 AM CDT 12/24/2024 8:54 AM CDT Braden Hare MD LAB BLOOD ORDERABLES Final R esult Performing Organization Address City/[facility]/ZIP Co de Phone Number [address] [place] [employer] [place] [address] * (ABNORMAL) Blood smear review (12/24/2024 8:53 AM CDT) [facility] RBC morphology Consistent with RBC Indicies Comment:Testing performed by : [address], [place]., [address] Anisocytosis Slight(A) CHRISSY Comment:Testing performed by : [address] [address] Schistocytes 1-2/HPF(A) CHRISSY Comment:Testing performed by : [address], [place]., [address] Elliptocytes 3-7/HPF(A) CHRISSY Comment:Testing performed by : [address], [place]., [address] Platelet estimate Decreased(A) CHRISSY Comment:Testing performed by : [address], [place]., [address] Blood 12/24/2024 8:53 AM CDT 12/24/2024 8:54 AM CDT us Braden Hare MD LAB BLOOD ORDERABLES Final R esult [facility] [address] [facility] Department [place] [address] * (ABNORMAL) Differential, auto (12/24/2024 8:53 AM CDT) Neutrophil abs 1.88 1.50 - 6.50 K/cumm Comment:Testing performed by : [address] [address] Imm gran abs 0.02 0.00 - 0.10 K/cumm CHRISSY Comment:Testing performed by : [address] [address] Lymphocyte abs 0.42(L) 0.80 - 3.30 K/cumm CHRISSY Comment:Testing performed by : [address] [address] Monocyte abs 0.29 0.20 - 0.80 K/cumm CHRISSY Comment:Testing performed by : [address] [address] Eosinophil abs 0.03 0.00 - 0.50 K/cumm CHRISSY Comment:Testing performed by : [address] [address] Basophil abs 0.02 0.00 - 0.10 K/cumm CHRISSY Comment:Testing performed by : [address] [address] Neutrophil pct 70.6 % [facility] Comment: Interpretive Data Percent cell count reference ranges are not reported, since discordance with absolute values may lead to misinterpretation of CBC data. Current Interpretive Data was last revised on 2017. Testing performed by: [address] [address] Imm gran pct 0.8 % [facility] Comment: Interpretive Data Percent cell count reference ranges are not reported, since discordance with absolute values may lead to misinterpretation of CBC data. Current Interpretive Data was last revised on 2017. Testing performed by: [address] [address] Lymphocyte pct 15.8 % [facility] Comment: Interpretive Data Percent cell count reference ranges are not reported, since discordance with absolute values may lead to misinterpretation of CBC data. Current Interpretive Data was last revised on 2017. Testing performed by: [address] [address] Monocyte pct 10.9 % [facility] Comment: Interpretive Data Percent cell count reference ranges are not reported, since discordance with absolute values may lead to misinterpretation of CBC data. Current Interpretive Data was last revised on 2017. Testing performed by: [address] [address] Eosinophil pct 1.1 % [facility] Comment: Interpretive Data Percent cell count reference ranges are not reported, since discordance with absolute values may lead to misinterpretation of CBC data. Current Interpretive Data was last revised on 2017. Testing performed by: [address] [address] Basophil pct 0.8 % [facility] Comment: Interpretive Data Percent cell count reference ranges are not reported, since discordance with absolute values may lead to misinterpretation of CBC data. Current Interpretive Data was last revised on 2017. Testing performed by: [address] [address] Blood 12/24/2024 8:5 3 AM CDT 12/24/2024 8:54 AM CDT us Braden Hare MD LAB BLOOD ORDERABLES Final R esult [facility] [address] [facility] Department of Laboratories [place], [place] [id number] * (ABNORMAL) CBC with auto differential (12/24/2024 8:53 AM CDT) WBC 2.66(L) 3.80 - 9.90 K/cumm Comment:Testing performed by : [address] [address] Hgb 7.0(L) 13.0 - 17.5 g/dL CHRISSY Comment:Testing performed by : [address] [address] Hct 21.4(L) 38.9 - 50.3 % CHRISSY Comment:Testing performed by : [address] [address] Plt 15(C) 150 - 400 K/cumm CHRISSY Comment: This result has been called to Viry Maharaj RN by [id number] on 12/24/2024 09:16:39, and has been read back. Testing performed by: [address] [address] MPV Not Measured 9.1 - 12.3 fL CHRISSY Comment:Testing performed by : [address] [address] RBC 2.23(L) 4.30 - 5.80 M/cumm CHRISSY BELLO Comment:Testing performed by : [address] [address] MCV 96.0 81.3 - 96.4 fL CHRISSY Comment:Testing performed by : [address] [address] MCH 31.4 27.1 - 33.3 pg CHRISSY BELLO Comment:Testing performed by : [address] [address] MCHC 32.7 32.3 - 35.7 g/dL CHRISSY BELLO Comment:Testing performed by : [address] [address] RDW CV 16.7(H) 11.1 - 14.9 % CHRISSY BELLO Comment:Testing performed by : [address] [address] RDW SD 55.1(H) 35.7 - 48.1 fL CHRISSY Comment:Testing performed by : [address] [address] NRBC abs 0.00 0.00 - 0.01 K/cumm CHRISSY Comment:Testing performed by : [address] [address] ANC Prelim 1.88 1.50 - 6.50 K/cumm CHRISSY Comment: Interpretive Data The rapid ANC is a preliminary automated count and may vary from the final ANC (Neut Abs) reported in the WBC differential that follows. Current interpretive data was last revised 2024. Testing performed by: [address] [address] Blood 12/24/2024 8:53 AM CDT 12/24/2024 8:54 AM CDT Braden Hare MD LAB BLOOD ORDERABLES Edited Result - Final CHRISSY [address] [facility] Department of Laboratories [place], [place] [id number] * ABO/Rh (12/24/2024 8:53 AM CDT) ABO/Rh O Positive Comment:Testing performed by : [address] [address] Blood 12/24/2024 8:53 AM CDT 12/24/2024 9:42 AM CDT Narrative [facility] - 12/24/2024 10:19 AM CDT Has the patient had Daratumumab or Isatuximab in the past 6 months?->Unknown Result [facility] Braden Hare MD LAB BLOOD BANK TEST ORDERABL ES Final Result Performing Organization Address [facility] de Phone Number [address] [address] * Crossmatch (12/24/2024 8:53 AM CDT) Crossmatch Compatible [facility] Unit number for crossmatch [id number] [facility] Blood 12/24/2024 8:53 AM CDT 12/24/2024 9:42 AM CDT Result [facility] Braden Hare MD LAB BLOOD BANK TEST ORDERABL ES Final Result Performing Organization Address [facility] Phone Number [address] [address] * Antibody screen (12/24/2024 8:53 AM CDT) Chris, indirect, Gel Interpretation Negative ABSC Comment:Testing performed by : [facility], [address] [place] [address]., [address] Blood 12/24/2024 8:53 AM CDT 12/24/2024 9:42 AM CDT Narrative [facility] - 12/24/2024 10:19 AM CDT Has the patient had Daratumumab or Isatuximab in the past 6 months?->Unknown Result [facility] Braden Hare MD LAB BLOOD BANK TEST ORDERABL ES Final Result Performing Organization Address [facility] Co de Phone Number [address] [address] * Transfuse RBC (12/16/2024 3:14 PM CDT) Blood Brooke Clayton MD BLOOD TRANSFUSION ORDERABLE S Final Result * Transfuse RBC (12/16/2024 12:51 PM CDT) Blood Brooke Clayton MD BLOOD TRANSFUSION ORDERABLE S Final Result * Prepare RBC: 2 Units (12/16/2024 10:05 AM CDT) Units requested 2 Comment:Testing performed by : [address] [address] Units requested Ready CHRISSY Comment:Testing performed by : [address] [address] Unit Number [id number] Product code [id number] [facility] Blood Expiration Date [facility] Product Blood Type (for scanning) 5100 [facility] Product Blood Type OPOS [facility] Dispense Status DISPENSED [facility] Unit Number [id number] Product code [id number] [facility] Blood Expiration Date [facility] Product Blood Type (for scanning) 5100 [facility] Product Blood Type OPOS [facility] Dispense Status DISPENSED [facility] Blood 12/16/2024 10:0 5 AM CDT 12/16/2024 10:05 AM CDT Braden Hare MD BLOOD BANK PRODUCT ORDERABLE S Final Result Performing Organization Address City/State/[facility] Co de Phone Number [facility] [address] [facility] Department [place] [address] * (ABNORMAL) Immature platelet fraction (12/16/2024 8:32 AM CDT) IPF 22.3(H) 1.6 - 10.1 % Comment:Testing performed by : [address] [address] Blood 12/16/2024 8:32 AM CDT 12/16/2024 8:34 AM CDT Braden Hare MD LAB BLOOD ORDERABLES Final R esult Performing Organization Address [facility] de Phone Number [place] [phone] [facility] [place] [address] * (ABNORMAL) Blood smear review (12/16/2024 8:32 AM CDT) Pathologist [facility] RBC morphology Consistent with RBC Indicies Comment:Testing performed by : [address] [address] Anisocytosis Slight(A) CHRISSY Comment:Testing performed by : [address] [address] Schistocytes 1-2/HPF(A) CHRISSY Comment:Testing performed by : [address] [address] Elliptocytes 3-7/HPF(A) CHRISSY Comment:Testing performed by : [address] [address] Platelet estimate Decreased(A) CHRISSY Comment:Testing performed by : [address] [address] Blood 12/16/2024 8:32 AM CDT 12/16/2024 8:34 AM CDT Braden Hare MD LAB BLOOD ORDERABLES Final R esult Performing Organization Address [facility] Co de Phone Number [address] Department [place] [address] * (ABNORMAL) Differential, auto (12/16/2024 8:32 AM CDT) Pathologist [facility] Neutrophil abs 1.17(L) 1.50 - 6.50 K/cumm Comment:Testing performed by : [address] [address] Imm gran abs 0.01 0.00 - 0.10 K/cumm CHRISSY Comment:Testing performed by : [address] [address] Lymphocyte abs 0.45(L) 0.80 - 3.30 K/cumm CHRISSY Comment:Testing performed by : [address] [address] Monocyte abs 0.20 0.20 - 0.80 K/cumm [facility] Comment:Testing performed by : [address] [address] Eosinophil abs 0.01 0.00 - 0.50 K/cumm [facility] Comment:Testing performed by : [address] [address] Basophil abs 0.03 0.00 - 0.10 K/cumm [facility] Comment:Testing performed by : [address] [address] Neutrophil pct 62.6 % [facility] Comment: Interpretive Data Percent cell count reference ranges are not reported, since discordance with absolute values may lead to misinterpretation of CBC data. Current Interpretive Data was last revised on 2017. Testing performed by: [address] [address] Imm gran pct 0.5 % [facility] Comment: Interpretive Data Percent cell count reference ranges are not reported, since discordance with absolute values may lead to misinterpretation of CBC data. Current Interpretive Data was last revised on 2017. Testing performed by: [address] [address] Lymphocyte pct 24.1 % [facility] Comment: Interpretive Data Percent cell count reference ranges are not reported, since discordance with absolute values may lead to misinterpretation of CBC data. Current Interpretive Data was last revised on 2017. Testing performed by: [address] [address] Monocyte pct 10.7 % [facility] Comment: Interpretive Data Percent cell count reference ranges are not reported, since discordance with absolute values may lead to misinterpretation of CBC data. Current Interpretive Data was last revised on 2017. Testing performed by: [address] [address] Eosinophil pct 0.5 % [facility] Comment: Interpretive Data Percent cell count reference ranges are not reported, since discordance with absolute values may lead to misinterpretation of CBC data. Current Interpretive Data was last revised on 2017. Testing performed by: [address] [address] Basophil pct 1.6 % CHRISSY BELLO Comment: Interpretive Data Percent cell count reference ranges are not reported, since discordance with absolute values may lead to misinterpretation of CBC data. Current Interpretive Data was last revised on 2017. Testing performed by: [address] [address] Blood 12/16/2024 8:32 AM CDT 12/16/2024 8:34 AM CDT us Braden Hare MD LAB BLOOD ORDERABLES Final R esult [facility]ISSY [address] [facility] Department [place] [address] * (ABNORMAL) CBC with auto differential (12/16/2024 8:32 AM CDT) WBC 1.87(L) 3.80 - 9.90 K/cumm Comment:Testing performed by : [address] [address] Hgb 5.8(C) 13.0 - 17.5 g/dL CHRISSY BELLO Comment: This result has been called to Sandra Bronson RN by [id number] on 12/16/2024 08:55:27, and has been read back. Testing performed by: [address] [address] Hct 17.1(L) 38.9 - 50.3 % CHRISSY BELLO Comment:Testing performed by : [address] [address] Plt 12(C) 150 - 400 K/cumm CHRISSY BELLO Comment: This result has been called to Sandra Bronson RN by [id number] on 12/16/2024 08:55:27, and has been read back. Testing performed by: [address] [address] MPV Not Measured 9.1 - 12.3 fL CHRISSY Comment:Testing performed by : [address] [address] RBC 1.83(L) 4.30 - 5.80 M/cumm CHRISSY Comment:Testing performed by : [address] [address] MCV 93.4 81.3 - 96.4 fL CHRISSY Comment:Testing performed by : [address] [address] MCH 31.7 27.1 - 33.3 pg CHRISSY Comment:Testing performed by : [address] [address] MCHC 33.9 32.3 - 35.7 g/dL CHRISSY Comment:Testing performed by : [address] [address] RDW CV 17.0(H) 11.1 - 14.9 % CHRISSY Comment:Testing performed by : [address] [address] RDW SD 55.4(H) 35.7 - 48.1 fL CHRISSY Comment:Testing performed by : [address] [address] NRBC abs 0.00 0.00 - 0.01 K/cumm CHRISSY Comment:Testing performed by : [address] [address] ANC Prelim 1.17(L) 1.50 - 6.50 K/cumm CHRISSY Comment: Interpretive Data The rapid ANC is a preliminary automated count and may vary from the final ANC (Neut Abs) reported in the WBC differential that follows. Current interpretive data was last revised 2024. Testing performed by: [address] [address] Blood 12/16/2024 8:32 AM CDT 12/16/2024 8:34 AM CDT us Braden Hare MD LAB BLOOD ORDERABLES Edited Result - Final [address] [address] * ABO/Rh (12/16/2024 8:32 AM CDT) Pathologist [facility] ABO/Rh O Positive Comment:Testing performed by : [facility], [address] [place] [address]., [address] Blood 12/16/2024 8:32 AM CDT 12/16/2024 9:23 AM CDT Narrative [facility] - 12/16/2024 10:00 AM CDT Has the patient had Daratumumab or Isatuximab in the past 6 months?->Unknown Braden Hare MD LAB BLOOD BANK TEST ORDERABL ES Final Result Performing Organization Address [facility] de Phone Number [address] [address] * Crossmatch (12/16/2024 8:32 AM CDT) Pathologist [facility] Crossmatch Compatible [facility] Unit number for crossmatch [id number] [facility] Crossmatch Compatible [facility] Unit number for crossmatch [id number] [facility] Blood 12/16/2024 8:32 AM CDT 12/16/2024 9:23 AM CDT Braden Hare MD LAB BLOOD BANK TEST ORDERABL ES Final Result Performing Organization Address [facility] de Phone Number [address] [address] * Antibody screen (12/16/2024 8:32 AM CDT) Pathologist [facility] Chris, indirect, Gel Interpretation Negative ABSC Comment:Testing performed by : [facility], [address] [place] [address]., [address] Blood 12/16/2024 8:32 AM CDT 12/16/2024 9:23 AM CDT Narrative [facility] - 12/16/2024 10:09 AM CDT Has the patient had Daratumumab or Isatuximab in the past 6 months?->Unknown Braden Hare MD LAB BLOOD BANK TEST ORDERABL ES Final Result Performing Organization Address [facility]/ZIP Co de Phone Number CHRISSY [address] [facility] Department [place] [address] * Transfuse RBC (12/04/2024 1:41 PM CDT) Blood Brooke Clayton MD BLOOD TRANSFUSION ORDERABLE S Final Result * Prepare RBC: 1 Units (12/04/2024 10:50 AM CDT) Units requested 1 Comment:Testing performed by : [address] [address] Units requested Ready CHRISSY Comment:Testing performed by : [address] [address] Unit Number [id number] Product code [id number] [facility] Blood Expiration Date [id number] [facility] Product Blood Type (for scanning) 5100 [facility] Product Blood Type OPOS [facility] Dispense Status DISPENSED [facility] Blood 12/04/2024 10:5 0 AM CDT 12/04/2024 10:49 AM CDT Braden Hare MD BLOOD BANK PRODUCT ORDERABLE S Final Result Performing Organization Address City/[facility]/ZIP Co de Phone Number [facility] [address] [facility] Department [place] [address] * (ABNORMAL) Immature platelet fraction (12/04/2024 8:28 AM CDT) IPF 20.4(H) 1.6 - 10.1 % Comment:Testing performed by : [address] [address] Blood 12/04/2024 8:28 AM CDT 12/04/2024 8:34 AM CDT us Braden Hare MD LAB BLOOD ORDERABLES Final R esult Performing Organization Address City/[facility] Co de Phone Number CHRISSY [address] [facility] [place] [place] [address] * (ABNORMAL) Blood smear review (12/04/2024 8:28 AM CDT) [facility] RBC morphology Consistent with RBC Indicies Comment:Testing performed by : [facility], [address] [place] [address]., [address] Anisocytosis Slight(A) CHRISSY Comment:Testing performed by : [address] [address] Schistocytes 1-2/HPF(A) CHRISSY Comment:Testing performed by : [address] [address] Elliptocytes 3-7/HPF(A) CHRISSY Comment:Testing performed by : [facility], [address] [place] [address]., [address] Acanthocytes 3-7/HPF(A) CHRISSY Comment:Testing performed by : [address] [address] Platelet estimate Decreased(A) CHRISSY Comment:Testing performed by : [address] [address] Blood 12/04/2024 8:28 AM CDT 12/04/2024 8:34 AM CDT us Braden Hare MD LAB BLOOD ORDERABLES Final R esult [facility] [place] [place] [address] * eGFR (12/04/2024 8:28 AM CDT) [facility] eGFR 87 >=60 mL/min/1. 73 m2 Comment: Interpretive Data [...] was last reviewed 2021. Testing performed by: [address] [address] Blood 12/04/2024 8:28 AM CDT 12/04/2024 8:34 AM CDT us Braden Hare MD LAB BLOOD ORDERABLES Final R esult [facility] [address] [facility] Department [place] [address] * (ABNORMAL) Differential, auto (12/04/2024 8:28 AM CDT) Neutrophil abs 1.38(L) 1.50 - 6.50 K/cumm Comment:Testing performed by : [address] [address] Imm gran abs 0.03 0.00 - 0.10 K/cumm CHRISSY Comment:Testing performed by : [address] [address] Lymphocyte abs 0.50(L) 0.80 - 3.30 K/cumm CHRISSY Comment:Testing performed by : [address] [address] Monocyte abs 0.36 0.20 - 0.80 K/cumm CHRISSY Comment:Testing performed by : [address] [address] Eosinophil abs 0.03 0.00 - 0.50 K/cumm [facility] Comment:Testing performed by : [address] [address] Basophil abs 0.03 0.00 - 0.10 K/cumm [facility] Comment:Testing performed by : [address] [address] Neutrophil pct 59.1 % [facility] Comment: Interpretive Data Percent cell count reference ranges are not reported, since discordance with absolute values may lead to misinterpretation of CBC data. Current Interpretive Data was last revised on 2017. Testing performed by: [address] [address] Imm gran pct 1.3 % [facility] Comment: Interpretive Data Percent cell count reference ranges are not reported, since discordance with absolute values may lead to misinterpretation of CBC data. Current Interpretive Data was last revised on 2017. Testing performed by: [address] [address] Lymphocyte pct 21.5 % [facility] Comment: Interpretive Data Percent cell count reference ranges are not reported, since discordance with absolute values may lead to misinterpretation of CBC data. Current Interpretive Data was last revised on 2017. Testing performed by: [address] [address] Monocyte pct 15.5 % [facility] Comment: Interpretive Data Percent cell count reference ranges are not reported, since discordance with absolute values may lead to misinterpretation of CBC data. Current Interpretive Data was last revised on 2017. Testing performed by: [address] [address] Eosinophil pct 1.3 % [facility] Comment: Interpretive Data Percent cell count reference ranges are not reported, since discordance with absolute values may lead to misinterpretation of CBC data. Current Interpretive Data was last revised on 2017. Testing performed by: [address] [address] Basophil pct 1.3 % [facility] Comment: Interpretive Data Percent cell count reference ranges are not reported, since discordance with absolute values may lead to misinterpretation of CBC data. Current Interpretive Data was last revised on 2017. Testing performed by: [address] [address] Blood 12/04/2024 8:28 AM CDT 12/04/2024 8:34 AM CDT us Braden Hare MD LAB BLOOD ORDERABLES Final R esult [facility] [address] [facility] Department [place] [address] * (ABNORMAL) CBC with auto differential (12/04/2024 8:28 AM CDT) WBC 2.33(L) 3.80 - 9.90 K/cumm Comment:Testing performed by : [address] [address] Hgb 7.3(L) 13.0 - 17.5 g/dL [facility] Comment:Testing performed by : [address] [address] Hct 22.0(L) 38.9 - 50.3 % [facility] Comment:Testing performed by : [address] [address] Plt 32(L) 150 - 400 K/cumm [facility]SY Comment:Testing performed by : [address] [address] MPV Not Measured 9.1 - 12.3 fL [facility] Comment:Testing performed by : [address] [address] RBC 2.34(L) 4.30 - 5.80 M/cumm [facility] Comment:Testing performed by : [address] [address] MCV 94.0 81.3 - 96.4 fL [facility] Comment:Testing performed by : [address] [address] MCH 31.2 27.1 - 33.3 pg [facility]SY BELLO Comment:Testing performed by : [address] [address] MCHC 33.2 32.3 - 35.7 g/dL [facility] Comment:Testing performed by : [address] [address] RDW CV 17.7(H) 11.1 - 14.9 % [facility] Comment:Testing performed by : [address] [address] RDW SD 58.8(H) 35.7 - 48.1 fL [facility] Comment:Testing performed by : [address] [address] NRBC abs 0.00 0.00 - 0.01 K/cumm [facility] Comment:Testing performed by : [address] [address] ANC Prelim 1.38(L) 1.50 - 6.50 K/cumm [facility] Comment: Interpretive Data The rapid ANC is a preliminary automated count and may vary from the final ANC (Neut Abs) reported in the WBC differential that follows. Current interpretive data was last revised 2024. Testing performed by: [address] [address] Blood 12/04/2024 8:28 AM CDT 12/04/2024 8:34 AM CDT Braden Hare MD LAB BLOOD ORDERABLES Edited Result - Final [facility] [address] [facility] Department of Laboratories [place], [place] [id number] * ABO/Rh (12/04/2024 8:28 AM CDT) ABO/Rh O Positive Comment:Testing performed by : [address] [address] Blood 12/04/2024 8:28 AM CDT 12/04/2024 9:43 AM CDT Narrative [facility] - 12/04/2024 10:29 AM CDT Has the patient had Daratumumab or Isatuximab in the past 6 months?->Unknown Braden Hare MD LAB BLOOD BANK TEST ORDERABL ES Final Result Performing Organization Address [facility] de Phone Number [address] [address] * Crossmatch (12/04/2024 8:28 AM CDT) Pathologist [facility] Crossmatch Compatible [facility] Unit number for crossmatch [id number] [facility] Blood 12/04/2024 8:28 AM CDT 12/04/2024 9:43 AM CDT Braden Hare MD LAB BLOOD BANK TEST ORDERABL ES Final Result Performing Organization Address [facility] Phone Number [address] [address] * Antibody screen (12/04/2024 8:28 AM CDT) Pathologist [facility] Chris, indirect, Gel Interpretation Negative ABSC Comment:Testing performed by : [facility], [address] [place] [address], [address] Blood 12/04/2024 8:28 AM CDT 12/04/2024 9:43 AM CDT Narrative [facility] - 12/04/2024 10:46 AM CDT Has the patient had Daratumumab or Isatuximab in the past 6 months?->Unknown Braden Hare MD LAB BLOOD BANK TEST ORDERABL ES Final Result Performing Organization Address [facility] de Phone Number [address] [address] * Lactate dehydrogenase (LD) (12/04/2024 8:28 AM CDT) Pathologist [facility] Lactate dehydrogenase (LDH) 117 100 - 250 Units/L Comment:Testing performed by : [address] [address] Blood 12/04/2024 8:28 AM CDT 12/04/2024 8:34 AM CDT us Braden Hare MD LAB BLOOD ORDERABLES Final R esult [facility] [address] [facility] Department [place] [address] * (ABNORMAL) Comprehensive metabolic panel (12/04/2024 8:28 AM CDT) Sodium 142 135 - 145 mmol/L Comment:Testing performed by : [address] [address] Potassium, pl 4.3 3.3 - 4.9 mmol/L [facility] Comment:Testing performed by : [address] [address] Chloride 108 97 - 110 mmol/L [facility] Comment:Testing performed by : [address] [address] CO2 26 22 - 32 mmol/L [facility] Comment:Testing performed by : [address] [address] Anion gap 8 2 - 15 mmol/L [facility] Comment:Testing performed by : [address] [address] BUN 14 6 - 25 mg/dL [facility] Comment:Testing performed by : [address] [address] Creatinine 0.80 0.80 - 1.30 mg/dL [facility] Comment:Testing performed by : [address] [address] Glucose 248(H) 70 - 199 mg/dL [facility] Comment: Interpretive [...] was last revised 2022. Testing performed by: [address] [address] Calcium 8.8 8.5 - 10.3 mg/dL [facility] Comment:Testing performed by : [address] [address] Bilirubin, total 1.8(H) 0.1 - 1.2 mg/dL [facility] Comment:Testing performed by : [address] [address] Protein, pl 5.7(L) 6.5 - 8.5 g/dL [facility] Comment:Testing performed by : [address] [address] Albumin 3.9 3.5 - 5.0 g/dL [facility] Comment:Testing performed by : [address] [address] Alk phos 42 40 - 130 Units/L [facility] Comment:Testing performed by : [address] [address] ALT 6(L) 7 - 55 Units/L [facility] Comment:Testing performed by : [address] [address] AST 8(L) 10 - 50 Units/L [facility] Comment:Testing performed by : [address] [address] Blood 12/04/2024 8:28 AM CDT 12/04/2024 8:34 AM CDT us Braden Hare MD LAB BLOOD ORDERABLES Final R esult [facility] BELLO [address] [facility] Department [place] [address] * Transfuse RBC (11/17/2024 1:57 PM CDT) Blood Brooke Clayton MD BLOOD TRANSFUSION ORDERABLE S Final Result * Prepare RBC: 1 Units (11/17/2024 10:22 AM CDT) [facility] Units requested 1 Comment:Testing performed by : [address], [address] Units requested Ready [facility] Comment:Testing performed by : [address] [address] Unit Number [id number] Product code [id number] [facility] Blood Expiration Date [id number] [facility] Product Blood Type (for scanning) 9500 [facility] Product Blood Type ONEG [facility] Dispense Status DISPENSED [facility] Blood 11/17/2024 10:2 2 AM CDT 11/17/2024 10:22 AM CDT us Braden Hare MD BLOOD BANK PRODUCT ORDERABLE S Final Result Performing Organization Address [facility] Co de Phone Number [address] [place] [place] [address] * (ABNORMAL) Immature platelet fraction (11/17/2024 8:02 AM CDT) [facility] IPF 20.4(H) 1.6 - 10.1 % Comment:Testing performed by : [address] [address] Blood 11/17/2024 8:02 AM CDT 11/17/2024 8:06 AM CDT Braden Hare MD LAB BLOOD ORDERABLES Final R esult Performing Organization Address [facility]/ZIP Co de Phone Number [address] [place] [address] * (ABNORMAL) CBC with auto differential (11/17/2024 8:02 AM CDT) WBC 2.03(L) 3.80 - 9.90 K/cumm Comment:Testing performed by : [address] [address] Hgb 8.2(L) 13.0 - 17.5 g/dL [facility] Comment:Testing performed by : [address] [address] Hct 25.0(L) 38.9 - 50.3 % [facility] Comment:Testing performed by : [address] [address] Plt 28(L) 150 - 400 K/cumm [facility] Comment:Testing performed by : [address] [address] MPV Not Measured 9.1 - 12.3 fL [facility] Comment:Testing performed by : [address] [address] RBC 2.62(L) 4.30 - 5.80 M/cumm [facility] Comment:Testing performed by : [address], [address] MCV 95.4 81.3 - 96.4 fL [facility] Comment:Testing performed by : [address], [address] MCH 31.3 27.1 - 33.3 pg [facility] Comment:Testing performed by : [address] [address] MCHC 32.8 32.3 - 35.7 g/dL [facility] Comment:Testing performed by : [address], [address] RDW CV 17.1(H) 11.1 - 14.9 % [facility] Comment:Testing performed by : [address], [address] RDW SD 58.1(H) 35.7 - 48.1 fL [facility] Comment:Testing performed by : [address] [address] NRBC abs 0.00 0.00 - 0.01 K/cumm [facility] Comment:Testing performed by : [address] [place] [address] ANC Prelim 1.11(L) 1.50 - 6.50 K/cumm [facility] Comment: Interpretive Data The rapid ANC is a preliminary automated count and may vary from the final ANC (Neut Abs) reported in the WBC differential that follows. Current interpretive data was last revised 2024. Testing performed by: [address] [address] Blood 11/17/2024 8:02 AM CDT 11/17/2024 8:06 AM CDT us Braden Hare MD LAB BLOOD ORDERABLES Edited Result - Final Performing Organization Address [facility]/ZIP Co de Phone Number CHRISSY [address] [place] [employer] [place] [address] * ABO/Rh (11/17/2024 8:02 AM CDT) ABO/Rh O Positive Comment:Testing performed by : [address] [address] Blood 11/17/2024 8:02 AM CDT 11/17/2024 9:41 AM CDT us Braden Hare MD LAB BLOOD BANK TEST ORDERABL ES Final Result Performing Organization Address [facility] Co de Phone Number CHRISSY [address] [place] [address] * (ABNORMAL) Manual Differential (11/17/2024 8:02 AM CDT) Differential Manual Comment:Testing performed by : [address] [address] Cells Counted 100 [facility] Comment:Testing performed by : [address] [address] Neutrophil abs 1.50 1.50 - 6.50 K/cumm CHRISSY BELLO Comment:Testing performed by : [address] [address] Lymphocyte abs 0.37(L) 0.80 - 3.30 K/cumm [facility] Comment:Testing performed by : [address], [place]., [address] Monocyte abs 0.12(L) 0.20 - 0.80 K/cumm [facility] Comment:Testing performed by : [address], [place]., [address] Eosinophil abs 0.02 0.00 - 0.50 K/cumm [facility] Comment:Testing performed by : [address], [place]., [address] Basophil abs 0.02 0.00 - 0.10 K/cumm [facility] Comment:Testing performed by : [address] [address] Neutrophil pct 74.0 % [facility] Comment: Interpretive Data Percent cell count reference ranges are not reported, since discordance with absolute values may lead to misinterpretation of CBC data. Current Interpretive Data was last revised on 2017. Testing performed by: [address] [address] Lymphocyte pct 18.0 % [facility] Comment: Interpretive Data Percent cell count reference ranges are not reported, since discordance with absolute values may lead to misinterpretation of CBC data. Current Interpretive Data was last revised on 2017. Testing performed by: [address] [address] Monocyte pct 6.0 % [facility] Comment: Interpretive Data Percent cell count reference ranges are not reported, since discordance with absolute values may lead to misinterpretation of CBC data. Current Interpretive Data was last revised on 2017. Testing performed by: [address] [address] Eosinophil pct 1.0 % [facility] Comment: Interpretive Data Percent cell count reference ranges are not reported, since discordance with absolute values may lead to misinterpretation of CBC data. Current Interpretive Data was last revised on 2017. Testing performed by: [address] [address] Basophil pct 1.0 % [facility] Comment: Interpretive Data Percent cell count reference ranges are not reported, since discordance with absolute values may lead to misinterpretation of CBC data. Current Interpretive Data was last revised on 2017. Testing performed by: [facility], [address] [place] [address]., [address] RBC morphology Consistent with RBC Indicies [facility] Comment:Testing performed by : [facility], [address] [place] [address], [place]., [address] Anisocytosis Slight(A) [facility] Comment:Testing performed by : [address], [place]., [address] Schistocytes 1-2/HPF(A) [facility] Comment:Testing performed by : [address], [place]., [address] Elliptocytes 3-7/HPF(A) [facility] Comment:Testing performed by : [address], [place]., [address] Acanthocytes 3-7/HPF(A) [facility] Comment:Testing performed by : [facility], [address] [place] [address], [place]., [address] Platelet estimate Decreased(A) [facility]SY Comment:Testing performed by : [facility], [address] [place] [address], [place]., [address] Blood 11/17/2024 8:02 AM CDT 11/17/2024 8:06 AM CDT us Braden Hare MD LAB BLOOD ORDERABLES Final R esult Performing Organization Address [facility] de Phone Number [facility] [address] [facility] Department [place] [address] * Crossmatch (11/17/2024 8:02 AM CDT) Crossmatch Compatible [facility] Unit number for crossmatch [id number] [facility] Blood 11/17/2024 8:02 AM CDT 11/17/2024 9:41 AM CDT us Braden Hare MD LAB BLOOD BANK TEST ORDERABL ES Final Result Performing Organization Address [facility] de Phone Number CHRISSY [address] [address] * Antibody screen (11/17/2024 8:02 AM CDT) Pathologist [facility] Chris, indirect, Gel Interpretation Negative ABSC Comment:Testing performed by : [address] [address] Blood 11/17/2024 8:02 AM CDT 11/17/2024 9:41 AM CDT Braden Hare MD LAB BLOOD BANK TEST ORDERABL ES Final Result Performing Organization Address [facility] de Phone Number [address] [address] * (ABNORMAL) Immature platelet fraction (11/13/2024 10:43 AM CDT) Pathologist [facility] IPF 19.2(H) 1.6 - 10.1 % Comment:Testing performed by : [address] [address] Blood 11/13/2024 10:4 3 AM CDT 11/13/2024 10:45 AM CDT us Braden Hare MD LAB BLOOD ORDERABLES Final R esult Performing Organization Address [facility] Co de Phone Number [address] [address] * (ABNORMAL) Blood smear review (11/13/2024 10:43 AM CDT) [facility] RBC morphology Present(A ) Comment:Testing performed by : [address] [address] Anisocytosis Slight(A) CH[facility]SY Comment:Testing performed by : [address] [address] Schistocytes 1-2/HPF(A ) CHRISSY BELLO Comment:Testing performed by : [address] [address] Elliptocytes 3-7/HPF(A ) [facility]SY Comment:Testing performed by : [facility], [address] [place] [address]., [address] Acanthocytes 3-7/HPF(A ) [facility]SY Comment:Testing performed by : [facility], [address] [place] [address]., [address] Platelet estimate Decreased (A) [facility]SY Comment:Testing performed by : [address] [address] Blood 11/13/2024 10:4 3 AM CDT 11/13/2024 10:45 AM CDT us Braden Hare MD LAB BLOOD ORDERABLES Final R esult [facility] [address] [facility] Department [place] [address] * eGFR (11/13/2024 10:43 AM CDT) eGFR [...] was last reviewed 2021. Testing performed by: [facility], [address] [place] [address]., [address] Blood 11/13/2024 10:4 3 AM CDT 11/13/2024 10:45 AM CDT us Braden Hare MD LAB BLOOD ORDERABLES Final R esult [facility] [address] [facility] Department [place] [address] * (ABNORMAL) Differential, auto (11/13/2024 10:43 AM CDT) Neutrophil abs 1.24(L) 1.50 - 6.50 K/cumm Comment:Testing performed by : [address] [address] Imm gran abs 0.01 0.00 - 0.10 K/cumm CH[facility]SY Comment:Testing performed by : [address] [address] Lymphocyte abs 0.56(L) 0.80 - 3.30 K/cumm [facility]SY Comment:Testing performed by : [address] [address] Monocyte abs 0.43 0.20 - 0.80 K/cumm [facility]SY Comment:Testing performed by : [address] [address] Eosinophil abs 0.03 0.00 - 0.50 K/cumm [facility]SY Comment:Testing performed by : [address] [address] Basophil abs 0.03 0.00 - 0.10 K/cumm [facility] Comment:Testing performed by : [address] [address] Neutrophil pct 54.0 % [facility] Comment: Interpretive Data Percent cell count reference ranges are not reported, since discordance with absolute values may lead to misinterpretation of CBC data. Current Interpretive Data was last revised on 2017. Testing performed by: [address] [address] Imm gran pct 0.4 % [facility] Comment: Interpretive Data Percent cell count reference ranges are not reported, since discordance with absolute values may lead to misinterpretation of CBC data. Current Interpretive Data was last revised on 2017. Testing performed by: [address] [address] Lymphocyte pct 24.3 % [facility] Comment: Interpretive Data Percent cell count reference ranges are not reported, since discordance with absolute values may lead to misinterpretation of CBC data. Current Interpretive Data was last revised on 2017. Testing performed by: [address] [address] Monocyte pct 18.7 % [facility] Comment: Interpretive Data Percent cell count reference ranges are not reported, since discordance with absolute values may lead to misinterpretation of CBC data. Current Interpretive Data was last revised on 2017. Testing performed by: [address] [address] Eosinophil pct 1.3 % [facility] Comment: Interpretive Data Percent cell count reference ranges are not reported, since discordance with absolute values may lead to misinterpretation of CBC data. Current Interpretive Data was last revised on 2017. Testing performed by: [address] [address] Basophil pct 1.3 % [facility] Comment: Interpretive Data Percent cell count reference ranges are not reported, since discordance with absolute values may lead to misinterpretation of CBC data. Current Interpretive Data was last revised on 2017. Testing performed by: [address] [address] Blood 11/13/2024 10:4 3 AM CDT 11/13/2024 10:45 AM CDT us Braden Hare MD LAB BLOOD ORDERABLES Final R esult [facility] [address] [facility] Department [place] [address] * (ABNORMAL) CBC with auto differential (11/13/2024 10:43 AM CDT) WBC 2.30(L) 3.80 - 9.90 K/cumm Comment:Testing performed by : [address] [place] [address] Hgb 8.8(L) 13.0 - 17.5 g/dL [facility]SY Comment:Testing performed by : [address], [address] Hct 26.8(L) 38.9 - 50.3 % [facility]SY Comment:Testing performed by : [address], [address] Plt 42(L) 150 - 400 K/cumm CH[facility]SY Comment:Testing performed by : [address], [address] MPV Not Measured 9.1 - 12.3 fL [facility]SY Comment:Testing performed by : [address], [address] RBC 2.83(L) 4.30 - 5.80 M/cumm CH[facility]SY Comment:Testing performed by : [address], [address] MCV 94.7 81.3 - 96.4 fL CH[facility]SY Comment:Testing performed by : [address], [address] MCH 31.1 27.1 - 33.3 pg CERSERINA Comment:Testing performed by : [address], [address] MCHC 32.8 32.3 - 35.7 g/dL CH[facility]ISSY Comment:Testing performed by : [address], [address] RDW CV 17.1(H) 11.1 - 14.9 % [facility]SY Comment:Testing performed by : [address], [address] RDW SD 57.7(H) 35.7 - 48.1 fL CERSERINA Comment:Testing performed by : [address], [address] NRBC abs 0.00 0.00 - 0.01 K/cumm CH[facility]SY Comment:Testing performed by : [address], [address] ANC Prelim 1.24(L) 1.50 - 6.50 K/cumm [facility] Comment: Interpretive Data The rapid ANC is a preliminary automated count and may vary from the final ANC (Neut Abs) reported in the WBC differential that follows. Current interpretive data was last revised 2024. Testing performed by: [address] [address] Blood 11/13/2024 10:4 3 AM CDT 11/13/2024 10:45 AM CDT us Braden Hare MD LAB BLOOD ORDERABLES Edited Result - Final [facility] [address] [facility] Department [place] [address] * (ABNORMAL) Comprehensive metabolic panel (11/13/2024 10:43 AM CDT) Sodium 142 135 - 145 mmol/L Comment:Testing performed by : [address] [address] Potassium, pl 4.3 3.3 - 4.9 mmol/L CH[facility]SY Comment:Testing performed by : [address] [address] Chloride 108 97 - 110 mmol/L CH[facility]SY Comment:Testing performed by : [address] [address] CO2 27 22 - 32 mmol/L CH[facility] Comment:Testing performed by : [address] [address] Anion gap 7 2 - 15 mmol/L [facility]SY Comment:Testing performed by : [address] [address] BUN 17 6 - 25 mg/dL [facility]SY Comment:Testing performed by : [address] [address] Creatinine 0.90 0.80 - 1.30 mg/dL [facility]SY Comment:Testing performed by : [address] [address] Glucose 162 70 - 199 mg/dL CHRISSY [...] was last revised 2022. Testing performed by: [address] [address] Calcium 9.2 8.5 - 10.3 mg/dL CH[facility]SY Comment:Testing performed by : [address] [address] Bilirubin, total 1.5(H) 0.1 - 1.2 mg/dL [facility]SY Comment:Testing performed by : [address] [address] Protein, pl 5.8(L) 6.5 - 8.5 g/dL [facility]SY Comment:Testing performed by : [address] [address] Albumin 4.1 3.5 - 5.0 g/dL [facility]SY Comment:Testing performed by : [address] [address] Alk phos 47 40 - 130 Units/L CH[facility]SY Comment:Testing performed by : [address] [address] ALT 9 7 - 55 Units/L CH[facility]SY Comment:Testing performed by : [address] [address] AST 10 10 - 50 Units/L CH[facility]SY Comment:Testing performed by : [address] [address] Blood 11/13/2024 10:4 3 AM CDT 11/13/2024 10:45 AM CDT us Braden Hare MD LAB BLOOD ORDERABLES Final R esult [address] [place] [address] * Transfuse RBC (11/11/2024 2:42 PM CDT) Blood us Brooke Clayton MD BLOOD TRANSFUSION ORDERABLE S Final Result * Prepare RBC: 1 Units (11/11/2024 10:52 AM CDT) Units requested 1 Comment:Testing performed by : [address] [address] Units requested Ready [facility] Comment:Testing performed by : [address] [address] Unit Number [id number] Product code [id number] [facility] Blood Expiration Date [facility] Product Blood Type (for scanning) 5100 [facility] Product Blood Type OPOS [facility] Dispense Status DISPENSED [facility] Blood 11/11/2024 10:5 2 AM CDT 11/11/2024 10:[address] Oliveira NP BLOOD BANK PRODUCT ORDERABL ES Final Result Performing Organization Address [facility] de Phone Number [address] [place] [address] * (ABNORMAL) Immature platelet fraction (11/11/2024 9:20 AM CDT) Pathologist [facility] IPF 17.8(H) 1.6 - 10.1 % Comment:Testing performed by : [address] [address] Blood 11/11/2024 9:20 AM CDT 11/11/2024 9:24 AM CDT us Braden Hare MD LAB BLOOD ORDERABLES Final R esult Performing Organization Address [facility] Co de Phone Number [address] [place] [address] * (ABNORMAL) Blood smear review (11/11/2024 9:20 AM CDT) Pathologist [facility] RBC morphology Present(A ) Comment:Testing performed by : [facility], [address] [place] [address], [place]., [address] Anisocytosis Slight(A) CHRISSY Comment:Testing performed by : [address], [place]., [address] Schistocytes 1-2/HPF(A ) CHRISSY Comment:Testing performed by : [address], [place]., [address] Elliptocytes 3-7/HPF(A ) CHRISSY Comment:Testing performed by : [address], [place]., [address] Acanthocytes 3-7/HPF(A ) CHRISSY Comment:Testing performed by : [address], [place]., [address] Platelet estimate Decreased (A) CHRISSY Comment:Testing performed by : [address] [address] Blood 11/11/2024 9:20 AM CDT 11/11/2024 9:24 AM CDT us Braden Hare MD LAB BLOOD ORDERABLES Final R esult [facility] [address] [facility] Department [place] [address] * (ABNORMAL) Differential, auto (11/11/2024 9:20 AM CDT) Pathologist [facility] Neutrophil abs 1.13(L) 1.50 - 6.50 K/cumm Comment:Testing performed by : [address] [address] Imm gran abs 0.02 0.00 - 0.10 K/cumm CHRISSY Comment:Testing performed by : [address] [address] Lymphocyte abs 0.61(L) 0.80 - 3.30 K/cumm CHRISSY Comment:Testing performed by : [address], [place]., [address] Monocyte abs 0.34 0.20 - 0.80 K/cumm CHRISSY Comment:Testing performed by : [address], [place]., [address] Eosinophil abs 0.03 0.00 - 0.50 K/cumm [facility] Comment:Testing performed by : [address], [place]., [address] Basophil abs 0.03 0.00 - 0.10 K/cumm [facility] Comment:Testing performed by : [address] [address] Neutrophil pct 52.4 % [facility] Comment: Interpretive Data Percent cell count reference ranges are not reported, since discordance with absolute values may lead to misinterpretation of CBC data. Current Interpretive Data was last revised on 2017. Testing performed by: [address] [address] Imm gran pct 0.9 % [facility] Comment: Interpretive Data Percent cell count reference ranges are not reported, since discordance with absolute values may lead to misinterpretation of CBC data. Current Interpretive Data was last revised on 2017. Testing performed by: [address] [address] Lymphocyte pct 28.2 % [facility] Comment: Interpretive Data Percent cell count reference ranges are not reported, since discordance with absolute values may lead to misinterpretation of CBC data. Current Interpretive Data was last revised on 2017. Testing performed by: [address] [address] Monocyte pct 15.7 % [facility] Comment: Interpretive Data Percent cell count reference ranges are not reported, since discordance with absolute values may lead to misinterpretation of CBC data. Current Interpretive Data was last revised on 2017. Testing performed by: [address] [address] Eosinophil pct 1.4 % [facility] Comment: Interpretive Data Percent cell count reference ranges are not reported, since discordance with absolute values may lead to misinterpretation of CBC data. Current Interpretive Data was last revised on 2017. Testing performed by: [address] [address] Basophil pct 1.4 % CHRISSY Comment: Interpretive Data Percent cell count reference ranges are not reported, since discordance with absolute values may lead to misinterpretation of CBC data. Current Interpretive Data was last revised on 2017. Testing performed by: [address] [address] Blood 11/11/2024 9:20 AM CDT 11/11/2024 9:24 AM CDT us Braden Hare MD LAB BLOOD ORDERABLES Final R esult CHRISSY [address] [facility] Department [place] [address] * (ABNORMAL) CBC with auto differential (11/11/2024 9:20 AM CDT) WBC 2.16(L) 3.80 - 9.90 K/cumm Comment:Testing performed by : [address] [address] Hgb 7.4(L) 13.0 - 17.5 g/dL CHRISSY BELLO Comment:Testing performed by : [address] [address] Hct 22.3(L) 38.9 - 50.3 % CHRISSY Comment:Testing performed by : [address] [address] Plt 45(L) 150 - 400 K/cumm CHRISSY Comment:Testing performed by : [address] [address] MPV Not Measured 9.1 - 12.3 fL CHRISSY BELLO Comment:Testing performed by : [address] [address] RBC 2.35(L) 4.30 - 5.80 M/cumm CHRISSY BELLO Comment:Testing performed by : [address] [address] MCV 94.9 81.3 - 96.4 fL CHRISSY BELLO Comment:Testing performed by : [address] [address] MCH 31.5 27.1 - 33.3 pg CHRISSY BELLO Comment:Testing performed by : [address] [address] MCHC 33.2 32.3 - 35.7 g/dL CHRISSY BELLO Comment:Testing performed by : [address] [address] RDW CV 17.7(H) 11.1 - 14.9 % CHRISSY Comment:Testing performed by : [address] [address] RDW SD 60.2(H) 35.7 - 48.1 fL CHRISSY BELLO Comment:Testing performed by : [address] [address] NRBC abs 0.00 0.00 - 0.01 K/cumm CHRISSY Comment:Testing performed by : [address] [address] ANC Prelim 1.13(L) 1.50 - 6.50 K/cumm CHRISSY Comment: Interpretive Data The rapid ANC is a preliminary automated count and may vary from the final ANC (Neut Abs) reported in the WBC differential that follows. Current interpretive data was last revised 2024. Testing performed by: [address] [address] Blood 11/11/2024 9:20 AM CDT 11/11/2024 9:24 AM CDT us Braden Hare MD LAB BLOOD ORDERABLES Edited Result - Final CHRISSY [address] [facility] Department [place] [address] * ABO/Rh (11/11/2024 9:20 AM CDT) ABO/Rh O Positive Comment:Testing performed by : [address] [place] [address] Blood 11/11/2024 9:20 AM CDT 11/11/2024 9:41 AM CDT Narrative CHRISSY - 11/11/2024 10:22 AM CDT Has the patient had Daratumumab or Isatuximab in the past 6 months?->Unknown Braden Hare MD LAB BLOOD BANK TEST ORDERABL ES Final Result Performing Organization Address City/[facility] Co de Phone Number [address] [place] [place] [address] * Crossmatch (11/11/2024 9:20 AM CDT) Crossmatch Compatible [facility] Unit number for crossmatch [id number] [facility] Blood 11/11/2024 9:20 AM CDT 11/11/2024 9:41 AM CDT Braden Hare MD LAB BLOOD BANK TEST ORDERABL ES Final Result Performing Organization Address [facility] Co de Phone Number [address] [place] [address] * Antibody screen (11/11/2024 9:20 AM CDT) Chris, indirect, Gel Interpretation Negative [facility]SC Comment:Testing performed by : [facility], [address] [place] [address]., [address] Blood 11/11/2024 9:20 AM CDT 11/11/2024 9:41 AM CDT Narrative CHRISSY - 11/11/2024 10:21 AM CDT Has the patient had Daratumumab or Isatuximab in the past 6 months?->Unknown Braden Hare MD LAB BLOOD BANK TEST ORDERABL ES Final Result Performing Organization Address [facility] Co de Phone Number [address] [place] [address] * (ABNORMAL) Immature platelet fraction (11/06/2024 9:18 AM CDT) Pathologist [facility] IPF 19.0(H) 1.6 - 10.1 % Comment:Testing performed by : [address] [address] Blood 11/06/2024 9:18 AM CDT 11/06/2024 9:20 AM CDT us Braden Hare MD LAB BLOOD ORDERABLES Final R esult Performing Organization Address City/[facility]/ZIP Co de Phone Number [facility] [address] [facility] Department [place] [address] * (ABNORMAL) Blood smear review (11/06/2024 9:18 AM CDT) Pathologist [facility] RBC morphology Present(A ) Comment:Testing performed by : [address] [address] Anisocytosis Slight(A) CHRISSY Comment:Testing performed by : [address] [address] Schistocytes 1-2/HPF(A ) CHRISSY Comment:Testing performed by : [address] [address] Elliptocytes 3-7/HPF(A ) CHRISSY Comment:Testing performed by : [address] [address] Acanthocytes 3-7/HPF(A ) CHRISSY Comment:Testing performed by : [address] [address] Platelet estimate Decreased (A) CHRISSY Comment:Testing performed by : [address] [address] Blood 11/06/2024 9:18 AM CDT 11/06/2024 9:20 AM CDT us Braden Hare MD LAB BLOOD ORDERABLES Final R esult CHRISSY [address] [facility] Department [place] [address] * (ABNORMAL) Differential, auto (11/06/2024 9:18 AM CDT) Neutrophil abs 1.52 1.50 - 6.50 K/cumm Comment:Testing performed by : [address] [address] Imm gran abs 0.02 0.00 - 0.10 K/cumm CHRISSY Comment:Testing performed by : [address] [address] Lymphocyte abs 0.67(L) 0.80 - 3.30 K/cumm CHRISSY Comment:Testing performed by : [address] [address] Monocyte abs 0.51 0.20 - 0.80 K/cumm CHRISSY Comment:Testing performed by : [address] [address] Eosinophil abs 0.02 0.00 - 0.50 K/cumm CHRISSY Comment:Testing performed by : [address] [address] Basophil abs 0.04 0.00 - 0.10 K/cumm CHRISSY Comment:Testing performed by : [address] [address] Neutrophil pct 54.8 % CHRISSY Comment: Interpretive Data Percent cell count reference ranges are not reported, since discordance with absolute values may lead to misinterpretation of CBC data. Current Interpretive Data was last revised on 2017. Testing performed by: [address] [address] Imm gran pct 0.7 % CHRISSY Comment: Interpretive Data Percent cell count reference ranges are not reported, since discordance with absolute values may lead to misinterpretation of CBC data. Current Interpretive Data was last revised on 2017. Testing performed by: [address] [address] Lymphocyte pct 24.1 % CHRISSY Comment: Interpretive Data Percent cell count reference ranges are not reported, since discordance with absolute values may lead to misinterpretation of CBC data. Current Interpretive Data was last revised on 2017. Testing performed by: [address] [address] Monocyte pct 18.3 % CHRISSY Comment: Interpretive Data Percent cell count reference ranges are not reported, since discordance with absolute values may lead to misinterpretation of CBC data. Current Interpretive Data was last revised on 2017. Testing performed by: [address] [address] Eosinophil pct 0.7 % CHRISSY Comment: Interpretive Data Percent cell count reference ranges are not reported, since discordance with absolute values may lead to misinterpretation of CBC data. Current Interpretive Data was last revised on 2017. Testing performed by: [address] [address] Basophil pct 1.4 % CHRISSY Comment: Interpretive Data Percent cell count reference ranges are not reported, since discordance with absolute values may lead to misinterpretation of CBC data. Current Interpretive Data was last revised on 2017. Testing performed by: [address] [address] Blood 11/06/2024 9:18 AM CDT 11/06/2024 9:20 AM CDT us Braden Hare MD LAB BLOOD ORDERABLES Final R esult CHRISSY [address] [facility] Department of Laboratories [place], [place] [id number] * (ABNORMAL) CBC with auto differential (11/06/2024 9:18 AM CDT) WBC 2.78(L) 3.80 - 9.90 K/cumm Comment:Testing performed by : [address] [address] Hgb 8.2(L) 13.0 - 17.5 g/dL CHRISSY BELLO Comment:Testing performed by : [address] [address] Hct 24.5(L) 38.9 - 50.3 % CHRISSY Comment:Testing performed by : [address] [address] Plt 37(L) 150 - 400 K/cumm CHRISSY Comment:Testing performed by : [address] [address] MPV Not Measured 9.1 - 12.3 fL CHRISSY Comment:Testing performed by : [address] [address] RBC 2.62(L) 4.30 - 5.80 M/cumm CHRISSY Comment:Testing performed by : [address] [address] MCV 93.5 81.3 - 96.4 fL CHRISSY Comment:Testing performed by : [address] [address] MCH 31.3 27.1 - 33.3 pg CHRISSY Comment:Testing performed by : [address] [address] MCHC 33.5 32.3 - 35.7 g/dL CHRISSY Comment:Testing performed by : [address] [address] RDW CV 16.8(H) 11.1 - 14.9 % CHRISSY Comment:Testing performed by : [address] [address] RDW SD 55.5(H) 35.7 - 48.1 fL CHRISSY Comment:Testing performed by : [address] [address] NRBC abs 0.00 0.00 - 0.01 K/cumm CHRISSY Comment:Testing performed by : [address] [address] ANC Prelim 1.52 1.50 - 6.50 K/cumm CHRISSY Comment: Interpretive Data The rapid ANC is a preliminary automated count and may vary from the final ANC (Neut Abs) reported in the WBC differential that follows. Current interpretive data was last revised 2024. Testing performed by: [address] [address] Blood 11/06/2024 9:18 AM CDT 11/06/2024 9:20 AM CDT Braden Hare MD LAB BLOOD ORDERABLES Edited Result - Final Performing Organization Address [facility] Co de Phone Number CHRISSY [address] [place] [address] * (ABNORMAL) Immature platelet fraction (11/04/2024 8:53 AM CDT) IPF 21.3(H) 1.6 - 10.1 % Comment:Testing performed by : [address] [address] Blood 11/04/2024 8:53 AM CDT 11/04/2024 8:57 AM CDT Braden Hare MD LAB BLOOD ORDERABLES Final R esult Performing Organization Address [facility] Co de Phone Number CLAUD[facility] [address] * (ABNORMAL) Blood smear review (11/04/2024 8:53 AM CDT) RBC morphology Present(A ) Comment:Testing performed by : [address] [address] Anisocytosis Slight(A) CHRISSY Comment:Testing performed by : [address] [address] Schistocytes 1-2/HPF(A ) CHRISSY Comment:Testing performed by : [address] [address] Elliptocytes 3-7/HPF(A ) CHRISSY Comment:Testing performed by : [address] [address] Acanthocytes 3-7/HPF(A ) CHRISSY Comment:Testing performed by : [address] [address] Platelet estimate Decreased (A) CHRISSY Comment:Testing performed by : [address] [address] Blood 11/04/2024 8:53 AM CDT 11/04/2024 8:57 AM CDT us Braden Hare MD LAB BLOOD ORDERABLES Final R esult [facility] [address] [facility] Department [place] [address] * (ABNORMAL) Differential, auto (11/04/2024 8:53 AM CDT) Neutrophil abs 1.50 1.50 - 6.50 K/cumm Comment:Testing performed by : [address] [address] Imm gran abs 0.01 0.00 - 0.10 K/cumm CHRISSY Comment:Testing performed by : [address] [address] Lymphocyte abs 0.48(L) 0.80 - 3.30 K/cumm CHRISSY Comment:Testing performed by : [address] [address] Monocyte abs 0.36 0.20 - 0.80 K/cumm CHRISSY Comment:Testing performed by : [address] [address] Eosinophil abs 0.03 0.00 - 0.50 K/cumm CHRISSY Comment:Testing performed by : [address] [address] Basophil abs 0.03 0.00 - 0.10 K/cumm CHRISSY Comment:Testing performed by : [address] [address] Neutrophil pct 62.4 % CHRISSY Comment: Interpretive Data Percent cell count reference ranges are not reported, since discordance with absolute values may lead to misinterpretation of CBC data. Current Interpretive Data was last revised on 2017. Testing performed by: [address] [address] Imm gran pct 0.4 % [facility] Comment: Interpretive Data Percent cell count reference ranges are not reported, since discordance with absolute values may lead to misinterpretation of CBC data. Current Interpretive Data was last revised on 2017. Testing performed by: [address] [address] Lymphocyte pct 19.9 % [facility] Comment: Interpretive Data Percent cell count reference ranges are not reported, since discordance with absolute values may lead to misinterpretation of CBC data. Current Interpretive Data was last revised on 2017. Testing performed by: [address] [address] Monocyte pct 14.9 % [facility] Comment: Interpretive Data Percent cell count reference ranges are not reported, since discordance with absolute values may lead to misinterpretation of CBC data. Current Interpretive Data was last revised on 2017. Testing performed by: [address] [address] Eosinophil pct 1.2 % [facility] Comment: Interpretive Data Percent cell count reference ranges are not reported, since discordance with absolute values may lead to misinterpretation of CBC data. Current Interpretive Data was last revised on 2017. Testing performed by: [address] [address] Basophil pct 1.2 % [facility] Comment: Interpretive Data Percent cell count reference ranges are not reported, since discordance with absolute values may lead to misinterpretation of CBC data. Current Interpretive Data was last revised on 2017. Testing performed by: [address] [address] Blood 11/04/2024 8:53 AM CDT 11/04/2024 8:57 AM CDT us Braden Hare MD LAB BLOOD ORDERABLES Final R esult CHRISSY [address] [facility] Department [place] [address] * (ABNORMAL) CBC with auto differential (11/04/2024 8:53 AM CDT) [facility] WBC 2.41(L) 3.80 - 9.90 K/cumm Comment:Testing performed by : [address], [address] Hgb 8.1(L) 13.0 - 17.5 g/dL CHRISSY Comment:Testing performed by : [address], [address] Hct 24.3(L) 38.9 - 50.3 % CHRISSY Comment:Testing performed by : [address], [address] Plt 30(L) 150 - 400 K/cumm CHRISSY Comment:Testing performed by : [address], [address] MPV Not Measured 9.1 - 12.3 fL CHRISSY Comment:Testing performed by : [address], [address] RBC 2.60(L) 4.30 - 5.80 M/cumm CHRISSY Comment:Testing performed by : [address], [address] MCV 93.5 81.3 - 96.4 fL CHRISSY Comment:Testing performed by : [address], [address] MCH 31.2 27.1 - 33.3 pg CHRISSY Comment:Testing performed by : [address], [address] MCHC 33.3 32.3 - 35.7 g/dL CHRISSY Comment:Testing performed by : [address], [address] RDW CV 16.7(H) 11.1 - 14.9 % CHRISSY Comment:Testing performed by : [address], [address] RDW SD 55.0(H) 35.7 - 48.1 fL CHRISSY Comment:Testing performed by : [address], [address] NRBC abs 0.00 0.00 - 0.01 K/cumm CHRISSY Comment:Testing performed by : [address] [address] ANC Prelim 1.50 1.50 - 6.50 K/cumm CHRISSY Comment: Interpretive Data The rapid ANC is a preliminary automated count and may vary from the final ANC (Neut Abs) reported in the WBC differential that follows. Current interpretive data was last revised 2024. Testing performed by: [address] [address] Blood 11/04/2024 8:53 AM CDT 11/04/2024 8:57 AM CDT us Braden Hare MD LAB BLOOD ORDERABLES Edited Result - Final [facility] Department [place] [address] * (ABNORMAL) Blood smear review (10/30/2024 8:37 AM CDT) RBC morphology Present(A ) Comment:Testing performed by : [address] [address] Schistocytes 1-2/HPF(A ) CHRISSY Comment:Testing performed by : [address] [address] Elliptocytes 3-7/HPF(A ) CHRISSY Comment:Testing performed by : [address] [address] Teardrop cells 3-7/HPF(A ) CHRISSY Comment:Testing performed by : [address] [address] Platelet estimate Decreased (A) CHRISSY Comment:Testing performed by : [address] [address] Blood 10/30/2024 8:37 AM CDT 10/30/2024 8:40 AM CDT us Braden Hare MD LAB BLOOD ORDERABLES Final R esult [facility] [address] [facility] Department [place] [address] * (ABNORMAL) Differential, auto (10/30/2024 8:37 AM CDT) Neutrophil abs 1.22(L) 1.50 - 6.50 K/cumm Comment:Testing performed by : [address] [address] Imm gran abs 0.02 0.00 - 0.10 K/cumm CHRISSY Comment:Testing performed by : [address] [address] Lymphocyte abs 0.50(L) 0.80 - 3.30 K/cumm CHRISSY Comment:Testing performed by : [address] [address] Monocyte abs 0.45 0.20 - 0.80 K/cumm CHRISSY Comment:Testing performed by : [address] [address] Eosinophil abs 0.02 0.00 - 0.50 K/cumm CHRISSY Comment:Testing performed by : [address] [address] Basophil abs 0.02 0.00 - 0.10 K/cumm CHRISSY Comment:Testing performed by : [address] [address] Neutrophil pct 54.7 % CHRISSY Comment: Interpretive Data Percent cell count reference ranges are not reported, since discordance with absolute values may lead to misinterpretation of CBC data. Current Interpretive Data was last revised on 2017. Testing performed by: [address] [address] Imm gran pct 0.9 % CHRISSY Comment: Interpretive Data Percent cell count reference ranges are not reported, since discordance with absolute values may lead to misinterpretation of CBC data. Current Interpretive Data was last revised on 2017. Testing performed by: [address] [address] Lymphocyte pct 22.4 % CHRISSY Comment: Interpretive Data Percent cell count reference ranges are not reported, since discordance with absolute values may lead to misinterpretation of CBC data. Current Interpretive Data was last revised on 2017. Testing performed by: [address] [address] Monocyte pct 20.2 % CHRISSY Comment: Interpretive Data Percent cell count reference ranges are not reported, since discordance with absolute values may lead to misinterpretation of CBC data. Current Interpretive Data was last revised on 2017. Testing performed by: [address] [address] Eosinophil pct 0.9 % CHRISSY Comment: Interpretive Data Percent cell count reference ranges are not reported, since discordance with absolute values may lead to misinterpretation of CBC data. Current Interpretive Data was last revised on 2017. Testing performed by: [address] [address] Basophil pct 0.9 % CHRISSY Comment: Interpretive Data Percent cell count reference ranges are not reported, since discordance with absolute values may lead to misinterpretation of CBC data. Current Interpretive Data was last revised on 2017. Testing performed by: [address] [address] Blood 10/30/2024 8:37 AM CDT 10/30/2024 8:40 AM CDT us Braden Hare MD LAB BLOOD ORDERABLES Final R esult CHRISSY [address] [facility] Department [place] [address] * (ABNORMAL) CBC with auto differential (10/30/2024 8:37 AM CDT) WBC 2.23(L) 3.80 - 9.90 K/cumm Comment:Testing performed by : [address] [address] Hgb 8.4(L) 13.0 - 17.5 g/dL CHRISYS BELLO Comment:Testing performed by : [address], [address] Hct 24.9(L) 38.9 - 50.3 % CHRISSY Comment:Testing performed by : [address] [address] Plt 50(L) 150 - 400 K/cumm CHRISSY Comment:Testing performed by : [address] [address] MPV Not Measured 9.1 - 12.3 fL CHRISSY Comment:Testing performed by : [address], [address] RBC 2.70(L) 4.30 - 5.80 M/cumm CHRISSY Comment:Testing performed by : [address], [address] MCV 92.2 81.3 - 96.4 fL CHRISSY Comment:Testing performed by : [address], [address] MCH 31.1 27.1 - 33.3 pg CHRISSY Comment:Testing performed by : [address] [address] MCHC 33.7 32.3 - 35.7 g/dL CHRISSY Comment:Testing performed by : [address], [address] RDW CV 16.7(H) 11.1 - 14.9 % CHRISSY Comment:Testing performed by : [address], [address] RDW SD 53.9(H) 35.7 - 48.1 fL CHRISSY Comment:Testing performed by : [address] [address] NRBC abs 0.00 0.00 - 0.01 K/cumm CHRISSY Comment:Testing performed by : [address] [address] ANC Prelim 1.22(L) 1.50 - 6.50 K/cumm CHRISSY Comment: Interpretive Data The rapid ANC is a preliminary automated count and may vary from the final ANC (Neut Abs) reported in the WBC differential that follows. Current interpretive data was last revised 2024. Testing performed by: [address] [address] Blood 10/30/2024 8:37 AM CDT 10/30/2024 8:40 AM CDT Braden Hare MD LAB BLOOD ORDERABLES Edited Result - Final Performing Organization Address City/[facility] Co de Phone Number CHRISSY [address] [place] [address] * Transfuse RBC (10/28/2024 2:46 PM CDT) Blood Brooke Clayton MD BLOOD TRANSFUSION ORDERABLE S Final Result * Prepare RBC: 1 Units (10/28/2024 12:22 PM CDT) Units requested 1 Comment:Testing performed by : [address] [address] Units requested Ready [facility] Comment:Testing performed by : [address] [address] Unit Number [id number] Product code [id number] [facility] Blood Expiration Date [id number] [facility] Product Blood Type (for scanning) 5100 [facility] Product Blood Type OPOS [facility] Dispense Status DISPENSED [facility] Blood 10/28/2024 12:2 2 PM CDT 10/28/2024 12:21 PM CDT Braden Hare MD BLOOD BANK PRODUCT ORDERABLE S Final Result Performing Organization Address [facility] Co de Phone Number CHRISSY [address] [employer] [place], [place] [id number] * (ABNORMAL) Blood smear review (10/28/2024 9:08 AM CDT) RBC morphology Present(A ) Comment:Testing performed by : [address] [address] Anisocytosis Slight(A) CHRISSY Comment:Testing performed by : [address], [place]., [address] Schistocytes 1-2/HPF(A ) [facility] Comment:Testing performed by : [address] [address] Elliptocytes 3-7/HPF(A ) [facility] Comment:Testing performed by : [address] [address] Acanthocytes 8-15/HPF( A) [facility] Comment:Testing performed by : [address], [place]., [address] Platelet estimate Decreased (A) [facility] Comment:Testing performed by : [facility], [address] [place] [address], [place]., [address] Blood 10/28/2024 9:08 AM CDT 10/28/2024 9:10 AM CDT us Braden Hare MD LAB BLOOD ORDERABLES Final R esult [facility] [address] [facility] Department [place] [address] * eGFR (10/28/2024 9:08 AM CDT) eGFR 74 >=60 mL/min/1. 73 m2 Comment: [...] was last reviewed 2021. Testing performed by: [address] [address] Blood 10/28/2024 9:08 AM CDT 10/28/2024 9:10 AM CDT us Braden Hare MD LAB BLOOD ORDERABLES Final R esult [facility] [address] [facility] Department [place] [address] * (ABNORMAL) Differential, auto (10/28/2024 9:08 AM CDT) Neutrophil abs 1.74 1.50 - 6.50 K/cumm Comment:Testing performed by : [address] [address] Imm gran abs 0.06 0.00 - 0.10 K/cumm CHRISSY Comment:Testing performed by : [address] [address] Lymphocyte abs 0.48(L) 0.80 - 3.30 K/cumm CHRISSY Comment:Testing performed by : [address] [address] Monocyte abs 0.60 0.20 - 0.80 K/cumm CHRISSY Comment:Testing performed by : [address] [address] Eosinophil abs 0.02 0.00 - 0.50 K/cumm CHRISSY Comment:Testing performed by : [address] [address] Basophil abs 0.03 0.00 - 0.10 K/cumm CHRISSY Comment:Testing performed by : [address] [address] Neutrophil pct 59.4 % CHRISSY Comment: Interpretive Data Percent cell count reference ranges are not reported, since discordance with absolute values may lead to misinterpretation of CBC data. Current Interpretive Data was last revised on 2017. Testing performed by: [address] [address] Imm gran pct 2.0 % [facility] Comment: Interpretive Data Percent cell count reference ranges are not reported, since discordance with absolute values may lead to misinterpretation of CBC data. Current Interpretive Data was last revised on 2017. Testing performed by: [address] [address] Lymphocyte pct 16.4 % [facility] Comment: Interpretive Data Percent cell count reference ranges are not reported, since discordance with absolute values may lead to misinterpretation of CBC data. Current Interpretive Data was last revised on 2017. Testing performed by: [address] [address] Monocyte pct 20.5 % [facility] Comment: Interpretive Data Percent cell count reference ranges are not reported, since discordance with absolute values may lead to misinterpretation of CBC data. Current Interpretive Data was last revised on 2017. Testing performed by: [address] [address] Eosinophil pct 0.7 % [facility] Comment: Interpretive Data Percent cell count reference ranges are not reported, since discordance with absolute values may lead to misinterpretation of CBC data. Current Interpretive Data was last revised on 2017. Testing performed by: [address] [address] Basophil pct 1.0 % [facility] Comment: Interpretive Data Percent cell count reference ranges are not reported, since discordance with absolute values may lead to misinterpretation of CBC data. Current Interpretive Data was last revised on 2017. Testing performed by: [address] [address] Blood 10/28/2024 9:08 AM CDT 10/28/2024 9:10 AM CDT us Braden Hare MD LAB BLOOD ORDERABLES Final R esult [facility] [address] [facility] Department [place] [address] * Antibody screen, tube (10/28/2024 9:08 AM CDT) Pathologist [facility] Chris, indirect, Tube Interpretation Negative ABSC Comment:Testing performed by : [address] [address] Blood 10/28/2024 9:08 AM CDT 10/28/2024 9:58 AM CDT us Braden Hare MD LAB BLOOD ORDERABLES Final R esult [facility] [address] [facility] Department [place] [address] * (ABNORMAL) CBC with auto differential (10/28/2024 9:08 AM CDT) Pathologist [facility] WBC 2.93(L) 3.80 - 9.90 K/cumm Comment:Testing performed by : [address] [address] Hgb 7.5(L) 13.0 - 17.5 g/dL CHRISSY Comment:Testing performed by : [address] [address] Hct 22.8(L) 38.9 - 50.3 % [facility]SY Comment:Testing performed by : [address] [address] Plt 66(L) 150 - 400 K/cumm CHRISSY Comment:Testing performed by : [address] [address] MPV Not Measured 9.1 - 12.3 fL [facility] Comment:Testing performed by : [address] [address] RBC 2.44(L) 4.30 - 5.80 M/cumm CHRISSY Comment:Testing performed by : [address] [address] MCV 93.4 81.3 - 96.4 fL [facility]SY Comment:Testing performed by : [address], [address] MCH 30.7 27.1 - 33.3 pg [facility]SY Comment:Testing performed by : [address] [address] MCHC 32.9 32.3 - 35.7 g/dL CHRISSY BELLO Comment:Testing performed by : [address] [address] RDW CV 17.2(H) 11.1 - 14.9 % [facility]ISSY Comment:Testing performed by : [address] [address] RDW SD 55.4(H) 35.7 - 48.1 fL [facility]SY Comment:Testing performed by : [address] [address] NRBC abs 0.00 0.00 - 0.01 K/cumm CH[facility]ISSY Comment:Testing performed by : [address] [address] ANC Prelim 1.74 1.50 - 6.50 K/cumm CHRISSY Comment: Interpretive Data The rapid ANC is a preliminary automated count and may vary from the final ANC (Neut Abs) reported in the WBC differential that follows. Current interpretive data was last revised 2024. Testing performed by: [address] [address] Blood 10/28/2024 9:08 AM CDT 10/28/2024 9:10 AM CDT us Braden Hare MD LAB BLOOD ORDERABLES Edited Result - Final [facility] [address] [facility] Department [place] [address] * ABO/Rh (10/28/2024 9:08 AM CDT) ABO/Rh O Positive Comment:Testing performed by : [address] [address] Blood 10/28/2024 9:08 AM CDT 10/28/2024 9:58 AM CDT Narrative [facility] - 10/28/2024 10:47 AM CDT Has the patient had Daratumumab or Isatuximab in the past 6 months?->Unknown Braden Hare MD LAB BLOOD BANK TEST ORDERABL ES Final Result Performing Organization Address [facility]/ZIP Co de Phone Number [address] [place] [address] * Crossmatch (10/28/2024 9:08 AM CDT) Pathologist [facility] Crossmatch Compatible [facility] Unit number for crossmatch [id number] [facility]SY Blood 10/28/2024 9:08 AM CDT 10/28/2024 9:58 AM CDT Braden Hare MD LAB BLOOD BANK TEST ORDERABL ES Final Result Performing Organization Address [facility]/RUST de Phone Number [address] [address] * (ABNORMAL) Comprehensive metabolic panel (10/28/2024 9:08 AM CDT) [facility] Sodium 137 135 - 145 mmol/L Comment:Testing performed by : [address] [address] Potassium, pl 4.2 3.3 - 4.9 mmol/L CH[facility]ISSY Comment:Testing performed by : [address] [address] Chloride 101 97 - 110 mmol/L [facility] Comment:Testing performed by : [address] [address] CO2 26 22 - 32 mmol/L [facility] Comment:Testing performed by : [address] [address] Anion gap 10 2 - 15 mmol/L CH[facility]ISSY Comment:Testing performed by : [address] [address] BUN 20 6 - 25 mg/dL [facility]SY Comment:Testing performed by : [address] [address] Creatinine 1.00 0.80 - 1.30 mg/dL [facility]SY Comment:Testing performed by : [address] [address] Glucose 317(H) 70 - 199 mg/dL CHRISSY [...] was last revised 2022. Testing performed by: [address] [address] Calcium 9.2 8.5 - 10.3 mg/dL [facility] Comment:Testing performed by : [address] [address] Bilirubin, total 1.2 0.1 - 1.2 mg/dL CH[facility]SY Comment:Testing performed by : [address] [address] Protein, pl 6.1(L) 6.5 - 8.5 g/dL CH[facility]SY Comment:Testing performed by : [address] [address] Albumin 3.8 3.5 - 5.0 g/dL [facility] Comment:Testing performed by : [address] [address] Alk phos 56 40 - 130 Units/L CH[facility]SY Comment:Testing performed by : [address] [address] ALT 14 7 - 55 Units/L [facility]SY Comment:Testing performed by : [address] [address] AST 12 10 - 50 Units/L [facility]SY Comment:Testing performed by : [address] [address] Blood 10/28/2024 9:08 AM CDT 10/28/2024 9:10 AM CDT us Braden Hare MD LAB BLOOD ORDERABLES Final R esult Performing Organization Address [facility]/ZIP Co de Phone Number [facility] [address] [facility] Department [place] [address] * Transfuse RBC (10/23/2024 12:22 PM CDT) Blood Brooke Clayton MD BLOOD TRANSFUSION ORDERABLE S Final Result * (ABNORMAL) Blood smear review (10/23/2024 9:37 AM CDT) RBC morphology Present(A ) Comment:Testing performed by : [address] [address] Anisocytosis Slight(A) CH[facility]ISSY Comment:Testing performed by : [address] [address] Schistocytes 1-2/HPF(A ) [facility] Comment:Testing performed by : [address] [address] Elliptocytes 8-15/HPF( A) [facility]SY Comment:Testing performed by : [address] [address] Acanthocytes 8-15/HPF( A) [facility]SY Comment:Testing performed by : [address] [address] Platelet estimate Decreased (A) [facility]SY Comment:Testing performed by : [address] [address] Blood 10/23/2024 9:37 AM CDT 10/23/2024 9:41 AM CDT Braden Hare MD LAB BLOOD ORDERABLES Final R esult [facility] [address] [facility] Department [place] [address] * (ABNORMAL) Differential, auto (10/23/2024 9:37 AM CDT) Neutrophil abs 2.08 1.50 - 6.50 K/cumm Comment:Testing performed by : [address] [address] Imm gran abs 0.03 0.00 - 0.10 K/cumm CHRISSY Comment:Testing performed by : [address] [address] Lymphocyte abs 0.42(L) 0.80 - 3.30 K/cumm CHRISSY Comment:Testing performed by : [address] [address] Monocyte abs 0.30 0.20 - 0.80 K/cumm CHRISSY Comment:Testing performed by : [address] [address] Eosinophil abs 0.02 0.00 - 0.50 K/cumm CHRISSY Comment:Testing performed by : [address] [address] Basophil abs 0.04 0.00 - 0.10 K/cumm CHRISSY Comment:Testing performed by : [address] [address] Neutrophil pct 72.0 % CHRISSY Comment: Interpretive Data Percent cell count reference ranges are not reported, since discordance with absolute values may lead to misinterpretation of CBC data. Current Interpretive Data was last revised on 2017. Testing performed by: [address] [address] Imm gran pct 1.0 % CH[facility]SY Comment: Interpretive Data Percent cell count reference ranges are not reported, since discordance with absolute values may lead to misinterpretation of CBC data. Current Interpretive Data was last revised on 2017. Testing performed by: [address] [address] Lymphocyte pct 14.5 % CH[facility]SY Comment: Interpretive Data Percent cell count reference ranges are not reported, since discordance with absolute values may lead to misinterpretation of CBC data. Current Interpretive Data was last revised on 2017. Testing performed by: [address] [address] Monocyte pct 10.4 % CHRISSY Comment: Interpretive Data Percent cell count reference ranges are not reported, since discordance with absolute values may lead to misinterpretation of CBC data. Current Interpretive Data was last revised on 2017. Testing performed by: [address] [address] Eosinophil pct 0.7 % CH[facility]ISSY Comment: Interpretive Data Percent cell count reference ranges are not reported, since discordance with absolute values may lead to misinterpretation of CBC data. Current Interpretive Data was last revised on 2017. Testing performed by: [address] [address] Basophil pct 1.4 % CHRISSY Comment: Interpretive Data Percent cell count reference ranges are not reported, since discordance with absolute values may lead to misinterpretation of CBC data. Current Interpretive Data was last revised on 2017. Testing performed by: [address] [address] Blood 10/23/2024 9:37 AM CDT 10/23/2024 9:41 AM CDT us Braden Hare MD LAB BLOOD ORDERABLES Final R esult [facility] [address] [facility] Department [place] [address] * (ABNORMAL) CBC with auto differential (10/23/2024 9:37 AM CDT) WBC 2.89(L) 3.80 - 9.90 K/cumm Comment:Testing performed by : [address] [address] Hgb 7.0(L) 13.0 - 17.5 g/dL CHRISSY BELLO Comment:Testing performed by : [address] [address] Hct 20.8(L) 38.9 - 50.3 % CHRISSY Comment:Testing performed by : [address] [address] Plt 67(L) 150 - 400 K/cumm CHRISSY Comment:Testing performed by : [address] [address] MPV Not Measured 9.1 - 12.3 fL CH[facility]SY Comment:Testing performed by : [address] [address] RBC 2.24(L) 4.30 - 5.80 M/cumm CHRISSY Comment:Testing performed by : [address] [address] MCV 92.9 81.3 - 96.4 fL CH[facility]ISSY Comment:Testing performed by : [address] [address] MCH 31.3 27.1 - 33.3 pg CHRISSY Comment:Testing performed by : [address] [address] MCHC 33.7 32.3 - 35.7 g/dL CH[facility]ISSY Comment:Testing performed by : [address] [address] RDW CV 17.4(H) 11.1 - 14.9 % CHRISSY Comment:Testing performed by : [address] [address] RDW SD 56.2(H) 35.7 - 48.1 fL CH[facility]SY Comment:Testing performed by : [address] [address] NRBC abs 0.00 0.00 - 0.01 K/cumm CHRISSY Comment:Testing performed by : [address] [address] ANC Prelim 2.08 1.50 - 6.50 K/cumm CHRISSY Comment: Interpretive Data The rapid ANC is a preliminary automated count and may vary from the final ANC (Neut Abs) reported in the WBC differential that follows. Current interpretive data was last revised 2024. Testing performed by: [address] [address] Blood 10/23/2024 9:37 AM CDT 10/23/2024 9:41 AM CDT us Braden Hare MD LAB BLOOD ORDERABLES Edited Result - Final Performing Organization Address [facility] Co de Phone Number [place] [phone] [facility] [place] [place] [address] * Prepare RBC: 1 Units (10/20/2024 4:09 PM CDT) Units requested 1 Comment:Testing performed by : [address] [address] Units requested Ready CHRISSY BELLO Comment:Testing performed by : [address] [address] Unit Number [id number] Product code [id number] [facility] Blood Expiration Date 985396201701 [facility] Product Blood Type (for scanning) 5100 [facility] Product Blood Type OPOS [facility] Dispense Status DISPENSED [facility] Blood 10/20/2024 4:09 PM CDT 10/20/2024 4:[address] Oliveira NP BLOOD BANK PRODUCT ORDERABL ES Final Result Performing Organization Address [facility] Co de Phone Number [place] [phone] [facility] [place] [address] * Transfuse RBC (10/20/2024 3:04 PM CDT) Blood us Brooke Clayton MD BLOOD TRANSFUSION ORDERABLE S Final Result * Prepare RBC: 1 Units (10/20/2024 12:21 PM CDT) Units requested 1 Comment:Testing performed by : [address] [address] Units requested Ready CHRISSY BELLO Comment:Testing performed by : [facility], [address] [place] [address]., [address] Unit Number [id number] Product code [id number] [facility] Blood Expiration Date [id number] [facility] Product Blood Type (for scanning) 5100 [facility] Product Blood Type OPOS [facility] Dispense Status DISPENSED [facility] Blood 10/20/2024 12:2 1 PM CDT 10/20/2024 12:[address] Oliveira NP BLOOD BANK PRODUCT ORDERABL ES Final Result [facility] [address] [facility] Department [place] [address] * Cytogenetics Specimen Tracking Bone marrow (10/20/2024 9:18 AM CDT) Pathologist [facility] Cytotenetics Tracking Order Received Bone marrow 10/20/2024 9:18 AM CDT 10/20/2024 1:49 PM CDT Narrative [facility] - 11/07/2024 8:32 AM CDT Please read the Cytogenetics Epic requisition for specimen collection requirements. us Braden Hare MD LAB BODY FLUIDS AND STOOLS O RDERABLES Final Result [facility] [place] [address] * Diagnosis MyeloSeq Heme NGS Panel with Interpretation Bone marrow (10/20/2024 9:18 AM CDT) Bone marrow (Bone Marrow Biopsy) 10/20/2024 9:18 AM CDT 10/20/2024 2:[address] [facility] DIAGNOSTIC LAB - CYTOGENETICS - 10/31/2024 4:38 PM CDT [facility] Pathology Services [facility] [address] [place] [address] Final Report Patient Name: JUANITA RODRIGUEZ Address: [address] [place] [id number] Gender: M : 1940 (Age: 84) Accessioned: 10/20/2024 Taken: 10/20/2024 Received: 10/20/2024 Physician(s): Braden Hare M.D. Service: [facility] Location: [facility] #: [id number] Patient Type: [facility] MyeloSeq Molecular DiagnosticsReported:10/31/2024 Varients Detected: GENE EXON VARIANT PROTEIN CHANGE VAF CLINICAL SIGNIFICANCE* PREVIOUSLY DETECTED CUX1 8 STOP GAINED L211* 0.5% PATHOGENIC YES CUX1 19 FRAMESHIFT V121Omh*7 7% PATHOGENIC YES EZH2 15 STOP GAINED [...] variant was present in the prior case ([id number]). This variant is most consistent with a germline polymorphism. 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 Corresponding bone marrow biopsy ([id number]) shows markedly hypercellular marrow with multilineage dysplasia and no increase in blasts. Corresponding cytogenetic studies ([id number]) show no evidence of deletion/monosomy of EGR1 (5q), O5Z951 (7q) or TP53 (17p) by FISH (chromosome analysis is pending). Specimen site: Bone marrow Variant Detail: Gene Location (GRCh38) Reference allele Variant allele Transcript:Coding change Population Frequency* CUX1 chr7:718413137 T G [id number]:c.632T>G none CUX1 chr7:722492813 AC A [id number]:c.2954del none EZH2 chr7:991943556 C A [id number]:c.1750G>T none ETV6 chr12:64440555 T A [id number]:c.1173T>A none ASXL1 chr20:52508594 C T [id number]:c.3115C>T <0.001% U2AF1 chr21:35051540 T G [id number]:c.470A>C 0.005% PIGA chrX:21576244 G A [id number]:c.1381C>T 0.010% ZRSR2 chrX:26245608 C T [id number]:c.106C>T none ZRSR2 chrX:36687515 C T [id number]:c.883C>T none PHF6 chrX:291619250 G T [id number]:c.349G>T none PHF6 chrX:081856862 C T QWZS57140400716:c.955C>T none*The population allele frequency represents the maximum [...] the CLIA Licensed Environment laboratory at the [facility] ([facility], CLIA #[id number], CAP #[id number]), Dr. Yoav Drake MD, PhD, [facility], Ballistics Tester. [address] [facility], [address] [place] [address] . The [facility] laboratory is regulated under CLIA as certified to perform high-complexity testing. Interpretation of sequencing results and case sign out is performed by Pathology and Immunology faculty in the Division of Genomic and Molecular Pathology (-[facility], CLIA #[id number], CAP #[id number]) Dr. Michelle Modi Ph.D., Ballistics Tester. [facility], [facility] [facility], [address], [place] [address] [phone] . The [facility] is regulated [...] 30GBases of sequencing data generated on an HackerHAND X Plus. This test has been validated according to CAP guidelines for the detection of single nucleotide variants (SNVs) and indels (max validated size 117bp). This assay has two limits of detection: for new variants (not previously reported by [facility]) sensitivity is limited to 2% VAF; for [...] Such information and correlations are subject to exchange specialist time in response to future scientific and [...] regarding the Report. In no event shall SAMANTHA be liable for any actual damages, indirect damages, and/or special or consequential damages arising out of or in any way connected with the Report, your use of the Report, your reliance on the Report, or any defect or inaccurate information included within the Report. Keshav Oscar M.D.Report Electronically Reviewed and Signed Out By Keshav Oscar M.D. 10/31/2024 16:37:40 Braden Hare MD LAB PATHOLOGY ORDERABLES Fin al Result Performing Organization Address [facility] Co de Phone Number [facility] DIAG[facility]STIC [facility] - CYTOGENETICS [address] [place] [address] * Flow Leukemia/Lymphoma Bone marrow (10/20/2024 9:18 AM CDT) Ha Stain Test Completed Leukemia/Lymp thalia Result See separate Surgical Pathology report. [facility] Bone marrow 10/20/2024 9:18 AM CDT 10/20/2024 3:53 PM CDT Narrative [facility] - 10/20/2024 9:27 PM CDT Tube information: Green top (Sodium Heparin) us Braden Hare MD LAB PATHOLOGY ORDERABLES Fin al Result Performing Organization Address [facility] Co de Phone Number [facility] [place] [address] * Surgical pathology (10/20/2024 9:18 AM CDT) Bone marrow (Bone Marrow Biopsy) 10/20/2024 9:18 AM CDT 10/20/2024 1:00 PM CDT Narrative PATHOLOGY [facility] - 10/22/2024 6:08 PM CDT EPIC results best viewed via link to PDF [facility] of [place] [address] Note to Patients: This report may contain [...] Gender: M : 1940 (Age: 84) Address: [address] [place], [place] [id number] Hospital #: [id number] Taken:10/20/2024 Received:10/20/2024 Reported: 10/22/2024 Patient Type: [facility] SPECIMEN Service: Laboratory Location: Physician(s): Chandler Skinner PA-C Diagnosis: Bone marrow, left posterior iliac crest, core biopsy, clot, and aspirate: - Markedly hypercellular marrow with multilineage dysplasia - No excess blasts - See comment irene/10/21/2024 12:10 By this signature, I attest that [...] B1. Jar 1. sxst/10/20/2024 15:01 PA(s): Ese Yady CBC: Date: 10/20/24 WBCs: 7.81x10^3/mcl Hemoglobin: 6.3g/dl [...] There is a small population of CD3- UK31-hvnmjzzl CD45 bright cells (5% of lymphocytes events), consistent with natural killer cells. A Ha-Giemsa stained cytospin from the flow cytometry specimen was examined for internal quality control clerk purposes. Flow cytometry was performed using antibodies [...] Pathology and Flow Cytometry Departments at [facility] as part of an ongoing senior data quality analyst program and in compliance with federally mandated [...] Pathology and Flow Cytometry Departments of [facility]. It has not been cleared or approved by the U. S. Food and Drug Administration. IMAGES AND SCANNED DOCUMENTS, IF INCLUDED, ONLY VIEWABLE IN PDF VERSION OF REPORT us Chandler [facility] PATHOLOGY ORDERABLES Final Result PATHOLOGY [facility] 3rd Floor [place], [place] [phone] * Cytogenetics Bone marrow (10/20/2024 9:17 AM CDT) Bone marrow (Bone Marrow Biopsy) 10/20/2024 9:17 AM CDT 10/20/2024 9:17 AM CDT [facility] DIAGNOSTIC LAB - CYTOGENETICS - 10/31/2024 5:07 PM CDT [facility] results best viewed via link to PDF [facility] Department of Pathol [facility] [place] [address] Patient Information Name: JUANITA RODRIGUEZ Gender: M : 1940 (Age: 84) Tissue: Bone Marrow w/ FISH Visit Information Hospital #: [id number] Facility: [facility] Service: [facility]PT Location: UNKNOWN Patient Type: [facility] Specimen Information: Culture #: [id number] Date Collected: 10/20/2024 Date Accessioned: 10/20/2024 Date [...] Karyotyped: 3Banding Resolution: 400Subculture: Karyotype: 46,XY[20].nuc jesus (EGR1)x2[200],(B2T949)x2[200],(TP53)x2[200] Diagnosis: CHROMOSOME ANALYSIS: NO EVIDENCE OF CLONAL ABERRATIONS FISH FINDINGS: NO EVIDENCE OF DELETION/MONOSOMY OF EGR1 (5q), I4H341 (7q) OR TP53 (17p) INTERPRETATION: No clonal [...] Hybridization (FISH) analysis are performed using the [employer] Cytovision Imaging System. Report Electronically Reviewed and Signed Out By Ottoniel Urban, PhD, FACMGDate Reported: 5Associate Professor, Division of Genomic & Molecular Pathology FLUORESCENCE IN-SITU HYBRIDIZATION [FISH] Karyotype: nuc jesus (EGR1)x2[200],(U7I362)x2[200],(TP53)x2[200] Diagnosis: FISH FINDINGS: NO EVIDENCE OF DELETION/MONOSOMY OF EGR1 (5q), S9W272 (7q) OR TP53 (17p) INTERPRETATION: FISH analysis was performed with a panel of [employer] and [employer] probes for MDS and is interpreted as NORMAL. 1) FISH evaluation for a 5q deletion was performed on nuclei with the EGR1,O5L693/W1O1374 Dual Color Probe ([employer] for EGR1 at 5q31.1 and the control R8L130/L4C1773 at 5p15.31 and is interpreted as NORMAL. Two EGR1 hybridization signals and two O2R885/D2Z3058 control hybridization signals were observed in 200/200 nuclei, which is within the normal range established for this probe in the [facility] at [facility]. Up to 3.1% of cells in [...] was performed on nuclei with the LSI V6N158/D7Z1 Dual Color Probe ([employer]is [employer] for M2S397 at 7q31 and the control D7Z1 at 7p11.1-q11.1 and is interpreted as NORMAL. Two P6E796 hybridization signals and two D7Z1 control hybridization signals were observed in 199/200 nuclei, which is within the normal range established for this probe in the [facility] at [facility]. Up to 1% of cells in normal samples can show an apparent 7q deletion using this probe. A normal F6Q668 FISH finding can result from the absence of a 7q deletion, from a 7q deletion that does not involve the region to which this probe hybridizes or from an insufficient number of neoplastic cells in the specimen. 3) FISH evaluation for a TP53 deletion was performed on nuclei with the LSI TP53 Dual Color Probe ([employer] for TP53 at 17p13.1 and the control D17Z1 at 17p11.1-q11.1 and is interpreted as NORMAL. Two TP53 hybridization signals and two D17Z1 control hybridization signals were observed in 198/200 nuclei, which is within the normal range established for this probe in the [facility] at [facility]. Up to 2.7% of cells in [...] developed and its performance characteristics determined by [facility]. It has not been cleared or approved by the FDA. The laboratory is regulated under CLIA as qualified to perform high-complexity testing. This test is used for clinical purposes. It should not be regarded as investigational or for research. Professional component performed by Lillian Tinoco, Ph.D., [facility], [address], [place], [place] (CLIA #: [id number]). Chromosome analysis and Fluorescence In Situ Hybridization (FISH) analysis are performed using the [employer] Cytovision Imaging System. Report Electronically Reviewed and Signed Out By Lillian Tinoco, PhDDate Reported: 10/22/2024 us Braden Hare MD LAB GENETIC TESTING Final Re sult [facility] - CYTOGENETICS [address] [facility] [place] [address] * (ABNORMAL) Immature platelet fraction (10/20/2024 8:33 AM CDT) IPF 23.6(H) 1.6 - 10.1 % Comment:Testing performed by : [facility], [address] [place] [address]., [address] Blood 10/20/2024 8:33 AM CDT 10/20/2024 8:39 AM CDT us Braden Hare MD LAB BLOOD ORDERABLES Final R esult CH[facility]ISSY [address] [facility] Department [place] [address] * (ABNORMAL) CBC with auto differential (10/20/2024 8:33 AM CDT) WBC 7.81 3.80 - 9.90 K/cumm Comment:Testing performed by : [address] [address] Hgb 6.3(C) 13.0 - 17.5 g/dL CHRISSY Comment: This result has been called to Sandra Bronson RN Epic Secure Chat by [id number] on 10/20/2024 09:00:23, and has been read back. Testing performed by: [address] [address] Hct 18.9(L) 38.9 - 50.3 % CHRISSY Comment:Testing performed by : [address] [address] Plt 49(L) 150 - 400 K/cumm CHRISSY Comment:Testing performed by : [address] [address] MPV Not Measured 9.1 - 12.3 fL CHRISSY Comment:Testing performed by : [address] [address] RBC 2.01(L) 4.30 - 5.80 M/cumm CHRISSY Comment:Testing performed by : [address] [address] MCV 94.0 81.3 - 96.4 fL CHRISSY BELLO Comment:Testing performed by : [address] [address] MCH 31.3 27.1 - 33.3 pg CHRISSY BELLO Comment:Testing performed by : [address] [address] MCHC 33.3 32.3 - 35.7 g/dL CHRISSY Comment:Testing performed by : [address] [address] RDW CV 18.3(H) 11.1 - 14.9 % CHRISSY BELLO Comment:Testing performed by : [address] [address] RDW SD 61.7(H) 35.7 - 48.1 fL CH[facility]SY Comment:Testing performed by : [address] [address] NRBC abs 0.00 0.00 - 0.01 K/cumm CHRISSY Comment:Testing performed by : [address] [address] ANC Prelim 5.51 1.50 - 6.50 K/cumm CHRISSY Comment: Interpretive Data The rapid ANC is a preliminary automated count and may vary from the final ANC (Neut Abs) reported in the WBC differential that follows. Current interpretive data was last revised 2024. Testing performed by: [address] [address] Blood 10/20/2024 8:33 AM CDT 10/20/2024 8:39 AM CDT Braden Hare MD LAB BLOOD ORDERABLES Edited Result - Final [facility] [address] [facility] Department of Laboratories [place], [place] [id number] * ABO/Rh (10/20/2024 8:33 AM CDT) ABO/Rh O Positive Comment:Testing performed by : [address] [address] Blood 10/20/2024 8:33 AM CDT 10/20/2024 9:39 AM CDT Narrative CHRISSY BELLO - 10/20/2024 10:06 AM CDT Has the patient had Daratumumab or Isatuximab in the past 6 months?->Unknown Ct Oliveira EARLY CHILDHOOD EDUCATION SPECIALIST LAB BLOOD BANK TEST ORDERAB LES Final Result [facility] [address] [facility] Department [place] [address] * (ABNORMAL) Manual Differential (10/20/2024 8:33 AM CDT) Differential Manual Comment:Testing performed by : [address] [address] Cells Counted 100 CHRISSY Comment:Testing performed by : [address] [address] Neutrophil abs 6.17 1.50 - 6.50 K/cumm CHRISSY Comment:Testing performed by : [address] [address] Lymphocyte abs 0.55(L) 0.80 - 3.30 K/cumm CHRISSY Comment:Testing performed by : [address] [address] Monocyte abs 1.02(H) 0.20 - 0.80 K/cumm CHRISSY Comment:Testing performed by : [address] [address] Basophil abs 0.08 0.00 - 0.10 K/cumm CHRISSY Comment:Testing performed by : [address] [address] Neutrophil pct 79.0 % CHRISSY Comment: Interpretive Data Percent cell count reference ranges are not reported, since discordance with absolute values may lead to misinterpretation of CBC data. Current Interpretive Data was last revised on 2017. Testing performed by: [address] [address] Lymphocyte pct 7.0 % CHRISSY Comment: Interpretive Data Percent cell count reference ranges are not reported, since discordance with absolute values may lead to misinterpretation of CBC data. Current Interpretive Data was last revised on 2017. Testing performed by: [address] [address] Monocyte pct 13.0 % CHRISSY Comment: Interpretive Data Percent cell count reference ranges are not reported, since discordance with absolute values may lead to misinterpretation of CBC data. Current Interpretive Data was last revised on 2017. Testing performed by: [address], [place]., [address] Basophil pct 1.0 % CHRISSY Comment: Interpretive Data Percent cell count reference ranges are not reported, since discordance with absolute values may lead to misinterpretation of CBC data. Current Interpretive Data was last revised on 2017. Testing performed by: [address], [place]., [address] RBC morphology Present(A) CHRISSY Comment:Testing performed by : [address] [address] Anisocytosis Slight(A) CHRISSY Comment:Testing performed by : [address] [address] Schistocytes 1-2/HPF(A) CHRISSY Comment:Testing performed by : [address] [address] Elliptocytes 3-7/HPF(A) CHRISSY Comment:Testing performed by : [address] [address] Acanthocytes 3-7/HPF(A) CHRISSY Comment:Testing performed by : [address] [address] Teardrop cells 3-7/HPF(A) CHRISSY Comment:Testing performed by : [address] [address] Platelet estimate Decreased( A) CHRISSY Comment:Testing performed by : [address] [address] Blood 10/20/2024 8:33 AM CDT 10/20/2024 8:39 AM CDT us Braden Hare MD LAB BLOOD ORDERABLES Final R esult [facility] [address] [facility] Department of Laboratories [place], [place] [id number] [phone] * Crossmatch (10/20/2024 8:33 AM CDT) Pathologist [facility] Crossmatch Compatible [facility] Unit number for crossmatch [id number] [facility] Crossmatch Compatible [facility] Unit number for crossmatch [id number] [facility] Blood 10/20/2024 8:33 AM CDT 10/20/2024 9:39 AM CDT Braden Hare MD LAB BLOOD BANK TEST ORDERABL ES Final Result Performing Organization Address [facility] Co de Phone Number [address] [address] * Antibody screen (10/20/2024 8:33 AM CDT) Pathologist [facility] Chris, indirect, Gel Interpretation Negative ABSC Comment:Testing performed by : [address], [address] Blood 10/20/2024 8:33 AM CDT 10/20/2024 9:39 AM CDT Narrative [facility] - 10/20/2024 12:10 PM CDT Has the patient had Daratumumab or Isatuximab in the past 6 months?->Unknown Ct Oliveira NP LAB BLOOD BANK TEST ORDERAB LES Final Result Performing Organization Address [facility] Co de Phone Number [address] [address] * (ABNORMAL) Immature platelet fraction (10/09/2024 2:09 PM CDT) Pathologist [facility] IPF 21.5(H) 1.6 - 10.1 % Comment:Testing performed by : [address] [address] Blood 10/09/2024 2:09 PM CDT 10/09/2024 2:21 PM CDT us Braden Hare MD LAB BLOOD ORDERABLES Final R esult CHRISSY BELLO [address] [facility] [place] [address] * (ABNORMAL) Blood smear review (10/09/2024 2:09 PM CDT) RBC morphology Present(A ) Comment:Testing performed by : [facility], [address] [place] [address]., [address] Anisocytosis Moderate( A) CHRISSY Comment:Testing performed by : [facility], [address] [place] [address], [place]., [address] Schistocytes 1-2/HPF(A ) CHRISSY Comment:Testing performed by : [facility], [address] [place] [address], [place]., [address] Elliptocytes 3-7/HPF(A ) CHRISSY Comment:Testing performed by : [address] [address] Acanthocytes 3-7/HPF(A ) CHRISSY Comment:Testing performed by : [address], [place]., [address] Teardrop cells 3-7/HPF(A ) CHRISSY Comment:Testing performed by : [address], [place]., [address] Platelet estimate Decreased (A) CHRISSY Comment:Testing performed by : [address] [address] Blood 10/09/2024 2:09 PM CDT 10/09/2024 2:21 PM CDT us Braden Hare MD LAB BLOOD ORDERABLES Final R esult [facility] [address] [facility] [place] [address] * eGFR (10/09/2024 2:09 PM CDT) eGFR [...] was last reviewed 2021. Testing performed by: [address] [address] Blood 10/09/2024 2:09 PM CDT 10/09/2024 2:21 PM CDT us Braden Hare MD LAB BLOOD ORDERABLES Final R esult [facility]ANN[facility] [address] [facility] Department [place] [address] * (ABNORMAL) Differential, auto (10/09/2024 2:09 PM CDT) Neutrophil abs 1.88 1.50 - 6.50 K/cumm Comment:Testing performed by : [address] [address] Imm gran abs 0.03 0.00 - 0.10 K/cumm CHRISSY Comment:Testing performed by : [address] [address] Lymphocyte abs 0.59(L) 0.80 - 3.30 K/cumm CHRISSY Comment:Testing performed by : [address] [address] Monocyte abs 0.47 0.20 - 0.80 K/cumm CHRISSY Comment:Testing performed by : [address] [address] Eosinophil abs 0.03 0.00 - 0.50 K/cumm [facility] Comment:Testing performed by : [address] [address] Basophil abs 0.05 0.00 - 0.10 K/cumm BANNERSERINA Comment:Testing performed by : [address] [address] Neutrophil pct 61.7 % [facility] Comment: Interpretive Data Percent cell count reference ranges are not reported, since discordance with absolute values may lead to misinterpretation of CBC data. Current Interpretive Data was last revised on 2017. Testing performed by: [address] [address] Imm gran pct 1.0 % [facility] Comment: Interpretive Data Percent cell count reference ranges are not reported, since discordance with absolute values may lead to misinterpretation of CBC data. Current Interpretive Data was last revised on 2017. Testing performed by: [address] [address] Lymphocyte pct 19.3 % [facility] Comment: Interpretive Data Percent cell count reference ranges are not reported, since discordance with absolute values may lead to misinterpretation of CBC data. Current Interpretive Data was last revised on 2017. Testing performed by: [address] [address] Monocyte pct 15.4 % [facility] Comment: Interpretive Data Percent cell count reference ranges are not reported, since discordance with absolute values may lead to misinterpretation of CBC data. Current Interpretive Data was last revised on 2017. Testing performed by: [address] [address] Eosinophil pct 1.0 % [facility] Comment: Interpretive Data Percent cell count reference ranges are not reported, since discordance with absolute values may lead to misinterpretation of CBC data. Current Interpretive Data was last revised on 2017. Testing performed by: [address] [address] Basophil pct 1.6 % [facility] Comment: Interpretive Data Percent cell count reference ranges are not reported, since discordance with absolute values may lead to misinterpretation of CBC data. Current Interpretive Data was last revised on 2017. Testing performed by: [address] [address] Blood 10/09/2024 2:09 PM CDT 10/09/2024 2:21 PM CDT Braden Hare MD LAB BLOOD ORDERABLES Final R esult Performing Organization Address [facility] de Phone Number CH[facility]SY [address] [facility] [address] [place] [address] * (ABNORMAL) Iron profile w/ IBC (10/09/2024 2:09 PM CDT) Pathologist [facility] Iron 112 50 - 150 mcg/dL Comment:Testing performed by : [address] [address] TIBC 238(L) 250 - 400 mcg/dL CHRISSY Comment:Testing performed by : [address] [address] Transferrin saturation 47 20 - 50 % CHRISSY Comment:Testing performed by : [address] [address] Blood 10/09/2024 2:09 PM CDT 10/09/2024 3:55 PM CDT Braden Hare MD LAB BLOOD ORDERABLES Final R esult Performing Organization Address [facility] Co de Phone Number [facility] [address] [facility] [address] [place] [address] * (ABNORMAL) CBC with auto differential (10/09/2024 2:09 PM CDT) WBC 3.05(L) 3.80 - 9.90 K/cumm Comment:Testing performed by : [address] [address] Hgb 7.2(L) 13.0 - 17.5 g/dL CHRISSY Comment:Testing performed by : [address] [address] Hct 21.0(L) 38.9 - 50.3 % CHRISSY Comment:Testing performed by : [address] [address] Plt 37(L) 150 - 400 K/cumm CHRISSY Comment:Testing performed by : [address] [address] MPV Not Measured 9.1 - 12.3 fL CH[facility]SY Comment:Testing performed by : [address], [address] RBC 2.26(L) 4.30 - 5.80 M/cumm CHRISSY Comment:Testing performed by : [address], [address] MCV 92.9 81.3 - 96.4 fL CH[facility]SY Comment:Testing performed by : [address] [address] MCH 31.9 27.1 - 33.3 pg CHRISSY Comment:Testing performed by : [address] [address] MCHC 34.3 32.3 - 35.7 g/dL CH[facility]SY Comment:Testing performed by : [address] [address] RDW CV 18.1(H) 11.1 - 14.9 % CH[facility]SY Comment:Testing performed by : [address], [address] RDW SD 59.0(H) 35.7 - 48.1 fL CH[facility]SY Comment:Testing performed by : [address] [address] NRBC abs 0.00 0.00 - 0.01 K/cumm CHRISSY Comment:Testing performed by : [address] [address] ANC Prelim 1.88 1.50 - 6.50 K/cumm CHRISSY Comment: Interpretive Data The rapid ANC is a preliminary automated count and may vary from the final ANC (Neut Abs) reported in the WBC differential that follows. Current interpretive data was last revised 2024. Testing performed by: [address] [address] Blood 10/09/2024 2:09 PM CDT 10/09/2024 2:21 PM CDT Braden Hare MD LAB BLOOD ORDERABLES Final R esult Performing Organization Address [facility] de Phone Number [place] [phone] [facility] [address] [place] [address] * Reticulocyte Count (10/09/2024 2:09 PM CDT) [facility] Retics, absolute 31 20 - 87 K/cumm Comment:Testing performed by : [address] [address] Retics 1.4 0.4 - 2.9 % CHRISSY Comment:Testing performed by : [address] [address] Reticulocyte Hgb 32.7 30.5 - 38.0 pg CHRISSY Comment:Testing performed by : [address] [address] Blood 10/09/2024 2:09 PM CDT 10/09/2024 2:21 PM CDT Braden Hare MD LAB BLOOD ORDERABLES Final R esult Performing Organization Address [facility] de Phone Number [place] [phone] [facility] [place] [address] * Lactate dehydrogenase (LD) (10/09/2024 2:09 PM CDT) [facility] Lactate dehydrogenase (LDH) 129 100 - 250 Units/L Comment:Testing performed by : [address] [address] Blood 10/09/2024 2:09 PM CDT 10/09/2024 2:21 PM CDT Braden Hare MD LAB BLOOD ORDERABLES Final R esult Performing Organization Address [facility] Co de Phone Number CLAUDIO[address] [place] [address] * (ABNORMAL) Haptoglobin (10/09/2024 2:09 PM CDT) Haptoglobin 13(L) 30 - 200 mg/dL Blood 10/09/2024 2:09 PM CDT 10/09/2024 4:32 PM CDT Braden Hare MD LAB BLOOD ORDERABLES Final R esult Performing Organization Address [facility] Co de Phone Number [address] [address] * Folate (10/09/2024 2:09 PM CDT) Folic acid >20.0 >=5.0 ng/mL Comment:Testing performed by : [address] [address] Blood 10/09/2024 2:09 PM CDT 10/09/2024 3:55 PM CDT Result [facility] Braden Hare MD LAB BLOOD ORDERABLES Final R esult Performing Organization Address [facility] Co de Phone Number [address] [place] [address] * (ABNORMAL) Ferritin (10/09/2024 2:09 PM CDT) Ferritin 793(H) 30 - 400 ng/mL Comment:Testing performed by : [address] [address] Blood 10/09/2024 2:09 PM CDT 10/09/2024 3:55 PM CDT Braden Hare MD LAB BLOOD ORDERABLES Final R esult Performing Organization Address [facility] Co de Phone Number [facility] [address] [facility] [place] [address] * Vitamin B12 (10/09/2024 2:09 PM CDT) Pathologist [facility] Vitamin B12 1,101 230 - 1,250 pg/mL Comment:Testing performed by : [address] [address] Blood 10/09/2024 2:09 PM CDT 10/09/2024 3:55 PM CDT us Braden Hare MD LAB BLOOD ORDERABLES Final R esult Performing Organization Address [facility] Co de Phone Number CLAUDIO[address] [place] [address] * (ABNORMAL) Comprehensive metabolic panel (10/09/2024 2:09 PM CDT) [facility] Sodium 142 135 - 145 mmol/L Comment:Testing performed by : [address] [address] Potassium, pl 4.1 3.3 - 4.9 mmol/L CHRISSY Comment:Testing performed by : [address] [address] Chloride 104 97 - 110 mmol/L CHRISSY Comment:Testing performed by : [address] [address] CO2 27 22 - 32 mmol/L CHRISSY Comment:Testing performed by : [address] [address] Anion gap 11 2 - 15 mmol/L CHRISSY Comment:Testing performed by : [address] [address] BUN 18 6 - 25 mg/dL CHRISSY Comment:Testing performed by : [address] [address] Creatinine 0.90 0.80 - 1.30 mg/dL CHRISSY Comment:Testing performed by : [address] [place] [address] Glucose 122 70 - 199 mg/dL CHRISSY [...] was last revised 2022. Testing performed by: [address] [address] Calcium 9.5 8.5 - 10.3 mg/dL CHRISSY Comment:Testing performed by : [address] [address] Bilirubin, total 1.6(H) 0.1 - 1.2 mg/dL CHR[facility]SY Comment:Testing performed by : [address] [address] Protein, pl 6.4(L) 6.5 - 8.5 g/dL CHRISSY Comment:Testing performed by : [address] [address] Albumin 4.4 3.5 - 5.0 g/dL CHRISSY Comment:Testing performed by : [address] [address] Alk phos 44 40 - 130 Units/L CHRISSY Comment:Testing performed by : [address] [address] ALT 9 7 - 55 Units/L CHRISSY Comment:Testing performed by : [address] [address] AST 12 10 - 50 Units/L CHRISSY Comment:Testing performed by : [address] [address] Blood 10/09/2024 2:09 PM CDT 10/09/2024 2:21 PM CDT us Braden Hare MD LAB BLOOD ORDERABLES Final R esult [facility] [address] [facility] Department [place] [address] from Last 3 Months Insurance MEDICARE [employer] MEDICARE FOR LIFE FOR LIFE Care Teams Forensic Science Examiner Relationship Specialty Start Date End Date Patricia Sanchez MD PCP - General Family Medicine 07/05/17 [place] [address] [place] [address] Consulting Physician Hematology and Oncology 12/15/24
--- OUTSIDE RECORDS SUMMARY | 2025-01-08 10:34 | XMS_ITS ---
Author Organization [facility] Address [address] [place] [address] Care Team Providers Care Franchise Sales Manager Name Role Phone Patricia Sanchez MD Primary Care Prov ider Braden Hare MD Unavailable [phone] Active Problems Problem Noted Date Diagnosed Date [...] Medications Current Day (Day 1 , Cycle 3 - Planned for 01/01/2025) Next Day (Day 1, Cycle 4 - Planned for 02/05/2025) decitabine-cedazuridine (INQOVI) 35-100 mg tablet decitabine-cedazuridine (INQOVI) 35-100 mg tablet decitabine-cedazuridine (INQOVI) 35-100 mg tablet IV Maintenance Therapy Plan* Plan Start Date:12/24/2024 Plan Provider:Ct Oliveira NP Linked Problems Malignant [...]
== END 2025-01-07 10:51 | disposition home or self-care (01) ==
PROVIDERS: PCP Family Medicine; Visit Provider Urology
DX: C61 Malignant neoplasm of prostate (principal)
CPT/HCPCS: 36415; 84153

== ENCOUNTER 2025-02-17 11:38 | Outpatient (CLI) | payer MEDICARE, OTHER, SELFPAY ==
--- OUTSIDE RECORDS SUMMARY | 2025-02-16 08:15 | XMS_ITS | Encounter Summary ---
Author Organization [facility] Healthcare Address [address] [place] [address] Care Team Providers Care Date Puller Name Role Phone Patricia Sanchez MD Primary Care Prov ider Braden Hare MD Unavailable [phone] Encounter Details Date Type Department Care Team (Late st Contact Info) Description 02/16/2025 8:15 AM OUTSIDE SALES ADVERTISING EXECUTIVE Lab [facility] at [address] [address] MDS (myelodysplastic syndrome) (HCC) Social History Tobacco Use Types Packs/Day Years [...] on file Legal Sex Male 10:48 AM OUTSIDE SALES ADVERTISING EXECUTIVE Gender Identity Male 02/09/2020 12:06 PM OUTSIDE SALES ADVERTISING EXECUTIVE Sexual Orientation Straight 02/09/2020 12 :06 PM OUTSIDE SALES ADVERTISING EXECUTIVE documented as of this encounter Functional Status documented as of this encounter Plan of Treatment Not on file documented as of this encounter Procedures Procedure Name Priority Date/Time Associated Diagnosis Comments IMMATURE PLATELET FRACTION Routine 02/16/2025 8:23 AM OUTSIDE SALES ADVERTISING EXECUTIVE MDS (myelodysplastic syndrome) (HCC) BLOOD SMEAR REVIEW Routine 02/16/2025 8: 23 AM OUTSIDE SALES ADVERTISING EXECUTIVE MDS (myelodysplastic syndrome) (HCC) EGFR Routine 02/16/2025 8:23 AM OUTSIDE SALES ADVERTISING EXECUTIVE MDS (myelodysplastic syndrome) (HCC) DIFFERENTIAL AUTO Routine 02/16/2025 8:2 3 AM OUTSIDE SALES ADVERTISING EXECUTIVE MDS (myelodysplastic syndrome) (HCC) CBC WITH AUTO DIFFERENTIAL Routine 02/16/2025 8:23 AM OUTSIDE SALES ADVERTISING EXECUTIVE MDS (myelodysplastic syndrome) (HCC) TYPE AND SCREEN Routine 02/16/2025 8:23 AM OUTSIDE SALES ADVERTISING EXECUTIVE MDS (myelodysplastic syndrome) (HCC) COMPREHENSIVE METABOLIC PANEL Routine 02/16/2025 8:23 AM OUTSIDE SALES ADVERTISING EXECUTIVE MDS (myelodysplastic syndrome) (HCC) documented in this encounter Results * (ABNORMAL) Blood smear review (02/16/2025 8:23 AM OUTSIDE SALES ADVERTISING EXECUTIVE) RBC morphology Consistent with RBC Indicies Comment:Testing performed by : [address] [address] Poikilocytosis Slight(A) CHRISSY BELLO Comment:Testing performed by : [address] [address] Platelet estimate Decreased(A) CHRISSY Comment:Testing performed by : [address] [address] Blood 02/16/2025 8:23 AM OUTSIDE SALES ADVERTISING EXECUTIVE 02/16/2025 8:30 AM OUTSIDE SALES ADVERTISING EXECUTIVE us Braden Hare MD LAB BLOOD ORDERABLES Final R esult CHRISSY BELLO [address] [facility] Department [place] [address] * (ABNORMAL) Immature platelet fraction (02/16/2025 8:23 AM OUTSIDE SALES ADVERTISING EXECUTIVE) IPF 24.7(H) 1.6 - 10.1 % Comment:Testing performed by : [address] [address] Blood 02/16/2025 8:23 AM OUTSIDE SALES ADVERTISING EXECUTIVE 02/16/2025 8:30 AM OUTSIDE SALES ADVERTISING EXECUTIVE Braden Hare MD LAB BLOOD ORDERABLES Final R esult Performing Organization Address [facility] Co de Phone Number CHRISSY [address] [place] [place] [address] * eGFR (02/16/2025 8:23 AM OUTSIDE SALES ADVERTISING EXECUTIVE) Pathologist [facility] eGFR 73 >=60 mL/min/1. 73 m2 Comment: Interpretive Data [...] was last reviewed 2021. Testing performed by: [address] [address] Blood 02/16/2025 8:23 AM OUTSIDE SALES ADVERTISING EXECUTIVE 02/16/2025 8:30 AM OUTSIDE SALES ADVERTISING EXECUTIVE us Braden Hare MD LAB BLOOD ORDERABLES Final R esult Performing Organization Address City/[facility]/ZIP Co de Phone Number CHRISSY [address] Department [place] [address] * (ABNORMAL) Differential, auto (02/16/2025 8:23 AM OUTSIDE SALES ADVERTISING EXECUTIVE) Neutrophil abs 0.87(L) 1.50 - 6.50 K/cumm Comment:Testing performed by : [address] [address] Imm gran abs 0.00 0.00 - 0.10 K/cumm CHRISSY Comment:Testing performed by : [address], [place]., [address] Lymphocyte abs 0.35(L) 0.80 - 3.30 K/cumm CHRISSY Comment:Testing performed by : [address] [address] Monocyte abs 0.27 0.20 - 0.80 K/cumm CHRISSY Comment:Testing performed by : [address] [address] Eosinophil abs 0.02 0.00 - 0.50 K/cumm [facility] Comment:Testing performed by : [address] [address] Basophil abs 0.01 0.00 - 0.10 K/cumm [facility] Comment:Testing performed by : [address] [address] Neutrophil pct 57.2 % [facility] Comment: Interpretive Data Percent cell count reference ranges are not reported, since discordance with absolute values may lead to misinterpretation of CBC data. Current Interpretive Data was last revised on 2017. Testing performed by: [address] [address] Imm gran pct 0.0 % [facility] Comment: Interpretive Data Percent cell count reference ranges are not reported, since discordance with absolute values may lead to misinterpretation of CBC data. Current Interpretive Data was last revised on 2017. Testing performed by: [address] [address] Lymphocyte pct 23.0 % [facility] Comment: Interpretive Data Percent cell count reference ranges are not reported, since discordance with absolute values may lead to misinterpretation of CBC data. Current Interpretive Data was last revised on 2017. Testing performed by: [address] [address] Monocyte pct 17.8 % CHRISSY Comment: Interpretive Data Percent cell count reference ranges are not reported, since discordance with absolute values may lead to misinterpretation of CBC data. Current Interpretive Data was last revised on 2017. Testing performed by: [address] [address] Eosinophil pct 1.3 % CHRISSY Comment: Interpretive Data Percent cell count reference ranges are not reported, since discordance with absolute values may lead to misinterpretation of CBC data. Current Interpretive Data was last revised on 2017. Testing performed by: [address] [address] Basophil pct 0.7 % CHRISSY Comment: Interpretive Data Percent cell count reference ranges are not reported, since discordance with absolute values may lead to misinterpretation of CBC data. Current Interpretive Data was last revised on 2017. Testing performed by: [address] [address] Blood 02/16/2025 8:23 AM OUTSIDE SALES ADVERTISING EXECUTIVE 02/16/2025 8:30 AM OUTSIDE SALES ADVERTISING EXECUTIVE us Braden Hare MD LAB BLOOD ORDERABLES Final R esult [facility] [address] [facility] [place] [address] * (ABNORMAL) CBC with auto differential (02/16/2025 8:23 AM OUTSIDE SALES ADVERTISING EXECUTIVE) WBC 1.47(L) 3.80 - 9.90 K/cumm Comment:Testing performed by : [address] [address] Hgb 7.5(L) 13.0 - 17.5 g/dL CHRISSY Comment:Testing performed by : [address] [address] Hct 22.9(L) 38.9 - 50.3 % CHIRSSY Comment:Testing performed by : [address], [address] Plt 13(C) 150 - 400 K/cumm CHRISSY Comment: This result has been called to Sandra Bronson RN by [id number] on 02/16/2025 08:54:05, and has been read back. Testing performed by: [address], [address] MPV Not Measured 9.1 - 12.3 fL CHRISSY Comment:Testing performed by : [address] [address] RBC 2.41(L) 4.30 - 5.80 M/cumm CHRISSY Comment:Testing performed by : [address], [address] MCV 95.0 81.3 - 96.4 fL CHRISSY Comment:Testing performed by : [address] [address] MCH 31.1 27.1 - 33.3 pg CHRISSY Comment:Testing performed by : [address] [address] MCHC 32.8 32.3 - 35.7 g/dL CHRISSY Comment:Testing performed by : [address], [address] RDW CV 15.3(H) 11.1 - 14.9 % CHRISSY Comment:Testing performed by : [address], [address] RDW SD 46.5 35.7 - 48.1 fL [facility] Comment:Testing performed by : [address] [address] NRBC abs 0.00 0.00 - 0.01 K/cumm CHRISSY Comment:Testing performed by : [address] [address] ANC Prelim 0.87(L) 1.50 - 6.50 K/cumm CHRISSY Comment: Interpretive Data The rapid ANC is a preliminary automated count and may vary from the final ANC (Neut Abs) reported in the WBC differential that follows. Current interpretive data was last revised 2024. Testing performed by: [address] [address] Blood 02/16/2025 8:23 AM OUTSIDE SALES ADVERTISING EXECUTIVE 02/16/2025 8:30 AM OUTSIDE SALES ADVERTISING EXECUTIVE Braden Hare MD LAB BLOOD ORDERABLES Edited Result - Final [facility] [address] [facility] [place] [address] * (ABNORMAL) Comprehensive metabolic panel (02/16/2025 8:23 AM OUTSIDE SALES ADVERTISING EXECUTIVE) Sodium 139 135 - 145 mmol/L Comment:Testing performed by : [address] [address] Potassium, pl 4.1 3.3 - 4.9 mmol/L CHRISSY Comment:Testing performed by : [address] [address] Chloride 105 97 - 110 mmol/L CHRISSY Comment:Testing performed by : [address] [address] CO2 24 22 - 32 mmol/L CHRISSY Comment:Testing performed by : [address] [address] Anion gap 10 2 - 15 mmol/L CHRISSY Comment:Testing performed by : [address] [address] BUN 24 6 - 25 mg/dL CHRISSY Comment:Testing performed by : [address] [address] Creatinine 1.00 0.80 - 1.30 mg/dL CHRISSY Comment:Testing performed by : [address] [address] Glucose 285(H) 70 - 199 mg/dL CHRISSY Comment: Interpretive [...] was last revised 2022. Testing performed by: [address] [address] Calcium 9.0 8.5 - 10.3 mg/dL CHRISSY Comment:Testing performed by : [address] [address] Bilirubin, total 1.7(H) 0.1 - 1.2 mg/dL CHRISSY Comment:Testing performed by : [address] [address] Protein, pl 6.1(L) 6.5 - 8.5 g/dL CHRISSY Comment:Testing performed by : [address] [address] Albumin 4.2 3.5 - 5.0 g/dL CHRISSY Comment:Testing performed by : [address] [address] Alk phos 60 40 - 130 Units/L CHRISSY Comment:Testing performed by : [address] [address] ALT 7 7 - 55 Units/L CHRISSY Comment:Testing performed by : [address] [address] AST 10 10 - 50 Units/L CHRISSY Comment:Testing performed by : [address] [address] Blood 02/16/2025 8:23 AM OUTSIDE SALES ADVERTISING EXECUTIVE 02/16/2025 8:30 AM OUTSIDE SALES ADVERTISING EXECUTIVE us Braden Hare MD LAB BLOOD ORDERABLES Final R esult CHRISSY [address] [facility] Department of Laboratories [place], [place] [id number] * Type and screen (02/16/2025 8:23 AM OUTSIDE SALES ADVERTISING EXECUTIVE) ABO Rh O Positive CHRISSY Chris, indirect Negative CHRISSY Blood 02/16/2025 8:23 AM OUTSIDE SALES ADVERTISING EXECUTIVE 02/16/2025 9:44 AM OUTSIDE SALES ADVERTISING EXECUTIVE Narrative CHRISSY - 02/16/2025 10:34 AM OUTSIDE SALES ADVERTISING EXECUTIVE Has the patient had Daratumumab or Isatuximab in the past 6 months?->Unknown Braden Hare MD LAB BLOOD BANK TEST ORDERABL ES Final Result CHRISSY [address] [facility] [place] [address] documented in this encounter Visit Diagnoses Diagnosis MDS (myelodysplastic syndrome) (HCC) Myelodysplastic syndrome, unspecified documented in this encounter Orders Appointment Requests Count Last Ordered Date Fi rst Ordered Date ONCBCN LAB APPOINTMENT 1 02/16/2025 documented in this encounter Care Teams Date Puller Relationship Specialty Start Date End Date Patricia Sanchez MD PCP - General Family Medicine 07/05/17 [place] [address] [address] [place] [address] Consulting Physician Hematology and Oncology 12/15/24 documented as of this encounter
--- OUTSIDE RECORDS SUMMARY | 2025-02-16 11:15 | XMS_ITS | Encounter Summary ---
Author Organization [facility] Healthcare Address [address] [place] [address] Care Team Providers Care Transplant Surgeon Name Role Phone Patricia Sanchez MD Primary Care Prov ider Braden Hare MD Unavailable [phone] Reason for Visit * Reason Comments OP Infusion 1 unit of PRBc Encounter Details Date Type Department Care Team (Late st Contact Info) Description 02/16/2025 11:15 AM UPHOLSTERER APPRENTICE Infusion [facility] at [address] [place] [phone] MDS (myelodysplastic syndrome) (HCC) (Primary Dx); Anemia, unspecified type Social History Tobacco Use Types Packs/Day Years [...] on file Legal Sex Male 10:48 AM UPHOLSTERER APPRENTICE Gender Identity Male 02/09/2020 12:06 PM UPHOLSTERER APPRENTICE Sexual Orientation Straight 02/09/2020 12 :06 PM UPHOLSTERER APPRENTICE documented as of this encounter Last Filed Vital Signs Vital Sign Reading Time Taken Comments Blood Pressure 116/58 02/16/2025 1:12 PM UPHOLSTERER APPRENTICE Pulse 58 02/16/2025 1:12 PM UPHOLSTERER APPRENTICE Temperature 36.6 C (97.9 F) 02/16/2025 1:12 PM UPHOLSTERER APPRENTICE Respiratory Rate 16 02/16/2025 1:12 PM UPHOLSTERER APPRENTICE Oxygen Saturation 99% 02/16/2025 1:12 PM UPHOLSTERER APPRENTICE Inhaled Oxygen Concentration - - Weight 84.3 kg (185 lb 13.6 oz) 025 11:05 AM UPHOLSTERER APPRENTICE w/ shoes Height - - Body Mass Index 28.49 10/09/2024 2:21 PM CDT documented in this encounter Functional Status documented as of this encounter Nursing Notes * Marina Machuca RN - 02/16/2025 11:15 AM CST Oncology Nursing Note Blood Product Administration [facility] Tai Driss Garay is a 85 y.o. male who presents for the following transfusion: Blood Pre-treatment Nursing Assessment Nursing Assessment LOC: Alert, Awake Fatigue: None Any falls since your last visit?: No Orientation: Oriented x4 Behavior: Calm Speech: Clear Language: No aphasia Hearing: At Baseline Vision: At baseline Peripheral Neuropathy: Yes (no changes) Oral Mucosa Grade: Normal (0) Pt states has potential to be ?: N/A Shortness of Breath?: No Pt is on oxygen?: No Appetite: Good What diet do you follow at home?: regular Have you been eating poorly because of a decreased appetite?: No Nausea/Vomiting: No Diarrhea: No Constipation: No Skin Condition/Temp: Warm, Dry Swelling: No BP: 116/58 Temp: 36.6 ??C (97.9 ??F) Temp src: Oral Pulse: 58 Resp: 16 SpO2: 99 % Weight: 84.3 kg (185 lb 13.6 oz) (w/ shoes) Lab Result Lab Results Component Value Date WBC 1.47 (L) 02/16/2025 HGB 7.5 (L) 02/16/2025 HCT 22.9 (L) 02/16/2025 MCV 95.0 02/16/2025 LABPLAT 13 (Critical) 02/16/2025 Lab Results Component Value Date NEUTROABS 0.87 (L) 02/16/2025 Patient is within parameters for transfusion. Treatment Consent for transfusion: Active consent noted in patient chart. Prior transfusion reaction: No and No premedications ordered. Pre blood return: Brisk. Transfused patient with 1 unit PRBC per protocol. Tai Garay tolerated transfusion. IV line flushed until clear and patient observed for 15 minutes post transfusion. Additional notes: Pt states no new issues. Lungs remain clear. Vitals obtained and infusion titrated per protocol. Aware of next appointment. D/C's in stable condition. Post blood return: Brisk. IV access post infusion: NS. Patient Education Instructed on process and procedures related to today's visit including signs and symptoms of transfusion reaction. Response: Verbalizes understanding Discharge Plan Blood product transfusion discharge instructions given to patient. Future appointments given and reviewed with treatment plan. Discharge Mode: Ambulatory Accompanied by: Self Discharged To: Home LSTERER APPRENTICE documented in this encounter Plan of Treatment Not on file documented as of this encounter Procedures Procedure Name Priority Date/Time Associated Diagnosis Comments TRANSFUSE RED BLOOD CELLS Timed 02/16/2025 11:25 AM UPHOLSTERER APPRENTICE MDS (myelodysplastic syndrome) (HCC) Anemia, unspecified type PREPARE RBC Routine 02/16/2025 9:07 AM UPHOLSTERER APPRENTICE MDS (myelodysplastic syndrome) (HCC) Anemia, unspecified type documented in this encounter Results * Transfuse RBC (02/16/2025 1:13 PM UPHOLSTERER APPRENTICE) Blood us Brooke Clayton MD BLOOD TRANSFUSION ORDERABLE S Final Result * Transfuse RBC: 1 Units (02/16/2025 1:13 PM UPHOLSTERER APPRENTICE) Blood us Brooke Clayton MD BLOOD TRANSFUSION ORDERABLE S Final Result * Prepare RBC: 1 Units (02/16/2025 9:07 AM UPHOLSTERER APPRENTICE) Product code [id number] CHRISSY BELLO Unit Number [id number] CHRISSY BELLO Product Blood Type OPOS CHRISSY BELLO Dispense Status PRESUMED TRANSFUSED CHRISSY BELLO Blood 02/16/2025 9:07 AM UPHOLSTERER APPRENTICE 02/16/2025 9:06 AM UPHOLSTERER APPRENTICE Narrative CHRISSY - 02/17/2025 4:00 AM UPHOLSTERER APPRENTICE Are special requirements needed? (All products are leukoreduced and CMV- safe)- >No Date required:-[id number] LRRBC # of [id number] Reasons:-Active bleeding, Hgb <8 g/dL} us Braden Hare MD BLOOD BANK PRODUCT ORDERABLE S Final Result CHRISSY [address] [facility] Department [place] [address] documented in this encounter Visit Diagnoses Diagnosis MDS (myelodysplastic syndrome) (HCC)- Primary Myelodysplastic syndrome, unspecified Anemia, unspecified type documented in this encounter Orders Appointment Requests Count Last Ordered Date Fi rst Ordered Date ONCBCN BLOOD TRANSFUSION APPT 1 02/16/2025 documented in this encounter Care Teams Transplant Surgeon Relationship Specialty Start Date End Date Patricia Sanchez MD PCP - General Family Medicine 07/05/17 [place] [address] [address] [place] [address] Consulting Physician Hematology and Oncology 12/15/24 documented as of this encounter
--- NOTE | ~2025-02-17 | XR_ITS ---
EXAMINATION: XR chest 2V, 02/17/2025 11:45 [employer] HISTORY: ABN CHEST XRAY COMPARISON: No comparisons available. Technique: 2 views obtained. Findings: The lungs are clear, no effusion. No pneumothorax. Heart is normal size. Mediastinal and hilar contours are within normal limits. Bony thorax no acute abnormality. Impression: No acute cardiopulmonary abnormality. Reviewed, dictated and finalized at location P. [facility] Impression: No acute cardiopulmonary abnormality.
--- OUTSIDE RECORDS SUMMARY | 2025-02-17 14:01 | XMS_ITS | Clinical Summary ---
Author Organization [facility] Address [address] [place] [address] Care Team Providers Care Plant Sprayer Name Role Phone Patricia Sanchez MD Primary Care Prov ider Braden Hare MD Unavailable [phone] Allergies No known active allergies Medications atorvastatin (LIPITOR) 20 mg tablet Take 1 tablet (20 mg total) by mouth daily Active ULORIC 40 mg tablet 04/05/19 19 Active NIFEDIPINE CC 30 mg 24 hr tablet 03/26/19 19 Active cholecalciferol (VITAMIN D-3) 25 mcg (1,000 unit) tablet Take 2 tablets (2,000 Units total) by mouth daily Active PRECISION XTRA TEST strip 10/30/19 19 Active lisinopriL (PRINIVIL,ZESTR IL) 40 mg tablet 12/26/19 20 Active Trulicity 3 mg/0.5 mL pen injector 11/26/19 24 Active decitabine-ceda zuridine (INQOVI) 35-100 mg tabletIndicatio ns:MDS (myelodysplasti c syndrome) (HCC),Anemia, unspecified type Take 1 tablet by mouth daily Take on Days 1-5 of each cycle. Do not consume food 2 hours before and 2 hours after dose. 5 tablet 10/31/19 25 Active prochlorperazin e (Compazine) 10 mg tabletIndicatio ns:MDS (myelodysplasti c syndrome) (HCC),Anemia, unspecified type Take 1 tablet (10 mg total) by mouth every 6 (six) hours as needed for nausea or vomiting 30 tablet 3 10/30/19 25 Active valACYclovir (VALTREX) 500 mg tabletIndicatio ns:Prophylaxis, Medical Take 1 tablet (500 mg total) by mouth daily 30 tablet 5 10/30/19 25 Active decitabine-ceda zuridine (INQOVI) 35-100 mg tabletIndicatio ns:MDS (myelodysplasti c syndrome) (HCC),Anemia, unspecified type Take 1 tablet by mouth daily Take on Days 1-5 of each cycle. Do not consume food 2 hours before and 2 hours after dose. 5 tablet 01/02/20 25 Active ciprofloxacin (Cipro) 500 mg tabletIndicatio ns:MDS (myelodysplasti c syndrome) (HCC) Take 1 tablet (500 mg total) by mouth 2 (two) times a day 60 tablet 6 02/10/20 25 026 Active fluconazole (DIFLUCAN) 200 mg tabletIndicatio ns:MDS (myelodysplasti c syndrome) (HCC) Take 2 tablets (400 mg total) by mouth daily 60 tablet 6 02/10/20 25 Active fluconazole (DIFLUCAN) 200 mg tabletIndicatio ns:MDS (myelodysplasti c syndrome) (HCC) Take 2 tablets (400 mg total) by mouth daily 60 tablet 6 02/10/20 25 025 Discontinued ciprofloxacin (Cipro) 500 mg tabletIndicatio ns:MDS (myelodysplasti c syndrome) (HCC) Take 1 tablet (500 mg total) by mouth 2 (two) times a day 60 tablet 6 02/10/20 25 025 Discontinued ciprofloxacin (Cipro) 500 mg tabletIndicatio ns:MDS (myelodysplasti c syndrome) (HCC) Take 1 tablet (500 mg total) by mouth 2 (two) times a day 60 tablet 6 02/10/20 25 025 Discontinued(Re order) fluconazole (DIFLUCAN) 200 mg tabletIndicatio ns:MDS (myelodysplasti c syndrome) (HCC) Take 2 tablets (400 mg total) by mouth daily 60 tablet 6 02/10/20 25 025 Discontinued(Re order) ciprofloxacin (CIPRO) 500 mg tablet Take 1 tablet (500 mg total) by mouth 2 (two) times a day for 7 days 14 tablet 02/10/20 25 025 Discontinued fluconazole (DIFLUCAN) 200 mg tablet Take 2 tablets (400 mg total) by mouth daily for 7 days 14 tablet 02/10/20 25 025 Discontinued ciprofloxacin (CIPRO) 500 mg tablet Take 1 tablet (500 mg total) by mouth 2 (two) times a day for 7 days 14 tablet 02/10/20 25 025 fluconazole (DIFLUCAN) 200 mg tablet Take 2 tablets (400 mg total) by mouth daily for 7 days 14 tablet 02/10/20 25 025 Active Problems Problem Noted Date Diagnosed Date Anemia 05/07/2024 MDS (myelodysplastic syndrome) 05/22/2023 Malignant neoplasm of prostate 07/04/2017 Thrombocytopenia 07/04/2017 Resolved Problems Problem Noted Date Diagnosed Date Resolved Date Basal cell carcinoma (BCC) of skin of nose 05/12/2015 11/13/2017 Encounters Date Type Department Care Team Description 02/16/2025 11:15 AM MEMBER SERVICES COORDINATOR Infusion [facility] at [address] [address] MDS (myelodysplastic syndrome) (HCC) (Primary Dx); Anemia, unspecified type 02/16/2025 8:15 AM MEMBER SERVICES COORDINATOR Lab [facility] [address] [address] MDS (myelodysplastic syndrome) (HCC) 02/13/2025 10:45 AM MEMBER SERVICES COORDINATOR Infusion [facility] at [address] [address] Anemia, unspecified type (Primary Dx); MDS (myelodysplastic syndrome) (HCC) 02/13/2025 7:45 AM MEMBER SERVICES COORDINATOR Lab [facility] [address] [address] MDS (myelodysplastic syndrome) (HCC); Anemia, unspecified type 02/11/2025 Orders Only [facility] [address] [place] [address] [address] [place] [address] Braden Hare MD MDS (myelodysplastic syndrome) (HCC) (Primary Dx); Anemia, unspecified type 02/09/2025 10:45 AM MEMBER SERVICES COORDINATOR Infusion [address] [place] [address] MDS (myelodysplastic syndrome) (HCC) (Primary Dx); Anemia, unspecified type 02/09/2025 7:45 AM MEMBER SERVICES COORDINATOR Lab [address] [address] MDS (myelodysplastic syndrome) (HCC) 02/06/2025 Orders Only [facility] [address] [place] [address] [address] [place] [address] Leny Bronson, GABRIELA Malignant neoplasm of prostate (HCC) (Primary Dx); MDS (myelodysplastic syndrome) (HCC) 02/05/2025 1:45 PM MEMBER SERVICES COORDINATOR Infusion [address] [place] [address] MDS (myelodysplastic syndrome) (HCC) (Primary Dx); Anemia, unspecified type 02/05/2025 1:15 PM MEMBER SERVICES COORDINATOR Office Visit [facility] [address] [place] [address] [address] [place] [address] Braden Hare MD MDS (myelodysplastic syndrome) (HCC) (Primary Dx) 02/05/2025 10:45 AM MEMBER SERVICES COORDINATOR Lab [address] [address] MDS (myelodysplastic syndrome) (HCC); Anemia, unspecified type 02/02/2025 11:00 AM MEMBER SERVICES COORDINATOR Infusion [address] [place] [address] MDS (myelodysplastic syndrome) (HCC) (Primary Dx); Anemia, unspecified type 02/02/2025 8:00 AM MEMBER SERVICES COORDINATOR Lab [facility] at [address] [address] MDS (myelodysplastic syndrome) (HCC); Anemia, unspecified type 01/27/2025 Orders Only [facility] [address] [place] [address] Braden Hare MD MDS (myelodysplastic syndrome) (HCC) 01/26/2025 4:25 PM MEMBER SERVICES COORDINATOR - 01/26/2025 11:59 PM [facility] [address] [address] MDS (myelodysplastic syndrome) (HCC) Discharge Disposition: Discharge to home or self care 01/26/2025 11:00 AM MEMBER SERVICES COORDINATOR [facility] at [address] [address] MDS (myelodysplastic syndrome) (HCC) (Primary Dx); Anemia, unspecified type 01/26/2025 9:00 AM MEMBER SERVICES COORDINATOR Infusion [facility] at [address] [address] MDS (myelodysplastic syndrome) (HCC) 01/26/2025 8:30 AM MEMBER SERVICES COORDINATOR Lab [facility] at [address] [address] MDS (myelodysplastic syndrome) (HCC); Anemia, unspecified type 01/26/2025 Orders Only [address] [address] Chandler Skinner PA MDS (myelodysplastic syndrome) (HCC) 01/26/2025 Orders Only [address] [address] Braden Hare MD 01/23/2025 8:00 AM MEMBER SERVICES COORDINATOR Infusion [facility] at [address] [address] MDS (myelodysplastic syndrome) (HCC) (Primary Dx); Anemia, unspecified type 01/22/2025 10:45 AM MEMBER SERVICES COORDINATOR Lab [facility] at [address] [address] MDS (myelodysplastic syndrome) (HCC); Anemia, unspecified type 01/16/2025 9:45 AM MEMBER SERVICES COORDINATOR Infusion [facility] at [address] [address] MDS (myelodysplastic syndrome) (HCC) (Primary Dx); Anemia, unspecified type 01/15/2025 10:45 AM MEMBER SERVICES COORDINATOR Lab [address] [address] MDS (myelodysplastic syndrome) (HCC); Anemia, unspecified type 01/15/[address] [address] Valerie Li RN 01/08/2025 1:45 PM MEMBER SERVICES COORDINATOR Infusion [address] [address] MDS (myelodysplastic syndrome) (HCC) (Primary Dx); Anemia, unspecified type 01/08/2025 10:45 AM MEMBER SERVICES COORDINATOR Lab [address] [address] MDS (myelodysplastic syndrome) (HCC) 01/02/2025 9:30 AM CDT Infusion [address] [address] MDS (myelodysplastic syndrome) (HCC) (Primary Dx); Anemia, unspecified type 01/01/2025 11:15 AM CDT Office Visit [facility] [address] [place] [phone] Clarissa Real NP MDS (myelodysplastic syndrome) (HCC) (Primary Dx); Anemia, unspecified type 01/01/2025 10:45 AM CDT Lab [facility] at [address] [address] MDS (myelodysplastic syndrome) (HCC); Anemia, unspecified type 01/01/2025 Orders Only [facility] [address] [place] [phone] Leny Bronson, HYDRAULIC HAMMER OPERATOR (myelodysplastic syndrome) (HCC) (Primary Dx) 12/24/2024 12:00 PM CDT Infusion [facility] at [address] [address] Anemia, unspecified type (Primary Dx); MDS (myelodysplastic syndrome) (HCC); Malignant neoplasm of prostate (HCC) 12/24/2024 9:00 AM CDT Lab [facility] at [address] [address] MDS (myelodysplastic syndrome) (HCC); Anemia, unspecified type 12/24/2024 Orders Only [facility] [address] [place] [phone] Braden Hare MD MDS (myelodysplastic syndrome) (HCC) (Primary Dx); Anemia, unspecified type 12/16/2024 11:00 AM CDT Infusion [facility] at [address] [address] MDS (myelodysplastic syndrome) (HCC) (Primary Dx); Anemia, unspecified type 12/16/2024 8:30 AM CDT Lab [facility] at [address] [address] MDS (myelodysplastic syndrome) (HCC); Anemia, unspecified type 12/10/2024 Orders Only [facility] [address] [place] [phone] Braden Hare MD MDS (myelodysplastic syndrome) (HCC) (Primary Dx); Anemia, unspecified type 12/04/2024 11:15 AM CDT Infusion [facility] at [address] [address] MDS (myelodysplastic syndrome) (HCC) (Primary Dx); Anemia, unspecified type 12/04/2024 8:45 AM CDT Office Visit [facility] [address] [place] [phone] Clarissa Real, MICA BUILDER MDS (myelodysplastic syndrome) (HCC) (Primary Dx); Anemia, unspecified type 12/04/2024 8:15 AM CDT Lab [facility] at [address] [phone] Anemia, unspecified type; MDS (myelodysplastic syndrome) (HCC) from Last 3 Months Immunizations Immunization Administration [...] on file Legal Sex Male 10:48 AM MEMBER SERVICES COORDINATOR Gender Identity Male 02/09/2020 12:06 PM MEMBER SERVICES COORDINATOR Sexual Orientation Straight 02/09/2020 12 :06 PM MEMBER SERVICES COORDINATOR Last Filed Vital Signs Vital Sign Reading Time Taken Comments Blood Pressure 116/58 02/16/2025 1:12 PM MEMBER SERVICES COORDINATOR Pulse 58 02/16/2025 1:12 PM MEMBER SERVICES COORDINATOR Temperature 36.6 C (97.9 F) 02/16/2025 1:12 PM MEMBER SERVICES COORDINATOR Respiratory Rate 16 02/16/2025 1:12 PM MEMBER SERVICES COORDINATOR Oxygen Saturation 99% 02/16/2025 1:12 PM MEMBER SERVICES COORDINATOR Inhaled Oxygen Concentration - - Weight 84.3 kg (185 lb 13.6 oz) 025 11:05 AM MEMBER SERVICES COORDINATOR w/ shoes Height 172 cm (5' 7.72) 10/09/2024 2:21 PM CDT Body Mass Index 28.49 10/09/2024 2:21 PM CDT Plan of Treatment Health Maintenance Due Date Last Done Comments Depression Screening 1940 Fall Risk Assessment 1940 Hepatitis B Screening 1958 Well Visit 65+ 01/25/2004 Covid-19 Vaccine (2024-2 6 season) 2024 06/06/2021, 12/24/2020, 11/18/2020, Additional history exists DTaP/Tdap/Td Vaccine (2 - Td or Tdap) 03/05/2025 03/05/2015 Pneumococcal vaccine 65+ Completed 019, 03/05/2018, 05/16/2016, Additional history exists Zoster Vaccine Completed 05/09/2021, 110 08/2020, 12/25/2020, Additional history exists Influenza Vaccine Completed 12/06/2024, , 11/11/2020, Additional history exists Procedures Procedure Name Priority Date/Time Associated Diagnosis Comments TRANSFUSE RED BLOOD CELLS Timed 02/16/2025 11:25 AM MEMBER SERVICES COORDINATOR MDS (myelodysplastic syndrome) (HCC) Anemia, unspecified type PREPARE RBC Routine 02/16/2025 9:07 AM MEMBER SERVICES COORDINATOR MDS (myelodysplastic syndrome) (HCC) Anemia, unspecified type BLOOD SMEAR REVIEW Routine 02/16/2025 8: 23 AM MEMBER SERVICES COORDINATOR MDS (myelodysplastic syndrome) (HCC) IMMATURE PLATELET FRACTION Routine 02/16/2025 8:23 AM MEMBER SERVICES COORDINATOR MDS (myelodysplastic syndrome) (HCC) EGFR Routine 02/16/2025 8:23 AM MEMBER SERVICES COORDINATOR MDS (myelodysplastic syndrome) (HCC) DIFFERENTIAL AUTO Routine 02/16/2025 8:2 3 AM MEMBER SERVICES COORDINATOR MDS (myelodysplastic syndrome) (HCC) CBC WITH AUTO DIFFERENTIAL Routine 02/16/2025 8:23 AM MEMBER SERVICES COORDINATOR MDS (myelodysplastic syndrome) (HCC) COMPREHENSIVE METABOLIC PANEL Routine 02/16/2025 8:23 AM MEMBER SERVICES COORDINATOR MDS (myelodysplastic syndrome) (HCC) TYPE AND SCREEN Routine 02/16/2025 8:23 AM MEMBER SERVICES COORDINATOR MDS (myelodysplastic syndrome) (HCC) TRANSFUSE RED BLOOD CELLS Timed 02/13/2025 11:14 AM MEMBER SERVICES COORDINATOR MDS (myelodysplastic syndrome) (HCC) Anemia, unspecified type PREPARE RBC Routine 02/13/2025 8:29 AM MEMBER SERVICES COORDINATOR MDS (myelodysplastic syndrome) (HCC) Anemia, unspecified type BLOOD SMEAR REVIEW STAT 02/13/2025 7: 42 AM MEMBER SERVICES COORDINATOR MDS (myelodysplastic syndrome) (HCC) Anemia, unspecified type IMMATURE PLATELET FRACTION STAT 02/13/2025 7:42 AM MEMBER SERVICES COORDINATOR MDS (myelodysplastic syndrome) (HCC) Anemia, unspecified type EGFR STAT 02/13/2025 7:42 AM MEMBER SERVICES COORDINATOR MDS (myelodysplastic syndrome) (HCC) Anemia, unspecified type DIFFERENTIAL AUTO STAT 02/13/2025 7:4 2 AM MEMBER SERVICES COORDINATOR MDS (myelodysplastic syndrome) (HCC) Anemia, unspecified type TYPE AND SCREEN Routine 02/13/2025 7:42 AM MEMBER SERVICES COORDINATOR MDS (myelodysplastic syndrome) (HCC) CBC WITH AUTO DIFFERENTIAL STAT 02/13/2025 7:42 AM MEMBER SERVICES COORDINATOR MDS (myelodysplastic syndrome) (HCC) Anemia, unspecified type COMPREHENSIVE METABOLIC PANEL STAT 02/13/2025 7:42 AM MEMBER SERVICES COORDINATOR MDS (myelodysplastic syndrome) (HCC) Anemia, unspecified type TRANSFUSE RED BLOOD CELLS Timed 02/09/2025 1:11 PM MEMBER SERVICES COORDINATOR MDS (myelodysplastic syndrome) (HCC) Anemia, unspecified type TRANSFUSE RED BLOOD CELLS Timed 02/09/2025 11:04 AM MEMBER SERVICES COORDINATOR MDS (myelodysplastic syndrome) (HCC) Anemia, unspecified type PREPARE RBC Routine 02/09/2025 8:10 AM MEMBER SERVICES COORDINATOR MDS (myelodysplastic syndrome) (HCC) Anemia, unspecified type BLOOD SMEAR REVIEW Routine 02/09/2025 7: 42 AM MEMBER SERVICES COORDINATOR MDS (myelodysplastic syndrome) (HCC) IMMATURE PLATELET FRACTION Routine 02/09/2025 7:42 AM MEMBER SERVICES COORDINATOR MDS (myelodysplastic syndrome) (HCC) EGFR Routine 02/09/2025 7:42 AM MEMBER SERVICES COORDINATOR MDS (myelodysplastic syndrome) (HCC) DIFFERENTIAL AUTO Routine 02/09/2025 7:4 2 AM MEMBER SERVICES COORDINATOR MDS (myelodysplastic syndrome) (HCC) CBC WITH AUTO DIFFERENTIAL Routine 02/09/2025 7:42 AM MEMBER SERVICES COORDINATOR MDS (myelodysplastic syndrome) (HCC) COMPREHENSIVE METABOLIC PANEL Routine 02/09/2025 7:42 AM MEMBER SERVICES COORDINATOR MDS (myelodysplastic syndrome) (HCC) TYPE AND SCREEN Routine 02/09/2025 7:42 AM MEMBER SERVICES COORDINATOR MDS (myelodysplastic syndrome) (HCC) TRANSFUSE RED BLOOD CELLS Timed 02/05/2025 2:17 PM MEMBER SERVICES COORDINATOR MDS (myelodysplastic syndrome) (HCC) Anemia, unspecified type PREPARE RBC Routine 02/05/2025 11:35 AM MEMBER SERVICES COORDINATOR MDS (myelodysplastic syndrome) (HCC) Anemia, unspecified type BLOOD SMEAR REVIEW Routine 02/05/2025 11 :02 AM MEMBER SERVICES COORDINATOR MDS (myelodysplastic syndrome) (HCC) Anemia, unspecified type IMMATURE PLATELET FRACTION Routine 02/05/2025 11:02 AM MEMBER SERVICES COORDINATOR MDS (myelodysplastic syndrome) (HCC) Anemia, unspecified type DIFFERENTIAL AUTO Routine 02/05/2025 11: 02 AM MEMBER SERVICES COORDINATOR MDS (myelodysplastic syndrome) (HCC) Anemia, unspecified type ERYTHROPOIETIN Routine 02/05/2025 11:02 AM MEMBER SERVICES COORDINATOR MDS (myelodysplastic syndrome) (HCC) TYPE AND SCREEN Routine 02/05/2025 11:02 AM MEMBER SERVICES COORDINATOR MDS (myelodysplastic syndrome) (HCC) Anemia, unspecified type CBC WITH AUTO DIFFERENTIAL Routine 02/05/2025 11:02 AM MEMBER SERVICES COORDINATOR MDS (myelodysplastic syndrome) (HCC) Anemia, unspecified type TRANSFUSE RED BLOOD CELLS Timed 02/02/2025 11:35 AM MEMBER SERVICES COORDINATOR MDS (myelodysplastic syndrome) (HCC) Anemia, unspecified type PREPARE RBC Routine 02/02/2025 9:07 AM MEMBER SERVICES COORDINATOR MDS (myelodysplastic syndrome) (HCC) Anemia, unspecified type BLOOD SMEAR REVIEW Routine 02/02/2025 8: 30 AM MEMBER SERVICES COORDINATOR MDS (myelodysplastic syndrome) (HCC) IMMATURE PLATELET FRACTION Routine 02/02/2025 8:30 AM MEMBER SERVICES COORDINATOR MDS (myelodysplastic syndrome) (HCC) DIFFERENTIAL AUTO Routine 02/02/2025 8:3 0 AM MEMBER SERVICES COORDINATOR MDS (myelodysplastic syndrome) (HCC) TYPE AND SCREEN Routine 02/02/2025 8:30 AM MEMBER SERVICES COORDINATOR MDS (myelodysplastic syndrome) (HCC) Anemia, unspecified type CBC WITH AUTO DIFFERENTIAL Routine 02/02/2025 8:30 AM MEMBER SERVICES COORDINATOR MDS (myelodysplastic syndrome) (HCC) TRANSFUSE RED BLOOD CELLS Timed 01/26/2025 1:53 PM MEMBER SERVICES COORDINATOR MDS (myelodysplastic syndrome) (HCC) Anemia, unspecified type TRANSFUSE RED BLOOD CELLS Timed 01/26/2025 11:51 AM MEMBER SERVICES COORDINATOR MDS (myelodysplastic syndrome) (HCC) Anemia, unspecified type MINIMAL RESIDUAL DISEASE-AML Routine 01/26/2025 10:13 AM MEMBER SERVICES COORDINATOR MDS (myelodysplastic syndrome) (HCC) B CHECK SAMPLE STAT 01/26/2025 10:13 AM MEMBER SERVICES COORDINATOR FLOW LEUKEMIA/LYMPHOMA Routine 9:31 AM MEMBER SERVICES COORDINATOR MDS (myelodysplastic syndrome) (HCC) SURGICAL PATHOLOGY Routine 01/26/2025 9: 31 AM MEMBER SERVICES COORDINATOR MDS (myelodysplastic syndrome) (HCC) CYTOGENETICS Routine 01/26/2025 9:30 AM MEMBER SERVICES COORDINATOR MDS (myelodysplastic syndrome) (HCC) PREPARE RBC Routine 01/26/2025 8:55 AM MEMBER SERVICES COORDINATOR MDS (myelodysplastic syndrome) (HCC) Anemia, unspecified type BLOOD SMEAR REVIEW Routine 01/26/2025 8: 20 AM MEMBER SERVICES COORDINATOR MDS (myelodysplastic syndrome) (HCC) Anemia, unspecified type IMMATURE PLATELET FRACTION Routine 01/26/2025 8:20 AM MEMBER SERVICES COORDINATOR MDS (myelodysplastic syndrome) (HCC) Anemia, unspecified type EGFR Routine 01/26/2025 8:20 AM MEMBER SERVICES COORDINATOR MDS (myelodysplastic syndrome) (HCC) DIFFERENTIAL AUTO Routine 01/26/2025 8:2 0 AM MEMBER SERVICES COORDINATOR MDS (myelodysplastic syndrome) (HCC) Anemia, unspecified type COMPREHENSIVE METABOLIC PANEL Routine 01/26/2025 8:20 AM MEMBER SERVICES COORDINATOR MDS (myelodysplastic syndrome) (HCC) CBC WITH AUTO DIFFERENTIAL Routine 01/26/2025 8:20 AM MEMBER SERVICES COORDINATOR MDS (myelodysplastic syndrome) (HCC) Anemia, unspecified type TYPE AND SCREEN Routine 01/26/2025 8:20 AM MEMBER SERVICES COORDINATOR MDS (myelodysplastic syndrome) (HCC) Anemia, unspecified type TRANSFUSE RED BLOOD CELLS Timed 01/23/2025 10:50 AM MEMBER SERVICES COORDINATOR MDS (myelodysplastic syndrome) (HCC) Anemia, unspecified type TRANSFUSE RED BLOOD CELLS Timed 01/23/2025 8:29 AM MEMBER SERVICES COORDINATOR MDS (myelodysplastic syndrome) (HCC) Anemia, unspecified type PREPARE RBC Routine 01/22/2025 5:26 PM MEMBER SERVICES COORDINATOR MDS (myelodysplastic syndrome) (HCC) Anemia, unspecified type CROSSMATCH Routine 01/22/2025 10:50 AM MEMBER SERVICES COORDINATOR MDS (myelodysplastic syndrome) (HCC) Anemia, unspecified type ANTIBODY SCREEN, TUBE Routine 01/22/2025 10:50 AM MEMBER SERVICES COORDINATOR MDS (myelodysplastic syndrome) (HCC) Anemia, unspecified type BLOOD SMEAR REVIEW Routine 01/22/2025 10 :50 AM MEMBER SERVICES COORDINATOR MDS (myelodysplastic syndrome) (HCC) Anemia, unspecified type IMMATURE PLATELET FRACTION Routine 01/22/2025 10:50 AM MEMBER SERVICES COORDINATOR MDS (myelodysplastic syndrome) (HCC) Anemia, unspecified type DIFFERENTIAL AUTO Routine 01/22/2025 10: 50 AM MEMBER SERVICES COORDINATOR MDS (myelodysplastic syndrome) (HCC) Anemia, unspecified type ABO/RH Routine 01/22/2025 10:50 AM MEMBER SERVICES COORDINATOR MDS (myelodysplastic syndrome) (HCC) Anemia, unspecified type CBC WITH AUTO DIFFERENTIAL Routine 01/22/2025 10:50 AM MEMBER SERVICES COORDINATOR MDS (myelodysplastic syndrome) (HCC) Anemia, unspecified type TYPE AND SCREEN Routine 01/22/2025 10:50 AM MEMBER SERVICES COORDINATOR MDS (myelodysplastic syndrome) (HCC) Anemia, unspecified type TRANSFUSE RED BLOOD CELLS Timed 01/16/2025 12:24 PM MEMBER SERVICES COORDINATOR MDS (myelodysplastic syndrome) (HCC) Anemia, unspecified type TRANSFUSE RED BLOOD CELLS Timed 01/16/2025 9:50 AM MEMBER SERVICES COORDINATOR MDS (myelodysplastic syndrome) (HCC) Anemia, unspecified type PREPARE RBC Routine 01/15/2025 4:12 PM MEMBER SERVICES COORDINATOR MDS (myelodysplastic syndrome) (HCC) Anemia, unspecified type CROSSMATCH Routine 01/15/2025 10:52 AM MEMBER SERVICES COORDINATOR MDS (myelodysplastic syndrome) (HCC) BLOOD SMEAR REVIEW Routine 01/15/2025 10 :52 AM MEMBER SERVICES COORDINATOR MDS (myelodysplastic syndrome) (HCC) Anemia, unspecified type IMMATURE PLATELET FRACTION Routine 01/15/2025 10:52 AM MEMBER SERVICES COORDINATOR MDS (myelodysplastic syndrome) (HCC) Anemia, unspecified type DIFFERENTIAL AUTO Routine 01/15/2025 10: 52 AM MEMBER SERVICES COORDINATOR MDS (myelodysplastic syndrome) (HCC) Anemia, unspecified type ANTIBODY SCREEN Routine 01/15/2025 10:52 AM MEMBER SERVICES COORDINATOR MDS (myelodysplastic syndrome) (HCC) ABO/RH Routine 01/15/2025 10:52 AM MEMBER SERVICES COORDINATOR MDS (myelodysplastic syndrome) (HCC) CBC WITH AUTO DIFFERENTIAL Routine 01/15/2025 10:52 AM MEMBER SERVICES COORDINATOR MDS (myelodysplastic syndrome) (HCC) Anemia, unspecified type TYPE AND SCREEN Routine 01/15/2025 10:52 AM MEMBER SERVICES COORDINATOR MDS (myelodysplastic syndrome) (HCC) TRANSFUSE RED BLOOD CELLS Timed 01/08/2025 2:07 PM MEMBER SERVICES COORDINATOR MDS (myelodysplastic syndrome) (HCC) Anemia, unspecified type PREPARE RBC Routine 01/08/2025 12:10 PM MEMBER SERVICES COORDINATOR MDS (myelodysplastic syndrome) (HCC) Anemia, unspecified type CROSSMATCH Routine 01/08/2025 10:51 AM MEMBER SERVICES COORDINATOR MDS (myelodysplastic syndrome) (HCC) ANTIBODY SCREEN, TUBE Routine 01/08/2025 10:51 AM MEMBER SERVICES COORDINATOR MDS (myelodysplastic syndrome) (HCC) BLOOD SMEAR REVIEW Routine 01/08/2025 10 :51 AM MEMBER SERVICES COORDINATOR MDS (myelodysplastic syndrome) (HCC) IMMATURE PLATELET FRACTION Routine 01/08/2025 10:51 AM MEMBER SERVICES COORDINATOR MDS (myelodysplastic syndrome) (HCC) EGFR Routine 01/08/2025 10:51 AM MEMBER SERVICES COORDINATOR MDS (myelodysplastic syndrome) (HCC) DIFFERENTIAL AUTO Routine 01/08/2025 10: 51 AM MEMBER SERVICES COORDINATOR MDS (myelodysplastic syndrome) (HCC) ABO/RH Routine 01/08/2025 10:51 AM MEMBER SERVICES COORDINATOR MDS (myelodysplastic syndrome) (HCC) CBC WITH AUTO DIFFERENTIAL Routine 01/08/2025 10:51 AM MEMBER SERVICES COORDINATOR MDS (myelodysplastic syndrome) (HCC) COMPREHENSIVE METABOLIC PANEL Routine 01/08/2025 10:51 AM MEMBER SERVICES COORDINATOR MDS (myelodysplastic syndrome) (HCC) TYPE AND SCREEN Routine 01/08/2025 10:51 AM MEMBER SERVICES COORDINATOR MDS (myelodysplastic syndrome) (HCC) TRANSFUSE RED BLOOD CELLS Timed 01/02/2025 11:36 [...] 12/04/2024 8:28 AM CDT Anemia, unspecified type from Last 3 Months Results * Transfuse RBC (02/16/2025 1:13 PM MEMBER SERVICES COORDINATOR) Blood us Brooke Clayton MD BLOOD TRANSFUSION ORDERABLE S Final Result * Prepare RBC: 1 Units (02/16/2025 9:07 AM MEMBER SERVICES COORDINATOR) Pathologist [facility] Product code [id number] CHRISSY Unit Number [id number] CHRISSY Product Blood Type OPOS CHRISSY Dispense Status [facility]ED [facility] Blood 02/16/2025 9:07 AM MEMBER SERVICES COORDINATOR 02/16/2025 9:06 AM MEMBER SERVICES COORDINATOR Narrative [facility] - 02/17/2025 4:00 AM MEMBER SERVICES COORDINATOR Are special requirements needed? (All products are leukoreduced and CMV- safe)- >No Date required:-20250216 LRRBC # of [id number]-[id number] Reasons:-Active bleeding, Hgb <8 g/dL} us Braden Hare MD BLOOD BANK PRODUCT ORDERABLE S Final Result CHRISSY [address] [facility] [place] [address] * (ABNORMAL) Immature platelet fraction (02/16/2025 8:23 AM MEMBER SERVICES COORDINATOR) Pathologist [facility] IPF 24.7(H) 1.6 - 10.1 % Comment:Testing performed by : [address] [address] Blood 02/16/2025 8:23 AM MEMBER SERVICES COORDINATOR 02/16/2025 8:30 AM MEMBER SERVICES COORDINATOR Braden Hare MD LAB BLOOD ORDERABLES Final R esult Performing Organization Address [facility] Co de Phone Number CHRISSY [address] [place] [address] * (ABNORMAL) Blood smear review (02/16/2025 8:23 AM MEMBER SERVICES COORDINATOR) RBC morphology Consistent with RBC Indicies Comment:Testing performed by : [address] [address] Poikilocytosis Slight(A) CHRISSY Comment:Testing performed by : [address] [address] Platelet estimate Decreased(A) CHRISSY Comment:Testing performed by : [address] [address] Blood 02/16/2025 8:23 AM MEMBER SERVICES COORDINATOR 02/16/2025 8:30 AM MEMBER SERVICES COORDINATOR Braden Hare MD LAB BLOOD ORDERABLES Final R esult Performing Organization Address [facility] Co de Phone Number CHRISSY [address] [address] * eGFR (02/16/2025 8:23 AM MEMBER SERVICES COORDINATOR) eGFR 73 >=60 mL/min/1. 73 m2 Comment: [...] was last reviewed 2021. Testing performed by: [address] [address] Blood 02/16/2025 8:23 AM MEMBER SERVICES COORDINATOR 02/16/2025 8:30 AM MEMBER SERVICES COORDINATOR us Braden Hare MD LAB BLOOD ORDERABLES Final R esult CHRISSY [address] [facility] [place] [address] * (ABNORMAL) Differential, auto (02/16/2025 8:23 AM MEMBER SERVICES COORDINATOR) Neutrophil abs 0.87(L) 1.50 - 6.50 K/cumm Comment:Testing performed by : [address] [address] Imm gran abs 0.00 0.00 - 0.10 K/cumm CHRISSY Comment:Testing performed by : [address] [address] Lymphocyte abs 0.35(L) 0.80 - 3.30 K/cumm CHRISSY Comment:Testing performed by : [address] [address] Monocyte abs 0.27 0.20 - 0.80 K/cumm CHRISSY Comment:Testing performed by : [address] [address] Eosinophil abs 0.02 0.00 - 0.50 K/cumm CHRISSY Comment:Testing performed by : [address] [address] Basophil abs 0.01 0.00 - 0.10 K/cumm CHRISSY Comment:Testing performed by : [address] [place] [address] Neutrophil pct 57.2 % [facility] Comment: Interpretive Data Percent cell count reference ranges are not reported, since discordance with absolute values may lead to misinterpretation of CBC data. Current Interpretive Data was last revised on 2017. Testing performed by: [address] [address] Imm gran pct 0.0 % [facility] Comment: Interpretive Data Percent cell count reference ranges are not reported, since discordance with absolute values may lead to misinterpretation of CBC data. Current Interpretive Data was last revised on 2017. Testing performed by: [address] [address] Lymphocyte pct 23.0 % [facility] Comment: Interpretive Data Percent cell count reference ranges are not reported, since discordance with absolute values may lead to misinterpretation of CBC data. Current Interpretive Data was last revised on 2017. Testing performed by: [address] [address] Monocyte pct 17.8 % [facility] Comment: Interpretive Data Percent cell count reference ranges are not reported, since discordance with absolute values may lead to misinterpretation of CBC data. Current Interpretive Data was last revised on 2017. Testing performed by: [address] [address] Eosinophil pct 1.3 % [facility] Comment: Interpretive Data Percent cell count reference ranges are not reported, since discordance with absolute values may lead to misinterpretation of CBC data. Current Interpretive Data was last revised on 2017. Testing performed by: [address] [address] Basophil pct 0.7 % [facility] Comment: Interpretive Data Percent cell count reference ranges are not reported, since discordance with absolute values may lead to misinterpretation of CBC data. Current Interpretive Data was last revised on 2017. Testing performed by: [address] [address] Blood 02/16/2025 8:23 AM MEMBER SERVICES COORDINATOR 02/16/2025 8:30 AM MEMBER SERVICES COORDINATOR us Braden Hare MD LAB BLOOD ORDERABLES Final R esult CHRISSY [address] [facility] [place] [address] * (ABNORMAL) CBC with auto differential (02/16/2025 8:23 AM MEMBER SERVICES COORDINATOR) WBC 1.47(L) 3.80 - 9.90 K/cumm Comment:Testing performed by : [address] [address] Hgb 7.5(L) 13.0 - 17.5 g/dL CHRISSY Comment:Testing performed by : [address] [address] Hct 22.9(L) 38.9 - 50.3 % CHRISSY Comment:Testing performed by : [address] [address] Plt 13(C) 150 - 400 K/cumm CHRISSY Comment: This result has been called to Sandra Bronson RN by [id number] on 02/16/2025 08:54:05, and has been read back. Testing performed by: [address] [address] MPV Not Measured 9.1 - 12.3 fL CHRISSY BELLO Comment:Testing performed by : [address] [address] RBC 2.41(L) 4.30 - 5.80 M/cumm CHRISSY BELLO Comment:Testing performed by : [address] [address] MCV 95.0 81.3 - 96.4 fL CHRISSY BELLO Comment:Testing performed by : [address] [address] MCH 31.1 27.1 - 33.3 pg CHRISSY BELLO Comment:Testing performed by : [address] [address] MCHC 32.8 32.3 - 35.7 g/dL CHRISSY BELLO Comment:Testing performed by : [address] [place] [address] RDW CV 15.3(H) 11.1 - 14.9 % CHRISSY Comment:Testing performed by : [address] [address] RDW SD 46.5 35.7 - 48.1 fL CHRISSY BELLO Comment:Testing performed by : [address] [address] NRBC abs 0.00 0.00 - 0.01 K/cumm CHRISSY Comment:Testing performed by : [address] [address] ANC Prelim 0.87(L) 1.50 - 6.50 K/cumm CHRISSY Comment: Interpretive Data The rapid ANC is a preliminary automated count and may vary from the final ANC (Neut Abs) reported in the WBC differential that follows. Current interpretive data was last revised 2024. Testing performed by: [address] [address] Blood 02/16/2025 8:23 AM MEMBER SERVICES COORDINATOR 02/16/2025 8:30 AM MEMBER SERVICES COORDINATOR Braden Hare MD LAB BLOOD ORDERABLES Edited Result - Final Performing Organization Address [facility] de Phone Number [address] [place] [address] * Type and screen (02/16/2025 8:23 AM MEMBER SERVICES COORDINATOR) ABO Rh O Positive CHRISSY Chris, indirect Negative CHRISSY Blood 02/16/2025 8:23 AM MEMBER SERVICES COORDINATOR 02/16/2025 9:44 AM MEMBER SERVICES COORDINATOR Narrative CHRISSY - 02/16/2025 10:34 AM MEMBER SERVICES COORDINATOR Has the patient had Daratumumab or Isatuximab in the past 6 months?->Unknown Braden Hare MD LAB BLOOD BANK TEST ORDERABL ES Final Result Performing Organization Address [facility] Co de Phone Number [address] [place] [address] * (ABNORMAL) Comprehensive metabolic panel (02/16/2025 8:23 AM MEMBER SERVICES COORDINATOR) Sodium 139 135 - 145 mmol/L Comment:Testing performed by : [address] [address] Potassium, pl 4.1 3.3 - 4.9 mmol/L CHRISSY Comment:Testing performed by : [address] [address] Chloride 105 97 - 110 mmol/L CHRISSY Comment:Testing performed by : [address] [address] CO2 24 22 - 32 mmol/L HCRISSY Comment:Testing performed by : [address], [place]., [address] Anion gap 10 2 - 15 mmol/L CHRISSY Comment:Testing performed by : [address] [address] BUN 24 6 - 25 mg/dL CHRISSY Comment:Testing performed by : [address] [address] Creatinine 1.00 0.80 - 1.30 mg/dL CHRISSY Comment:Testing performed by : [address] [address] Glucose 285(H) 70 - 199 mg/dL CHRISSY [...] was last revised 2022. Testing performed by: [address] [address] Calcium 9.0 8.5 - 10.3 mg/dL CHRISSY Comment:Testing performed by : [address] [address] Bilirubin, total 1.7(H) 0.1 - 1.2 mg/dL CHRISSY Comment:Testing performed by : [address] [address] Protein, pl 6.1(L) 6.5 - 8.5 g/dL CHRISSY Comment:Testing performed by : [address] [address] Albumin 4.2 3.5 - 5.0 g/dL CHRISSY Comment:Testing performed by : [address] [address] Alk phos 60 40 - 130 Units/L CHRISSY Comment:Testing performed by : [address], [address] ALT 7 7 - 55 Units/L CHRISSY Comment:Testing performed by : [address], [address] AST 10 10 - 50 Units/L CHRISSY Comment:Testing performed by : [address], [address] Blood 02/16/2025 8:23 AM MEMBER SERVICES COORDINATOR 02/16/2025 8:30 AM MEMBER SERVICES COORDINATOR us Braden Hare MD LAB BLOOD ORDERABLES Final R esult [place] [id number] [facility] [place], [place] [id number] * Transfuse RBC (02/13/2025 12:57 PM MEMBER SERVICES COORDINATOR) Blood us Brooke Clayton MD BLOOD TRANSFUSION ORDERABLE S Final Result * Prepare RBC: 1 Units (02/13/2025 8:29 AM MEMBER SERVICES COORDINATOR) Product code [id number] CHRISSY Unit Number [id number] CHRISSY Product Blood Type OPOS CHRISSY Dispense Status PRESUMED TRANSFUSED CHRISSY Blood 02/13/2025 8:29 AM MEMBER SERVICES COORDINATOR 02/13/2025 8:28 AM MEMBER SERVICES COORDINATOR Narrative CHRISSY - 02/14/2025 4:00 AM MEMBER SERVICES COORDINATOR Are special requirements needed? (All products are leukoreduced and CMV- safe)- >No Date required:-20250213 LRRBC # of Japcl-4-[id number] Reasons:-Active bleeding, Hgb <8 g/dL} Braden Hare MD BLOOD BANK PRODUCT ORDERABLE S Final Result Performing Organization Address [facility] de Phone Number CHRISSY [address] [address] * (ABNORMAL) Immature platelet fraction (02/13/2025 7:42 AM MEMBER SERVICES COORDINATOR) Pathologist [facility] IPF 20.6(H) 1.6 - 10.1 % Comment:Testing performed by : [address] [address] Blood 02/13/2025 7:42 AM MEMBER SERVICES COORDINATOR 02/13/2025 7:58 AM MEMBER SERVICES COORDINATOR Braden Hare MD LAB BLOOD ORDERABLES Final R esult Performing Organization Address [facility] de Phone Number [address] [address] * (ABNORMAL) Blood smear review (02/13/2025 7:42 AM MEMBER SERVICES COORDINATOR) Pathologist [facility] RBC morphology Consistent with RBC Indicies Comment:Testing performed by : [address] [address] Poikilocytosis Slight(A) CHRISSY Comment:Testing performed by : [address] [address] Platelet estimate Decreased(A) CHRISSY Comment:Testing performed by : [address] [address] Blood 02/13/2025 7:42 AM MEMBER SERVICES COORDINATOR 02/13/2025 7:58 AM MEMBER SERVICES COORDINATOR us Braden Hare MD LAB BLOOD ORDERABLES Final R esult Performing Organization Address [facility] Co de Phone Number CHRISSY [address] [place] [address] * eGFR (02/13/2025 7:42 AM MEMBER SERVICES COORDINATOR) eGFR 65 >=60 mL/min/1. 73 m2 Comment: Interpretive Data [...] was last reviewed 2021. Testing performed by: [address] [address] Blood 02/13/2025 7:42 AM MEMBER SERVICES COORDINATOR 02/13/2025 7:58 AM MEMBER SERVICES COORDINATOR us Braden Hare MD LAB BLOOD ORDERABLES Final R esult Performing Organization Address City/[facility]/ZIP Co de Phone Number CHRISSY [facility] [place] [address] * (ABNORMAL) Differential, auto (02/13/2025 7:42 AM MEMBER SERVICES COORDINATOR) Neutrophil abs 1.47(L) 1.50 - 6.50 K/cumm Comment:Testing performed by : [address] [address] Imm gran abs 0.01 0.00 - 0.10 K/cumm CHRISSY Comment:Testing performed by : [address], [place]., [address] Lymphocyte abs 0.51(L) 0.80 - 3.30 K/cumm CHRISSY Comment:Testing performed by : [address], [place]., [address] Monocyte abs 0.50 0.20 - 0.80 K/cumm CHRISSY Comment:Testing performed by : [address], [place]., [address] Eosinophil abs 0.02 0.00 - 0.50 K/cumm [facility] Comment:Testing performed by : [address] [address] Basophil abs 0.01 0.00 - 0.10 K/cumm [facility] Comment:Testing performed by : [address] [address] Neutrophil pct 58.4 % [facility] Comment: Interpretive Data Percent cell count reference ranges are not reported, since discordance with absolute values may lead to misinterpretation of CBC data. Current Interpretive Data was last revised on 2017. Testing performed by: [address] [address] Imm gran pct 0.4 % [facility] Comment: Interpretive Data Percent cell count reference ranges are not reported, since discordance with absolute values may lead to misinterpretation of CBC data. Current Interpretive Data was last revised on 2017. Testing performed by: [address] [address] Lymphocyte pct 20.2 % [facility] Comment: Interpretive Data Percent cell count reference ranges are not reported, since discordance with absolute values may lead to misinterpretation of CBC data. Current Interpretive Data was last revised on 2017. Testing performed by: [address] [address] Monocyte pct 19.8 % [facility] Comment: Interpretive Data Percent cell count reference ranges are not reported, since discordance with absolute values may lead to misinterpretation of CBC data. Current Interpretive Data was last revised on 2017. Testing performed by: [address] [address] Eosinophil pct 0.8 % CHRISSY Comment: Interpretive Data Percent cell count reference ranges are not reported, since discordance with absolute values may lead to misinterpretation of CBC data. Current Interpretive Data was last revised on 2017. Testing performed by: [address] [address] Basophil pct 0.4 % CHRISSY Comment: Interpretive Data Percent cell count reference ranges are not reported, since discordance with absolute values may lead to misinterpretation of CBC data. Current Interpretive Data was last revised on 2017. Testing performed by: [address] [address] Blood 02/13/2025 7:42 AM MEMBER SERVICES COORDINATOR 02/13/2025 7:58 AM MEMBER SERVICES COORDINATOR us Braden Hare MD LAB BLOOD ORDERABLES Final R esult [place] [id number] [facility] [place] [address] * (ABNORMAL) CBC with auto differential (02/13/2025 7:42 AM MEMBER SERVICES COORDINATOR) WBC 2.52(L) 3.80 - 9.90 K/cumm Comment:Testing performed by : [address] [address] Hgb 7.2(L) 13.0 - 17.5 g/dL CHRISSY Comment:Testing performed by : [address] [address] Hct 21.3(L) 38.9 - 50.3 % CHRISSY Comment:Testing performed by : [address] [address] Plt 17(C) 150 - 400 K/cumm CHRISSY Comment: This result has been called to Sandra Bronson RN by [id number] on 02/13/2025 08:26:39, and has been read back. Testing performed by: [address] [address] MPV Not Measured 9.1 - 12.3 fL CHRISSY Comment:Testing performed by : [address] [address] RBC 2.30(L) 4.30 - 5.80 M/cumm CHRISSY Comment:Testing performed by : [address] [address] MCV 92.6 81.3 - 96.4 fL CHRISSY Comment:Testing performed by : [address] [address] MCH 31.3 27.1 - 33.3 pg CHRISSY Comment:Testing performed by : [address], [address] MCHC 33.8 32.3 - 35.7 g/dL CHRISSY Comment:Testing performed by : [address], [address] RDW CV 14.6 11.1 - 14.9 % CHRISSY Comment:Testing performed by : [address], [address] RDW SD 44.7 35.7 - 48.1 fL CHRISSY Comment:Testing performed by : [address] [address] NRBC abs 0.00 0.00 - 0.01 K/cumm CHRISSY Comment:Testing performed by : [address] [address] ANC Prelim 1.47(L) 1.50 - 6.50 K/cumm CHRISSY Comment: Interpretive Data The rapid ANC is a preliminary automated count and may vary from the final ANC (Neut Abs) reported in the WBC differential that follows. Current interpretive data was last revised 2024. Testing performed by: [address] [address] Blood 02/13/2025 7:42 AM MEMBER SERVICES COORDINATOR 02/13/2025 7:58 AM MEMBER SERVICES COORDINATOR Braden Hare MD LAB BLOOD ORDERABLES Edited Result - Final Performing Organization Address City/State/[facility] de Phone Number CHRISSY [facility]0 [facility] [place] [address] * Type and screen (02/13/2025 7:42 AM MEMBER SERVICES COORDINATOR) Pathologist [facility] Chris, indirect Negative [facility] ABO Rh O Positive [facility] Blood 02/13/2025 7:42 AM MEMBER SERVICES COORDINATOR 02/13/2025 9:37 AM MEMBER SERVICES COORDINATOR Narrative [facility] - 02/13/2025 10:09 AM MEMBER SERVICES COORDINATOR Has the patient had Daratumumab or Isatuximab in the past 6 months?->Unknown Braden Hare MD LAB BLOOD BANK TEST ORDERABL ES Final Result Performing Organization Address [facility] de Phone Number CHRISSY [address] [address] * (ABNORMAL) Comprehensive metabolic panel (02/13/2025 7:42 AM MEMBER SERVICES COORDINATOR) [facility] Sodium 138 135 - 145 mmol/L Comment:Testing performed by : [address] [address] Potassium, pl 4.6 3.3 - 4.9 mmol/L CHRISSY Comment:Testing performed by : [address] [address] Chloride 103 97 - 110 mmol/L CHRISSY Comment:Testing performed by : [address] [address] CO2 24 22 - 32 mmol/L CHRISSY Comment:Testing performed by : [address] [address] Anion gap 11 2 - 15 mmol/L CHRISSY Comment:Testing performed by : [address] [address] BUN 33(H) 6 - 25 mg/dL CHRISSY Comment:Testing performed by : [address] [address] Creatinine 1.10 0.80 - 1.30 mg/dL CHRISSY Comment:Testing performed by : [address] [place] [address] Glucose 225(H) 70 - 199 mg/dL CHRISSY Comment: Interpretive [...] was last revised 2022. Testing performed by: [address] [address] Calcium 9.3 8.5 - 10.3 mg/dL CHRISSY Comment:Testing performed by : [address] [address] Bilirubin, total 1.9(H) 0.1 - 1.2 mg/dL CHRISSY Comment:Testing performed by : [address] [address] Protein, pl 6.2(L) 6.5 - 8.5 g/dL CHRISSY Comment:Testing performed by : [address] [address] Albumin 4.2 3.5 - 5.0 g/dL CHRISSY Comment:Testing performed by : [address] [address] Alk phos 58 40 - 130 Units/L CHRISSY Comment:Testing performed by : [address] [address] ALT 7 7 - 55 Units/L CHRISSY Comment:Testing performed by : [address] [address] AST 11 10 - 50 Units/L CHRISSY Comment:Testing performed by : [address] [address] Blood 02/13/2025 7:42 AM MEMBER SERVICES COORDINATOR 02/13/2025 7:58 AM MEMBER SERVICES COORDINATOR Braden Hare MD LAB BLOOD ORDERABLES Final R esult CHRISSY [place] [address] [facility] [place] [address] * Transfuse RBC (02/09/2025 3:23 PM MEMBER SERVICES COORDINATOR) Blood Brooke Clayton MD BLOOD TRANSFUSION ORDERABLE S Final Result * Transfuse RBC (02/09/2025 12:55 PM MEMBER SERVICES COORDINATOR) Blood Brooke Clayton MD BLOOD TRANSFUSION ORDERABLE S Final Result * Prepare RBC: 2 Units (02/09/2025 8:10 AM MEMBER SERVICES COORDINATOR) Product code [id number] [facility] Unit Number [id number] [facility] Product Blood Type OPOS [facility] Dispense Status PRESUMED TRANSFUSED [facility] Product code [id number] [facility] Unit Number [id number] [facility] Product Blood Type OPOS [facility] Dispense Status PRESUMED TRANSFUSED [facility] Blood 02/09/2025 8:10 AM MEMBER SERVICES COORDINATOR 02/09/2025 8:10 AM MEMBER SERVICES COORDINATOR Narrative [facility] - 02/10/2025 4:00 AM MEMBER SERVICES COORDINATOR Are special requirements needed? (All products are leukoreduced and CMV- safe)- >No Date required:-[id number] LRRBC # of Cgino-6-Tiuea Reasons:-Hgb <7 g/dL} Braden Hare MD BLOOD BANK PRODUCT ORDERABLE S Final Result Performing Organization Address City/[facility]/ZIP Co de Phone Number CHRISSY [address] [facility] [employer] [place] [address] * (ABNORMAL) Immature platelet fraction (02/09/2025 7:42 AM MEMBER SERVICES COORDINATOR) IPF 24.5(H) 1.6 - 10.1 % Comment:Testing performed by : [address] [address] Blood 02/09/2025 7:42 AM MEMBER SERVICES COORDINATOR 02/09/2025 7:49 AM MEMBER SERVICES COORDINATOR Braden Hare MD LAB BLOOD ORDERABLES Final R esult Performing Organization Address City/[facility] Co de Phone Number CHRISSY [facility] [place] [address] * (ABNORMAL) Blood smear review (02/09/2025 7:42 AM MEMBER SERVICES COORDINATOR) RBC morphology Consistent with RBC Indicies Comment:Testing performed by : [address] [address] Poikilocytosis Slight(A) CHRISSY Comment:Testing performed by : [address] [address] Schistocytes 1-2/HPF(A) CHRISSY Comment:Testing performed by : [address] [address] Elliptocytes 3-7/HPF(A) CHRISSY Comment:Testing performed by : [address] [address] Platelet estimate Decreased(A) CHRISSY Comment:Testing performed by : [address] [address] Blood 02/09/2025 7:42 AM MEMBER SERVICES COORDINATOR 02/09/2025 7:49 AM MEMBER SERVICES COORDINATOR us Braden Hare MD LAB BLOOD ORDERABLES Final R esult Performing Organization Address City/[facility]/ZIP Co de Phone Number CHRISSY [facility]0 [facility] [place] [address] * eGFR (02/09/2025 7:42 AM MEMBER SERVICES COORDINATOR) eGFR 86 >=60 mL/min/1. 73 m2 Comment: Interpretive Data [...] was last reviewed 2021. Testing performed by: [address] [address] Blood 02/09/2025 7:42 AM MEMBER SERVICES COORDINATOR 02/09/2025 7:49 AM MEMBER SERVICES COORDINATOR us Braden Hare MD LAB BLOOD ORDERABLES Final R esult [facility] [address] [facility] [place] [address] * (ABNORMAL) Differential, auto (02/09/2025 7:42 AM MEMBER SERVICES COORDINATOR) Neutrophil abs 0.58(L) 1.50 - 6.50 K/cumm Comment:Testing performed by : [address] [address] Imm gran abs 0.00 0.00 - 0.10 K/cumm CHRISSY Comment:Testing performed by : [address] [address] Lymphocyte abs 0.40(L) 0.80 - 3.30 K/cumm CHRISSY Comment:Testing performed by : [address] [address] Monocyte abs 0.29 0.20 - 0.80 K/cumm CHRISSY Comment:Testing performed by : [address] [address] Eosinophil abs 0.03 0.00 - 0.50 K/cumm [facility] Comment:Testing performed by : [address] [address] Basophil abs 0.01 0.00 - 0.10 K/cumm [facility] Comment:Testing performed by : [address] [address] Neutrophil pct 44.3 % [facility] Comment: Interpretive Data Percent cell count reference ranges are not reported, since discordance with absolute values may lead to misinterpretation of CBC data. Current Interpretive Data was last revised on 2017. Testing performed by: [address] [address] Imm gran pct 0.0 % [facility] Comment: Interpretive Data Percent cell count reference ranges are not reported, since discordance with absolute values may lead to misinterpretation of CBC data. Current Interpretive Data was last revised on 2017. Testing performed by: [address] [address] Lymphocyte pct 30.5 % [facility] Comment: Interpretive Data Percent cell count reference ranges are not reported, since discordance with absolute values may lead to misinterpretation of CBC data. Current Interpretive Data was last revised on 2017. Testing performed by: [address] [address] Monocyte pct 22.1 % [facility] Comment: Interpretive Data Percent cell count reference ranges are not reported, since discordance with absolute values may lead to misinterpretation of CBC data. Current Interpretive Data was last revised on 2017. Testing performed by: [address] [address] Eosinophil pct 2.3 % [facility] Comment: Interpretive Data Percent cell count reference ranges are not reported, since discordance with absolute values may lead to misinterpretation of CBC data. Current Interpretive Data was last revised on 2017. Testing performed by: [address] [address] Basophil pct 0.8 % [facility] Comment: Interpretive Data Percent cell count reference ranges are not reported, since discordance with absolute values may lead to misinterpretation of CBC data. Current Interpretive Data was last revised on 2017. Testing performed by: [address] [address] Blood 02/09/2025 7:42 AM MEMBER SERVICES COORDINATOR 02/09/2025 7:49 AM MEMBER SERVICES COORDINATOR us Braden Hare MD LAB BLOOD ORDERABLES Final R esult [facility]SY [address] [facility] [place] [address] * (ABNORMAL) CBC with auto differential (02/09/2025 7:42 AM MEMBER SERVICES COORDINATOR) WBC 1.31(L) 3.80 - 9.90 K/cumm Comment:Testing performed by : [address] [address] Hgb 6.9(L) 13.0 - 17.5 g/dL CHRISSY Comment:Testing performed by : [address] [address] Hct 20.6(L) 38.9 - 50.3 % [facility]SY Comment:Testing performed by : [address] [address] Plt 20(L) 150 - 400 K/cumm CHRISSY Comment:Testing performed by : [address] [address] MPV 11.9 9.1 - 12.3 fL CH[facility]SY Comment:Testing performed by : [address] [address] RBC 2.22(L) 4.30 - 5.80 M/cumm CHRISSY Comment:Testing performed by : [address] [address] MCV 92.8 81.3 - 96.4 fL CH[facility]SY Comment:Testing performed by : [address] [address] MCH 31.1 27.1 - 33.3 pg CHRISSY BELLO Comment:Testing performed by : [address] [place]., [address] MCHC 33.5 32.3 - 35.7 g/dL CHRISSY BELLO Comment:Testing performed by : [address] [address] RDW CV 14.0 11.1 - 14.9 % CHRISSY BELLO Comment:Testing performed by : [address] [address] RDW SD 43.8 35.7 - 48.1 fL [facility]SY Comment:Testing performed by : [address] [address] NRBC abs 0.00 0.00 - 0.01 K/cumm CHRISSY Comment:Testing performed by : [address] [address] ANC Prelim 0.58(L) 1.50 - 6.50 K/cumm [facility]SY Comment: Interpretive Data The rapid ANC is a preliminary automated count and may vary from the final ANC (Neut Abs) reported in the WBC differential that follows. Current interpretive data was last revised 2024. Testing performed by: [address] [address] Blood 02/09/2025 7:42 AM MEMBER SERVICES COORDINATOR 02/09/2025 7:49 AM MEMBER SERVICES COORDINATOR us Braden Hare MD LAB BLOOD ORDERABLES Edited Result - Final [facility] [address] [facility] [place] [address] * Type and screen (02/09/2025 7:42 AM MEMBER SERVICES COORDINATOR) ABO Rh O Positive CHRISSY BELLO Chris, indirect Negative CHRISSY BELLO Blood 02/09/2025 7:42 AM MEMBER SERVICES COORDINATOR 02/09/2025 9:06 AM MEMBER SERVICES COORDINATOR Narrative CHRISSY - 02/09/2025 9:42 AM MEMBER SERVICES COORDINATOR Has the patient had Daratumumab or Isatuximab in the past 6 months?->Unknown us Braden Hare MD LAB BLOOD BANK TEST ORDERABL ES Final Result [facility] [facility] [place] [address] * (ABNORMAL) Comprehensive metabolic panel (02/09/2025 7:42 AM MEMBER SERVICES COORDINATOR) Sodium 140 135 - 145 mmol/L Comment:Testing performed by : [address] [address] Potassium, pl 4.4 3.3 - 4.9 mmol/L CHRISSY Comment:Testing performed by : [address] [address] Chloride 104 97 - 110 mmol/L CH[facility]SY Comment:Testing performed by : [address] [address] CO2 26 22 - 32 mmol/L [facility]SY Comment:Testing performed by : [address] [address] Anion gap 10 2 - 15 mmol/L CH[facility]SY Comment:Testing performed by : [address] [address] BUN 17 6 - 25 mg/dL [facility]SY Comment:Testing performed by : [address] [address] Creatinine 0.80 0.80 - 1.30 mg/dL [facility]SY Comment:Testing performed by : [address] [address] Glucose 281(H) 70 - 199 mg/dL CH[facility]SY Comment: Interpretive [...] was last revised 2022. Testing performed by: [address] [place]., [address] Calcium 9.0 8.5 - 10.3 mg/dL CH[facility]SY Comment:Testing performed by : [address] [address] Bilirubin, total 1.7(H) 0.1 - 1.2 mg/dL CHRISSY Comment:Testing performed by : [address] [address] Protein, pl 5.9(L) 6.5 - 8.5 g/dL CH[facility]SY Comment:Testing performed by : [address] [address] Albumin 3.9 3.5 - 5.0 g/dL [facility]SY Comment:Testing performed by : [address] [address] Alk phos 56 40 - 130 Units/L CH[facility] Comment:Testing performed by : [address] [address] ALT 10 7 - 55 Units/L CH[facility]SY Comment:Testing performed by : [address] [address] AST 10 10 - 50 Units/L CH[facility]SY Comment:Testing performed by : [address] [address] Blood 02/09/2025 7:42 AM MEMBER SERVICES COORDINATOR 02/09/2025 7:49 AM MEMBER SERVICES COORDINATOR Braden Hare MD LAB BLOOD ORDERABLES Final R esult [facility] [address] [facility] [place], [place] [id number] * Transfuse RBC (02/05/2025 4:03 PM MEMBER SERVICES COORDINATOR) Blood us Brooke Clayton MD BLOOD TRANSFUSION ORDERABLE S Final Result * Prepare RBC: 1 Units (02/05/2025 11:35 AM MEMBER SERVICES COORDINATOR) [facility] Signature Product code [id number] CHRISSY Unit Number [id number] CHRISSY Product Blood Type OPOS CHRISSY Dispense Status PRESUMED TRANSFUSED CHRISSY Blood 02/05/2025 11:3 5 AM MEMBER SERVICES COORDINATOR 02/05/2025 11:34 AM MEMBER SERVICES COORDINATOR Narrative CHRISSY - 02/06/2025 4:00 AM MEMBER SERVICES COORDINATOR Are special requirements needed? (All products are leukoreduced and CMV- safe)- >No Date required:-[id number] LRRBC # of [id number] Reasons:-Active bleeding, Hgb <8 g/dL} Braden Hare MD BLOOD BANK PRODUCT ORDERABLE S Final Result Performing Organization Address [facility] de Phone Number [address] [place] [place] [address] * (ABNORMAL) Immature platelet fraction (02/05/2025 11:02 AM MEMBER SERVICES COORDINATOR) Pathologist [facility] IPF 23.9(H) 1.6 - 10.1 % Comment:Testing performed by : [address] [address] Blood 02/05/2025 11:0 2 AM MEMBER SERVICES COORDINATOR 02/05/2025 11:12 AM MEMBER SERVICES COORDINATOR us Braden Hare MD LAB BLOOD ORDERABLES Final R esult Performing Organization Address [facility] Co de Phone Number [address] [address] * (ABNORMAL) Blood smear review (02/05/2025 11:02 AM MEMBER SERVICES COORDINATOR) RBC morphology Consistent with RBC Indicies Comment:Testing performed by : [address] [address] Poikilocytosis Slight(A) CHRISSY Comment:Testing performed by : [address] [address] Schistocytes 1-2/HPF(A) CHRISSY BELLO Comment:Testing performed by : [address] [address] Elliptocytes 3-7/HPF(A) CHR[facility]SY Comment:Testing performed by : [address] [address] Platelet estimate Decreased(A) CHRISSY Comment:Testing performed by : [address], [place]., [address] Giant platelets Present(A) CHRISSY Comment:Testing performed by : [address] [address] Blood 02/05/2025 11:0 2 AM MEMBER SERVICES COORDINATOR 02/05/2025 11:12 AM MEMBER SERVICES COORDINATOR us Braden Hare MD LAB BLOOD ORDERABLES Final R esult [facility] [address] [facility] [place] [address] * (ABNORMAL) Differential, auto (02/05/2025 11:02 AM MEMBER SERVICES COORDINATOR) Neutrophil abs 0.45(C) 1.50 - 6.50 K/cumm Comment: This result has been called to Layla Damico RN by [id number] on 02/05/2025 11:38:26, and has been read back. Testing performed by: [address] [address] Imm gran abs 0.00 0.00 - 0.10 K/cumm CHRISSY Comment:Testing performed by : [address] [address] Lymphocyte abs 0.36(L) 0.80 - 3.30 K/cumm CH[facility]ISSY Comment:Testing performed by : [address] [address] Monocyte abs 0.18(L) 0.20 - 0.80 K/cumm CHRISSY Comment:Testing performed by : [address] [address] Eosinophil abs 0.02 0.00 - 0.50 K/cumm CHRISSY Comment:Testing performed by : [address] [address] Basophil abs 0.01 0.00 - 0.10 K/cumm CHR[facility]SY Comment:Testing performed by : [address] [address] Neutrophil pct 44.1 % [facility] Comment: Interpretive Data Percent cell count reference ranges are not reported, since discordance with absolute values may lead to misinterpretation of CBC data. Current Interpretive Data was last revised on 2017. Testing performed by: [address] [address] Imm gran pct 0.0 % [facility] Comment: Interpretive Data Percent cell count reference ranges are not reported, since discordance with absolute values may lead to misinterpretation of CBC data. Current Interpretive Data was last revised on 2017. Testing performed by: [address] [address] Lymphocyte pct 35.3 % [facility] Comment: Interpretive Data Percent cell count reference ranges are not reported, since discordance with absolute values may lead to misinterpretation of CBC data. Current Interpretive Data was last revised on 2017. Testing performed by: [address] [address] Monocyte pct 17.6 % [facility] Comment: Interpretive Data Percent cell count reference ranges are not reported, since discordance with absolute values may lead to misinterpretation of CBC data. Current Interpretive Data was last revised on 2017. Testing performed by: [address] [address] Eosinophil pct 2.0 % [facility] Comment: Interpretive Data Percent cell count reference ranges are not reported, since discordance with absolute values may lead to misinterpretation of CBC data. Current Interpretive Data was last revised on 2017. Testing performed by: [address] [address] Basophil pct 1.0 % [facility] Comment: Interpretive Data Percent cell count reference ranges are not reported, since discordance with absolute values may lead to misinterpretation of CBC data. Current Interpretive Data was last revised on 2017. Testing performed by: [address] [address] Blood 02/05/2025 11:0 2 AM MEMBER SERVICES COORDINATOR 02/05/2025 11:12 AM MEMBER SERVICES COORDINATOR us Braden Hare MD LAB BLOOD ORDERABLES Final R esult [facility] [address] [facility] [place] [address] * (ABNORMAL) CBC with auto differential (02/05/2025 11:02 AM MEMBER SERVICES COORDINATOR) [facility] WBC 0.97(C) 3.80 - 9.90 K/cumm Comment: This result has been called to Sandra Bronson RN by [id number] on 02/05/2025 11:18:03, and has been read back. Testing performed by: [address] [address] Hgb 7.1(L) 13.0 - 17.5 g/dL CHR[facility]SY Comment:Testing performed by : [address] [address] Hct 21.1(L) 38.9 - 50.3 % [facility]SY Comment:Testing performed by : [address] [address] Plt 18(C) 150 - 400 K/cumm CHRISSY Comment: This result has been called to Sandra Bronson RN by [id number] on 02/05/2025 11:18:03, and has been read back. Testing performed by: [address] [address] MPV Not Measured 9.1 - 12.3 fL [facility]SY Comment:Testing performed by : [address] [address] RBC 2.28(L) 4.30 - 5.80 M/cumm CH[facility]SY Comment:Testing performed by : [address] [address] MCV 92.5 81.3 - 96.4 fL [facility]SY Comment:Testing performed by : [address] [address] MCH 31.1 27.1 - 33.3 pg CHR[facility]SY Comment:Testing performed by : [address] [address] MCHC 33.6 32.3 - 35.7 g/dL CH[facility]SY Comment:Testing performed by : [address] [address] RDW CV 13.7 11.1 - 14.9 % [facility] Comment:Testing performed by : [address], [address] RDW SD 44.6 35.7 - 48.1 fL CH[facility]SY Comment:Testing performed by : [address] [address] NRBC abs 0.00 0.00 - 0.01 K/cumm CHRISSY Comment:Testing performed by : [address], [address] ANC Prelim 0.45(L) 1.50 - 6.50 K/cumm CH[facility]SY Comment: Interpretive Data The rapid ANC is a preliminary automated count and may vary from the final ANC (Neut Abs) reported in the WBC differential that follows. Current interpretive data was last revised 2024. Testing performed by: [address] [address] Blood 02/05/2025 11:0 2 AM MEMBER SERVICES COORDINATOR 02/05/2025 11:12 AM MEMBER SERVICES COORDINATOR Braden Hare MD LAB BLOOD ORDERABLES Edited Result - Final [facility] [address] [facility] [place] [address] * (ABNORMAL) Erythropoietin (02/05/2025 11:02 AM MEMBER SERVICES COORDINATOR) [facility] Erythropoietin 553(H) 2.6 - 18.5 mIUnits/m L [facility] ref [facility] Comment: Test Performed by: [facility] [address] [place] [address] Single Corner Cutter: Ramsey Briseno Ph.D.; CLIA# [id number] Testing performed by: [facility], [address] [place] [address]., [address] Blood 02/05/2025 11:0 2 AM MEMBER SERVICES COORDINATOR 02/05/2025 11:03 AM MEMBER SERVICES COORDINATOR us Braden Hare MD LAB BLOOD ORDERABLES Final R esult Performing Organization Address City/[facility]/ZIP Co de Phone Number CHRISSY [facility] [place] [address] [place] [facility] * Type and screen (02/05/2025 11:02 AM MEMBER SERVICES COORDINATOR) ABO Rh O Positive CHRISSY Chris, indirect Negative CHRISSY Blood 02/05/2025 11:0 2 AM MEMBER SERVICES COORDINATOR 02/05/2025 11:41 AM MEMBER SERVICES COORDINATOR Narrative CHRISSY - 02/05/2025 12:43 PM MEMBER SERVICES COORDINATOR Has the patient had Daratumumab or Isatuximab in the past 6 months?->Unknown us Braden Hare MD LAB BLOOD BANK TEST ORDERABL ES Final Result Performing Organization Address City/[facility] Co de Phone Number CHRISSY [facility] [place] [address] * Transfuse RBC (02/02/2025 1:40 PM MEMBER SERVICES COORDINATOR) Blood us Brooke Clayton MD BLOOD TRANSFUSION ORDERABLE S Final Result * Prepare RBC: 1 Units (02/02/2025 9:07 AM MEMBER SERVICES COORDINATOR) Product code [id number] CH[facility]SY Unit Number [id number] CHRISSY Product Blood Type OPOS CHRISSY Dispense Status PRESUMED TRANSFUSED CHRISSY Blood 02/02/2025 9:07 AM MEMBER SERVICES COORDINATOR 02/02/2025 9:06 AM MEMBER SERVICES COORDINATOR Narrative CHRISSY - 02/03/2025 4:00 AM MEMBER SERVICES COORDINATOR Are special requirements needed? (All products are leukoreduced and CMV- safe)->No us Braden Hare MD BLOOD BANK PRODUCT ORDERABLE S Final Result Performing Organization Address [facility] Co de Phone Number CHRISSY [address] [address] * (ABNORMAL) Immature platelet fraction (02/02/2025 8:30 AM MEMBER SERVICES COORDINATOR) Pathologist [facility] IPF 19.5(H) 1.6 - 10.1 % Comment:Testing performed by : [address] [address] Blood 02/02/2025 8:30 AM MEMBER SERVICES COORDINATOR 02/02/2025 8:42 AM MEMBER SERVICES COORDINATOR Braden Hare MD LAB BLOOD ORDERABLES Final R esult Performing Organization Address [facility] Co de Phone Number CHRISSY [address] [address] * (ABNORMAL) Blood smear review (02/02/2025 8:30 AM MEMBER SERVICES COORDINATOR) Pathologist [facility] RBC morphology Consistent with RBC Indicies Comment:Testing performed by : [address] [address] Poikilocytosis Slight(A) CHRISSY Comment:Testing performed by : [address] [address] Elliptocytes 3-7/HPF(A) CHRISSY Comment:Testing performed by : [address] [address] Acanthocytes 3-7/HPF(A) CHRISSY Comment:Testing performed by : [address] [address] Platelet estimate Decreased(A) CHRISSY Comment:Testing performed by : [address] [address] Giant platelets Present(A) CHRISSY Comment:Testing performed by : [address] [address] Blood 02/02/2025 8:30 AM MEMBER SERVICES COORDINATOR 02/02/2025 8:42 AM MEMBER SERVICES COORDINATOR us Braden Hare MD LAB BLOOD ORDERABLES Final R esult [facility]SY [address] [facility] [place] [address] * (ABNORMAL) Differential, auto (02/02/2025 8:30 AM MEMBER SERVICES COORDINATOR) Neutrophil abs 0.21(C) 1.50 - 6.50 K/cumm Comment: This result has been called to Sandra Bronson RN by [id number] on 02/02/2025 09:36:38, and has been read back. Testing performed by: [address] [address] Imm gran abs 0.00 0.00 - 0.10 K/cumm CHRISSY Comment:Testing performed by : [address] [address] Lymphocyte abs 0.27(L) 0.80 - 3.30 K/cumm CHRISSY Comment:Testing performed by : [address] [address] Monocyte abs 0.12(L) 0.20 - 0.80 K/cumm CHRISSY Comment:Testing performed by : [address] [address] Eosinophil abs 0.03 0.00 - 0.50 K/cumm CHRISSY Comment:Testing performed by : [address] [address] Basophil abs 0.02 0.00 - 0.10 K/cumm CHRISSY Comment:Testing performed by : [address] [address] Neutrophil pct 32.3 % CH[facility]SY Comment: Interpretive Data Percent cell count reference ranges are not reported, since discordance with absolute values may lead to misinterpretation of CBC data. Current Interpretive Data was last revised on 2017. Testing performed by: [address] [address] Imm gran pct 0.0 % [facility] Comment: Interpretive Data Percent cell count reference ranges are not reported, since discordance with absolute values may lead to misinterpretation of CBC data. Current Interpretive Data was last revised on 2017. Testing performed by: [address] [address] Lymphocyte pct 41.5 % [facility] Comment: Interpretive Data Percent cell count reference ranges are not reported, since discordance with absolute values may lead to misinterpretation of CBC data. Current Interpretive Data was last revised on 2017. Testing performed by: [address] [address] Monocyte pct 18.5 % [facility] Comment: Interpretive Data Percent cell count reference ranges are not reported, since discordance with absolute values may lead to misinterpretation of CBC data. Current Interpretive Data was last revised on 2017. Testing performed by: [address] [address] Eosinophil pct 4.6 % [facility] Comment: Interpretive Data Percent cell count reference ranges are not reported, since discordance with absolute values may lead to misinterpretation of CBC data. Current Interpretive Data was last revised on 2017. Testing performed by: [address] [address] Basophil pct 3.1 % [facility] Comment: Interpretive Data Percent cell count reference ranges are not reported, since discordance with absolute values may lead to misinterpretation of CBC data. Current Interpretive Data was last revised on 2017. Testing performed by: [address] [address] Blood 02/02/2025 8:30 AM MEMBER SERVICES COORDINATOR 02/02/2025 8:42 AM MEMBER SERVICES COORDINATOR us Braden Hare MD LAB BLOOD ORDERABLES Final R esult [facility]SY [address] [facility] [place], [place] [id number] * (ABNORMAL) CBC with auto differential (02/02/2025 8:30 AM MEMBER SERVICES COORDINATOR) [facility] WBC 0.65(C) 3.80 - 9.90 K/cumm Comment: This result has been called to Sandra Bronson RN by [id number] on 02/02/2025 09:05:21, and has been read back. Testing performed by: [address] [address] Hgb 7.2(L) 13.0 - 17.5 g/dL CHRISSY Comment:Testing performed by : [address], [address] Hct 21.3(L) 38.9 - 50.3 % CHRISSY Comment:Testing performed by : [address] [address] Plt 29(L) 150 - 400 K/cumm CHRISSY Comment:Testing performed by : [address] [address] MPV Not Measured 9.1 - 12.3 fL CHRISSY Comment:Testing performed by : [address], [address] RBC 2.32(L) 4.30 - 5.80 M/cumm CHRISSY Comment:Testing performed by : [address] [address] MCV 91.8 81.3 - 96.4 fL CHRISSY Comment:Testing performed by : [address] [address] MCH 31.0 27.1 - 33.3 pg CHRISSY Comment:Testing performed by : [address] [address] MCHC 33.8 32.3 - 35.7 g/dL CHRISSY Comment:Testing performed by : [address], [address] RDW CV 14.1 11.1 - 14.9 % CHRISSY Comment:Testing performed by : [address] [address] RDW SD 45.1 35.7 - 48.1 fL CHRISSY Comment:Testing performed by : [address] [address] NRBC abs 0.00 0.00 - 0.01 K/cumm CHRISSY Comment:Testing performed by : [address] [address] ANC Prelim 0.21(L) 1.50 - 6.50 K/cumm CHRISSY Comment: Interpretive Data The rapid ANC is a preliminary automated count and may vary from the final ANC (Neut Abs) reported in the WBC differential that follows. Current interpretive data was last revised 2024. Testing performed by: [address] [address] Blood 02/02/2025 8:30 AM MEMBER SERVICES COORDINATOR 02/02/2025 8:42 AM MEMBER SERVICES COORDINATOR Result [facility] Braden Hare MD LAB BLOOD ORDERABLES Edited Result - Final Performing Organization Address City/[facility] Co de Phone Number [address] [place] [address] * Type and screen (02/02/2025 8:30 AM MEMBER SERVICES COORDINATOR) Chris, indirect Negative CHRISSY ABO Rh O Positive CHRISSY Blood 02/02/2025 8:30 AM MEMBER SERVICES COORDINATOR 02/02/2025 9:37 AM MEMBER SERVICES COORDINATOR Narrative CHRISSY - 02/02/2025 10:21 AM MEMBER SERVICES COORDINATOR Has the patient had Daratumumab or Isatuximab in the past 6 months?->Unknown Braden Hare MD LAB BLOOD BANK TEST ORDERABL ES Final Result Performing Organization Address City/[facility]/ZIP Co de Phone Number [address] [place] [address] * Transfuse RBC (01/26/2025 4:00 PM MEMBER SERVICES COORDINATOR) Blood Brooke Clayton MD BLOOD TRANSFUSION ORDERABLE S Final Result * Transfuse RBC (01/26/2025 1:45 PM MEMBER SERVICES COORDINATOR) Blood us Brooke Clayton MD BLOOD TRANSFUSION ORDERABLE S Final Result * Minimal Residual Disease-AML (01/26/2025 10:13 AM MEMBER SERVICES COORDINATOR) Pathologist [facility] MRD-AML See scanned report Comment: Testing performed by: [employer]. [address], [address] [place] [address] Revised on 11/21/2017 Testing performed by: [facility], [address] [place] [address]., [address] Bone marrow 01/26/2025 10:1 3 AM MEMBER SERVICES COORDINATOR 02/03/2025 3:00 PM MEMBER SERVICES COORDINATOR Narrative CHRISSY - 01/31/2025 3:00 PM MEMBER SERVICES COORDINATOR Clinical History / Treatment Plan:->MDS on 2 cycles of inqovi Braden Hare MD LAB BODY FLUIDS AND STOOLS O RDERABLES Edited Result - Final Performing Organization Address City/[facility]/ZIP Co de Phone Number CHRISSY [facility] [place] [address] * Check Sample (01/26/2025 10:13 AM MEMBER SERVICES COORDINATOR) Pathologist [facility] ABO Rh O Positive [facility] HCLL OTHER 01/26/2025 10:1 3 AM MEMBER SERVICES COORDINATOR 01/26/2025 10:15 AM MEMBER SERVICES COORDINATOR Narrative CH[facility]ISSY - 01/26/2025 10:47 AM MEMBER SERVICES COORDINATOR original specimen tested on 12/22/2024 @ 1048 [id number] Braden Hare MD LAB BLOOD ORDERABLES Final R esult [facility] [place] [address] * Flow Leukemia/Lymphoma Bone marrow (01/26/2025 9:31 AM MEMBER SERVICES COORDINATOR) Pathologist [facility] Ha Stain Test Completed Leukemia/Lymp thalia Result See separate Surgical Pathology report. CHRISSY [facility] Bone marrow 01/26/2025 9:31 AM MEMBER SERVICES COORDINATOR 01/26/2025 6:08 PM MEMBER SERVICES COORDINATOR Narrative [facility] - 01/27/2025 10:05 AM MEMBER SERVICES COORDINATOR Tube information: Green top (Sodium Heparin) Braden Hare MD LAB PATHOLOGY ORDERABLES Fin al Result [facility] Department [place] [address] * Surgical pathology (01/26/2025 9:31 AM MEMBER SERVICES COORDINATOR) Bone marrow (Bone Marrow Biopsy) 01/26/2025 9:31 AM MEMBER SERVICES COORDINATOR 01/26/2025 4:12 PM MEMBER SERVICES COORDINATOR Narrative PATHOLOGY [facility] - 01/29/2025 2:34 PM MEMBER SERVICES COORDINATOR EPIC results best viewed via link to PDF [facility] [place] [address] Note to Patients: This report may contain [...] WITH ADDENDUM Patient Name: JUANITA RODRIGUEZ Gender: Kadeem : 1940 (Age: 85) Address: [address] [place], [place] [id number] Hospital #: [id number] Taken:01/26/2025 Received:01/26/2025 Reported: 01/29/2025 Patient Type: [facility] SPECIMEN Service: Laboratory Location: Physician(s): Chandler Skinner PA-C Diagnosis: Bone marrow, right posterior iliac crest, core biopsy, clot section, and aspirate: - Hypercellular bone marrow with panhyperplasia - Multilineage dyspoiesis - No increase in blasts - See comment juac/01/27/2025 13:32 By this signature, I attest that the above diagnosis is based upon my personal examination of the slides(and/or other material indicated in the diagnosis). Felix Petersen M.D. Report Electronically Reviewed and Signed Out By Felix Petersen M.D. 01/29/2025 14:34:32 Diagnosis Comment For details on the peripheral blood smear (if submitted), bone marrow aspirate, and core biopsy, please see the attached synoptic report. If applicable, correlation with concurrent flow cytometry (Addenda/Procedures below), cytogenetics/FISH, and molecular studies is suggested for full evaluation. Microscopic Description and Comment: Microscopic examination substantiates the above cited diagnosis. 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 Operative procedure: Bone marrow biopsy. Specimen(s) Received: A: Bone marrow biopsy, right posterior iliac crest B: Bone Marrow Clot - BJ C: Bone marrow, right aspirate for flow cytometry Gross Description: Received in two formalin jars labeled with the patient's identifiers. A. Received in formalin, labeled RPIC core and consists of a single red-mcfadden cores of bone with attached hemorrhagic material measuring 1.3 cm in length by 0.2 cm in diameter. Labeled A1. EDTA decalcification.. Jar 0. B. Received in formalin, labeled RPIC clot and consists of a 2.1 x 1.7 x 0.9 cm fragment of hemorrhagic material. Labeled B1. Jar 0. sxst/01/26/2025 17:51 PA(s): Ese Conteh CBC: Date: 01/26/25 WBCs: 0.55x10^3/mcl Hemoglobin: 7.1g/dl Hematocrit: 21.5% Platelets: 14x10^3/mcl Mean corpuscular volume (MCV): 92.3fl Red cell distribution width (RDW-CV): 14.9% Neutrophils, absolute: 0.35 K/cumm Lymphocytes, absolute: 0.17 K/cumm Monocytes, absolute: 0.00 K/cumm Eosinophils, absolute: 0.01 K/cumm Basophils, absolute: 0.01 K/cumm Neutrophils: 63.7% Lymphocytes: 30.9% Monocytes: 0.0% Eosinophils: 1.8% Basophils: 1.8% Peripheral blood smear (Ha-Giemsa): Not received Bone marrow aspirate smear (Ha-Giemsa stain): Quality: Adequate Spicules: Present Marrow cellularity: Increased Myeloid maturation: Abnormal granulation Erythroid maturation: Left-shifted, Nuclear to cytoplasmic maturation dyssynchrony, Abnormal nuclear contours, Nuclear budding Myeloid/Erythroid Ratio: Decreased Megakaryocyte number: Increased Megakaryocytic maturation: Abnormal lobation Lymphocytes: Normal Plasma cells: Normal Iron: Gale Score 5-6 (Increased). Gale score is a grading method for interpretation of bone marrow iron stain and provides an assessment of total bone marrow iron stores. Differential count: Total # of Cells Counted:200 Myelocytes+Metamyelocytes:2 Bands+Neutrophils:1 Eosinophils: 2 Plasma cells: 4 Lymphocytes: 9 Monocytes: 1 Erythroids: 81 Bone marrow core biopsy (decalcified, H&E and Leder stains): Right, iliac crest Quality: Adequate, Subcortical Cellularity: 70-80% Myeloid maturation: increased Erythroid maturation: Left-shifted, Abnormal nuclear contours, increased The Leder stain shows that the Myeloid/Erythroid Ratio is: Within normal limits Megakaryocyte number: Increased Megakaryocytic maturation: Clustered, Abnormal lobation The Leder stain is used to assess for lymphoid aggregates: None Plasma cells: scattered Reticulin and Trichrome stains show: No significant fibrosis (MF-0) CLOT SECTION: The bone marrow clot section including Leder and H&E stains are: Similiar in cellularity and composition to the bone marrow core By this signature, I attest that the above diagnosis is based upon my personal examination of the slides(and/or other material). Addenda/Procedures Flow Cytometry Ordered:01/26/2025Status:Signed OutFlow Cytometry Complete:01/27/2025y:Felix Petersen M.D.Flow Cytometry Signed Out: 01/29/2025 Diagnosis Bone marrow, right posterior iliac crest, aspirate for flow cytometry - No increased myeloid blasts identified - No diagnostically aberrant T-cell populations identified - See comment Comment Specimen Quality: Paucicellular with 87% viability Flow cytometry identifies no significant increase in myeloid blasts. Correlation with concurrent bone marrow biopsy and aspirate findings is needed for full evaluation. A malignant process cannot be excluded solely on the basis of this assay. Flow cytometric analysis shows that CD45 dim-gated events are 15-17% of overall cellularity of the specimen comprised predominantly of maturing myeloid precursors expressing CD13 (dim), CD64 (dim), CD33, CD15 (dim), CD11b (dim), and CD4 with no significant subset of this population positive for CD34 and CD117. Lymphocyte-gated events account for 47% of the overall cellularity and include a population of CD3-positive T-cells, comprising 84% of lymphocytes, showing no significant loss of mcneil T-cell antigens and have a decreased CD4 to CD8 ratio (0.5). There is a small population of NM07-ypxwuhte cells, 6% of lymphocytes, consistent with natural killer cells. A Ha-Giemsa stained cytospin from the flow cytometry specimen was examined for internal manufacturing quality technician purposes. Flow cytometry was performed using antibodies to the following cellular antigens: CD45, CD34, CD2, CD3, CD4, CD5, CD7, CD8, CD56, TCR-GD, CD16, CD10 , CD13, CD14, CD64, HLR-DR, CD11b, CD15, CD123, CD117, CD33, CD38, CD19. Total antigens analyzed: 23 (juac 01/27/25) jlf By this signature, I attest that the above diagnosis is based upon my personal examination of the slides(and/or other material indicated in the diagnosis). Felix Petersen M.D.Report Electronically Reviewed and Signed Out By Felix Petersen M.D. 01/29/2025 14:31:17 The performance characteristics of some immunohistochemical stains, fluorescence in-situ hybridization tests and immunophenotyping by flow cytometry cited in this report (if any) were determined by the Surgical Pathology and Flow Cytometry Departments at [facility] as part of an ongoing quality liaison program and in compliance with federally mandated [...] Surgical Pathology and Flow Cytometry Departments of [facility]. It has not been cleared or approved by the U. S. Food and Drug Administration. IMAGES AND SCANNED DOCUMENTS, IF INCLUDED, ONLY VIEWABLE IN PDF VERSION OF REPORT us Chandler [place] LAB PATHOLOGY ORDERABLES Final R esult PATHOLOGY [facility] * Cytogenetics Bone marrow (01/26/2025 9:30 AM MEMBER SERVICES COORDINATOR) Bone marrow (Bone Marrow Biopsy) 01/26/2025 9:30 AM MEMBER SERVICES COORDINATOR 01/26/2025 9:30 AM MEMBER SERVICES COORDINATOR Narrative [facility] DIAGNOSTIC LAB - CYTOGENETICS - 02/16/2025 9:29 PM MEMBER SERVICES COORDINATOR [facility] results best viewed via link to PDF [facility] Department of Pathol [address] [place] [address] Patient Information Name: JUANITA RODRIGUEZ Gender: M : 1940 (Age: 85) Tissue: Bone Marrow w/ FISH Visit Information Hospital #: [id number] Facility: [facility] Service: [facility] Location: UNKNOWN Patient [facility] Specimen Information: Culture #: [id number] Date Collected: 01/26/2025 Date Accessioned: 01/27/2025 Date Ordered: 01/26/2025 Physician(s): Braden Hare M.D. Processin hours unstimulated Indication: MDS Specimen Quality: Low cell count Adequate: Chromosome analysis CLINICAL REPORT CHROMOSOME ANALYSIS Metaphases Counted: 20 Banding Technique: GTW Colonies Counted: Metaphases Analyzed: 20 Additional Method: Number of Cultures: 1 Metaphases Karyotyped: 3 Banding Resolution: 400 Subculture: Karyotype: 46,XY[20] Diagnosis: CHROMOSOME ANALYSIS: NO EVIDENCE OF CLONAL ABERRATIONS INTERPRETATION: No clonal cytogenetic aberrations were identified in metaphase cells analyzed from unstimulated cultures. This normal result does not exclude a neoplastic proliferation. Small chromosome anomalies may not be detectable using the standard methods employed. Chromosome analysis was performed at a level of 400 bands or greater. The chromosome analysis findings must be interpreted within the context of the pathologic and clinical findings. Follow-up evaluation is recommended. Chromosome analysis and Fluorescence In Situ Hybridization (FISH) analysis are performed using the Le[employer] Cytovision Imaging System. Report Electronically Reviewed and Signed Out By Joan Brown MD, FAC, FAAPDate Reported: 02/16/2025Professor, Division of Genomic & Molecular Pathology us Braden Hare MD LAB GENETIC TESTING Final Re sult [facility] DIAGNOSTIC LAB - CYTOGENETICS [address] [place] [address] * Prepare RBC: 2 Units (01/26/2025 8:55 AM MEMBER SERVICES COORDINATOR) Pathologist [facility] Product code [id number] CHRISSY Unit Number [id number]- I [facility] Product Blood Type OPOS [facility] Dispense Status PRESUMED TRANSFUSED [facility] Product code [id number] [facility] Unit Number [id number]- E [facility] Product Blood Type OPOS [facility] Dispense Status PRESUMED TRANSFUSED [facility] Blood 01/26/2025 8:55 AM MEMBER SERVICES COORDINATOR 01/26/2025 8:54 AM MEMBER SERVICES COORDINATOR Narrative [facility] - 01/28/2025 7:40 AM MEMBER SERVICES COORDINATOR <Or=7 Are special requirements needed? (All products are leukoreduced and CMV- safe)->No us Braden Hare MD BLOOD BANK PRODUCT ORDERABLE S Final Result [facility] [address] [facility] Department [place] [address] * (ABNORMAL) Immature platelet fraction (01/26/2025 8:20 AM MEMBER SERVICES COORDINATOR) Pathologist [facility] IPF 16.4(H) 1.6 - 10.1 % Comment:Testing performed by : [facility], [address] [place] [address]., [address] Blood 01/26/2025 8:20 AM MEMBER SERVICES COORDINATOR 01/26/2025 8:26 AM MEMBER SERVICES COORDINATOR us Braden Hare MD LAB BLOOD ORDERABLES Final R esult CHRISSY [facility]0 [facility] [place] [address] * (ABNORMAL) Blood smear review (01/26/2025 8:20 AM MEMBER SERVICES COORDINATOR) RBC morphology Consistent with RBC Indicies Comment:Testing performed by : [address] [address] Poikilocytosis Slight(A) CHRISSY Comment:Testing performed by : [address] [address] Schistocytes 1-2/HPF(A) CHRISSY Comment:Testing performed by : [address] [address] Acanthocytes 3-7/HPF(A) CHRISSY Comment:Testing performed by : [address] [address] Platelet estimate Decreased(A) [facility] Comment:Testing performed by : [address] [address] Blood 01/26/2025 8:20 AM MEMBER SERVICES COORDINATOR 01/26/2025 8:26 AM MEMBER SERVICES COORDINATOR us Braden Hare MD LAB BLOOD ORDERABLES Final R esult CHRISSY [facility]0 [facility] [employer] [place], [place] [id number] * eGFR (01/26/2025 8:20 AM MEMBER SERVICES COORDINATOR) eGFR 83 >=60 mL/min/1. 73 m2 Comment: Interpretive Data [...] was last reviewed 2021. Testing performed by: [address] [address] Blood 01/26/2025 8:20 AM MEMBER SERVICES COORDINATOR 01/26/2025 8:26 AM MEMBER SERVICES COORDINATOR us Braden Hrae MD LAB BLOOD ORDERABLES Final R esult [facility] [address] [facility] [place] [address] * (ABNORMAL) Differential, auto (01/26/2025 8:20 AM MEMBER SERVICES COORDINATOR) Neutrophil abs 0.35(C) 1.50 - 6.50 K/cumm Comment: This result has been called to Sandra Bronson RN by [id number] on 01/26/2025 09:42:08, and has been read back. Testing performed by: [address] [address] Imm gran abs 0.01 0.00 - 0.10 K/cumm CHRISSY Comment:Testing performed by : [address] [address] Lymphocyte abs 0.17(L) 0.80 - 3.30 K/cumm CHRISSY Comment:Testing performed by : [address] [address] Monocyte abs 0.00(L) 0.20 - 0.80 K/cumm CHRISSY Comment:Testing performed by : [address] [address] Eosinophil abs 0.01 0.00 - 0.50 K/cumm CHRISSY Comment:Testing performed by : [address], [place]., [address] Basophil abs 0.01 0.00 - 0.10 K/cumm [facility] Comment:Testing performed by : [address] [address] Neutrophil pct 63.7 % [facility] Comment: Interpretive Data Percent cell count reference ranges are not reported, since discordance with absolute values may lead to misinterpretation of CBC data. Current Interpretive Data was last revised on 2017. Testing performed by: [address] [address] Imm gran pct 1.8 % [facility] Comment: Interpretive Data Percent cell count reference ranges are not reported, since discordance with absolute values may lead to misinterpretation of CBC data. Current Interpretive Data was last revised on 2017. Testing performed by: [address] [address] Lymphocyte pct 30.9 % [facility] Comment: Interpretive Data Percent cell count reference ranges are not reported, since discordance with absolute values may lead to misinterpretation of CBC data. Current Interpretive Data was last revised on 2017. Testing performed by: [address] [address] Monocyte pct 0.0 % [facility] Comment: Interpretive Data Percent cell count reference ranges are not reported, since discordance with absolute values may lead to misinterpretation of CBC data. Current Interpretive Data was last revised on 2017. Testing performed by: [address] [address] Eosinophil pct 1.8 % [facility] Comment: Interpretive Data Percent cell count reference ranges are not reported, since discordance with absolute values may lead to misinterpretation of CBC data. Current Interpretive Data was last revised on 2017. Testing performed by: [address] [address] Basophil pct 1.8 % CHRISSY Comment: Interpretive Data Percent cell count reference ranges are not reported, since discordance with absolute values may lead to misinterpretation of CBC data. Current Interpretive Data was last revised on 2017. Testing performed by: [address] [address] Blood 01/26/2025 8:20 AM MEMBER SERVICES COORDINATOR 01/26/2025 8:26 AM MEMBER SERVICES COORDINATOR us Braden Hare MD LAB BLOOD ORDERABLES Final R esult [facility]ISSY [address] [facility] [place] [address] * (ABNORMAL) CBC with auto differential (01/26/2025 8:20 AM MEMBER SERVICES COORDINATOR) WBC 0.55(C) 3.80 - 9.90 K/cumm Comment: This result has been called to Sandra Bronson RN by [id number] on 01/26/2025 09:05:29, and has been read back. Testing performed by: [address] [address] Hgb 7.1(L) 13.0 - 17.5 g/dL CHRISSY BELLO Comment:Testing performed by : [address] [address] Hct 21.5(L) 38.9 - 50.3 % CHRISSY Comment:Testing performed by : [address] [address] Plt 14(C) 150 - 400 K/cumm CHRISSY Comment: This result has been called to Sandra Bronson RN by [id number] on 01/26/2025 09:05:29, and has been read back. Testing performed by: [address] [address] MPV Not Measured 9.1 - 12.3 fL CHRISSY Comment:Testing performed by : [address] [address] RBC 2.33(L) 4.30 - 5.80 M/cumm CHRISSY Comment:Testing performed by : [address] [address] MCV 92.3 81.3 - 96.4 fL CHRISSY Comment:Testing performed by : [address] [address] MCH 30.5 27.1 - 33.3 pg CHRISSY Comment:Testing performed by : [address] [address] MCHC 33.0 32.3 - 35.7 g/dL CHRISSY Comment:Testing performed by : [address] [address] RDW CV 14.9 11.1 - 14.9 % CHRISSY Comment:Testing performed by : [address] [address] RDW SD 48.3(H) 35.7 - 48.1 fL CHRISSY Comment:Testing performed by : [address] [address] NRBC abs 0.00 0.00 - 0.01 K/cumm CHRISSY Comment:Testing performed by : [address] [address] ANC Prelim 0.35(L) 1.50 - 6.50 K/cumm CHRISSY Comment: Interpretive Data The rapid ANC is a preliminary automated count and may vary from the final ANC (Neut Abs) reported in the WBC differential that follows. Current interpretive data was last revised 2024. Testing performed by: [address] [address] Blood 01/26/2025 8:20 AM MEMBER SERVICES COORDINATOR 01/26/2025 8:26 AM MEMBER SERVICES COORDINATOR us Braden Hare MD LAB BLOOD ORDERABLES Edited Result - Final [facility] [address] [facility] Department of Laboratories [place], [place] [id number] * Type and screen (01/26/2025 8:20 AM MEMBER SERVICES COORDINATOR) ABO Rh O Positive [facility] Chris, indirect Negative CHRISSY Blood 01/26/2025 8:20 AM MEMBER SERVICES COORDINATOR 01/26/2025 9:15 AM MEMBER SERVICES COORDINATOR Narrative CH[facility]ISSY - 01/26/2025 10:20 AM MEMBER SERVICES COORDINATOR Has the patient had Daratumumab or Isatuximab in the past 6 months?->Unknown Braden Hare MD LAB BLOOD BANK TEST ORDERABL ES Final Result [facility] [address] [facility] Department of Laboratories [place], [place] [id number] * (ABNORMAL) Comprehensive metabolic panel (01/26/2025 8:20 AM MEMBER SERVICES COORDINATOR) Pathologist [facility] Sodium 137 135 - 145 mmol/L Comment:Testing performed by : [address] [address] Potassium, pl 4.5 3.3 - 4.9 mmol/L CHRISSY Comment:Testing performed by : [address] [address] Chloride 102 97 - 110 mmol/L CHRISSY Comment:Testing performed by : [address] [address] CO2 24 22 - 32 mmol/L CHRISSY Comment:Testing performed by : [address] [address] Anion gap 11 2 - 15 mmol/L CHRISSY Comment:Testing performed by : [address] [address] BUN 26(H) 6 - 25 mg/dL CHRISSY Comment:Testing performed by : [address] [address] Creatinine 0.90 0.80 - 1.30 mg/dL CHRISSY Comment:Testing performed by : [address] [address] Glucose 249(H) 70 - 199 mg/dL CHRISSY Comment: Interpretive [...] was last revised 2022. Testing performed by: [address] [address] Calcium 9.1 8.5 - 10.3 mg/dL CHRISSY Comment:Testing performed by : [address] [address] Bilirubin, total 2.0(H) 0.1 - 1.2 mg/dL CHRISSY Comment:Testing performed by : [address] [address] Protein, pl 6.3(L) 6.5 - 8.5 g/dL CHRISSY Comment:Testing performed by : [address] [address] Albumin 4.2 3.5 - 5.0 g/dL CHRISSY Comment:Testing performed by : [address] [address] Alk phos 65 40 - 130 Units/L CHRISSY Comment:Testing performed by : [address] [address] ALT 11 7 - 55 Units/L CHRISSY Comment:Testing performed by : [address] [address] AST 10 10 - 50 Units/L CHRISSY Comment:Testing performed by : [address] [address] Blood 01/26/2025 8:20 AM MEMBER SERVICES COORDINATOR 01/26/2025 8:26 AM MEMBER SERVICES COORDINATOR us Braden Hare MD LAB BLOOD ORDERABLES Final R esult [facility]ISSY [address] [facility] [place] [address] * Transfuse RBC (01/23/2025 12:35 PM MEMBER SERVICES COORDINATOR) Blood Brooke Clayton MD BLOOD TRANSFUSION ORDERABLE S Final Result * Transfuse RBC (01/23/2025 10:46 AM MEMBER SERVICES COORDINATOR) Blood Brooke Clayton MD BLOOD TRANSFUSION ORDERABLE S Final Result * Prepare RBC: 2 Units (01/22/2025 5:26 PM MEMBER SERVICES COORDINATOR) Units requested 2 Comment:Testing performed by : [address] [address] Units requested Ready CHRISSY BELLO Comment:Testing performed by : [address] [address] Unit Number [id number] Product code [id number] [facility] Blood Expiration Date [id number] [facility] Product Blood Type (for scanning) [address] [facility] Product Blood Type OPOS [facility] Dispense Status DISPENSED [facility] Unit Number [id number] Product code [id number] [facility] Blood Expiration Date 360128452820 [facility] Product Blood Type (for scanning) [address] [facility] Product Blood Type OPOS [facility] Dispense Status DISPENSED [facility] Blood 01/22/2025 5:26 PM MEMBER SERVICES COORDINATOR 01/22/2025 5:25 PM MEMBER SERVICES COORDINATOR Braden Hare MD BLOOD BANK PRODUCT ORDERABLE S Final Result CHRISSY [address] [place] [address] * (ABNORMAL) Immature platelet fraction (01/22/2025 10:50 AM MEMBER SERVICES COORDINATOR) IPF 18.1(H) 1.6 - 10.1 % Comment:Testing performed by : [address] [address] Blood 01/22/2025 10:5 0 AM MEMBER SERVICES COORDINATOR 01/22/2025 10:51 AM MEMBER SERVICES COORDINATOR us Braden Hare MD LAB BLOOD ORDERABLES Final R esult Performing Organization Address [facility] Co de Phone Number CHRISSY [facility] [place] [address] * (ABNORMAL) Blood smear review (01/22/2025 10:50 AM MEMBER SERVICES COORDINATOR) RBC morphology Consistent with RBC Indicies Comment:Testing performed by : [address] [address] Poikilocytosis Slight(A) CHRISSY Comment:Testing performed by : [address] [address] Schistocytes 1-2/HPF(A) CHRISSY Comment:Testing performed by : [address] [address] Elliptocytes 3-7/HPF(A) CHRISSY Comment:Testing performed by : [address] [address] Acanthocytes 3-7/HPF(A) CHRISSY Comment:Testing performed by : [address] [address] Platelet estimate Decreased(A) [facility] Comment:Testing performed by : [address] [address] Blood 01/22/2025 10:5 0 AM MEMBER SERVICES COORDINATOR 01/22/2025 10:51 AM MEMBER SERVICES COORDINATOR us Braden Hare MD LAB BLOOD ORDERABLES Final R esult Performing Organization Address City/[facility]/ZIP Co de Phone Number CHRISSY [facility] [place] [address] * (ABNORMAL) Differential, auto (01/22/2025 10:50 AM MEMBER SERVICES COORDINATOR) Neutrophil abs 0.81(L) 1.50 - 6.50 K/cumm Comment:Testing performed by : [address], [place]., [address] Imm gran abs 0.01 0.00 - 0.10 K/cumm [facility] Comment:Testing performed by : [address], [place]., [address] Lymphocyte abs 0.23(L) 0.80 - 3.30 K/cumm [facility] Comment:Testing performed by : [address], [place]., [address] Monocyte abs 0.06(L) 0.20 - 0.80 K/cumm [facility] Comment:Testing performed by : [address] [address] Eosinophil abs 0.02 0.00 - 0.50 K/cumm [facility] Comment:Testing performed by : [address] [address] Basophil abs 0.01 0.00 - 0.10 K/cumm [facility] Comment:Testing performed by : [address] [address] Neutrophil pct 70.9 % [facility] Comment: Interpretive Data Percent cell count reference ranges are not reported, since discordance with absolute values may lead to misinterpretation of CBC data. Current Interpretive Data was last revised on 2017. Testing performed by: [address] [address] Imm gran pct 0.9 % [facility] Comment: Interpretive Data Percent cell count reference ranges are not reported, since discordance with absolute values may lead to misinterpretation of CBC data. Current Interpretive Data was last revised on 2017. Testing performed by: [address] [address] Lymphocyte pct 20.2 % [facility] Comment: Interpretive Data Percent cell count reference ranges are not reported, since discordance with absolute values may lead to misinterpretation of CBC data. Current Interpretive Data was last revised on 2017. Testing performed by: [address] [address] Monocyte pct 5.3 % [facility] Comment: Interpretive Data Percent cell count reference ranges are not reported, since discordance with absolute values may lead to misinterpretation of CBC data. Current Interpretive Data was last revised on 2017. Testing performed by: [address] [address] Eosinophil pct 1.8 % CHRISSY Comment: Interpretive Data Percent cell count reference ranges are not reported, since discordance with absolute values may lead to misinterpretation of CBC data. Current Interpretive Data was last revised on 2017. Testing performed by: [address] [address] Basophil pct 0.9 % CHRISSY Comment: Interpretive Data Percent cell count reference ranges are not reported, since discordance with absolute values may lead to misinterpretation of CBC data. Current Interpretive Data was last revised on 2017. Testing performed by: [address] [address] Blood 01/22/2025 10:5 0 AM MEMBER SERVICES COORDINATOR 01/22/2025 10:51 AM MEMBER SERVICES COORDINATOR us Braden Hare MD LAB BLOOD ORDERABLES Final R esult Performing Organization Address City/[facility]/ZIP Co de Phone Number [address] [place] [address] * Antibody screen, tube (01/22/2025 10:50 AM MEMBER SERVICES COORDINATOR) Chris, indirect, Tube Interpretation Negative ABSC Comment:Testing performed by : [address] [address] Blood 01/22/2025 10:5 0 AM MEMBER SERVICES COORDINATOR 01/22/2025 1:47 PM MEMBER SERVICES COORDINATOR Braden Hare MD LAB BLOOD ORDERABLES Final R esult [address]UDIO[address] [place] [address] * (ABNORMAL) CBC with auto differential (01/22/2025 10:50 AM MEMBER SERVICES COORDINATOR) [facility] WBC 1.14(L) 3.80 - 9.90 K/cumm Comment:Testing performed by : [address], [address] Hgb 6.3(C) 13.0 - 17.5 g/dL CHRISSY Comment: This result has been called to Sandra Bronson RN by [id number] on 01/22/2025 11:22:49, and has been read back. Testing performed by: [address] [address] Hct 18.7(L) 38.9 - 50.3 % CHRISSY Comment:Testing performed by : [address], [address] Plt 12(C) 150 - 400 K/cumm CHRISSY Comment: This result has been called to Sandra Bronson RN by [id number] on 01/22/2025 11:22:49, and has been read back. Testing performed by: [address] [address] MPV Not Measured 9.1 - 12.3 fL CHRISSY Comment:Testing performed by : [address] [address] RBC 1.99(L) 4.30 - 5.80 M/cumm CHRISSY Comment:Testing performed by : [address] [address] MCV 94.0 81.3 - 96.4 fL CHRISSY Comment:Testing performed by : [address] [address] MCH 31.7 27.1 - 33.3 pg CHRISSY Comment:Testing performed by : [address] [address] MCHC 33.7 32.3 - 35.7 g/dL CHRISSY Comment:Testing performed by : [address] [address] RDW CV 14.9 11.1 - 14.9 % CHRISSY Comment:Testing performed by : [address], [address] RDW SD 48.4(H) 35.7 - 48.1 fL CHRISSY Comment:Testing performed by : [address] [address] NRBC abs 0.00 0.00 - 0.01 K/cumm CHRISSY Comment:Testing performed by : [address] [address] ANC Prelim 0.81(L) 1.50 - 6.50 K/cumm CHRISSY Comment: Interpretive Data The rapid ANC is a preliminary automated count and may vary from the final ANC (Neut Abs) reported in the WBC differential that follows. Current interpretive data was last revised 2024. Testing performed by: [address] [address] Blood 01/22/2025 10:5 0 AM MEMBER SERVICES COORDINATOR 01/22/2025 10:51 AM MEMBER SERVICES COORDINATOR Braden Hare MD LAB BLOOD ORDERABLES Final R esult Performing Organization Address City/[facility]/ZIP Co de Phone Number [address] [place] [address] * ABO/Rh (01/22/2025 10:50 AM MEMBER SERVICES COORDINATOR) ABO/Rh O Positive Comment:Testing performed by : [address] [address] Blood 01/22/2025 10:5 0 AM MEMBER SERVICES COORDINATOR 01/22/2025 1:47 PM MEMBER SERVICES COORDINATOR Narrative CHRISSY - 01/22/2025 2:23 PM MEMBER SERVICES COORDINATOR Has the patient had Daratumumab or Isatuximab in the past 6 months?->Unknown Braden Hare MD LAB BLOOD BANK TEST ORDERABL ES Final Result Performing Organization Address City/[facility]/ZIP Co de Phone Number [address] [place] [address] * Crossmatch (01/22/2025 10:50 AM MEMBER SERVICES COORDINATOR) Crossmatch Compatible [facility] Unit number for crossmatch [id number] [facility] Crossmatch Compatible [facility] Unit number for crossmatch [id number] CHRISSY Blood 01/22/2025 10:5 0 AM MEMBER SERVICES COORDINATOR 01/22/2025 1:47 PM MEMBER SERVICES COORDINATOR us Braden Hare MD LAB BLOOD BANK TEST ORDERABL ES Final Result CHRISSY [address] [facility] [place] [address] * Transfuse RBC (01/16/2025 2:31 PM MEMBER SERVICES COORDINATOR) Blood us Brooke Clayton MD BLOOD TRANSFUSION ORDERABLE S Final Result * Transfuse RBC (01/16/2025 12:02 PM MEMBER SERVICES COORDINATOR) Blood us Brooke Clayton MD BLOOD TRANSFUSION ORDERABLE S Final Result * Prepare RBC: 2 Units (01/15/2025 4:12 PM MEMBER SERVICES COORDINATOR) Units requested 2 Comment:Testing performed by : [address] [address] Units requested Ready [facility] Comment:Testing performed by : [address] [address] Unit Number [id number] Product code [id number] [facility] Blood Expiration Date [facility] Product Blood Type (for scanning) 5100 [facility] Product Blood Type OPOS [facility] Dispense Status DISPENSED [facility] Unit Number [id number] Product code [id number] [facility] Blood Expiration Date [facility] Product Blood Type (for scanning) 5100 [facility] Product Blood Type OPOS [facility] Dispense Status DISPENSED [facility] Blood 01/15/2025 4:12 PM MEMBER SERVICES COORDINATOR 01/15/2025 4:12 PM MEMBER SERVICES COORDINATOR us Braden Hare MD BLOOD BANK PRODUCT ORDERABLE S Final Result Performing Organization Address [facility] Co de Phone Number CHRISSY [address] [address] * (ABNORMAL) Immature platelet fraction (01/15/2025 10:52 AM MEMBER SERVICES COORDINATOR) Pathologist [facility] IPF 25.7(H) 1.6 - 10.1 % Comment:Testing performed by : [address] [address] Blood 01/15/2025 10:5 2 AM MEMBER SERVICES COORDINATOR 01/15/2025 10:52 AM MEMBER SERVICES COORDINATOR us Braden Hare MD LAB BLOOD ORDERABLES Final R esult Performing Organization Address [facility] de Phone Number CHRISSY [address] [address] * (ABNORMAL) Blood smear review (01/15/2025 10:52 AM MEMBER SERVICES COORDINATOR) [facility] RBC morphology Consistent with RBC Indicies Comment:Testing performed by : [address] [address] Anisocytosis Slight(A) CHRISSY Comment:Testing performed by : [address] [address] Schistocytes 1-2/HPF(A) CHRISSY Comment:Testing performed by : [address] [address] Elliptocytes 3-7/HPF(A) CHRISSY Comment:Testing performed by : [address] [address] Acanthocytes 3-7/HPF(A) CHRISSY Comment:Testing performed by : [address] [address] Teardrop cells 3-7/HPF(A) CHRISSY Comment:Testing performed by : [address] [address] Platelet estimate Decreased(A) CHRISSY Comment:Testing performed by : [address] [address] Blood 01/15/2025 10:5 2 AM MEMBER SERVICES COORDINATOR 01/15/2025 10:52 AM MEMBER SERVICES COORDINATOR us Braden Hare MD LAB BLOOD ORDERABLES Final R esult CHRISSY [address] [facility] [place] [address] * (ABNORMAL) Differential, auto (01/15/2025 10:52 AM MEMBER SERVICES COORDINATOR) Neutrophil abs 0.74(L) 1.50 - 6.50 K/cumm Comment:Testing performed by : [address] [address] Imm gran abs 0.02 0.00 - 0.10 K/cumm CHRISSY Comment:Testing performed by : [address] [address] Lymphocyte abs 0.38(L) 0.80 - 3.30 K/cumm CHRISSY Comment:Testing performed by : [address] [address] Monocyte abs 0.17(L) 0.20 - 0.80 K/cumm CHRISSY Comment:Testing performed by : [address] [address] Eosinophil abs 0.06 0.00 - 0.50 K/cumm CHRISSY Comment:Testing performed by : [address] [address] Basophil abs 0.03 0.00 - 0.10 K/cumm CHRISSY Comment:Testing performed by : [address] [address] Neutrophil pct 53.0 % CHRISSY Comment: Interpretive Data Percent cell count reference ranges are not reported, since discordance with absolute values may lead to misinterpretation of CBC data. Current Interpretive Data was last revised on 2017. Testing performed by: [address] [place] [address] Imm gran pct 1.4 % [facility] Comment: Interpretive Data Percent cell count reference ranges are not reported, since discordance with absolute values may lead to misinterpretation of CBC data. Current Interpretive Data was last revised on 2017. Testing performed by: [address] [address] Lymphocyte pct 27.1 % [facility] Comment: Interpretive Data Percent cell count reference ranges are not reported, since discordance with absolute values may lead to misinterpretation of CBC data. Current Interpretive Data was last revised on 2017. Testing performed by: [address] [address] Monocyte pct 12.1 % [facility] Comment: Interpretive Data Percent cell count reference ranges are not reported, since discordance with absolute values may lead to misinterpretation of CBC data. Current Interpretive Data was last revised on 2017. Testing performed by: [address] [address] Eosinophil pct 4.3 % [facility] Comment: Interpretive Data Percent cell count reference ranges are not reported, since discordance with absolute values may lead to misinterpretation of CBC data. Current Interpretive Data was last revised on 2017. Testing performed by: [address] [address] Basophil pct 2.1 % [facility] Comment: Interpretive Data Percent cell count reference ranges are not reported, since discordance with absolute values may lead to misinterpretation of CBC data. Current Interpretive Data was last revised on 2017. Testing performed by: [address] [address] Blood 01/15/2025 10:5 2 AM MEMBER SERVICES COORDINATOR 01/15/2025 10:52 AM MEMBER SERVICES COORDINATOR us Braden Hare MD LAB BLOOD ORDERABLES Final R esult CHRISSY [address] [facility] [place], [place] [id number] * (ABNORMAL) CBC with auto differential (01/15/2025 10:52 AM MEMBER SERVICES COORDINATOR) [facility] Signature WBC 1.40(L) 3.80 - 9.90 K/cumm Comment:Testing performed by : [address] [address] Hgb 6.6(L) 13.0 - 17.5 g/dL CHRISSY Comment:Testing performed by : [address] [address] Hct 19.9(L) 38.9 - 50.3 % CHRISSY Comment:Testing performed by : [address] [address] Plt 15(C) 150 - 400 K/cumm CHRISSY Comment: This result has been called to Sandra Bronson RN by [id number] on 01/15/2025 11:30:36, and has been read back. Testing performed by: [address] [address] MPV Not Measured 9.1 - 12.3 fL CHRISSY Comment:Testing performed by : [address] [address] RBC 2.09(L) 4.30 - 5.80 M/cumm CHRISSY Comment:Testing performed by : [address] [address] MCV 95.2 81.3 - 96.4 fL CHRISSY Comment:Testing performed by : [address] [address] MCH 31.6 27.1 - 33.3 pg CHRISSY Comment:Testing performed by : [address] [address] MCHC 33.2 32.3 - 35.7 g/dL CHRISSY Comment:Testing performed by : [address], [address] RDW CV 15.1(H) 11.1 - 14.9 % CHRISSY Comment:Testing performed by : [address], [address] RDW SD 50.2(H) 35.7 - 48.1 fL HCRISSY Comment:Testing performed by : [facility], [address] [place] [address]., [address] NRBC abs 0.00 0.00 - 0.01 K/cumm CHRISSY Comment:Testing performed by : [address] [address] ANC Prelim 0.74(L) 1.50 - 6.50 K/cumm CHRISSY Comment: Interpretive Data The rapid ANC is a preliminary automated count and may vary from the final ANC (Neut Abs) reported in the WBC differential that follows. Current interpretive data was last revised 2024. Testing performed by: [address] [address] Blood 01/15/2025 10:5 2 AM MEMBER SERVICES COORDINATOR 01/15/2025 10:52 AM MEMBER SERVICES COORDINATOR us Braden Hare MD LAB BLOOD ORDERABLES Final R esult Performing Organization Address City/[facility]/ZIP Co de Phone Number [address] [place] [address] * ABO/Rh (01/15/2025 10:52 AM MEMBER SERVICES COORDINATOR) Pathologist [facility] ABO/Rh O Positive Comment:Testing performed by : [address] [address] Blood 01/15/2025 10:5 2 AM MEMBER SERVICES COORDINATOR 01/15/2025 11:56 AM MEMBER SERVICES COORDINATOR Narrative CHRISSY - 01/15/2025 12:53 PM MEMBER SERVICES COORDINATOR Has the patient had Daratumumab or Isatuximab in the past 6 months?->Unknown us Braden Hare MD LAB BLOOD BANK TEST ORDERABL ES Final Result Performing Organization Address City/[facility]/ZIP Co de Phone Number [address] [place] [address] * Crossmatch (01/15/2025 10:52 AM MEMBER SERVICES COORDINATOR) Crossmatch Compatible CHRISSY Unit number for crossmatch [id number] CHRISSY Crossmatch Compatible [facility] Unit number for crossmatch [id number] [facility] Blood 01/15/2025 10:5 2 AM MEMBER SERVICES COORDINATOR 01/15/2025 11:56 AM MEMBER SERVICES COORDINATOR Braden Hare MD LAB BLOOD BANK TEST ORDERABL ES Final Result Performing Organization Address [facility] Phone Number [address] [address] * Antibody screen (01/15/2025 10:52 AM MEMBER SERVICES COORDINATOR) Crhis, indirect, Gel Interpretation Negative ABSC Comment:Testing performed by : [address] [address] Blood 01/15/2025 10:5 2 AM MEMBER SERVICES COORDINATOR 01/15/2025 11:56 AM MEMBER SERVICES COORDINATOR Narrative [facility] - 01/15/2025 3:03 PM MEMBER SERVICES COORDINATOR Has the patient had Daratumumab or Isatuximab in the past 6 months?->Unknown Braden Hare MD LAB BLOOD BANK TEST ORDERABL ES Final Result Performing Organization Address [facility] Phone Number [address] [address] * Transfuse RBC (01/08/2025 4:04 PM MEMBER SERVICES COORDINATOR) Blood Result [facility] Brooke Clayton MD BLOOD TRANSFUSION ORDERABLE S Final Result * Prepare RBC: 1 Units (01/08/2025 12:10 PM MEMBER SERVICES COORDINATOR) Units requested 1 Comment:Testing performed by : [address] [address] Units requested Ready CHRISSY Comment:Testing performed by : [address] [address] Unit Number [id number] Product code [id number] CHRISSY Blood Expiration Date [facility] Product Blood Type (for scanning) 5100 [facility] Product Blood Type OPOS [facility] Dispense Status DISPENSED [facility] Blood 01/08/2025 12:1 0 PM MEMBER SERVICES COORDINATOR 01/08/2025 12:10 PM MEMBER SERVICES COORDINATOR Braden Hare MD BLOOD BANK PRODUCT ORDERABLE S Final Result Performing Organization Address [facility] Co de Phone Number [address] [place] [place] [address] * (ABNORMAL) Immature platelet fraction (01/08/2025 10:51 AM MEMBER SERVICES COORDINATOR) Pathologist [facility] IPF 26.0(H) 1.6 - 10.1 % Comment:Testing performed by : [address] [address] Blood 01/08/2025 10:5 1 AM MEMBER SERVICES COORDINATOR 01/08/2025 10:51 AM MEMBER SERVICES COORDINATOR Braden Hare MD LAB BLOOD ORDERABLES Final R esult Performing Organization Address [facility] Co de Phone Number [address] [place] [place] [address] * (ABNORMAL) Blood smear review (01/08/2025 10:51 AM MEMBER SERVICES COORDINATOR) Pathologist [facility] RBC morphology Consistent with RBC Indicies Comment:Testing performed by : [address] [address] Anisocytosis Slight(A) CHRISSY Comment:Testing performed by : [address] [address] Schistocytes 1-2/HPF(A) CHRISSY Comment:Testing performed by : [address] [address] Elliptocytes 3-7/HPF(A) CHRISSY Comment:Testing performed by : [address] [address] Acanthocytes 3-7/HPF(A) CHRISSY Comment:Testing performed by : [address] [address] Teardrop cells 3-7/HPF(A) CHRISSY Comment:Testing performed by : [address] [address] Platelet estimate Decreased(A) CHRISSY Comment:Testing performed by : [address] [address] Blood 01/08/2025 10:5 1 AM MEMBER SERVICES COORDINATOR 01/08/2025 10:51 AM MEMBER SERVICES COORDINATOR us Braden Hare MD LAB BLOOD ORDERABLES Final R esult CHRISSY [address] [facility] [place] [address] * eGFR (01/08/2025 10:51 AM MEMBER SERVICES COORDINATOR) eGFR 84 >=60 mL/min/1. 73 m2 Comment: [...] was last reviewed 2021. Testing performed by: [address] [address] Blood 01/08/2025 10:5 1 AM MEMBER SERVICES COORDINATOR 01/08/2025 10:51 AM MEMBER SERVICES COORDINATOR us Braden Hare MD LAB BLOOD ORDERABLES Final R esult CHRISSY [address] [facility] [place] [address] * (ABNORMAL) Differential, auto (01/08/2025 10:51 AM MEMBER SERVICES COORDINATOR) Neutrophil abs 0.38(C) 1.50 - 6.50 K/cumm Comment: This result has been called to Sandra Bronson RN by [id number] on 01/08/2025 11:35:00, and has been read back. Testing performed by: [address] [address] Imm gran abs 0.00 0.00 - 0.10 K/cumm CHRISSY Comment:Testing performed by : [address] [address] Lymphocyte abs 0.39(L) 0.80 - 3.30 K/cumm CHRISSY Comment:Testing performed by : [address] [address] Monocyte abs 0.17(L) 0.20 - 0.80 K/cumm CHRISSY Comment:Testing performed by : [address] [address] Eosinophil abs 0.03 0.00 - 0.50 K/cumm CHRISSY Comment:Testing performed by : [address] [address] Basophil abs 0.06 0.00 - 0.10 K/cumm CHRISSY Comment:Testing performed by : [address] [address] Neutrophil pct 36.9 % CHRISSY Comment: Interpretive Data Percent cell count reference ranges are not reported, since discordance with absolute values may lead to misinterpretation of CBC data. Current Interpretive Data was last revised on 2017. Testing performed by: [address] [address] Imm gran pct 0.0 % CHRISSY Comment: Interpretive Data Percent cell count reference ranges are not reported, since discordance with absolute values may lead to misinterpretation of CBC data. Current Interpretive Data was last revised on 2017. Testing performed by: [address] [address] Lymphocyte pct 37.9 % [facility] Comment: Interpretive Data Percent cell count reference ranges are not reported, since discordance with absolute values may lead to misinterpretation of CBC data. Current Interpretive Data was last revised on 2017. Testing performed by: [address] [address] Monocyte pct 16.5 % [facility] Comment: Interpretive Data Percent cell count reference ranges are not reported, since discordance with absolute values may lead to misinterpretation of CBC data. Current Interpretive Data was last revised on 2017. Testing performed by: [address] [address] Eosinophil pct 2.9 % [facility] Comment: Interpretive Data Percent cell count reference ranges are not reported, since discordance with absolute values may lead to misinterpretation of CBC data. Current Interpretive Data was last revised on 2017. Testing performed by: [address] [address] Basophil pct 5.8 % [facility] Comment: Interpretive Data Percent cell count reference ranges are not reported, since discordance with absolute values may lead to misinterpretation of CBC data. Current Interpretive Data was last revised on 2017. Testing performed by: [address] [address] Blood 01/08/2025 10:5 1 AM MEMBER SERVICES COORDINATOR 01/08/2025 10:51 AM MEMBER SERVICES COORDINATOR us Braden Hare MD LAB BLOOD ORDERABLES Final R esult CHRISSY [address] [facility] [place] [address] * Antibody screen, tube (01/08/2025 10:51 AM MEMBER SERVICES COORDINATOR) Chris, indirect, Tube Interpretation Negative ABSC Comment:Testing performed by : [address] [address] Blood 01/08/2025 10:5 1 AM MEMBER SERVICES COORDINATOR 01/08/2025 11:39 AM MEMBER SERVICES COORDINATOR us Braden Hare MD LAB BLOOD ORDERABLES Final R esult [facility] [address] [facility] [place] [address] * (ABNORMAL) CBC with auto differential (01/08/2025 10:51 AM MEMBER SERVICES COORDINATOR) WBC 1.03(L) 3.80 - 9.90 K/cumm Comment:Testing performed by : [address] [address] Hgb 7.3(L) 13.0 - 17.5 g/dL CHRISSY Comment:Testing performed by : [address], [address] Hct 22.4(L) 38.9 - 50.3 % CHRISSY Comment:Testing performed by : [address], [address] Plt 29(L) 150 - 400 K/cumm CHRISSY Comment:Testing performed by : [address] [address] MPV Not Measured 9.1 - 12.3 fL CHRISSY Comment:Testing performed by : [address], [address] RBC 2.33(L) 4.30 - 5.80 M/cumm CHRISSY Comment:Testing performed by : [address] [address] MCV 96.1 81.3 - 96.4 fL CHRISSY Comment:Testing performed by : [address], [address] MCH 31.3 27.1 - 33.3 pg CHRISSY BELLO Comment:Testing performed by : [address], [address] MCHC 32.6 32.3 - 35.7 g/dL CHRISSY Comment:Testing performed by : [address] [address] RDW CV 15.5(H) 11.1 - 14.9 % CHRISSY Comment:Testing performed by : [address] [address] RDW SD 52.7(H) 35.7 - 48.1 fL CHRISSY Comment:Testing performed by : [address] [address] NRBC abs 0.00 0.00 - 0.01 K/cumm CHRISSY Comment:Testing performed by : [address] [address] ANC Prelim 0.38(L) 1.50 - 6.50 K/cumm CHRISSY Comment: Interpretive Data The rapid ANC is a preliminary automated count and may vary from the final ANC (Neut Abs) reported in the WBC differential that follows. Current interpretive data was last revised 2024. Testing performed by: [address] [address] Blood 01/08/2025 10:5 1 AM MEMBER SERVICES COORDINATOR 01/08/2025 10:51 AM MEMBER SERVICES COORDINATOR Braden Hare MD LAB BLOOD ORDERABLES Final R esult [facility] [address] [facility] [place] [address] * ABO/Rh (01/08/2025 10:51 AM MEMBER SERVICES COORDINATOR) ABO/Rh O Positive Comment:Testing performed by : [address] [address] Blood 01/08/2025 10:5 1 AM MEMBER SERVICES COORDINATOR 01/08/2025 11:39 AM MEMBER SERVICES COORDINATOR Narrative CHRISSY - 01/08/2025 12:31 PM MEMBER SERVICES COORDINATOR Has the patient had Daratumumab or Isatuximab in the past 6 months?->Unknown Braden Hare MD LAB BLOOD BANK TEST ORDERABL ES Final Result Performing Organization Address City/[facility]/ZIP Co de Phone Number CHRISSY [address] [facility] [place] [address] * Crossmatch (01/08/2025 10:51 AM MEMBER SERVICES COORDINATOR) Pathologist [facility] Crossmatch Compatible [facility] Unit number for crossmatch [id number] [facility] Blood 01/08/2025 10:5 1 AM MEMBER SERVICES COORDINATOR 01/08/2025 11:39 AM MEMBER SERVICES COORDINATOR us Braden Hare MD LAB BLOOD BANK TEST ORDERABL ES Final Result Performing Organization Address [facility] Co de Phone Number CHRISSY [address] [place] [address] * (ABNORMAL) Comprehensive metabolic panel (01/08/2025 10:51 AM MEMBER SERVICES COORDINATOR) [facility] Sodium 140 135 - 145 mmol/L Comment:Testing performed by : [address] [address] Potassium, pl 4.5 3.3 - 4.9 mmol/L CHRISSY Comment:Testing performed by : [address] [address] Chloride 103 97 - 110 mmol/L CHRISSY Comment:Testing performed by : [address] [address] CO2 29 22 - 32 mmol/L CHRISSY Comment:Testing performed by : [address] [address] Anion gap 8 2 - 15 mmol/L CHRISSY Comment:Testing performed by : [address] [address] BUN 26(H) 6 - 25 mg/dL CHRISSY Comment:Testing performed by : [address] [address] Creatinine 0.90 0.80 - 1.30 mg/dL CHRISSY Comment:Testing performed by : [address] [address] Glucose 178 70 - 199 mg/dL CHRISSY Comment: Interpretive [...] was last revised 2022. Testing performed by: [address] [address] Calcium 9.3 8.5 - 10.3 mg/dL CHRISSY Comment:Testing performed by : [address] [address] Bilirubin, total 1.5(H) 0.1 - 1.2 mg/dL CHRISSY Comment:Testing performed by : [address] [address] Protein, pl 6.0(L) 6.5 - 8.5 g/dL CHRISSY Comment:Testing performed by : [address] [address] Albumin 4.1 3.5 - 5.0 g/dL CHRISSY Comment:Testing performed by : [address] [address] Alk phos 44 40 - 130 Units/L CHRISSY Comment:Testing performed by : [address] [address] ALT 8 7 - 55 Units/L CHRISSY Comment:Testing performed by : [address] [address] AST 10 10 - 50 Units/L CHRISSY Comment:Testing performed by : [address] [address] Blood 01/08/2025 10:5 1 AM MEMBER SERVICES COORDINATOR 01/08/2025 10:51 AM MEMBER SERVICES COORDINATOR us Braden Hare MD LAB BLOOD ORDERABLES Final R esult CHRISSY [address] [facility] [place] [address] * Transfuse RBC (01/02/2025 1:27 PM CDT) Blood Brooke Clayton MD BLOOD TRANSFUSION ORDERABLE S Final Result * Transfuse RBC (01/02/2025 12:03 PM CDT) Blood Brooke Clayton MD BLOOD TRANSFUSION ORDERABLE S Edited Result - Final * Prepare RBC: 2 Units (01/01/2025 4:02 PM CDT) Units requested 2 Comment:Testing performed by : [address] [address] Units requested Ready [facility] Comment:Testing performed by : [facility], [address] [place] [address]., [address] Unit Number [id number] Product code [id number] [facility] Blood Expiration Date [facility] Product Blood Type (for scanning) 5100 [facility] Product Blood Type OPOS [facility] Dispense Status DISPENSED [facility] Unit Number [id number] Product code [id number] [facility] Blood Expiration Date [id number] [facility] Product Blood Type (for scanning) 5100 [facility] Product Blood Type OPOS [facility] Dispense Status DISPENSED [facility] Blood 01/01/2025 4:02 PM CDT 01/01/2025 4:02 PM CDT us Braden Hare MD BLOOD BANK PRODUCT ORDERABLE S Final Result CHRISSY [address] [facility] [place] [address] * (ABNORMAL) Immature platelet fraction (01/01/2025 10:32 AM CDT) IPF 23.1(H) 1.6 - 10.1 % Comment:Testing performed by : [address] [address] Blood 01/01/2025 10:3 2 AM CDT 01/01/2025 10:36 AM CDT Braden Hare MD LAB BLOOD ORDERABLES Final R esult Performing Organization Address [facility] Co de Phone Number CHRISSY [facility]0 [facility] [place] [address] * (ABNORMAL) Blood smear review (01/01/2025 10:32 AM CDT) [facility] RBC morphology Consistent with RBC Indicies Comment:Testing performed by : [address] [address] Anisocytosis Slight(A) CHRISSY Comment:Testing performed by : [address] [address] Schistocytes 1-2/HPF(A) CHRISSY Comment:Testing performed by : [address] [address] Elliptocytes 3-7/HPF(A) CHRISSY Comment:Testing performed by : [address] [address] Target cells 3-7/HPF(A) CHRISSY Comment:Testing performed by : [address] [address] Platelet estimate Decreased(A) CHRISSY Comment:Testing performed by : [address] [address] Blood 01/01/2025 10:3 2 AM CDT 01/01/2025 10:36 AM CDT Braden Hare MD LAB BLOOD ORDERABLES Final R esult Performing Organization Address [facility]/ZIP Co de Phone Number CHRISSY [address] [facility] [place] [address] * eGFR (01/01/2025 10:32 AM CDT) eGFR [...] was last reviewed 2021. Testing performed by: [address] [address] Blood 01/01/2025 10:3 2 AM CDT 01/01/2025 10:36 AM CDT us Braden Hare MD LAB BLOOD ORDERABLES Final [facility] [address] [facility] [place] [address] * (ABNORMAL) Differential, auto (01/01/2025 10:32 AM CDT) Neutrophil abs 1.22(L) 1.50 - 6.50 K/cumm Comment:Testing performed by : [address] [address] Imm gran abs 0.01 0.00 - 0.10 K/cumm CHRISSY Comment:Testing performed by : [address] [address] Lymphocyte abs 0.31(L) 0.80 - 3.30 K/cumm CHRISSY Comment:Testing performed by : [address] [address] Monocyte abs 0.06(L) 0.20 - 0.80 K/cumm CHRISSY Comment:Testing performed by : [address] [address] Eosinophil abs 0.01 0.00 - 0.50 K/cumm CHRISSY Comment:Testing performed by : [address] [address] Basophil abs 0.04 0.00 - 0.10 K/cumm CHRISSY Comment:Testing performed by : [address] [address] Neutrophil pct 74.0 % CHRISSY Comment: Interpretive Data Percent cell count reference ranges are not reported, since discordance with absolute values may lead to misinterpretation of CBC data. Current Interpretive Data was last revised on 2017. Testing performed by: [address] [address] Imm gran pct 0.6 % CHRISSY Comment: Interpretive Data Percent cell count reference ranges are not reported, since discordance with absolute values may lead to misinterpretation of CBC data. Current Interpretive Data was last revised on 2017. Testing performed by: [address] [address] Lymphocyte pct 18.8 % CHRISSY Comment: Interpretive Data Percent cell count reference ranges are not reported, since discordance with absolute values may lead to misinterpretation of CBC data. Current Interpretive Data was last revised on 2017. Testing performed by: [address] [address] Monocyte pct 3.6 % CHRISSY Comment: Interpretive Data Percent cell count reference ranges are not reported, since discordance with absolute values may lead to misinterpretation of CBC data. Current Interpretive Data was last revised on 2017. Testing performed by: [address] [address] Eosinophil pct 0.6 % CHRISSY Comment: Interpretive Data Percent cell count reference ranges are not reported, since discordance with absolute values may lead to misinterpretation of CBC data. Current Interpretive Data was last revised on 2017. Testing performed by: [address] [address] Basophil pct 2.4 % CHRISSY Comment: Interpretive Data Percent cell count reference ranges are not reported, since discordance with absolute values may lead to misinterpretation of CBC data. Current Interpretive Data was last revised on 2017. Testing performed by: [address] [address] Blood 01/01/2025 10:3 2 AM CDT 01/01/2025 10:36 AM CDT us Braden Hare MD LAB BLOOD ORDERABLES Final R esult CHRISSY [address] [facility] [place] [address] * (ABNORMAL) CBC with auto differential (01/01/2025 10:32 AM CDT) WBC 1.65(L) 3.80 - 9.90 K/cumm Comment:Testing performed by : [address] [address] Hgb 6.9(L) 13.0 - 17.5 g/dL CHRISSY BELLO Comment:Testing performed by : [address] [address] Hct 20.8(L) 38.9 - 50.3 % CHRISSY Comment:Testing performed by : [address] [address] Plt 29(L) 150 - 400 K/cumm CHRISSY Comment:Testing performed by : [address] [address] MPV Not Measured 9.1 - 12.3 fL CHRISSY BELLO Comment:Testing performed by : [address] [address] RBC 2.16(L) 4.30 - 5.80 M/cumm CHRISSY BELLO Comment:Testing performed by : [address] [address] MCV 96.3 81.3 - 96.4 fL CHRISSY Comment:Testing performed by : [address] [address] MCH 31.9 27.1 - 33.3 pg CHRISSY BELLO Comment:Testing performed by : [address] [address] MCHC 33.2 32.3 - 35.7 g/dL CHRISSY Comment:Testing performed by : [address] [address] RDW CV 16.6(H) 11.1 - 14.9 % CHRISSY Comment:Testing performed by : [address] [address] RDW SD 56.8(H) 35.7 - 48.1 fL CHRISSY Comment:Testing performed by : [address] [address] NRBC abs 0.00 0.00 - 0.01 K/cumm CHRISSY Comment:Testing performed by : [address] [address] ANC Prelim 1.22(L) 1.50 - 6.50 K/cumm CHRISSY Comment: Interpretive Data The rapid ANC is a preliminary automated count and may vary from the final ANC (Neut Abs) reported in the WBC differential that follows. Current interpretive data was last revised 2024. Testing performed by: [address] [address] Blood 01/01/2025 10:3 2 AM CDT 01/01/2025 10:36 AM CDT us Braden Hare MD LAB BLOOD ORDERABLES Edited Result - Final CHRISSY BELLO [address] [facility] [place], [place] [id number] * ABO/Rh (01/01/2025 10:32 AM CDT) ABO/Rh O Positive Comment:Testing performed by : [facility], [address] [place] [address]., [address] Blood 01/01/2025 10:3 2 AM CDT 01/01/2025 11:58 AM CDT Narrative CHRISSY - 01/01/2025 12:30 PM CDT Has the patient had Daratumumab or Isatuximab in the past 6 months?->Unknown Braden Hare MD LAB BLOOD BANK TEST ORDERABL ES Final Result Performing Organization Address [facility] de Phone Number [address] [place] [address] * Crossmatch (01/01/2025 10:32 AM CDT) Crossmatch Compatible [facility] Unit number for crossmatch [id number] [facility] Crossmatch Compatible [facility] Unit number for crossmatch [id number] [facility] Blood 01/01/2025 10:3 2 AM CDT 01/01/2025 11:58 AM CDT Braden Hare MD LAB BLOOD BANK TEST ORDERABL ES Final Result Performing Organization Address [facility] de Phone Number [address] [address] * Antibody screen (01/01/2025 10:32 AM CDT) Chris, indirect, Gel Interpretation Negative ABSC Comment:Testing performed by : [facility], [address] [place] [address]., [address] Blood 01/01/2025 10:3 2 AM CDT 01/01/2025 11:58 AM CDT Narrative CHRISSY - 01/01/2025 12:30 PM CDT Has the patient had Daratumumab or Isatuximab in the past 6 months?->Unknown Braden Hare MD LAB BLOOD BANK TEST ORDERABL ES Final Result CHRISSY [address] [facility] [place] [address] * (ABNORMAL) Comprehensive metabolic panel (01/01/2025 10:32 AM CDT) Sodium 139 135 - 145 mmol/L Comment:Testing performed by : [address] [address] Potassium, pl 4.1 3.3 - 4.9 mmol/L CHRISSY Comment:Testing performed by : [address], [place]., [address] Chloride 104 97 - 110 mmol/L CHRISSY Comment:Testing performed by : [address], [place]., [address] CO2 25 22 - 32 mmol/L CHRISSY Comment:Testing performed by : [address] [address] Anion gap 10 2 - 15 mmol/L CHRISSY Comment:Testing performed by : [address] [address] BUN 19 6 - 25 mg/dL CHRISSY Comment:Testing performed by : [address] [address] Creatinine 0.90 0.80 - 1.30 mg/dL CHRISSY Comment:Testing performed by : [address] [address] Glucose 289(H) 70 - 199 mg/dL CHRISSY [...] was last revised 2022. Testing performed by: [address] [address] Calcium 9.0 8.5 - 10.3 mg/dL CHRISSY Comment:Testing performed by : [address] [address] Bilirubin, total 1.7(H) 0.1 - 1.2 mg/dL CHRISSY Comment:Testing performed by : [address], [place]., [address] Protein, pl 5.8(L) 6.5 - 8.5 g/dL CHRISSY Comment:Testing performed by : [address] [address] Albumin 4.0 3.5 - 5.0 g/dL CHRISSY Comment:Testing performed by : [address], [address] Alk phos 42 40 - 130 Units/L CHRISSY Comment:Testing performed by : [address], [address] ALT 7 7 - 55 Units/L CHRISSY Comment:Testing performed by : [address] [address] AST 8(L) 10 - 50 Units/L [facility] Comment:Testing performed by : [address] [address] Blood 01/01/2025 10:3 2 AM CDT 01/01/2025 10:36 AM CDT us Braden Hare MD LAB BLOOD ORDERABLES Final R esult Performing Organization Address City/State/[facility] Co de Phone Number [facility] [address] [facility] [place] [address] * Transfuse RBC (12/24/2024 2:20 PM CDT) Blood us Brooke Clayton MD BLOOD TRANSFUSION ORDERABLE S Final Result * Prepare RBC: 1 Units (12/24/2024 10:20 AM CDT) Units requested 1 Comment:Testing performed by : [address] [place] [address] Units requested Ready CHRISSY BELLO Comment:Testing performed by : [address] [address] Unit Number [id number] Product code [id number] CHRISSY Blood Expiration Date [id number] [facility] Product Blood Type (for scanning) 5100 [facility] Product Blood Type [facility]OS [facility] Dispense Status DISPENSED [facility] Blood 12/24/2024 10:2 0 AM CDT 12/24/2024 10:20 AM CDT us Braden Hare MD BLOOD BANK PRODUCT ORDERABLE S Final Result Performing Organization Address [facility] Co de Phone Number CHRISSY [address] [place] [address] * (ABNORMAL) Immature platelet fraction (12/24/2024 8:53 AM CDT) Pathologist [facility] IPF 22.4(H) 1.6 - 10.1 % Comment:Testing performed by : [address] [address] Blood 12/24/2024 8:53 AM CDT 12/24/2024 8:54 AM CDT us Braden Hare MD LAB BLOOD ORDERABLES Final R esult Performing Organization Address [facility] Co de Phone Number [address] [address] * (ABNORMAL) Blood smear review (12/24/2024 8:53 AM CDT) Pathologist [facility] RBC morphology Consistent with RBC Indicies Comment:Testing performed by : [address] [address] Anisocytosis Slight(A) CHRISSY BELLO Comment:Testing performed by : [address] [address] Schistocytes 1-2/HPF(A) CHRISSY BELLO Comment:Testing performed by : [address] [address] Elliptocytes 3-7/HPF(A) CHRISSY Comment:Testing performed by : [address] [address] Platelet estimate Decreased(A) CHRISSY Comment:Testing performed by : [address] [address] Blood 12/24/2024 8:53 AM CDT 12/24/2024 8:54 AM CDT us Braden Hare MD LAB BLOOD ORDERABLES Final R esult CHRISSY [address] [facility] [place] [address] * (ABNORMAL) Differential, auto (12/24/2024 8:53 AM CDT) Neutrophil abs 1.88 1.50 - 6.50 K/cumm Comment:Testing performed by : [address] [address] Imm gran abs 0.02 0.00 - 0.10 K/cumm CHRISSY Comment:Testing performed by : [address] [address] Lymphocyte abs 0.42(L) 0.80 - 3.30 K/cumm CHRISSY Comment:Testing performed by : [address] [address] Monocyte abs 0.29 0.20 - 0.80 K/cumm CHRISSY Comment:Testing performed by : [address] [address] Eosinophil abs 0.03 0.00 - 0.50 K/cumm CHRISSY Comment:Testing performed by : [address] [address] Basophil abs 0.02 0.00 - 0.10 K/cumm CHRISSY Comment:Testing performed by : [address] [address] Neutrophil pct 70.6 % CHRISSY Comment: Interpretive Data Percent cell count reference ranges are not reported, since discordance with absolute values may lead to misinterpretation of CBC data. Current Interpretive Data was last revised on 2017. Testing performed by: [address] [address] Imm gran pct 0.8 % CERSERINA Comment: Interpretive Data Percent cell count reference ranges are not reported, since discordance with absolute values may lead to misinterpretation of CBC data. Current Interpretive Data was last revised on 2017. Testing performed by: [address] [address] Lymphocyte pct 15.8 % CERSERINA Comment: Interpretive Data Percent cell count reference ranges are not reported, since discordance with absolute values may lead to misinterpretation of CBC data. Current Interpretive Data was last revised on 2017. Testing performed by: [address] [address] Monocyte pct 10.9 % CERSERINA Comment: Interpretive Data Percent cell count reference ranges are not reported, since discordance with absolute values may lead to misinterpretation of CBC data. Current Interpretive Data was last revised on 2017. Testing performed by: [address] [address] Eosinophil pct 1.1 % CERSERINA Comment: Interpretive Data Percent cell count reference ranges are not reported, since discordance with absolute values may lead to misinterpretation of CBC data. Current Interpretive Data was last revised on 2017. Testing performed by: [address] [address] Basophil pct 0.8 % CERSERINA Comment: Interpretive Data Percent cell count reference ranges are not reported, since discordance with absolute values may lead to misinterpretation of CBC data. Current Interpretive Data was last revised on 2017. Testing performed by: [address] [address] Blood 12/24/2024 8:53 AM CDT 12/24/2024 8:54 AM CDT Braden Hare MD LAB BLOOD ORDERABLES Final R esult CHRISSY [address] [facility] [place] [address] * (ABNORMAL) CBC with auto differential (12/24/2024 8:53 AM CDT) [facility] Signature WBC 2.66(L) 3.80 - 9.90 K/cumm Comment:Testing performed by : [address] [address] Hgb 7.0(L) 13.0 - 17.5 g/dL CHRISSY Comment:Testing performed by : [address] [address] Hct 21.4(L) 38.9 - 50.3 % CHRISSY Comment:Testing performed by : [address] [address] Plt 15(C) 150 - 400 K/cumm CHRISSY Comment: This result has been called to Viry Maharaj RN by [id number] on 12/24/2024 09:16:39, and has been read back. Testing performed by: [address] [address] MPV Not Measured 9.1 - 12.3 fL CHRISSY Comment:Testing performed by : [address] [address] RBC 2.23(L) 4.30 - 5.80 M/cumm CHRISSY BELLO Comment:Testing performed by : [address] [address] MCV 96.0 81.3 - 96.4 fL CHRISSY Comment:Testing performed by : [address] [address] MCH 31.4 27.1 - 33.3 pg CHRISSY BELLO Comment:Testing performed by : [address] [address] MCHC 32.7 32.3 - 35.7 g/dL CHRISSY BELLO Comment:Testing performed by : [address] [address] RDW CV 16.7(H) 11.1 - 14.9 % CHRISSY Comment:Testing performed by : [address] [address] RDW SD 55.1(H) 35.7 - 48.1 fL CHRISSY Comment:Testing performed by : [address] [address] NRBC abs 0.00 0.00 - 0.01 K/cumm CHRISSY Comment:Testing performed by : [address] [address] ANC Prelim 1.88 1.50 - 6.50 K/cumm CHRISSY Comment: Interpretive Data The rapid ANC is a preliminary automated count and may vary from the final ANC (Neut Abs) reported in the WBC differential that follows. Current interpretive data was last revised 2024. Testing performed by: [address] [address] Blood 12/24/2024 8:53 AM CDT 12/24/2024 8:54 AM CDT Braden Hare MD LAB BLOOD ORDERABLES Edited Result - Final Performing Organization Address [facility] Co de Phone Number [place] [id number] [facility] [place], [place] [id number] * ABO/Rh (12/24/2024 8:53 AM CDT) ABO/Rh O Positive Comment:Testing performed by : [address] [address] Blood 12/24/2024 8:53 AM CDT 12/24/2024 9:42 AM CDT Narrative CHRISSY - 12/24/2024 10:19 AM CDT Has the patient had Daratumumab or Isatuximab in the past 6 months?->Unknown Braden Hare MD LAB BLOOD BANK TEST ORDERABL ES Final Result Performing Organization Address City/[facility] Co de Phone Number [facility] [address] [facility] [place] [address] * Crossmatch (12/24/2024 8:53 AM CDT) Crossmatch Compatible [facility] Unit number for crossmatch [id number] [facility] Blood 12/24/2024 8:53 AM CDT 12/24/2024 9:42 AM CDT Braden Hare MD LAB BLOOD BANK TEST ORDERABL ES Final Result [address] [address] * Antibody screen (12/24/2024 8:53 AM CDT) Chris, indirect, Gel Interpretation Negative [facility]SC Comment:Testing performed by : [facility], [address] [place] [address]., [address] Blood 12/24/2024 8:53 AM CDT 12/24/2024 9:42 AM CDT Narrative [facility] - 12/24/2024 10:19 AM CDT Has the patient had Daratumumab or Isatuximab in the past 6 months?->Unknown Result [facility] Braden Hare MD LAB BLOOD BANK TEST ORDERABL ES Final Result Performing Organization Address City/[facility] Co de Phone Number [address] [place] [address] * Transfuse RBC (12/16/2024 3:14 PM CDT) Blood Brooke Clayton MD BLOOD TRANSFUSION ORDERABLE S Final Result * Transfuse RBC (12/16/2024 12:51 PM CDT) Blood Brooke Clayton MD BLOOD TRANSFUSION ORDERABLE S Final Result * Prepare RBC: 2 Units (12/16/2024 10:05 AM CDT) [facility] Units requested 2 Comment:Testing performed by : [facility], [address] [place] [address]., [address] Units requested Ready CHRISSY BELLO Comment:Testing performed by : [facility], [address] [place] [address]., [address] Unit Number [id number] Product code [id number] CHRISSY Blood Expiration Date CHRISSY Product Blood Type (for scanning) 5100 [facility] Product Blood Type OPOS [facility] [facility]ENTER Dispense Status DISPENSED CHRISYS Unit Number [id number] Product code [id number] CHRISSY Blood Expiration Date CHRISSY Product Blood Type (for scanning) 5100 [facility] Product Blood Type OPOS [facility] Dispense Status DISPENSED CHRISSY Blood 12/16/2024 10:0 5 AM CDT 12/16/2024 10:05 AM CDT us Braden Hare MD BLOOD BANK PRODUCT ORDERABLE S Final Result Performing Organization Address City/[facility] Co de Phone Number CHRISSY [address] [place] [address] * (ABNORMAL) Immature platelet fraction (12/16/2024 8:32 AM CDT) [facility] IPF 22.3(H) 1.6 - 10.1 % Comment:Testing performed by : [address] [address] Blood 12/16/2024 8:32 AM CDT 12/16/2024 8:34 AM CDT us Braden Hare MD LAB BLOOD ORDERABLES Final R esult Performing Organization Address City/[facility]/ZIP Co de Phone Number CLAUDIO[address] [place] [address] * (ABNORMAL) Blood smear review (12/16/2024 8:32 AM CDT) RBC morphology Consistent with RBC Indicies Comment:Testing performed by : [address], [place]., [address] Anisocytosis Slight(A) CHRISSY Comment:Testing performed by : [address], [place]., [address] Schistocytes 1-2/HPF(A) CHRISSY Comment:Testing performed by : [address], [place]., [address] Elliptocytes 3-7/HPF(A) CHRISSY Comment:Testing performed by : [address], [place]., [address] Platelet estimate Decreased(A) CHRISSY Comment:Testing performed by : [address], [place]., [address] Blood 12/16/2024 8:32 AM CDT 12/16/2024 8:34 AM CDT us Braden Hare MD LAB BLOOD ORDERABLES Final R esult [facility] [address] [facility] [place] [address] * (ABNORMAL) Differential, auto (12/16/2024 8:32 AM CDT) Neutrophil abs 1.17(L) 1.50 - 6.50 K/cumm Comment:Testing performed by : [address] [address] Imm gran abs 0.01 0.00 - 0.10 K/cumm CHRISSY Comment:Testing performed by : [address] [address] Lymphocyte abs 0.45(L) 0.80 - 3.30 K/cumm CHRISSY Comment:Testing performed by : [address] [address] Monocyte abs 0.20 0.20 - 0.80 K/cumm CHRISSY Comment:Testing performed by : [address], [place]., [address] Eosinophil abs 0.01 0.00 - 0.50 K/cumm CHRISSY Comment:Testing performed by : [address] [address] Basophil abs 0.03 0.00 - 0.10 K/cumm CHRISSY Comment:Testing performed by : [address] [address] Neutrophil pct 62.6 % [facility] Comment: Interpretive Data Percent cell count reference ranges are not reported, since discordance with absolute values may lead to misinterpretation of CBC data. Current Interpretive Data was last revised on 2017. Testing performed by: [address] [address] Imm gran pct 0.5 % [facility] Comment: Interpretive Data Percent cell count reference ranges are not reported, since discordance with absolute values may lead to misinterpretation of CBC data. Current Interpretive Data was last revised on 2017. Testing performed by: [address] [address] Lymphocyte pct 24.1 % [facility] Comment: Interpretive Data Percent cell count reference ranges are not reported, since discordance with absolute values may lead to misinterpretation of CBC data. Current Interpretive Data was last revised on 2017. Testing performed by: [address] [address] Monocyte pct 10.7 % [facility] Comment: Interpretive Data Percent cell count reference ranges are not reported, since discordance with absolute values may lead to misinterpretation of CBC data. Current Interpretive Data was last revised on 2017. Testing performed by: [address] [address] Eosinophil pct 0.5 % [facility] Comment: Interpretive Data Percent cell count reference ranges are not reported, since discordance with absolute values may lead to misinterpretation of CBC data. Current Interpretive Data was last revised on 2017. Testing performed by: [address] [address] Basophil pct 1.6 % [facility] Comment: Interpretive Data Percent cell count reference ranges are not reported, since discordance with absolute values may lead to misinterpretation of CBC data. Current Interpretive Data was last revised on 2017. Testing performed by: [address] [address] Blood 12/16/2024 8:32 AM CDT 12/16/2024 8:34 AM CDT us Braden Hare MD LAB BLOOD ORDERABLES Final R esult [facility] [address] [facility] [place] [address] * (ABNORMAL) CBC with auto differential (12/16/2024 8:32 AM CDT) WBC 1.87(L) 3.80 - 9.90 K/cumm Comment:Testing performed by : [address] [address] Hgb 5.8(C) 13.0 - 17.5 g/dL CHRISSY Comment: This result has been called to Sandra Bronson RN by [id number] on 12/16/2024 08:55:27, and has been read back. Testing performed by: [address] [address] Hct 17.1(L) 38.9 - 50.3 % CHRISSY Comment:Testing performed by : [address] [address] Plt 12(C) 150 - 400 K/cumm CHRISSY Comment: This result has been called to Sandra Bronson RN by [id number] on 12/16/2024 08:55:27, and has been read back. Testing performed by: [address] [address] MPV Not Measured 9.1 - 12.3 fL CHRISSY BELLO Comment:Testing performed by : [address] [address] RBC 1.83(L) 4.30 - 5.80 M/cumm CHRISSY BELLO Comment:Testing performed by : [address] [address] MCV 93.4 81.3 - 96.4 fL CERNER MH Comment:Testing performed by : [address] [address] MCH 31.7 27.1 - 33.3 pg CHRISSY BELLO Comment:Testing performed by : [address] [address] MCHC 33.9 32.3 - 35.7 g/dL CHRISSY BELLO Comment:Testing performed by : [address] [address] RDW CV 17.0(H) 11.1 - 14.9 % CHRISSY Comment:Testing performed by : [address] [address] RDW SD 55.4(H) 35.7 - 48.1 fL CHRISSY BELLO Comment:Testing performed by : [address] [address] NRBC abs 0.00 0.00 - 0.01 K/cumm CHRISSY Comment:Testing performed by : [address] [address] ANC Prelim 1.17(L) 1.50 - 6.50 K/cumm CHRISSY Comment: Interpretive Data The rapid ANC is a preliminary automated count and may vary from the final ANC (Neut Abs) reported in the WBC differential that follows. Current interpretive data was last revised 2024. Testing performed by: [address] [address] Blood 12/16/2024 8:32 AM CDT 12/16/2024 8:34 AM CDT us Braden Hare MD LAB BLOOD ORDERABLES Edited Result - Final CHRISSY [address] [facility] [place] [address] * ABO/Rh (12/16/2024 8:32 AM CDT) ABO/Rh O Positive Comment:Testing performed by : [address] [address] Blood 12/16/2024 8:32 AM CDT 12/16/2024 9:23 AM CDT Narrative [facility] - 12/16/2024 10:00 AM CDT Has the patient had Daratumumab or Isatuximab in the past 6 months?->Unknown Braden Hare MD LAB BLOOD BANK TEST ORDERABL ES Final Result Performing Organization Address [facility] de Phone Number [address] [place] [place] [address] * Crossmatch (12/16/2024 8:32 AM CDT) Crossmatch Compatible [facility] Unit number for crossmatch [id number] [facility] Crossmatch Compatible [facility] Unit number for crossmatch [id number] [facility] Blood 12/16/2024 8:32 AM CDT 12/16/2024 9:23 AM CDT Braden Hare MD LAB BLOOD BANK TEST ORDERABL ES Final Result Performing Organization Address [facility] de Phone Number [address] [place] [place] [address] * Antibody screen (12/16/2024 8:32 AM CDT) Chris, indirect, Gel Interpretation Negative ABSC Comment:Testing performed by : [facility], [address] [place] [address], [address] Blood 12/16/2024 8:32 AM CDT 12/16/2024 9:23 AM CDT Narrative [facility] - 12/16/2024 10:09 AM CDT Has the patient had Daratumumab or Isatuximab in the past 6 months?->Unknown Braden Hare MD LAB BLOOD BANK TEST ORDERABL ES Final Result Performing Organization Address [facility] de Phone Number [address] [place] [place] [address] * Transfuse RBC (12/04/2024 1:41 PM CDT) Blood Brooke Clayton MD BLOOD TRANSFUSION ORDERABLE S Final Result * Prepare RBC: 1 Units (12/04/2024 10:50 AM CDT) Units requested 1 Comment:Testing performed by : [address] [address] Units requested Ready [facility] Comment:Testing performed by : [address] [address] Unit Number [id number] Product code [id number] [facility] Blood Expiration Date [id number] [facility] Product Blood Type (for scanning) 5100 [facility] Product Blood Type OPOS [facility] Dispense Status DISPENSED [facility] Blood 12/04/2024 10:5 0 AM CDT 12/04/2024 10:49 AM CDT Braden Hare MD BLOOD BANK PRODUCT ORDERABLE S Final Result Performing Organization Address City/[facility] Co de Phone Number [address] [place] [place] [address] * (ABNORMAL) Immature platelet fraction (12/04/2024 8:28 AM CDT) IPF 20.4(H) 1.6 - 10.1 % Comment:Testing performed by : [address] [address] Blood 12/04/2024 8:28 AM CDT 12/04/2024 8:34 AM CDT Braden Hare MD LAB BLOOD ORDERABLES Final R esult [address] [place] [place] [address] * (ABNORMAL) Blood smear review (12/04/2024 8:28 AM CDT) Pathologist [facility] RBC morphology Consistent with RBC Indicies Comment:Testing performed by : [address] [address] Anisocytosis Slight(A) [facility] Comment:Testing performed by : [address], [place]., [address] Schistocytes 1-2/HPF(A) [facility] Comment:Testing performed by : [facility], [address] [place] [address], [place]., [address] Elliptocytes 3-7/HPF(A) [facility] Comment:Testing performed by : [address], [place]., [address] Acanthocytes 3-7/HPF(A) [facility] Comment:Testing performed by : [address], [place]., [address] Platelet estimate Decreased(A) [facility] Comment:Testing performed by : [address] [address] Blood 12/04/2024 8:28 AM CDT 12/04/2024 8:34 AM CDT Braden Hare MD LAB BLOOD ORDERABLES Final R esult [facility] [address] [facility] [place] [address] * eGFR (12/04/2024 8:28 AM CDT) eGFR 87 >=60 mL/min/1. 73 m2 Comment: [...] was last reviewed 2021. Testing performed by: [address] [address] Blood 12/04/2024 8:28 AM CDT 12/04/2024 8:34 AM CDT us Braden Hare MD LAB BLOOD ORDERABLES Final R esult CHRISSY [address] [facility] [place] [address] * (ABNORMAL) Differential, auto (12/04/2024 8:28 AM CDT) Neutrophil abs 1.38(L) 1.50 - 6.50 K/cumm Comment:Testing performed by : [address] [address] Imm gran abs 0.03 0.00 - 0.10 K/cumm CHRISSY Comment:Testing performed by : [address] [address] Lymphocyte abs 0.50(L) 0.80 - 3.30 K/cumm CHRISSY Comment:Testing performed by : [address] [address] Monocyte abs 0.36 0.20 - 0.80 K/cumm CHRISSY Comment:Testing performed by : [address] [address] Eosinophil abs 0.03 0.00 - 0.50 K/cumm CHRISSY Comment:Testing performed by : [address] [address] Basophil abs 0.03 0.00 - 0.10 K/cumm CHRISSY Comment:Testing performed by : [address] [address] Neutrophil pct 59.1 % [facility] Comment: Interpretive Data Percent cell count reference ranges are not reported, since discordance with absolute values may lead to misinterpretation of CBC data. Current Interpretive Data was last revised on 2017. Testing performed by: [address] [address] Imm gran pct 1.3 % [facility] Comment: Interpretive Data Percent cell count reference ranges are not reported, since discordance with absolute values may lead to misinterpretation of CBC data. Current Interpretive Data was last revised on 2017. Testing performed by: [address] [address] Lymphocyte pct 21.5 % [facility] Comment: Interpretive Data Percent cell count reference ranges are not reported, since discordance with absolute values may lead to misinterpretation of CBC data. Current Interpretive Data was last revised on 2017. Testing performed by: [address] [address] Monocyte pct 15.5 % [facility] Comment: Interpretive Data Percent cell count reference ranges are not reported, since discordance with absolute values may lead to misinterpretation of CBC data. Current Interpretive Data was last revised on 2017. Testing performed by: [address] [address] Eosinophil pct 1.3 % CERNER Comment: Interpretive Data Percent cell count reference ranges are not reported, since discordance with absolute values may lead to misinterpretation of CBC data. Current Interpretive Data was last revised on 2017. Testing performed by: [address] [address] Basophil pct 1.3 % [facility] Comment: Interpretive Data Percent cell count reference ranges are not reported, since discordance with absolute values may lead to misinterpretation of CBC data. Current Interpretive Data was last revised on 2017. Testing performed by: [address] [address] Blood 12/04/2024 8:28 AM CDT 12/04/2024 8:34 AM CDT us Braden Hare MD LAB BLOOD ORDERABLES Final [facility] esult [facility] [address] [facility] [place], [place] [address] * (ABNORMAL) CBC with auto differential (12/04/2024 8:28 AM CDT) WBC 2.33(L) 3.80 - 9.90 K/cumm Comment:Testing performed by : [address] [address] Hgb 7.3(L) 13.0 - 17.5 g/dL CHRISSY Comment:Testing performed by : [address] [address] Hct 22.0(L) 38.9 - 50.3 % CHRISSY Comment:Testing performed by : [address] [address] Plt 32(L) 150 - 400 K/cumm CHRISSY Comment:Testing performed by : [address] [address] MPV Not Measured 9.1 - 12.3 fL CHRISSY Comment:Testing performed by : [address] [address] RBC 2.34(L) 4.30 - 5.80 M/cumm CHRISSY Comment:Testing performed by : [address] [address] MCV 94.0 81.3 - 96.4 fL CHRISSY Comment:Testing performed by : [address] [address] MCH 31.2 27.1 - 33.3 pg CHRISSY Comment:Testing performed by : [address] [address] MCHC 33.2 32.3 - 35.7 g/dL CHRISSY Comment:Testing performed by : [address] [address] RDW CV 17.7(H) 11.1 - 14.9 % CHRISSY Comment:Testing performed by : [address] [address] RDW SD 58.8(H) 35.7 - 48.1 fL CHRISSY Comment:Testing performed by : [address] [address] NRBC abs 0.00 0.00 - 0.01 K/cumm CHRISSY Comment:Testing performed by : [address] [address] ANC Prelim 1.38(L) 1.50 - 6.50 K/cumm CHRISSY Comment: Interpretive Data The rapid ANC is a preliminary automated count and may vary from the final ANC (Neut Abs) reported in the WBC differential that follows. Current interpretive data was last revised 2024. Testing performed by: [address] [address] Blood 12/04/2024 8:28 AM CDT 12/04/2024 8:34 AM CDT Braden Hare MD LAB BLOOD ORDERABLES Edited Result - Final Performing Organization Address [facility] Co de Phone Number [place] [phone] [facility] [place] [address] * ABO/Rh (12/04/2024 8:28 AM CDT) ABO/Rh O Positive Comment:Testing performed by : [address] [address] Blood 12/04/2024 8:28 AM CDT 12/04/2024 9:43 AM CDT Narrative CHRISSY - 12/04/2024 10:29 AM CDT Has the patient had Daratumumab or Isatuximab in the past 6 months?->Unknown Braden Hare MD LAB BLOOD BANK TEST ORDERABL ES Final Result Performing Organization Address City/[facility] Co de Phone Number CHRISSY [address] [place] [address] * Crossmatch (12/04/2024 8:28 AM CDT) Crossmatch Compatible [facility] Unit number for crossmatch [id number] [facility] Blood 12/04/2024 8:28 AM CDT 12/04/2024 9:43 AM CDT Braden Hare MD LAB BLOOD BANK TEST ORDERABL ES Final Result Performing Organization Address [facility] Co de Phone Number [address] [address] * Antibody screen (12/04/2024 8:28 AM CDT) Pathologist [facility] Chris, indirect, Gel Interpretation Negative ABSC Comment:Testing performed by : [address] [address] Blood 12/04/2024 8:28 AM CDT 12/04/2024 9:43 AM CDT Narrative [facility] - 12/04/2024 10:46 AM CDT Has the patient had Daratumumab or Isatuximab in the past 6 months?->Unknown Braden Hare MD LAB BLOOD BANK TEST ORDERABL ES Final Result Performing Organization Address [facility] de Phone Number [address] [address] * Lactate dehydrogenase (LD) (12/04/2024 8:28 AM CDT) Pathologist [facility] Lactate dehydrogenase (LDH) 117 100 - 250 Units/L Comment:Testing performed by : [address] [address] Blood 12/04/2024 8:28 AM CDT 12/04/2024 8:34 AM CDT Braden Hare MD LAB BLOOD ORDERABLES Final R esult CHRISSY [address] [facility] [place] [address] * (ABNORMAL) Comprehensive metabolic panel (12/04/2024 8:28 AM CDT) Sodium 142 135 - 145 mmol/L Comment:Testing performed by : [address] [address] Potassium, pl 4.3 3.3 - 4.9 mmol/L CHRISSY Comment:Testing performed by : [address], [place]., [address] Chloride 108 97 - 110 mmol/L CHRISSY Comment:Testing performed by : [address] [address] CO2 26 22 - 32 mmol/L CHRISSY Comment:Testing performed by : [address] [address] Anion gap 8 2 - 15 mmol/L CHRISSY Comment:Testing performed by : [address] [address] BUN 14 6 - 25 mg/dL CHRISSY Comment:Testing performed by : [address] [address] Creatinine 0.80 0.80 - 1.30 mg/dL CHRISSY Comment:Testing performed by : [address] [address] Glucose 248(H) 70 - 199 mg/dL CHRISSY [...] was last revised 2022. Testing performed by: [address] [address] Calcium 8.8 8.5 - 10.3 mg/dL CHRISSY Comment:Testing performed by : [facility], [address] [place] [address]., [address] Bilirubin, total 1.8(H) 0.1 - 1.2 mg/dL CHRISSY Comment:Testing performed by : [address] [address] Protein, pl 5.7(L) 6.5 - 8.5 g/dL CHRISSY Comment:Testing performed by : [facility], [address] [place] [address]., [address] Albumin 3.9 3.5 - 5.0 g/dL CHRISSY Comment:Testing performed by : [address] [address] Alk phos 42 40 - 130 Units/L CHRISSY Comment:Testing performed by : [address] [address] ALT 6(L) 7 - 55 Units/L CHRISSY Comment:Testing performed by : [address] [address] AST 8(L) 10 - 50 Units/L CHRISSY Comment:Testing performed by : [address] [address] Blood 12/04/2024 8:28 AM CDT 12/04/2024 8:34 AM CDT Braden Hare MD LAB BLOOD ORDERABLES Final R esult [facility] [address] [facility] [place] [address] from Last 3 Months Insurance MEDICARE FOR LIFE MEDICARE FOR LIFE MEDICARE FOR LIFE Care Teams Plant Sprayer Relationship Specialty Start Date End Date Patricia Sanchez MD PCP - General Family Medicine 07/05/17 [place] [address] [place] [address] Consulting Physician Hematology and Oncology 12/15/24
--- OUTSIDE RECORDS SUMMARY | 2025-02-17 14:01 | XMS_ITS | Encounter Summary ---
Author Organization [facility] Address [address] [facility] [place] [address] Care Team Providers Care Cooker Syrup Name Role Phone Unavailable Primary Care Provider Unavailabl e Encounter Details Date Type Department Care Team (Late st Contact Info) Description 07/10/2017 Lab Requisition [facility] Care Pathology Lab [address] [place] [address] Mayito Spann MD [address] [address] Thrombocytopenia Social History Tobacco Use [...] AM CDT) Case Report Flow Cytometry Case: [id number] Authorizing Provider: Mayito Spann MD Collected: 07/10/2017 09:50 AM Pathologist: Tanika Lee MD Received: 07/10/2017 02:58 PM Specimen: Bone Marrow 8 2:59 PM CDT [facility] Final Diagnosis Bone marrow, Flow cytometric immunophenotypic analysis: - No evidence of non Hodgkin lymphoma or high grade myeloid neoplasm. - See interpretation. 8 2:59 PM [facility] at [address] [facility] Flow Cytometry Interpretation The bone marrow specimen [...] cytometry specimen is reviewed for quality control clerk purposes. The bone marrow specimen shows no evidence of involvement by non Hodgkin lymphoma or high grade myeloid neoplasm. Correlation with clinical findings, concurrent bone marrow core biopsy ([facility]; [id number]), and relevant cytogenetic/molecular studies is needed. KM/FABRIC COATING SUPERVISOR/vp product marketing 8 2:59 PM [facility] Flow Cytometry Results Differential Result Comment Flow Cell Count /uL [id number] Total Viability % 99.0 Lymphocytes % 13 Dim CD45 Region % 4 Monocytes % 9 Granulocytes % 73 8 2:59 PM [facility] Reason for test Thrombocytopenia 287.5 8 2:59 PM [facility] Client Specimen ID # [id number] 8 2:59 PM [facility] Number of markers 17 were performed. A Flow CD10 A Flow CD13 A Flow CD20 A Flow CD2 A Flow CD3 A Flow CD4 A Flow CD1a A Flow CD5 A Flow CD19 A Flow CD33 A Flow CD34 A Flow CD45 A Flow CD7 A Flow CD8 A Flow CD30 A Elberon+CD19+ A Lambda+CD19+ 8 2:59 PM [facility] Disclaimer Test performed at [facility], [address] [place], [place], [address]. *The established laboratory minimum viability is 70%. [...] complexity clinical testing. 8 2:59 PM CDT [facility] Embedded Images 8 2:59 PM CDT [facility] Pathology/Cytolo gy BONE MARROW SPECIMEN / Unknown 07/10/2017 9:50 AM CDT 07/10/2017 2:58 PM CDT Mayito Spann MD LAB - PATHOLOGY/CYTOLOGY ORDER SAVANAH Final Result [facility] [address] [phone] documented in this encounter Visit Diagnoses Diagnosis Thrombocytopenia Thrombocytopenia, unspecified documented in this encounter
--- OUTSIDE RECORDS SUMMARY | 2025-02-17 14:01 | XMS_ITS | Clinical Summary ---
Author Organization [facility] Address [address] [place] [address] Care Team Providers Care Solar Energy Technician Name Role Phone Unavailable Primary Care Provider Unavailabl e Source Comments [facility],non-owned Affiliates and Associated Physician Practices is amultiple site organization consisting of ambulatory clinics and hospital sitesin [place]. This disclosure is being madepursuant to the Care Everywhere program and may not contain all information available regarding this patient. Last updated 17.[facility] Allergies No known active allergies Medications * [...] DEPRESSION SCREENING 03/05/2024 COVID-19 VACCINE (1 - 2024-2 6 season) 2024 INFLUENZA VACCINE (#1) 2024 HEPATITIS [...]
--- OUTSIDE RECORDS SUMMARY | 2025-02-17 14:01 | XMS_ITS | Patient Health Record ---
Author Organization [facility], Address [address] [place] [address] Care Team Providers Care Brand Marketing Specialist Name Role Phone SELF, SELF Primary Care Provider Issa Robledo Unavailable [phone] Reason For Referral No Information Plan Of Treatment No Information Insurance Providers Payer Name Payer Address Payer Phone Subscriber Number Group Number Insured Name Patient Relationship to Insured Coverage Start Date Coverage End Date [facility] [address] [address] [phone] [id number] Tai Garay Self - patient is the insured
--- OUTSIDE RECORDS SUMMARY | 2025-02-17 14:01 | XMS_ITS ---
Author Organization [facility] Address [address] [place] [address] Care Team Providers Care Vp Respiratory Name Role Phone Patricia Sanchez MD Primary Care Prov ider Braden Hare MD Unavailable [phone] Active Problems Problem Noted Date Diagnosed Date Anemia 05/07/2024 MDS (myelodysplastic syndrome) 05/22/2023 Malignant neoplasm of prostate 07/04/2017 Thrombocytopenia 07/04/2017 Current Treatment and Therapy Plans Adult BMT/ONC - Blood and/or Platelet Administration for Outpatient* Plan Start Date:05/07/2024 Plan Provider:Ct Oliveira NP Linked Problems MDS (myelodysplastic syndrom e) (HCC)Anemia, unspecified type Treatment Medications No medications scheduled. Decitabine/cedazuridine PO (D1-5) 28 Day Cycles - MDS* Plan Start Date:10/29/2024 Plan Provider:Braden Hare MD Linked Problems MDS (myelodysplastic syndrom e) (HCC)Anemia, unspecified type Treatment Medications Current Day (Day 1 , Cycle 4 - Planned for 02/05/2025) Next Day (Day 1, Cycle 5 - Planned for 03/05/2025) decitabine-cedazuridine (INQOVI) 35-100 mg tablet decitabine-cedazuridine (INQOVI) 35-100 mg tablet decitabine-cedazuridine (INQOVI) 35-100 mg tablet IV Maintenance Therapy Plan* Plan Start Date:12/24/2024 Plan Provider:Ct Oliveira NP Linked Problems Malignant neoplasm of prosta te (HCC)MDS (myelodysplastic syndrome) (HCC) Treatment Medications No medications scheduled. Past Treatment and Therapy Plans Oncology Supportive Care Therapy Plan Plan Name Start Date Discontinue Date Treatment Medications Discontinue Reason Plan Provider Luspatercept-aamt for Anemia in Myelodysplastic Syndrome 02/05/2025 luspatercept-aa mt (REBLOZYL) Provider Discretion Braden Hare MD darbepoetin (ARANESP) Injection every 2 weeks-MDS 05/30/2023 02/05/2025 No medications scheduled. Provider Discretion Brooke Clayton MD Specialty Infusion Treatment Plan Name Start Date Discontinue Date Treatment Medications Discontinue Reason Plan Provider Luspatercept-aamt for Anemia in Myelodysplastic Syndrome 09/03/2024 09/08/2024 luspatercept-aa mt (REBLOZYL) Financial Ct Oliveira NP Resolved Problems Problem Noted Date Diagnosed Date Resolved Date Basal cell carcinoma (BCC) of skin of nose 05/12/2015 11/13/2017
--- OUTSIDE RECORDS SUMMARY | 2025-02-17 14:01 | XMS_ITS | Encounter Summary ---
Author Organization [facility] Address [address] [place] [address] Care Team Providers Care Manga Artist Name Role Phone Unavailable Primary Care Provider Unavailabl e Encounter Details Date Type Department Care Team (Late st Contact Info) Description 07/11/2017 Lab Requisition [facility] Care Pathology Lab [address] [place] [address] Mayito Spann MD [address] [address] Social History Tobacco Use Types [...] Report Bone Marrow Patholog y Report Case: [id number] Authorizing Provider: Mayito Spann MD Collected: 07/10/2017 08:30 AM Pathologist: Maliha Hernandez MD Received: 07/11/2017 03:56 PM Specimens: A) - Bone Marrow Clot, OSC: BM18-10 B) - Bone Marrow Core, OSC: BM18-10 C) - Blood Peripheral 08/02/2017 2:46 PM [facility] Final Diagnosis Bone marrow, aspirate, core biopsy, and clot section: - Hypercellular bone marrow with trilineage hematopoiesis. - Dysmegakaryopoiesis. - No evidence of lymphoma or acute leukemia. - See comment. Peripheral blood: - Normocytic, normochromic anemia. - Thrombocytopenia. 08/02/2017 2:46 PM [facility] at 1150 CDT [...] findings and relevant cytogenetic/molecular studies is needed. KM/DISBURSING OFFICER/vp securities 08/02/2017 2:46 PM [facility] Peripheral Smear Description Manual Differential Count (100 cells): 66% neutrophils, 23% lymphocytes, 10% monocytes, 1% eosinophils. Leukocyte number: Normal. Granulocyte morphology: Normal. No circulating blasts. Lymphocyte morphology: Normal. Monocyte morphology: Normal, mature. Erythrocyte number: Decreased. Erythrocyte morphology: Normocytic, normochromic. Anisopoikilocytosis: Mild. Polychromasia: Not significant. Platelet number: Decreased. Platelet morphology: Normal. 08/02/2017 2:46 PM [facility] Bone Marrow Aspirate [...] identified. Control worked appropriately. 08/02/2017 2:46 PM [facility] Bone Marrow Core [...] Similar to core biopsy. 08/02/2017 2:46 PM [facility] Flow Cytometry Summary Concurrent flow cytometry ([id number]) shows no evidence of non Hodgkin lymphoma or high grade myeloid neoplasm. 08/02/2017 2:46 PM [facility] Clinical History thrombocytopenia 08/02/2017 2:46 PM [facility] Materials Received Received are 15 slide(s) and 2 block(s) labeled as O yvan, Tai and B M18-10 . The materials originate from [place] [address]. All materials are returned to the referring institution, along with a copy of our final report. 08/02/2017 2:46 PM [facility] Disclaimer The performance characteristics of all immunohistochemical and indirect immunofluorescence stains (if any) cited in this report were determined by the Histopathology Laboratory of [facility]. Some of these tests were developed [...] the attending (teaching) pathologist. 08/02/2017 2:46 PM [facility] Addendum 1 This addendum is issued to report the results of cytogenetic analysis ([id number]) and fluorescence in-situ hybridization (FISH) testing ([id number]) performed at [facility] ([address], [address], [place] [address]). A normal male karyotype was identified (46,XY[20]). The FISH testing detects no assay specific abnormalities by MDS panel. The final diagnosis remains unchanged. Please see the separate reference laboratory reports for further details. KR/DISBURSING OFFICER/cmb 08/02/2017 2:46 PM CDT [facility] Addendum electronically signed by Maliha Hernandez MD on 08/02/2017 at 1446 CDT Embedded Images 08/02/2017 2:46 PM CDT [facility] Pathology/Cytology BONE MARROW CLOT SPECIMEN / Unknown 07/10/2017 8:30 AM CDT 07/11/2017 3:56 PM CDT Miscellaneous samples (specimen) BONE MARROW SPECIMEN / Unknown 07/10/2017 8:30 AM CDT 07/11/2017 3:56 PM CDT Miscellaneous samples (specimen) PERIPHERAL BLOOD / Unknown 07/10/2017 8:30 AM CDT 07/13/2017 11:13 AM CDT Mayito Spann MD LAB - PATHOLOGY/CYTOLOGY ORDER SAVANAH Edited Result - Final [facility] [address] [place] [address], [facility] [phone] documented in this encounter Visit Diagnoses Not on filedocumented in this encounter
--- OUTSIDE RECORDS SUMMARY | 2025-02-17 14:01 | XMS_ITS | Clinical Summary ---
Author Organization [facility] Address [address] [place] [address] Care Team Providers Care Side Puller Name Role Phone Patricia Valdez MD Primary [...] Health Maintenance Due Date Last Done Comments Hemoglobin A1C 1940 Lipid Panel 1940 Diabetes: [...] age to complete this topic Insurance MEDICARE [facility] Care Teams Side Puller Relationship Specialty Start Date End Date Patricia Valdez MD [address] [place] [id number] PCP - General 03/13/16
== END 2025-02-17 11:39 | disposition home or self-care (01) ==
LOC: ANHSURGERY 11:40 → ANHASCIMG 11:42
PROVIDERS: PCP Family Medicine; Visit Provider Family Medicine
DX: R93.89 Abnormal findings on diagnostic imaging of other specified body structures (principal)
CPT/HCPCS: 71046